=== PATIENT | male | born 1945 | race Caucasian/White ===

== ENCOUNTER 2016-11-12 14:16 | Inpatient (IN) | payer MEDICARE ==
[2016-11-12] MEDS ORDERED: DILTIAZEM 125 MG in SODIUM CHLORIDE 0.9% 100 ML IV ONE (14:48)
[2016-11-12] MEDS ORDERED: HEPARIN SODIUM,PORCINE 5,000 UNIT/ML 1 ML VIAL IV ONE (14:53)
--- NOTE | 2016-11-12 14:53 | ED ---
General Adult HPI - General Chief complaint: Arrhythmia/Palpitations Stated complaint: afib-sent by Time Seen by Provider: 11/12/16 14:30 Source: patient, RN notes reviewed Mode of arrival: wheelchair Limitations: no limitations - History of Present Illness Initial comments: This is a 71-year-old male presents to the emergency department stating that he has a history of atrial fibrillation. Patient states he ran out of his foot tonight a few days ago and did not get it refilled just. Patient states he also was on Xarelto but he quit that about a month ago. Patient states today he felt his heart racing and he went to see his primary medical care doctor's heart rate was between 1 4150 so he was sent to the emergency department. When I was talking to the patient his heart rate would vary between 120 250 beats a minute. Patient states when his heart was really racing he was mildly short of breath. Patient denies any chest pain. Patient denies any recent fever chills or cough. Patient denies abdominal pain patient denies nausea vomiting diarrhea. Patient denies any lightheadedness dizziness or near syncopal episode. - Related Data Home Medications Medication Instructions Recorded Confirmed Valsartan/Hydrochlorothiazide 1 tab PO DAILY 01/16/14 11/12/16 [Diovan Hct 160-12.5 mg Tab] Dextroamphetamine/Amphetamine 30 mg PO BID 11/12/16 11/12/16 [Adderall] Diazepam [Valium] 5 mg PO HS PRN 11/12/16 11/12/16 Flecainide Acetate [Tambocor] 100 mg PO BID 11/12/16 11/12/16 Garlique 1 tab PO DAILY 11/12/16 11/12/16 HYDROcodone/APAP 10-325MG [[place] 1 tab PO TID PRN 11/12/16 11/12/16 10-325] Allergies Allergy/AdvReac Type Severity Reaction Status Date / Time iodine Allergy Rash/Hives Verified 11/12/16 15:44 diphenhydramine HCl AdvReac Hyperactivi Verified 11/12/16 15:44 [From Benadryl] ty heparin AdvReac Unknown Verified 11/12/16 15:44 RAGWEED Allergy Itching Uncoded 11/12/16 14:30 Review of Systems ROS Statement: Those systems with pertinent positive or pertinent negative responses have been documented in the HPI. ROS Other: All systems not noted in ROS Statement are negative. 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'NT HAVE BEYER WITH HIM, blood clots History of Any Multi-Drug Resistant Organisms: None Reported Past Surgical History: Adenoidectomy, Bowel Resection, Joint Replacement, Orthopedic Surgery, Tonsillectomy Additional Past Surgical History / Comment(s): FATTY TUMOR REMOVED LT LEG, LT HIP REPLACEMENT, BOWEL RESECTION DONE FOR CA Past Anesthesia/Blood Transfusion Reactions: No Reported Reaction Past Psychological History: No Psychological Hx Reported Smoking Status: Never smoker Past Alcohol Use History: None Reported Past Drug Use History: None Reported - Past Family History Father Family Medical History: Congestive Heart Failure (CHF) Additional Family Medical History / Comment(s): emphysema, CABG Mother Family Medical History: Hypertension Additional Family Medical History / Comment(s): mac degen Brother(s) Additional Family Medical History / Comment(s): stents in leg General Exam - General Exam Comments Initial Comments: GENERAL: Patient is well-developed and well-nourished. Patient is nontoxic and well- hydrated and is in mild distress. ENT: Neck is soft and supple. No significant lymphadenopathy is noted. Oropharynx is clear. Moist mucous membranes. Neck has full range of motion without eliciting any pain. EYES: The sclera were anicteric and conjunctiva were pink and moist. Extraocular movements were intact and pupils were equal round and reactive to light. Eyelids were unremarkable. PULMONARY: Unlabored respirations. Good breath sounds bilaterally. No audible rales rhonchi or wheezing was noted. CARDIOVASCULAR: Atrial fibrillation with a rapid ventricular response ABDOMEN: Soft and nontender with normal bowel sounds. No palpable organomegaly was noted. There is no palpable pulsatile mass. SKIN: Skin is clear with no lesions or rashes and otherwise unremarkable. NEUROLOGIC: Patient is alert and oriented x3. Cranial nerves II through XII are grossly intact. Motor and sensory are also intact. Normal speech, volume and content. Symmetrical smile. MUSCULOSKELETAL: Normal extremities with adequate strength and full range of motion. LYMPHATICS: No significant lymphadenopathy is noted PSYCHIATRIC: Normal psychiatric evaluation. Limitations: no limitations Course Vital Signs 11/12/16 11/12/16 11/12/16 14:30 14:46 15:05 Temperature 98.4 F Pulse Rate 69 78 111 H Respiratory 18 20 18 Rate Blood Pressure 192/98 127/93 100/71 O2 Sat by Pulse 98 98 97 Oximetry 11/12/16 11/12/16 11/12/16 15:12 15:17 15:22 Temperature Pulse Rate 104 H 106 H 102 H Respiratory 18 18 18 Rate Blood Pressure 104/73 104/70 119/78 O2 Sat by Pulse 97 96 96 Oximetry 11/12/16 11/12/16 11/12/16 15:35 15:42 15:53 Temperature Pulse Rate 104 H 98 93 Respiratory 18 18 18 Rate Blood Pressure 110/68 102/70 105/78 O2 Sat by Pulse 96 98 97 Oximetry 11/12/16 11/12/16 11/12/16 16:45 17:25 18:15 Temperature 98.0 F 97.6 F Pulse Rate 62 60 63 Respiratory 18 18 18 Rate Blood Pressure 120/54 119/70 117/66 O2 Sat by Pulse 95 95 98 Oximetry 11/12/16 11/12/16 11/12/16 18:59 20:00 20:48 Temperature 97.5 F L 97.3 F L 98.0 F Pulse Rate 63 66 64 Respiratory 20 18 64 H Rate Blood Pressure 108/71 143/84 114/63 O2 Sat by Pulse 99 98 98 Oximetry Medical Decision Making - Medical Decision Making EKG shows atrial fibrillation at 100 beats a minute QRS is 134 QT interval 370 QTC is 477 per patient's right bundle branch block. I was in the room with the patient his heart rate was up in the 150 beats a minute for a large portion of the time I was in the room. The lowest I saw the heart rate was 120. Patient was placed on Cardizem to slow his heart rate down prior to patient going to the floor a couple Cardizem and half to 2.5 mg and the patient's heart rate was under 100. I spoke with the primary medical care doctor admitted the patient I consult cardiology. I wrote admitting orders. - Lab Data Result diagrams: 11/12/16 14:55 11/12/16 14:55 Lab Results 03/01/17 03/01/17 03/01/17 Range/Units 14:55 14:55 14:55 WBC 7.6 (3.8-10.6) k/uL RBC 5.35 (4.30-5.90) m/uL Hgb 17.3 (13.0-17.5) gm/dL Hct 48.9 (39.0-53.0) % MCV 91.3 (80.0-100.0) fL MCH 32.3 (25.0-35.0) pg MCHC 35.4 (31.0-37.0) g/dL RDW 12.7 (11.5-15.5) % Plt Count 200 (150-450) k/uL Neutrophils % 62 % Lymphocytes % 25 % Monocytes % 8 % Eosinophils % 4 % Basophils % 1 % Neutrophils # 4.7 (1.3-7.7) k/uL Lymphocytes # 1.9 (1.0-4.8) k/uL Monocytes # 0.6 (0-1.0) k/uL Eosinophils # 0.3 (0-0.7) k/uL Basophils # 0.1 (0-0.2) k/uL PT (9.0-12.0) sec INR (<1.1) APTT (22.0-30.0) sec Sodium 143 (137-145) mmol/L Potassium 3.8 (3.5-5.1) mmol/L Chloride 106 (98-107) mmol/L Carbon Dioxide 26 (22-30) mmol/L Anion Gap 11 mmol/L BUN 21 H (9-20) mg/dL Creatinine 1.55 H (0.66-1.25) mg/dL Est GFR (MDRD) Af Amer 54 (>60 ml/min/1.73 sqM) Est GFR (MDRD) Non-Af 44 (>60 ml/min/1.73 sqM) Glucose 130 H (74-99) mg/dL Calcium 9.7 (8.4-10.2) mg/dL Magnesium 2.1 (1.6-2.3) mg/dL Total Bilirubin 3.3 H (0.2-1.3) mg/dL AST 19 (17-59) U/L ALT 21 (21-72) U/L Alkaline Phosphatase 41 (38-126) U/L Total Creatine Kinase 88 (55-170) U/L CK-MB (CK-2) 1.4 (0.0-2.4) ng/mL CK-MB (CK-2) Rel Index 1.6 Troponin I <0.012 (0.000-0.034) ng/mL Total Protein 7.1 (6.3-8.2) g/dL Albumin 4.1 (3.5-5.0) g/dL 11/12/16 Range/Units 14:55 WBC (3.8-10.6) k/uL RBC (4.30-5.90) m/uL Hgb (13.0-17.5) gm/dL Hct (39.0-53.0) % MCV (80.0-100.0) fL MCH (25.0-35.0) pg MCHC (31.0-37.0) g/dL RDW (11.5-15.5) % Plt Count (150-450) k/uL Neutrophils % % Lymphocytes % % Monocytes % % Eosinophils % % Basophils % % Neutrophils # (1.3-7.7) k/uL Lymphocytes # (1.0-4.8) k/uL Monocytes # (0-1.0) k/uL Eosinophils # (0-0.7) k/uL Basophils # (0-0.2) k/uL PT 11.0 (9.0-12.0) sec INR 1.1 (<1.1) APTT 23.8 (22.0-30.0) sec Sodium (137-145) mmol/L Potassium (3.5-5.1) mmol/L Chloride (98-107) mmol/L Carbon Dioxide (22-30) mmol/L Anion Gap mmol/L BUN (9-20) mg/dL Creatinine (0.66-1.25) mg/dL Est GFR (MDRD) Af Amer (>60 ml/min/1.73 sqM) Est GFR (MDRD) Non-Af (>60 ml/min/1.73 sqM) Glucose (74-99) mg/dL Calcium (8.4-10.2) mg/dL Magnesium (1.6-2.3) mg/dL Total Bilirubin (0.2-1.3) mg/dL AST (17-59) U/L ALT (21-72) U/L Alkaline Phosphatase (38-126) U/L Total Creatine Kinase (55-170) U/L CK-MB (CK-2) (0.0-2.4) ng/mL CK-MB (CK-2) Rel Index Troponin I (0.000-0.034) ng/mL Total Protein (6.3-8.2) g/dL Albumin (3.5-5.0) g/dL Critical Care Time Critical Care Time: Yes Total Critical Care Time: 35 Disposition Clinical Impression: Atrial fibrillation with rapid ventricular response Disposition: ADMITTED IP TO THIS HOSP
[2016-11-12 15:07] LABS: Basophils # (A) 0.1 k/uL (0-0.2); Basophils % (A) 1 %; CH 33.7; CHCM 37.1; Eosinophils # (A) 0.3 k/uL (0-0.7); Eosinophils % (A) 4 %; HCT 48.9 % (39.0-53.0); HDW 3.06; HGB 17.3 gm/dL (13.0-17.5); Luc # (Auto) 0.12; Luc % (Auto) 2; Lymphocytes # (A) 1.9 k/uL (1.0-4.8); Lymphocytes % (A) 25 %; MCH 32.3 pg (25.0-35.0); MCHC 35.4 g/dL (31.0-37.0); MCV 91.3 fL (80.0-100.0); Monocytes # (A) 0.6 k/uL (0-1.0); Monocytes % (A) 8 %; Neutrophils # (A) 4.7 k/uL (1.3-7.7); Neutrophils % (A) 62 %; RBC 5.35 m/uL (4.30-5.90); RDW 12.7 % (11.5-15.5); WBC 7.6 k/uL (3.8-10.6); WBC (Perox) 8.07
[2016-11-12] MEDS: HEPARIN SODIUM,PORCINE/D5W PMX 25,000 UNIT in DEXTROSE/WATER 1 500ML.BAG IV SCH (15:11)
[2016-11-12 15:15] LABS: INR 1.1 (<1.1); Partial Thromboplastin Time 23.8 sec (22.0-30.0)
[2016-11-12 15:25] LABS: Calcium 9.7 mg/dL (8.4-10.2); Magnesium 2.1 mg/dL (1.6-2.3); Potassium 3.8 mmol/L (3.5-5.1); Total Bilirubin 3.3 mg/dL (0.2-1.3); Total Protein 7.1 g/dL (6.3-8.2)
[2016-11-12 15:32] LABS: Creatine Kinase 88 U/L (55-170)
--- NOTE | 2016-11-12 15:35 | XR ---
EXAMINATION TYPE: XR chest 2V DATE OF EXAM: 11/12/2016 3:31 PM COMPARISON: NONE HISTORY: Shortness of breath TECHNIQUE: Frontal and lateral views of the chest are obtained. FINDINGS: Scattered senescent parenchymal changes noted. Hyperinflation compatible with COPD. No evidence for infiltrate. No evidence for atelectasis. Heart size is stable. Mediastinal structures are stable and grossly unremarkable. No evidence for hilar prominence. Degenerative changes dorsal spine. IMPRESSION: 1. No evidence for acute pulmonary disease.
[2016-11-12 15:45] LABS: Creatine Kinase MB 1.4 ng/mL (0.0-2.4); Troponin I <0.012 ng/mL (0.000-0.034)
[2016-11-12] MEDS ORDERED: NITROGLYCERIN SL TABS 0.4 MG TAB SUBLINGUAL PRN (17:23)
[2016-11-12 21:36] VITALS: BMI 29.9
[2016-11-12 21:54] LABS: Creatine Kinase 69 U/L (55-170)
[2016-11-12 22:07] LABS: Creatine Kinase MB 1.4 ng/mL (0.0-2.4); Troponin I <0.012 ng/mL (0.000-0.034)
[2016-11-13 03:33] LABS: Cholesterol 175 mg/dL (<200); HDL Cholesterol 31 mg/dL (40-60)
[2016-11-13 03:37] LABS: Creatine Kinase 47 U/L (55-170)
[2016-11-13 03:50] LABS: Creatine Kinase MB 0.9 ng/mL (0.0-2.4); Troponin I <0.012 ng/mL (0.000-0.034)
[2016-11-13 03:54] LABS: Triglycerides 587 mg/dL (<150)
[2016-11-13 08:18] VITALS: RESP 17; TEMP 97.7
[2016-11-13] MEDS: HEPARIN SODIUM,PORCINE/D5W PMX 25,000 UNIT in DEXTROSE/WATER 1 500ML.BAG IV SCH (08:18)
[2016-11-13] MEDS ORDERED: ASPIRIN 325 MG TAB PO SCH (09:00)
--- NOTE | 2016-11-13 09:54 | P.CRDCN ---
History of Present Illness Consult date: 11/13/16 Requesting physician: [place] Beck Consult reason: atrial fibrillation Chief complaint: Atrial fibrillation History of present illness: This is a 71-year-old gentleman with history of hypertension, hyperlipidemia, [id number] diabetes, paroxysmal atrial fibrillation, who presented to the hospital with atrial fibrillation. Patient states that he had taken his last dose of flecainide, called his doctor for a new prescription , had the prescription filled and took a pill. He states that he checked his blood pressure at the pharmacy, and noted it was on the low side. He went to see his primary care doctor, EKG showed A. fib and he was referred to come to the hospital. Patient had also been on Xarelto for anticoagulation which he states he stopped taking because of the risk of bleeding. I did have a lengthy discussion with this morning regarding the importance of anticoagulation for stroke prevention, he states that he will take Xarelto on a regular basis now. EKG on arrival showed atrial fibrillation patient is currently in normal sinus rhythm. CBC normal. Potassium 3.8, BUN 21, creatinine 1.5. Troponins negative 3. Cholesterol 175, HDL 51, triglycerides 587. Magnesium level 2.1. Blood pressure on arrival here and 192/98, the pressure this morning 127/75. Patient's home medications include valsartan hydrochlorothiazide one tablet daily, flecainide 100 mg by mouth twice a day. At the time of my examination this morning, patient feels well, denies any dizziness or lightheadedness. 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'NT HAVE BEYER WITH HIM, blood clots History of Any Multi-Drug Resistant Organisms: None Reported Past Surgical History: Adenoidectomy, Bowel Resection, Joint Replacement, Orthopedic Surgery, Tonsillectomy Additional Past Surgical History / Comment(s): FATTY TUMOR REMOVED LT LEG, LT HIP REPLACEMENT, BOWEL RESECTION DONE FOR CA Past Anesthesia/Blood Transfusion Reactions: No Reported Reaction Past Psychological History: No Psychological Hx Reported Smoking Status: Never smoker Past Alcohol Use History: None Reported Past Drug Use History: None Reported - Past Family History Father Family Medical History: Congestive Heart Failure (CHF) Additional Family Medical History / Comment(s): emphysema, CABG Mother Family Medical History: Hypertension Additional Family Medical History / Comment(s): mac degen Brother(s) Additional Family Medical History / Comment(s): stents in leg Medications and Allergies Home Medications Medication Instructions Recorded Confirmed Type Valsartan/Hydrochlorothiazide 1 tab PO DAILY 01/16/14 11/12/16 History [Diovan Hct 160-12.5 mg Tab] Dextroamphetamine/Amphetamine 30 mg PO BID 11/12/16 11/12/16 History [Adderall] Diazepam [Valium] 5 mg PO HS PRN 11/12/16 11/12/16 History Flecainide Acetate [Tambocor] 100 mg PO BID 11/12/16 11/12/16 History [place] 1 tab PO DAILY 11/12/16 11/12/16 History HYDROcodone/APAP 10-325MG [[place] 1 tab PO TID PRN 11/12/16 11/12/16 History 10-325] Allergies Allergy/AdvReac Type Severity Reaction Status Date / Time iodine Allergy Rash/Hives Verified 11/12/16 15:44 diphenhydramine HCl AdvReac Hyperactivi Verified 11/12/16 15:44 [From Benadryl] ty heparin AdvReac Unknown Verified 11/12/16 15:44 RAGWEED Allergy Itching Uncoded 11/12/16 14:30 Physical Exam Vitals: Vital Signs Temp Pulse Pulse Resp BP BP Pulse Ox 11/13/16 08:00 97.7 F 58 L 17 127/75 96 11/13/16 04:00 97.1 F L 54 L 16 132/73 96 11/12/16 23:30 58 L 16 110/68 98 11/12/16 21:16 97.4 F L 62 16 123/68 98 11/12/16 20:48 98.0 F 64 64 H 114/63 98 11/12/16 20:00 97.3 F L 66 18 143/84 98 11/12/16 18:59 97.5 F L 63 20 108/71 99 11/12/16 18:15 97.6 F 63 18 117/66 98 11/12/16 17:25 60 18 119/70 95 Intake and Output 0311/13/16 11/13/16 22:59 06:59 14:59 Intake Total 350 Output Total 300 Balance 350 -300 Intake: Oral 350 Output: Urine 300 Other: # Voids 1 0 Weight 91.8 kg 91.5 kg PHYSICAL EXAMINATION: HEENT: Head is atraumatic, normocephalic. Pupils equal, round. Neck is supple. There is no elevated jugular venous pressure. HEART EXAMINATION: Heart S1, S2 systolic murmur heard . CHEST EXAMINATION: Lungs are clear to auscultation and precussion. No chest wall tenderness is noted on palpation or with deep breathing. ABDOMEN: Soft, nontender. Bowel sounds are heard. No organomegaly noted. EXTREMITIES: 2+ peripheral pulses with no evidence of peripheral edema and no calf tenderness noted. NEUROLOGIC patient is awake, alert and oriented -3. . Results 11/12/16 14:55 11/12/16 14:55 Cardiac Enzymes 11/12/16 11/13/16 Range/Units 21:08 03:02 CK-MB (CK-2) 1.4 0.9 (0.0-2.4) ng/mL Troponin I <0.012 <0.012 (0.000-0.034) ng/mL Lipids 11/13/16 Range/Units 03:02 Triglycerides 587 H (<150) mg/dL Cholesterol 175 (<200) mg/dL HDL Cholesterol 31 L (40-60) mg/dL Current Medications Generic Name Dose Route Start Last Admin Trade Name Freq PRN Reason Stop Dose Admin Aspirin 325 mg 11/13/16 09:00 11/13/16 08:18 Aspirin PO 325 mg DAILY [facility] Administration Heparin Sodium/Dextrose 25,000 500 mls @ 20 mls/hr 11/12/16 15:00 11/13/16 08 :18 unit/ IV Solution IV Not Given .Q24H [facility] Protocol 11.31 UNITS/KG/HR Nitroglycerin 0.4 mg 11/12/16 17:23 Nitrostat SUBLINGUAL Q5M PRN Chest Pain Intake and Output 11/12/16 11/13/16 11/13/16 22:59 06:59 14:59 Intake Total 350 Output Total 300 Balance 350 -300 Intake: Oral 350 Output: Urine 300 Other: # Voids 1 0 Weight 91.8 kg 91.5 kg EKG Interpretations (text) EKG on admission showed atrial fibrillation, morning EKG shows normal sinus rhythm. Assessment and Plan Plan: Assessment and plan #1 atrial fibrillation, paroxysmal in nature. #2 hypertension #3 hyperlipidemia #4 diabetes # 5 elevated creatinine, could be secondary to Diovan. Plan We will obtain an echocardiogram with Doppler study. We will also request free T4 and TSH level. We will discontinue the IV Cardizem, and initiate a beta angie. DC Diovan, and initiate valsartan 80 mg daily. Decrease aspirin to 81 mg daily, reinitiate statin. We will also discontinue the IV heparin and put the patient on xarelto. Further recommendations to follow. DNP note has been reviewed, I agree with a documented findings and plan of care. Patient was seen and examined.
[2016-11-13] MEDS ORDERED: METOPROLOL TARTRATE 25 MG TAB PO SCH (10:00)
[2016-11-13 11:14] VITALS: BP 121/65; PULSE 53
[2016-11-13] MEDS ORDERED: METOPROLOL TARTRATE 12.5 MG TAB PO SCH (11:15)
--- NOTE | 2016-11-13 11:17 | P.PN ---
Progress Note - Text This is an addendum to the dictated cardiology consultation. The patient was admitted in 2013 was paroxysmal atrial fibrillation. He has been maintained on flecainide but missed his recent dose and felt palpitations and his blood pressure was low after he took his antihypertensive medication. He denies any chest pain, syncope, peripheral edema or PND. He presented with atrial fibrillation that converted back to sinus mechanism after starting flecainide. He has stopped his anticoagulation on his own about a month ago because of the concern about bleeding. His physical examination shows that he is in sinus mechanism, he has clear lungs and a systolic murmur at the apex. His EKG in sinus mechanism shows sinus bradycardia. I have reinitiated treatment was flecainide, and Xarelto. I will avoid negative chronotropic drugs at this time. We will review the results of his echocardiogram and if there is no evidence of segmental wall motion abnormality then he should be able to be discharged home and followed as an outpatient. The importance of compliance was discussed with the patient. Thank you for this consult we will follow with you.
[2016-11-13] MEDS ORDERED: DIAZEPAM 5 MG TAB PO PRN (12:28)
[2016-11-13] MEDS ORDERED: HYDROcodone/APAP 10-325MG 1 EACH TAB PO PRN (12:28)
[2016-11-13] MEDS ORDERED: HYDROCHLOROTHIAZIDE PO SCH (12:30)
[2016-11-13] MEDS ORDERED: VALSARTAN PO SCH (12:30)
[2016-11-13] MEDS ORDERED: NON-FORMULARY DRUG (Dextroamphetamine/Amphetamine [Adderall] 30 MG) PO SCH (12:30)
--- NOTE | 2016-11-13 12:38 | ECHOF ---
Referral Reason:afib MEASUREMENTS -------- HEIGHT: 175.3 cm WEIGHT: 91.2 kg BP: 127/75 RVIDd: 3.4 cm (< 3.3) IVSd: 1.2 cm (0.6 - 1.1) LVIDd: 4.9 cm (3.9 - 5.3) LVPWd: 1.3 cm (0.6 - 1.1) IVSs: 1.9 cm LVIDs: 3.1 cm LVPWs: 1.6 cm LA Diam: 3.7 cm (2.7 - 3.8) LAESV Index (A-L): 14.52 ml/m Ao Diam: 2.2 cm (2.0 - 3.7) AV Cusp: 1.4 cm (1.5 - 2.6) LA Diam: 3.6 cm (2.7 - 3.8) MV EXCURSION: 13.644 mm (> 18.000) MV EF SLOPE: 26 mm/s (70 - 150) EPSS: 0.6 cm MV E Ryan: 0.44 m/s MV DecT: 340 ms MV A Ryan: 0.42 m/s MV E/A Ratio: 1.06 AR PHT: 1584 ms RAP: 5.00 mmHg RVSP: 17.86 mmHg FINDINGS -------- Sinus rhythm. This was a technically good study. There is mild concentric left ventricular hypertrophy. Overall left ventricular systolic function is normal with, an EF between 55 - 60 %. The right ventricle is mildly enlarged. Normal LA size by volume 22+/-6 ml/m2. The right atrium is normal in size. Aortic valve is trileaflet and is mildly thickened. There is mild aortic regurgitation. Mild mitral annular calcification present. There is trace mitral regurgitation. Trace tricuspid regurgitation present. Right ventricular systolic pressure is normal at < 35 mmHg. Trace/mild (physiologic) pulmonic regurgitation. The aortic root size is normal. The inferior vena cava is mildly dilated. Echo free space may represent effusion or a pericardial fat pad. CONCLUSIONS -------- 1. Sinus rhythm. 2. Mild mitral annular calcification present. 3. There is trace mitral regurgitation. 4. Trace tricuspid regurgitation present. 5. Right ventricular systolic pressure is normal at < 35 mmHg. 6. Trace/mild (physiologic) pulmonic regurgitation. 7. The aortic root size is normal. 8. The inferior vena cava is mildly dilated. 9. Echo free space may represent effusion or a pericardial fat pad. 10. This was a technically good study. 11. There is mild concentric left ventricular hypertrophy. 12. Overall left ventricular systolic function is normal with, an EF between 55 - 60 %. 13. The right ventricle is mildly enlarged. 14. Normal LA size by volume 22+/-6 ml/m2. 15. The right atrium is normal in size. 16. Aortic valve is trileaflet and is mildly thickened. 17. There is mild aortic regurgitation. DYE BOX OPERATOR: Jake Rajan RDCS
[2016-11-13] MEDS ORDERED: FLECAINIDE 50 MG TAB PO SCH (13:00)
--- NOTE | 2016-11-13 15:00 | HP ---
DATE OF ADMISSION: 11/12/2016 PRESENTING COMPLAINT: Heart racing, pounding. HISTORY OF PRESENTING COMPLAINT: This is a 71-year-old patient of Dr. Fields's, chronic stable medical conditions include diabetes, hyperlipidemia, hypertension, BPH. Patient has chronic A. fib for which he takes flecainide. The patient did run out of his medication for one night, went to the pharmacy and then in the meantime, patient's heart started pounding, pulse was racing, became dizzy and therefore, decided to come in. Patient is on no blood thinner. REVIEW OF SYSTEMS: CONSTITUTIONAL: Tired. HEENT: Disease. RESPIRATORY: None. CARDIOVASCULAR: As above. GASTROINTESTINAL: None. GENITOURINARY: None. MUSCULOSKELETAL: None. DERMATOLOGICAL: None. HEMATOLOGICAL: None. LYMPHATIC: None. PSYCHIATRY: None. NEUROLOGICAL: None. PAST MEDICAL HISTORY: Diabetes mellitus type 2, hard of hearing, hyperlipidemia, hypertension, osteoarthritis, PE, enlarged prostate, colon cancer, blood clots. PAST SURGICAL HISTORY: Adenoidectomy, bowel resection, joint replacement, tonsillectomy, fatty tumor removed from left leg left, left hip replacement, bowel resection done for cancer. SOCIAL HISTORY: Does not smoke or drink alcohol. Family history of CABG and congestive heart failure. HOME MEDICATIONS: 1. Diovan 160/12.5 one tablet p.o. daily. 2. [place] 10 one tablet t.i.d. p.r.n. 3. Garlic 1 tablet p.o. daily. 4. Tambocor 100 mg p.o. b.i.d. 5. Valium 5 mg p.o. q.h.s. 6. Adderall 30 mg b.i.d. Allergies to IODINE, BENADRYL, HEPARIN, RAGWEED. On examination, vital signs on presentation: Temperature 98.4, pulse 111, respiration 18, blood pressure 100/71, pulse ox 98% on 2 L. GENERAL APPEARANCE: Average build, sitting up, not in distress. EYES: Pupils equal. Conjunctivae are normal. HEENT: External appearance of nose and ears normal. Oral cavity normal. NECK: JVD not raised. Mass not palpable. Respiratory effort normal. LUNGS: Fair air entry. CARDIOVASCULAR: Heart sounds irregular, no edema. ABDOMEN: Soft, nontender. Liver and spleen not palpable. LYMPHATIC: No lymph node palpable in neck or axillae. PSYCHIATRY: Alert and oriented x3. Mood and affect normal. NEUROLOGICAL: Pupils equal. Cranial nerves grossly intact. Power and sensation grossly intact. MUSCULOSKELETAL: Evidence of osteoarthritis, especially in the hands and knees. INVESTIGATIONS: White count 7.6, hemoglobin 17.3, potassium 3.8. BUN 21, creatinine 1.55, patient's creatinine was 1.33 in 2013. ASSESSMENT: 1. Persistent atrial fibrillation with rapid ventricular rate, having missed a dose of flecainide. Patient is chronically anticoagulated with Xarelto. 2. Essential hypertension. 3. Hyperlipidemia. 4. Benign prostatic hypertrophy. PLAN: Patient was admitted, was put on IV Cardizem, IV heparin initially. Cardiology was consulted.
[2016-11-13] MEDS ORDERED: RIVAROXABAN 10 MG TAB PO SCH (17:30)
[2016-11-13] MEDS ORDERED: ATORVASTATIN 20 MG TAB PO SCH (21:00)
[2016-11-14] MEDS ORDERED: ASPIRIN 81 MG CHEW PO SCH (09:00)
[2016-11-14] MEDS ORDERED: VALSARTAN 80 MG TAB PO SCH (09:00)
--- NOTE | 2016-11-14 10:16 | DS ---
DATE OF ADMISSION: 11/12/2016 DATE OF DISCHARGE: 11/13/2016 FINAL DIAGNOSES: 1. Persistent atrial fibrillation and rapid ventricular, having missed a dose of flecainide, chronically anticoagulated with Xarelto. 2. Essential hypertension. 3. Hyperlipidemia. 4. Benign prostatic hypertrophy. HOSPITAL COURSE: This patient with known atrial fibrillation, did miss a dose of flecainide. His heart started racing, admitted with same, put on IV Cardizem, put back on flecainide, doing well. On examination, LUNGS: Clear. CARDIOVASCULAR: Heart sounds irregular. Two-D echocardiogram showed an EF of 55% to 60%. Consultation with Dr. Ivy. Patient's triglycerides are high at 587. Troponins were negative. TSH is normal. DISCHARGE MEDICATIONS: 1. Adderall 30 mg p.o. b.i.d. 2. Valium 5 mg q.h.s. p.r.n. 3. [place] 10, 1 tablet daily p.r.n. 4. Lipitor 20 mg q.h.s. 5. Flecainide 100 mg b.i.d. 6. Xarelto 20 mg at supper. 7. Diovan 18 mg a day. Follow up with Dr. Pascal on 11/28/2016. Follow up with Dr. Fields in 3 days.
== END 2016-11-13 13:23 | disposition home or self-care (01) | DRG 310 ==
LOC: EC 14:16 → 6SEL 17:24
PROVIDERS: ADMIT Hospitalist; ATTEND Hospitalist
DX: I48.1 Persistent atrial fibrillation (principal); E11.9 Type 2 diabetes mellitus without complications; I45.10 Unspecified right bundle-branch block; I10 Essential (primary) hypertension; I48.2 Chronic atrial fibrillation; I48.0 Paroxysmal atrial fibrillation; T46.5X5A Adverse effect of other antihypertensive drugs, initial encounter; T46.2X6A Underdosing of other antidysrhythmic drugs, initial encounter; T45.516A Underdosing of anticoagulants, initial encounter; E78.5 Hyperlipidemia, unspecified; M19.042 Primary osteoarthritis, left hand; M19.041 Primary osteoarthritis, right hand; R79.89 Other specified abnormal findings of blood chemistry; N40.0 Benign prostatic hyperplasia without lower urinary tract symptoms; H91.92 Unspecified hearing loss, left ear; R06.02 Shortness of breath; R42 Dizziness and giddiness; Z91.041 Radiographic dye allergy status; Z79.01 Long term (current) use of anticoagulants; Z86.711 Personal history of pulmonary embolism; Z82.49 Family history of ischemic heart disease and other diseases of the circulatory system; Z96.642 Presence of left artificial hip joint; Z85.038 Personal history of other malignant neoplasm of large intestine; Z82.5 Family history of asthma and other chronic lower respiratory diseases; Z79.891 Long term (current) use of opiate analgesic; Z79.899 Other long term (current) drug therapy; Z88.8 Allergy status to other drugs, medicaments and biological substances; Z91.048 Other nonmedicinal substance allergy status; Z97.4 Presence of external hearing-aid; Z90.49 Acquired absence of other specified parts of digestive tract; Z91.128 Patient's intentional underdosing of medication regimen for other reason
CPT/HCPCS: 36415; 71020; 80053; 80061; 82550; 82553; 83735; 84439; 84443; 84484; 85025; 85610; 85730; 93005; 93306; 96365; 96366; 99291

== ENCOUNTER 2017-02-14 10:21 | Emergency (ER) | payer MEDICARE ==
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
[2017-02-14 11:39] LABS: Basophils # (A) 0.1 k/uL (0-0.2); Basophils % (A) 1 %; CH 33.4; CHCM 36.7; Eosinophils # (A) 0.5 k/uL (0-0.7); Eosinophils % (A) 8 %; HCT 46.1 % (39.0-53.0); HDW 2.94; HGB 16.1 gm/dL (13.0-17.5); Luc # (Auto) 0.17; Luc % (Auto) 3; Lymphocytes # (A) 1.5 k/uL (1.0-4.8); Lymphocytes % (A) 24 %; MCH 31.9 pg (25.0-35.0); MCHC 34.9 g/dL (31.0-37.0); MCV 91.4 fL (80.0-100.0); Monocytes # (A) 0.3 k/uL (0-1.0); Monocytes % (A) 5 %; Neutrophils # (A) 3.9 k/uL (1.3-7.7); Neutrophils % (A) 59 %; RBC 5.05 m/uL (4.30-5.90); RDW 12.6 % (11.5-15.5); WBC 6.5 k/uL (3.8-10.6); WBC (Perox) 6.42
[2017-02-14 11:50] LABS: ALT 27 U/L (21-72); AST 19 U/L (17-59); Alkaline Phosphatase 44 U/L (38-126); Anion Gap 10 mmol/L; Blood Urea Nitrogen 14 mg/dL (9-20); Carbon Dioxide 24 mmol/L (22-30); Chloride 108 mmol/L (98-107); Glucose 125 mg/dL (74-99); Magnesium 2.1 mg/dL (1.6-2.3); Non-African American GFR(MDRD) >60 (>60 ml/min/1.73 sqM); Potassium 4.1 mmol/L (3.5-5.1); Sodium 142 mmol/L (137-145); Total Bilirubin 2.5 mg/dL (0.2-1.3); Total Protein 6.9 g/dL (6.3-8.2)
[2017-02-14 11:58] LABS: Creatine Kinase 85 U/L (55-170)
[2017-02-14 12:12] LABS: Creatine Kinase MB 1.4 ng/mL (0.0-2.4); Troponin I <0.012 ng/mL (0.000-0.034)
--- NOTE | 2017-02-14 12:30 | CT ---
EXAMINATION TYPE: CT brain clemencia caruso DATE OF EXAM: 02/14/2017 COMPARISON: NONE HISTORY: Face and finger numbness CT DLP: 1757.[address] of the brain was performed. The ventricles, basal cisterns and sulci overlying the cerebral convexities demonstrate mild enlargem ent. There is no evidence for intracranial hemorrhage or sulcal effacement. There is decreased attenuatio n about the periventricular white matter and deep white matter of both cerebral hemispheres, compatib le with chronic small vessel ischemia. No mass effects are seen. If symptoms persist consider MRI. Osseous calvarium is intact. IMPRESSION: 1. Age related atrophic and chronic small vessel ischemic change without acute intracranial process seen at this time. CT Cervical Spine: Unenhanced CT of the cervical spine was performed with bone and soft tissue window settings submitted . Coronal and sagittal reconstruction is obtained. There is normal alignment and prevertebral soft tissues. No evidence for acute cervical fracture . Scattered degenerative disc disease and spondylosis. Biapical scarring. IMPRESSION: 1. No evidence for acute fracture or subluxation of the cervical spine.
[2017-02-14 12:45] VITALS: RESP 20
[2017-02-14 13:14] VITALS: BP 168/72; PULSE 79; TEMP 98.3
== END 2017-02-14 13:10 | disposition home or self-care (01) ==
LOC: EC 10:21
DX: M54.12 Radiculopathy, cervical region (principal); I10 Essential (primary) hypertension; E80.7 Disorder of bilirubin metabolism, unspecified; Z79.899 Other long term (current) drug therapy; Z91.041 Radiographic dye allergy status; Z88.8 Allergy status to other drugs, medicaments and biological substances
CPT/HCPCS: 36415; 70450; 72125; 80053; 82550; 82553; 83735; 84443; 84484; 85025; 93005; 99284

== ENCOUNTER 2017-05-21 00:29 | Inpatient (IN) | payer MEDICARE ==
[2017-05-21] MEDS ORDERED: ASPIRIN 81 MG PO STA (00:56)
[2017-05-21] MEDS ORDERED: SODIUM CHLORIDE 0.9% 500 ML IV STA (00:56)
[2017-05-21] MEDS ORDERED: RIVAROXABAN 10 MG TAB PO STA (01:00)
[2017-05-21] MEDS ORDERED: FLECAINIDE 50 MG TAB PO STA (01:02)
--- NOTE | 2017-05-21 01:02 | ED ---
Chest Pain HPI - General Chief Complaint: Chest Pain Stated Complaint: Chest Pain Hx Afib Time Seen by Provider: 05/21/17 00:36 Source: patient Mode of arrival: ambulatory Limitations: no limitations - History of Present Illness Initial Comments: This patient is a 71-year-old man who presents because he believes he has gone back in atrial fibrillation. The patient states that he was lying in bed at approximately 12:15 today when he felt I would describe as a thump in his chest and then noted that his pulse it accelerated and was irregular. He states that shortly after that he started to feel some substernal chest pain that radiates towards his neck and his left arm. He is feeling a little short of breath and he decided to call EMS. The patient states that he ran out of his medications about 3 days ago. He has not had any Flecanide and he has not had his Xarelto until he found a dose prior to getting any meals tonight. MD Complaint: chest pain, other -: minutes(s) Onset: during rest Pain Location: substernal Pain Radiation: LUE, jaw/teeth Severity: moderate Quality: heaviness Consistency: constant Improves With: nothing Worsens With: nothing Anginal Symptoms: diaphoresis, dyspnea Other Symptoms: palpitations Treatments Prior to Arrival: other (Xarelto) - Related Data Previous Rx's Medication Instructions Recorded Atorvastatin [Lipitor] 40 mg PO DAILY tab 06/01/17 INSULIN LISPRO (humaLOG) [humaLOG 0 unit SQ ACHS vial 06/01/17 (formulary)] INSULIN LISPRO (humaLOG) [humaLOG 3 unit SQ AC-BRKFST vial 06/01/17 (formulary)] INSULIN LISPRO (humaLOG) [humaLOG 3 unit SQ AC-LUNCH #0 vial 06/01/17 (formulary)] INSULIN LISPRO (humaLOG) [humaLOG 5 unit SQ AC-SUPPER vial 06/01/17 (formulary)] Insulin Glargine [Lantus] 16 unit SQ 1800 vial 06/01/17 Magnesium Hydroxide [Milk of 2,400 mg PO BID PRN dose 06/01/17 Magnesia Concentrate] Metoprolol Tartrate [Lopressor] 75 mg PO BID tab 06/01/17 Pantoprazole [Protonix] 40 mg PO AC-BRKFST tab 06/01/17 Sertraline [Zoloft] 50 mg PO DAILY tab 06/01/17 Valsartan [Diovan] 80 mg PO DAILY tab 06/01/17 metFORMIN HCL [Glucophage] 500 mg PO BID-W/MEALS tab 06/01/17 Acetaminophen Tab [Tylenol] 500 mg PO Q4HR PRN tab 06/02/17 Aspirin 81 mg PO DAILY #30 chewable 06/02/17 Rivaroxaban [Xarelto] 20 mg PO DAILY #30 tab 06/02/17 Allergies Allergy/AdvReac Type Severity Reaction Status Date / Time Iodinated Contrast- Oral and Allergy Rash/Hives Verified 05/21/17 07:09 IV Dye [Iodinated Contrast Media - Oral and] diphenhydramine HCl AdvReac Hyperactivi Verified 05/21/17 07:09 [From Benadryl] ty heparin AdvReac Unknown Verified 05/21/17 07:09 RAGWEED Allergy Itching Uncoded 02/14/17 10:31 Review of Systems ROS Statement: Those systems with pertinent positive or pertinent negative responses have been documented in the HPI. ROS Other: All systems not noted in ROS Statement are negative. Constitutional: Denies: fever, chills Respiratory: Reports: dyspnea. Denies: cough Cardiovascular: Reports: chest pain, palpitations. Denies: orthopnea, edema, syncope Gastrointestinal: Denies: abdominal pain, vomiting, diarrhea, melena, hematochezia Genitourinary: Denies: dysuria, hematuria Musculoskeletal: Denies: back pain Skin: Denies: rash Neurological: Denies: headache, weakness, numbness EKG Findings - EKG Results: EKG: interpreted by ERMD, normal axis EKG shows: atrial fibrillation (Rate approximately 108 bpm) - Blocks, [place], Hypertrophy, ST Abn: AV and intraventricular conduction: right bundle branch block (fixed/ intermittent, complete/incomplete) 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'NT HAVE BEYER WITH HIM, blood clots History of Any Multi-Drug Resistant Organisms: None Reported Past Surgical History: Adenoidectomy, Bowel Resection, Joint Replacement, Orthopedic Surgery, Tonsillectomy Additional Past Surgical History / Comment(s): FATTY TUMOR REMOVED LT LEG, LT HIP REPLACEMENT, BOWEL RESECTION DONE FOR CA Past Anesthesia/Blood Transfusion Reactions: No Reported Reaction Past Psychological History: No Psychological Hx Reported Smoking Status: Never smoker Past Alcohol Use History: None Reported Past Drug Use History: None Reported - Past Family History Father Family Medical History: Congestive Heart Failure (CHF) Additional Family Medical History / Comment(s): emphysema, CABG Mother Family Medical History: Hypertension Additional Family Medical History / Comment(s): mac degen Brother(s) Additional Family Medical History / Comment(s): stents in leg General Exam Limitations: no limitations General appearance: alert, in no apparent distress Head exam: Present: atraumatic, normocephalic Neck exam: Present: normal inspection Respiratory exam: Present: normal lung sounds bilaterally. Absent: respiratory distress, wheezes, rales, rhonchi, stridor Cardiovascular Exam: Present: tachycardia, irregular rhythm, normal heart sounds. Absent: systolic murmur, diastolic murmur, rubs, gallop GI/Abdominal exam: Present: soft. Absent: distended, tenderness, guarding, rebound, rigid, mass Extremities exam: Present: normal inspection, normal capillary refill. Absent: pedal edema, calf tenderness Back exam: Present: normal inspection. Absent: CVA tenderness (R), CVA tenderness (L) Neurological exam: Present: alert Skin exam: Present: warm, dry, intact, normal color. Absent: rash Course Vital Signs 05/21/17 05/21/17 05/21/17 00:32 01:31 02:29 Temperature 98.9 F Pulse Rate 65 108 H 106 H Respiratory 20 16 16 Rate Blood Pressure 181/89 165/96 172/97 O2 Sat by Pulse 98 99 95 Oximetry 05/21/17 05/21/17 05/21/17 03:54 04:05 05:05 Temperature Pulse Rate 109 H 56 L 61 Respiratory 18 16 Rate Blood Pressure 155/80 155/80 139/82 O2 Sat by Pulse 97 98 98 Oximetry 05/21/17 05/21/17 06:37 07:25 Temperature 97.5 F L 97.7 F Pulse Rate 56 L 61 Respiratory 16 16 Rate Blood Pressure 146/81 148/87 O2 Sat by Pulse 97 98 Oximetry Chest Pain [facility] Patient 71-year-old man who presents with atrial fibrillation and a rapid ventricular rate. He also had chest pain that developed at that time. The patient did persist in A. fib with a rapid rate and he was being admitted for this, however just before the floor bed was available he did revert to sinus rhythm with a rate proximally 60 bpm and his chest pain was subsiding. Critical Care Time Critical Care Time: Yes (35 minutes) Disposition Clinical Impression: Chest pain, Atrial fibrillation with rapid ventricular response Disposition: ADMITTED IP TO THIS HOSP Condition: Fair
--- NOTE | 2017-05-21 01:28 | XR ---
Exam: XR CXR 1 VIEW History: Dysrhythmia. Comparison: 11/12/16. Technique: Single frontal radiograph. Findings: Minimal prominence of interstitial lung markings. No focal consolidation or significant effusion. Cardiomediastinal silhouette is unremarkable. Impression: No consolidation or significant effusion.
[2017-05-21 01:36] LABS: Partial Thromboplastin Time 24.2 sec (22.0-30.0); Prothrombin Time 10.2 sec (9.0-12.0)
[2017-05-21 01:43] LABS: Basophils # (A) 0.1 k/uL (0-0.2); Basophils % (A) 1 %; CH 33.8; CHCM 37.3; Eosinophils # (A) 0.5 k/uL (0-0.7); Eosinophils % (A) 5 %; HCT 48.7 % (39.0-53.0); HDW 3.06; HGB 17.9 gm/dL (13.0-17.5); Hyperchromasia Slight; Luc # (Auto) 0.24; Luc % (Auto) 3; Lymphocytes # (A) 2.6 k/uL (1.0-4.8); Lymphocytes % (A) 30 %; MCH 33.5 pg (25.0-35.0); MCHC 36.8 g/dL (31.0-37.0); MCV 91.1 fL (80.0-100.0); Mean Platelet Volume 6.9; Monocytes # (A) 0.5 k/uL (0-1.0); Monocytes % (A) 6 %; Neutrophils # (A) 4.9 k/uL (1.3-7.7); Neutrophils % (A) 56 %; RBC 5.34 m/uL (4.30-5.90); RDW 12.7 % (11.5-15.5); WBC 8.8 k/uL (3.8-10.6); WBC (Perox) 8.82
[2017-05-21 01:54] LABS: ALT 36 U/L (21-72); AST 24 U/L (17-59); Alkaline Phosphatase 62 U/L (38-126); Anion Gap 14 mmol/L; Blood Urea Nitrogen 16 mg/dL (9-20); Calcium 9.3 mg/dL (8.4-10.2); Carbon Dioxide 23 mmol/L (22-30); Chloride 105 mmol/L (98-107); Glucose 125 mg/dL (74-99); Non-African American GFR(MDRD) >60 (>60 ml/min/1.73 sqM); Potassium 3.7 mmol/L (3.5-5.1); Sodium 142 mmol/L (137-145); Total Bilirubin 2.3 mg/dL (0.2-1.3); Total Protein 7.6 g/dL (6.3-8.2)
[2017-05-21 02:00] LABS: Creatine Kinase 79 U/L (55-170)
[2017-05-21 02:13] LABS: Creatine Kinase MB 1.4 ng/mL (0.0-2.4); Troponin I <0.012 ng/mL (0.000-0.034)
[2017-05-21] MEDS ORDERED: NITROGLYCERIN SL TABS 0.4 MG TAB SUBLINGUAL PRN ×2 (04:37→10:10)
[2017-05-21] MEDS ORDERED: HYDROcodone/APAP 10-325MG 1 EACH TAB PO PRN (04:40)
[2017-05-21] MEDS ORDERED: DIAZEPAM 5 MG TAB PO PRN (04:40)
[2017-05-21] MEDS ORDERED: predniSONE 20 MG TAB PO SCH (09:00)
--- NOTE | 2017-05-21 09:08 | P.CRDCN ---
History of Present Illness Consult date: 05/21/17 Consult reason: atrial fibrillation History of present illness: 71-year-old gentleman with history of paroxysmal atrial fibrillation comes to hospital with an episode of atrial fibrillation with rapid ventricular rate. She came in with symptoms of palpitations and chest discomfort 80 at he converted to sinus rhythm in the emergency room and his symptoms have resolved. He denies chest pain difficulty in breathing palpitations dizziness or syncope. Admission EKG showed atrial fibrillation with rapid ventricular rate. One set of troponin is negative. Patient ran out of his medications and I think he went into A. fib as a result. His back on his medications now and is free of symptoms and does not require further testing at this stage. We will obtain a 2-D echo on him to evaluate the LV function. He has had prior extensive workup through Dr. Contreras. Review of Systems Constitutional: Denies chills. Denies fever. Eyes: Denies blurred vision. Denies pain. Ears, nose, mouth and throat: Denies headache. Denies sore throat. Cardiovascular: has chest pain. Denies shortness of breath. Palpitations Respiratory: Denies cough. Gastrointestinal: Denies abdominal pain. Denies diarrhea. Denies nausea. Denies vomiting. Musculoskeletal: Denies myalgias. Integumentary: Denies pruritus. Denies rash. Neurological: Denies numbness. Denies weakness. Psychiatric: Denies anxiety. Denies depression. Endocrine: Denies fatigue. Denies weight change. Genitourinary: Denies burning, hematuria, frequency of urination. Hematological: No anemia or excess bleeding. 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'NT HAVE BEYER WITH HIM, blood clots History of Any Multi-Drug Resistant Organisms: None Reported Past Surgical History: Adenoidectomy, Bowel Resection, Joint Replacement, Orthopedic Surgery, Tonsillectomy Additional Past Surgical History / Comment(s): FATTY TUMOR REMOVED LT LEG, LT HIP REPLACEMENT, BOWEL RESECTION DONE FOR CA Past Anesthesia/Blood Transfusion Reactions: No Reported Reaction Past Psychological History: No Psychological Hx Reported Smoking Status: Never smoker Past Alcohol Use History: None Reported Past Drug Use History: None Reported - Past Family History Father Family Medical History: Congestive Heart Failure (CHF) Additional Family Medical History / Comment(s): emphysema, CABG Mother Family Medical History: Hypertension Additional Family Medical History / Comment(s): mac degen Brother(s) Additional Family Medical History / Comment(s): stents in leg Medications and Allergies Home Medications Medication Instructions Recorded Confirmed Type Dextroamphetamine/Amphetamine 30 mg PO BID@0800,1400 11/12/16 05/21/17 History [Adderall] Diazepam [Valium] 5 mg PO BID PRN 11/12/16 05/21/17 History HYDROcodone/APAP 10-325MG [[place] 1 tab PO TID PRN 11/12/16 05/21/17 History 10-325] Flecainide Acetate [Tambocor] 100 mg PO BID #60 tablet 11/13/16 05/21/17 Rx Valsartan [Diovan] 80 mg PO DAILY #30 tab 11/13/16 05/21/17 Rx Rivaroxaban [Xarelto] 20 mg PO DAILY 05/21/17 05/21/17 History Allergies Allergy/AdvReac Type Severity Reaction Status Date / Time Iodinated Contrast- Oral and Allergy Rash/Hives Verified 05/21/17 07:09 IV Dye [Iodinated Contrast Media - Oral and] diphenhydramine HCl AdvReac Hyperactivi Verified 05/21/17 07:09 [From Benadryl] ty heparin AdvReac Unknown Verified 05/21/17 07:09 RAGWEED Allergy Itching Uncoded 02/14/17 10:31 Physical Exam Vitals: Vital Signs Temp Pulse Pulse Resp BP BP Pulse Ox 05/21/17 08:00 97.3 F L 53 L 16 139/76 99 05/21/17 07:25 97.7 F 61 16 148/87 98 05/21/17 06:37 97.5 F L 56 L 16 146/81 97 05/21/17 05:05 61 16 139/82 98 05/21/17 04:05 56 L 155/80 98 05/21/17 03:54 109 H 18 155/80 97 05/21/17 02:29 106 H 16 172/97 95 05/21/17 01:31 108 H 16 165/96 99 05/21/17 00:32 98.9 F 65 20 181/89 98 Intake and Output 05/20/17 05/21/17 05/21/17 22:59 06:59 14:59 Intake Total 0 Balance 0 Intake: Oral 0 Other: Weight 92.986 kg General: The patient is awake and alert, in no distress, and does not appear acutely ill. Skin: Skin is warm and dry and no rashes or lesions are noted. Eye: Pupils are equal, round and reactive to light, extra-ocular movements are intact; there is normal conjunctiva bilaterally. Ears, nose, mouth and throat: There are moist mucous membranes and no oral lesions. Neck: The neck is supple, there is no tenderness or JVD. Cardiovascular: There is a regular rate and rhythm. No murmur, rub or gallop is appreciated. Respiratory: Lungs are clear to auscultation, respirations are non-labored, breath sounds are equal. Gastrointestinal: Soft, non-distended, non-tender abdomen without masses or organomegaly noted. There is no rebound or guarding present. Bowel sounds are unremarkable. Back: There is no tenderness to palpation in the midline. There is no obvious deformity. Musculoskeletal: Normal ROM, no tenderness, There is no pedal edema. There is no calf tenderness or swelling. Extremities: No edema. Vascular: Femoral pulse is normal. Posterior tibial pulses are normal .Dorsalis pedis is palpable. Neurological: CN II-XII intact. There are no obvious motor or sensory deficits. Speech is normal. Psychiatric: Cooperative, appropriate mood & affect, normal judgment. Results 05/21/17 00:50 05/21/17 00:50 Cardiac Enzymes 05/21/17 05/21/17 Range/Units 00:50 00:50 AST 24 (17-59) U/L CK-MB (CK-2) 1.4 (0.0-2.4) ng/mL Troponin I <0.012 (0.000-0.034) ng/mL Coagulation 05/21/17 Range/Units 00:50 PT 10.2 (9.0-12.0) sec APTT 24.2 (22.0-30.0) sec CBC 05/21/17 Range/Units 00:50 WBC 8.8 (3.8-10.6) k/uL RBC 5.34 (4.30-5.90) m/uL Hgb 17.9 H (13.0-17.5) gm/dL Hct 48.7 (39.0-53.0) % Plt Count 192 (150-450) k/uL Comprehensive Metabolic Panel 05/21/17 Range/Units 00:50 Sodium 142 (137-145) mmol/L Potassium 3.7 (3.5-5.1) mmol/L Chloride 105 (98-107) mmol/L Carbon Dioxide 23 (22-30) mmol/L BUN 16 (9-20) mg/dL Creatinine 1.10 (0.66-1.25) mg/dL Glucose 125 H (74-99) mg/dL Calcium 9.3 (8.4-10.2) mg/dL AST 24 (17-59) U/L ALT 36 (21-72) U/L Alkaline Phosphatase 62 (38-126) U/L Total Protein 7.6 (6.3-8.2) g/dL Albumin 4.5 (3.5-5.0) g/dL Current Medications Generic Name Dose Route Start Last Admin Trade Name Freq PRN Reason Stop Dose Admin Hydrocodone Bitart/Acetaminophen 1 each 05/21/17 04:40 [place] 10 PO TID PRN Pain Aspirin 325 mg 05/22/17 09:00 Aspirin PO DAILY [facility] Atorvastatin Calcium 20 mg 05/21/17 21:00 Lipitor PO HS AZIZA Diazepam 5 mg 05/21/17 04:40 Valium PO HS PRN Insomnia Flecainide Acetate 100 mg 05/21/17 09:00 Tambocor PO BID [facility] Nitroglycerin 0.4 mg 05/21/17 04:37 Nitrostat SUBLINGUAL Q5M PRN Chest Pain Prednisone 20 mg 05/21/17 09:00 PO BID [facility] Rivaroxaban 20 mg 05/21/17 17:30 Xarelto PO W/SUPPER AZIZA Valsartan 80 mg 05/21/17 09:00 Diovan PO DAILY [facility] Intake and Output 05/20/17 05/21/17 05/21/17 22:59 06:59 14:59 Intake Total 0 Balance 0 Intake: Oral 0 Other: Weight 92.986 kg 05/21/17 00:50 05/21/17 00:50 EKG Interpretations (text) Atrial fibrillation with rapid ventricular rate Assessment and Plan Plan: Paroxysmal atrial fibrillation Patient is doing well this morning converted back to sinus rhythm I reviewed his old records had an echocardiogram in November that showed normal LV function. Apparently had a negative stress test within the last 1 year. I will resume on his medications and make sure that he has adequate coverage for medications and discharge. He is stable to be discharged home and arrange follow-up for Dr. Pascal. If necessary we can consider an outpatient stress test on him
[2017-05-21 09:48] LABS: Creatine Kinase MB 5.3 ng/mL (0.0-2.4); Troponin I 1.02 ng/mL (0.000-0.034)
[2017-05-21] MEDS ORDERED: ASPIRIN 325 MG TAB PO STA (10:10)
[2017-05-21] MEDS ORDERED: ALPRAZolam 0.5 MG TAB PO PRN (10:10)
[2017-05-21] MEDS ORDERED: ALPRAZolam 0.25 MG TAB PO PRN (10:10)
[2017-05-21] MEDS ORDERED: ATORVASTATIN 80 MG TAB PO STA (10:10)
[2017-05-21] MEDS ORDERED: SODIUM CHLORIDE 0.9% 1,000 ML in EMPTY BAG 1 BAG IV ONE (10:10)
[2017-05-21] MEDS ORDERED: methylPREDNISolone SOD SUCCI 125 MG/2 ML VIAL IV STA (10:15)
[2017-05-21 10:35] LABS: Glucose,Whole Blood 121 mg/dL (75-99)
[2017-05-21] MEDS: VALSARTAN 80 MG TAB PO SCH (11:46)
[2017-05-21] MEDS: FLECAINIDE 50 MG TAB PO SCH ×2 (11:46→20:08)
[2017-05-21 11:55] LABS: Glucose,Whole Blood 207 mg/dL (75-99)
[2017-05-21 13:39] LABS: Creatine Kinase MB 5.7 ng/mL (0.0-2.4); Troponin I 1.93 ng/mL (0.000-0.034)
[2017-05-21] MEDS ORDERED: NON-FORMULARY DRUG (Dextroamphetamine/Amphetamine [Adderall] 30 MG) PO SCH (14:00)
[2017-05-21] MEDS ORDERED: RIVAROXABAN 10 MG TAB PO SCH (17:30)
--- NOTE | 2017-05-21 18:26 | HP ---
HISTORY AND PHYSICAL DATE OF ADMISSION: 05/21/2017 PRESENTING COMPLAINT: Heart racing. HISTORY OF PRESENTING COMPLAINT: This is a 71-year-old patient of Dr. Fields. He also follows with Dr. Pascal from Cardiology. Chronic stable medical conditions include hypertension, hyperlipidemia, BPH, diabetes, osteoarthritis. The patient is on flecainide. The patient has missed 2 or 3 doses, felt his heart racing, and yesterday evening he developed chest pressure going across. It lasted for a good few hours. There was no shortness of breath, no perspiration, no radiation, no dizziness. The patient in the ER got some flecainide and he reverted back to sinus rhythm, but because he was having chest pain, it was decided to admit him to make sure patient was not ruling in for an HI. REVIEW OF SYSTEMS: CONSTITUTIONAL: Tired. HEENT: None. RESPIRATORY: As above. CARDIOVASCULAR: As above. GASTROINTESTINAL: None. : None. MUSCULOSKELETAL: Aches and pains in some joints. DERMATOLOGIC: None. HEMATOLOGIC: None. LYMPHATIC: None. PSYCHIATRY: None. NEUROLOGIC: None. PAST MEDICAL HISTORY: 1. Hypertension. 2. Hyperlipidemia. 3. BPH. 4. Diabetes, type 2. 5. Osteoarthritis. 6. Colon cancer. 7. ADD. 8. Pulmonary embolism. PAST SURGICAL HISTORY: 1. Adenoidectomy. 2. Bowel resection for carcinoma of the colon. 3. Joint replacement. 4. Tonsillectomy. 5. Fatty tumor removed from left leg. 6. Left hip replacement. SOCIAL HISTORY: No smoking. No alcohol. Lives by himself. FAMILY HISTORY: Congestive heart failure and coronary artery bypass. HOME MEDICATIONS: 1. Diovan 80 mg p.o. daily. 2. Xarelto 20 mg p.o. daily. 3. [place] 10 one tablet p.o. t.i.d. p.r.n. 4. Tambocor 100 mg p.o. b.i.d. 5. Valium 5 mg p.o. b.i.d. p.r.n. 6. Adderall 30 mg p.o. b.i.d. ALLERGIES: 1. IV CONTRAST DYE. 2. HEPARIN. 3. RAGWEED. PHYSICAL EXAMINATION: Temperature 97.3, pulse 53, respiration 16, blood pressure 139/76, pulse ox 99% on room air. GENERAL APPEARANCE: Well built; BMI of 30.3. Lying in bed. Not in distress. EYES: Pupils equal. Conjunctivae normal. HEENT: Oral cavity normal. NECK: JVD not raised. Mass not palpable. RESPIRATORY: Effort normal. Lungs are clear. CARDIOVASCULAR: First and second sounds normal. No edema. ABDOMEN: Soft, non-tender. Liver and spleen not palpable. LYMPHATICS: No lymph node palpable in neck or axillae. PSYCHIATRY: Alert and oriented x3. Mood and affect normal. NEUROLOGICAL: Pupils equal. Cranial nerves grossly intact. Power and sensation grossly intact. INVESTIGATIONS: White count 8.8, hemoglobin 17.9, platelets 192, potassium 3.7, BUN and creatinine are normal. Troponin less than 0.012, 1.020. Initial EKG shows atrial fibrillation with a rate of 108. ASSESSMENT: 1. Acute non-Q-wave myocardial infarction, probably precipitated by atrial fibrillation. 2. Persistent atrial fibrillation with rapid ventricular rate, present on admission. 3. Essential hypertension. 4. Hyperlipidemia. 5. Benign prostatic hypertrophy. 6. Primary osteoarthritis in multiple joints bilaterally. 7. History of colon cancer with surgery. 8. Attention deficit disorder. PLAN: Patient is on aspirin. He was started on flecainide in the ER. The patient is ruling in for acute HI. Cardiology is already on the case. Patient will probably need a cardiac catheterization. Care was discussed with the patient. Follow with Cardiology. MMODL / IJN: [id number] /
[2017-05-21] MEDS: predniSONE 20 MG TAB PO SCH (20:08)
[2017-05-21] MEDS: ATORVASTATIN 20 MG TAB PO SCH (20:11)
[2017-05-21 21:07] LABS: Glucose,Whole Blood 169 mg/dL (75-99)
--- NOTE | 2017-05-21 23:13 | P.CONS ---
History of Present Illness - Reason for Consult Consult date: 05/21/17 History of HIT - History of Present Illness The patient is 71-year-old male, with a long-standing history of paroxysmal atrial fibrillation. He came into the hospital, because of fairly sudden onset of shortness of breath and chest discomfort along with the feeling of his heart racing. He was found to be negative fibrillation with RVR. In the emergency room he converted back to sinus rhythm, with resolution of symptoms. Labs did show elevation of troponin's. The patient was seen by cardiology, and cardiac catheterization is planned. The patient will need to be on heparin, during the procedure. In 2010, the patient had developed a left lower extremity DVT and PE. This had occurred after colon resection. He was started on treatment with IV heparin, but subsequently developed a drop in platelets. 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 This was at [facility]. He did not have any thrombosis related to the HIT. His platelets did improve after heparin was stopped. He he was changed over to Xarelto, and has been continued on that since then, due to his paroxysmal A. fib. Consult was placed for further recommendations, given this history Review of Systems Constitutional: Denies chills, Denies fever Eyes: denies blurred vision, denies pain Ears: deny: decreased hearing, ear discharge, earache, tinnitus Ears, nose, mouth and throat: Denies headache, Denies sore throat Cardiovascular: Reports chest pain, Reports irregular heart beat, Reports palpitations, Reports rapid heart beat, Reports shortness of breath Respiratory: Reports dyspnea Gastrointestinal: Denies abdominal pain, Denies diarrhea, Denies nausea, Denies vomiting Genitourinary: Reports as per HPI Musculoskeletal: Denies myalgias Integumentary: Denies pruritus, Denies rash Neurological: Denies numbness, Denies weakness Psychiatric: Denies anxiety, Denies depression Endocrine: Denies fatigue, Denies weight change Hematologic/Lymphatic: Reports thrombophilia (History of DVT and PE, provoked due to surgery. History of heparin-induced thrombocytopenia) 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'NT HAVE BEYER WITH HIM, blood clots History of Any Multi-Drug Resistant Organisms: None Reported Past Surgical History: Adenoidectomy, Bowel Resection, Joint Replacement, Orthopedic Surgery, Tonsillectomy Additional Past Surgical History / Comment(s): FATTY TUMOR REMOVED LT LEG, LT HIP REPLACEMENT, BOWEL RESECTION DONE FOR CA Past Anesthesia/Blood Transfusion Reactions: No Reported Reaction Past Psychological History: No Psychological Hx Reported Smoking Status: Never smoker Past Alcohol Use History: None Reported Past Drug Use History: None Reported - Past Family History Father Family Medical History: Congestive Heart Failure (CHF) Additional Family Medical History / Comment(s): emphysema, CABG Mother Family Medical History: Hypertension Additional Family Medical History / Comment(s): mac degen Brother(s) Additional Family Medical History / Comment(s): stents in leg Medications and Allergies Home Medications Medication Instructions Recorded Confirmed Type Dextroamphetamine/Amphetamine 30 mg PO BID@0800,1400 11/12/16 05/21/17 History [Adderall] Diazepam [Valium] 5 mg PO BID PRN 11/12/16 05/21/17 History HYDROcodone/APAP 10-325MG [[place] 1 tab PO TID PRN 11/12/16 05/21/17 History 10-325] Flecainide Acetate [Tambocor] 100 mg PO BID #60 tablet 11/13/16 05/21/17 Rx Valsartan [Diovan] 80 mg PO DAILY #30 tab 11/13/16 05/21/17 Rx Rivaroxaban [Xarelto] 20 mg PO DAILY 05/21/17 05/21/17 History Allergies Allergy/AdvReac Type Severity Reaction Status Date / Time Iodinated Contrast- Oral and Allergy Rash/Hives Verified 05/21/17 07:09 IV Dye [Iodinated Contrast Media - Oral and] diphenhydramine HCl AdvReac Hyperactivi Verified 05/21/17 07:09 [From Benadryl] ty heparin AdvReac Unknown Verified 05/21/17 07:09 RAGWEED Allergy Itching Uncoded 02/14/17 10:31 Physical Exam Vitals: Vital Signs Temp Pulse Pulse Resp BP BP Pulse Ox 05/21/17 20:00 97 F L 53 L 16 132/76 95 05/21/17 15:50 98.8 F 55 L 16 129/75 97 05/21/17 11:00 53 L 12 140/88 99 05/21/17 08:00 97.3 F L 53 L 16 139/76 99 05/21/17 07:55 12 05/21/17 07:25 97.7 F 61 16 148/87 98 05/21/17 06:37 97.5 F L 56 L 16 146/81 97 05/21/17 05:05 61 16 139/82 98 05/21/17 04:05 56 L 155/80 98 05/21/17 03:54 109 H 18 155/80 97 05/21/17 02:29 106 H 16 172/97 95 05/21/17 01:31 108 H 16 165/96 99 05/21/17 00:32 98.9 F 65 20 181/89 98 Intake and Output 05/21/17 05/21/17 05/21/17 06:59 14:59 22:59 Intake Total 360 332 Balance 360 332 Intake: IV 92 Sodium Chloride 0.9% 1, 92 000 ml In Empty Bag 1 bag @ 1 ML/KG/HR 92.98 mls/ hr IV [id number] ONE Rx#: [id number] Oral 360 240 Other: # Voids 2 Weight 92.986 kg - Constitutional General appearance: no acute distress - EENT Eyes: EOMI, PERRLA ENT: hearing grossly normal, normal oropharynx - Neck Neck: no lymphadenopathy Thyroid: bilateral: normal size - Respiratory Respiratory: bilateral: CTA - Cardiovascular Rhythm: regular Heart sounds: normal: S1, S2 - Gastrointestinal General gastrointestinal: normal bowel sounds, soft - Integumentary Integumentary: normal - Neurologic Neurologic: CNII-XII intact - Musculoskeletal Musculoskeletal: strength equal bilaterally - Psychiatric Psychiatric: A&O x's 3, appropriate affect Results CBC & Chem 7: 05/21/17 00:50 05/21/17 00:50 Labs: Abnormal Lab Results - Last 24 Hours (Table) 05/21/17 05/21/17 05/21/17 Range/Units 00:50 00:50 07:27 Hgb 17.9 H (13.0-17.5) gm/dL Glucose 125 H (74-99) mg/dL POC Glucose (mg/dL) (75-99) mg/dL Total Bilirubin 2.3 H (0.2-1.3) mg/dL CK-MB (CK-2) 5.3 H* (0.0-2.4) ng/mL Troponin I 1.020 H* (0.000-0.034) ng/mL 05/21/17 05/21/17 05/21/17 Range/Units 10:31 11:52 12:38 Hgb (13.0-17.5) gm/dL Glucose (74-99) mg/dL POC Glucose (mg/dL) 121 H 207 H (75-99) mg/dL Total Bilirubin (0.2-1.3) mg/dL CK-MB (CK-2) 5.7 H* (0.0-2.4) ng/mL Troponin I 1.930 H* (0.000-0.034) ng/mL 05/21/17 Range/Units 21:05 Hgb (13.0-17.5) gm/dL Glucose (74-99) mg/dL POC Glucose (mg/dL) 169 H (75-99) mg/dL Total Bilirubin (0.2-1.3) mg/dL CK-MB (CK-2) (0.0-2.4) ng/mL Troponin I (0.000-0.034) ng/mL Chest x-ray: report reviewed Assessment and Plan (1) HIT (heparin-induced thrombocytopenia) Narrative/Plan: The patient gives a history of the same, though we don't have records available from that visit. His history appears be quite reliable. The patient was subsequently treated with Xarelto, and continues on that because of his history of A. fib. His not had any exposure to heparin or Lovenox since. Generally the antibody level tends to fall within 6-12 months following the last exposure to heparin or Lovenox. Therefore if more than a year has elapsed since last exposure, heparin or Lovenox can be used for short periods of time, such as for cardiac catheterization with relative safety. Another option would be to use a non-heparinoid, such as Argatroban or lepirudin. The patient was quite apprehensive about using heparin or Lovenox again. He stated that he had been treated with Argatroban during his initial episode, and tolerated it quite well. It was confirmed with the pharmacist, and that the medication was available. I discussed the case with Dr. Sharma. Argatroban will be utilized, for the procedure. The patient will subsequently be placed back on Xarelto. Status: Acute (2) Chest pain Narrative/Plan: This is felt to be due to recurrent atrial fibrillation, with RVR. Symptoms have resolved, once patient reverted back to sinus rhythm. However troponins were elevated due to which she will have a cardiac catheterization tomorrow. Defer to cardiology and the admitting service for ongoing management Status: Acute
[2017-05-22] MEDS: diphenhydrAMINE 25 MG CAP PO SCH ×3 (05:31→20:56)
[2017-05-22 06:05] LABS: Glucose,Whole Blood 189 mg/dL (75-99)
[2017-05-22] MEDS: VALSARTAN 80 MG TAB PO SCH (06:33)
[2017-05-22] MEDS: predniSONE 20 MG TAB PO SCH ×2 (06:33→21:02)
[2017-05-22] MEDS: FLECAINIDE 50 MG TAB PO SCH ×2 (06:33→21:02)
[2017-05-22 06:39] LABS: Basophils % (A) 0 %; CH 33.2; CHCM 36.3; Eosinophils % (A) 0 %; HCT 44.1 % (39.0-53.0); HDW 3.12; HGB 15.7 gm/dL (13.0-17.5); Luc # (Auto) 0.09; Luc % (Auto) 1; Lymphocytes # (A) 0.8 k/uL (1.0-4.8); Lymphocytes % (A) 10 %; MCH 32.8 pg (25.0-35.0); MCHC 35.7 g/dL (31.0-37.0); Mean Platelet Volume 7.1; Monocytes # (A) 0.2 k/uL (0-1.0); Monocytes % (A) 3 %; Neutrophils % (A) 86 %; RBC 4.79 m/uL (4.30-5.90); RDW 12.7 % (11.5-15.5); WBC 8.2 k/uL (3.8-10.6); WBC (Perox) 8.49
[2017-05-22 06:51] LABS: Anion Gap 10 mmol/L; Blood Urea Nitrogen 23 mg/dL (9-20); Carbon Dioxide 19 mmol/L (22-30); Chloride 110 mmol/L (98-107); Cholesterol 191 mg/dL (<200); Glucose 193 mg/dL (74-99); HDL Cholesterol 46 mg/dL (40-60); Non-African American GFR(MDRD) 55 (>60 ml/min/1.73 sqM); Potassium 4.4 mmol/L (3.5-5.1); Sodium 139 mmol/L (137-145)
[2017-05-22] MEDS ORDERED: ASPIRIN 325 MG TAB PO SCH (09:00)
[2017-05-22] MEDS ORDERED: SODIUM CITRATE 250 ML MISCELLANE ONE (09:00)
[2017-05-22] MEDS ORDERED: methylPREDNISolone SOD SUCCI 125 MG/2 ML VIAL ONE (09:40)
[2017-05-22] MEDS ORDERED: methylPREDNISolone SOD SUCCI 125 MG/2 ML VIAL IV ONE (09:47)
[2017-05-22] MEDS ORDERED: SODIUM CHLORIDE 0.9% 1,000 ML IV ONE (09:47)
[2017-05-22] MEDS ORDERED: MIDAZOLAM 2 MG/2 ML VIAL ONE (09:56)
[2017-05-22] MEDS ORDERED: MIDAZOLAM 2 MG/2 ML VIAL IV ONE (09:59)
[2017-05-22] MEDS ORDERED: LIDOCAINE 2% INJ 20 MG/ML SQ ONE (10:01)
[2017-05-22] MEDS ORDERED: fentaNYL (PF) 50 MCG/ML 2 ML AMP ONE (10:05)
[2017-05-22] MEDS ORDERED: fentaNYL (PF) 50 MCG/ML 2 ML AMP IV ONE (10:07)
--- NOTE | 2017-05-22 10:29 | P.OP ---
Date of Procedure: 05/22/17 Preoperative Diagnosis: Non-ST segment elevation CO Postoperative Diagnosis: Procedure(s) Performed: Implants: Anesthesia: MAC Indications for Procedure: Non-ST segment elevation CO Operative Findings: Referring Physician: Indication: [Non-ST segment elevation CO] Procedure Note: [] After obtaining informed consent left heart catheterization and coronary angiogram were performed via the right femoral artery using standard Sushila catheters. Patient tolerated the procedure well without any obvious immediate complications. Patient received moderate conscious sedation total sedation time is 15 minutes Findings: [] Hemodynamics: Left ventricular end-diastolic pressure is 14 mm Left Ventriculogram: [Not performed] Angiographic Data:] #1 Left Main Coronary Artery: Eyes appears calcified but is free of stenosis #2 Left Anterior Descending Coronary Artery: Shows moderate diffuse disease in mid LAD shows a 70% stenosis #3 Circumflex Coronary Artery: [Nondominant vessel and is free of stenosis] #4 Right Coronary Artery: Large dominant vessel that shows a 95% stenosis in its midportion. There are extensive [id number] collaterals Conclusions: #1: Two-vessel coronary artery disease as described above #2: Patient will undergo angioplasty of the right coronary artery and the LAD will be addressed at a later time Plan: PTCA with stent of the right coronary artery Description of Procedure:
--- NOTE | 2017-05-22 10:33 | P.PN ---
<Los Beck - Last Filed: 05/23/17 13:20> Progress Note - Text Attending note. Date of service-05/22/2017 This patient was seen and examined by me . Discussed the patient with my nurse practitioner Ms. Keith. Admitted with atrial fibrillation and controlled and ruled in for an acute [place]. Daughter at the bedside. On examination: Lungs-clear, cardiovascular-heart sounds irregular, psych anxious appearing Investigations: Creatinine 1.29, telemetry A. fib Assessment and plan: Acute non-Q-wave [place]./Atrial fibrillation and control/. Condition current medication treatment plan. Awaiting cardiac cath. Care discussed with the patient daughter <Tonya Keith - Last Filed: 05/23/17 13:55> Progress Note - Text DATE OF SERVICE: 05/22/2017 PRESENTING COMPLAINT: Atrial fibrillation/chest pain HISTORY OF PRESENT ILLNESS: Patient presented after he felt his heart racing at home, missed 2 doses of his flecainide and had associated chest pain and pressure going across the chest. Last for a few hours. Admitted with atrial fibrillation and subsequently ruled in for an acute [place]. INTERVAL HISTORY: 05/22/2017: Awake sitting up in bed, scheduled cardiac catheterization today. No further episodes of chest pain or pressure. Ambulatory in the room and D[place]. REVIEW OF SYSTEMS: Done for constitutional ,cardiovascular, GI, pulmonary with relevant findings as above. CURRENT MEDICATIONS Aspirin 81 mg, Lipitor 20 mg by mouth at bedtime, Valium 5 mg by mouth at bedtime, flecainide 100 mg by mouth twice a day, prednisone 20 mg by mouth twice a day, valsartan 80 mg by mouth daily PHYSICAL EXAM VITAL SIGNS: Temperature 97.1, pulse 56, respiratory rate 16, blood pressure 166/81, oxygen saturation 95% on room air. GENERAL APPEARANCE: Lying in bed, not in distress. EYES: Pupils equal. Conjunctiva normal. NECK: JVD not raised. Mass not palpable. RESPIRATORY: Respiratory effort normal. Lungs clear to auscultation. CARDIOVASCULAR: First and second sounds normal. No edema. ABDOMEN: Soft. Liver and spleen not palpable. No tenderness. No mass palpable. PSYCHIATRY: Alert and oriented x3. Mood and affect normal. INVESTIGATIONS: CBC unremarkable, chloride 110, cardiac site 19, BUN 23, creatinine 1.29. ASSESSMENT: -Acute non-Q wave myocardial infarction, probably precipitated by atrial fibrillation. -Persistent atrial fibrillation with rapid ventricular rate, present on admission. -Essential hypertension. -Hyperlipidemia. -Benign prostatic hypertrophy. -Primary osteoporosis multiple joints bilaterally. -History of colon cancer with surgery. -Attention deficit disorder. PLAN: Ruled in for acute [place], cardiac catheterization to take place today. continue current medication and treatment plan. Plan of care discussed with the patient at the bedside he is in agreement. We'll follow closely. REIMBURSEMENT ANALYST statement: Patient was seen and examined by nurse practitioner Tonya Keith and all elements of the case discussed with attending Dr. Beck
[2017-05-22] MEDS ORDERED: NITROGLYCERIN SL TABS 0.4 MG TAB SUBLINGUAL ONE ×2 (10:36→10:38)
[2017-05-22] MEDS ORDERED: BIVALIRUDIN BOLUS 250 MG/50 ML IV ONE (10:42)
[2017-05-22] MEDS ORDERED: BIVALIRUDIN 250 MG in SODIUM CHLORIDE 0.9% 50 ML IV ONE (10:43)
[2017-05-22] MEDS ORDERED: IODIXANOL 320 MG/ML 100 ML INTRAARTER ONE (11:30)
[2017-05-22 11:48] LABS: Glucose,Whole Blood 149 mg/dL (75-99)
[2017-05-22] MEDS: METOPROLOL TARTRATE 12.5 MG TAB PO SCH (12:41)
[2017-05-22] MEDS ORDERED: MD COMMUNICATION TO PHARMACY 1 EACH MISC PO ONE ×5 (14:03→14:21)
[2017-05-22] MEDS ORDERED: amLODIPine 5 MG TAB PO STA (14:36)
[2017-05-22] MEDS: SODIUM CHLORIDE 0.9% 1,000 ML IV SCH ×2 (14:44→23:29)
--- NOTE | 2017-05-22 16:21 | P.CNPUL ---
History of Present Illness Consult date: 05/22/17 Requesting physician: Los Beck Reason for consult: other (Critical care/pulmonary management post) Chief complaint: Chest pain History of present illness: This is a very pleasant 71-year-old gentleman who follows with Dr. Fields as his primary care physician. He has a history of colon cancer status post resection. Approximate 2 weeks following that procedure he developed a pulmonary embolism in the left lower extremity DVT. 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 Has has history of paroxysmal atrial fibrillation and has been treated with flecainide along with the Xarelto. Has has hyperlipidemia, hypertension, osteoarthritis, hearing disorder. He presented to the emergency room early yesterday morning with significant chest discomfort that radiated to his jaw and teeth, irregular heartbeat diaphoresis and shortness of breath. He also stated he had been without his medications approximately 3 days prior to the event. Here he was found to have a non-ST segment elevation myocardial infarction along with atrial fibrillation with rapid ventricular response. He subsequently undergone a cardiac catheterization which revealed two-vessel coronary artery disease including a 70% stenosis to the mid LAD and a 95% stenosis to the right coronary artery. The plan is for coronary artery bypass grafting. We're consulted for ventilator and critical care management. He is seen today in consultation awake and alert on the selective care unit. No chest pain, palpitations, lightheadedness or dizziness. He currently denies any shortness of breath, cough or congestion. He is maintaining good O2 saturations in the mid 90s on room air. He is a lifelong nonsmoker. Other than the pulmonary embolism he had not had any pulmonary issues. 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 He remains quite active. Review of Systems 14 point review of system was conducted. All negative other than as mentioned in HPI. Past Medical History Past Medical History: Cancer, Diabetes Mellitus, Hearing Disorder / Deafness, Hyperlipidemia, Hypertension, Osteoarthritis (OA), Prostate Disorder, Pulmonary Embolus (PE) Additional Past Medical History / Comment(s): History of colon cancer status post resection. History of pulmonary embolism and left leg DVT 2 weeks after the surgery. He has been maintained on Xarelto. Benign prosthetic hypertrophy. Hearing disorder. History of Any Multi-Drug Resistant Organisms: None Reported Past Surgical History: Adenoidectomy, Bowel Resection, Joint Replacement, Orthopedic Surgery, Tonsillectomy Additional Past Surgical History / Comment(s): FATTY TUMOR REMOVED LT LEG, LT HIP REPLACEMENT, BOWEL RESECTION DONE FOR CA Past Anesthesia/Blood Transfusion Reactions: No Reported Reaction Past Psychological History: No Psychological Hx Reported Smoking Status: Never smoker Past Alcohol Use History: None Reported Past Drug Use History: None Reported - Past Family History Father Family Medical History: Congestive Heart Failure (CHF) Additional Family Medical History / Comment(s): emphysema, CABG Mother Family Medical History: Hypertension Additional Family Medical History / Comment(s): mac degen Brother(s) Additional Family Medical History / Comment(s): stents in leg Medications and Allergies Home Medications Medication Instructions Recorded Confirmed Type Dextroamphetamine/Amphetamine 30 mg PO BID@0800,1400 11/12/16 05/21/17 History [Adderall] Diazepam [Valium] 5 mg PO BID PRN 11/12/16 05/21/17 History HYDROcodone/APAP 10-325MG [[place] 1 tab PO TID PRN 11/12/16 05/21/17 History 10-325] Flecainide Acetate [Tambocor] 100 mg PO BID #60 tablet 11/13/16 05/21/17 Rx Valsartan [Diovan] 80 mg PO DAILY #30 tab 11/13/16 05/21/17 Rx Rivaroxaban [Xarelto] 20 mg PO DAILY 05/21/17 05/21/17 History Allergies Allergy/AdvReac Type Severity Reaction Status Date / Time Iodinated Contrast- Oral and Allergy Rash/Hives Verified 05/21/17 07:09 IV Dye [Iodinated Contrast Media - Oral and] diphenhydramine HCl AdvReac Hyperactivi Verified 05/21/17 07:09 [From Benadryl] ty heparin AdvReac Unknown Verified 05/21/17 07:09 RAGWEED Allergy Itching Uncoded 02/14/17 10:31 Physical Exam Vitals: Vital Signs Temp Pulse Resp BP BP Pulse Ox 05/22/17 15:43 62 05/22/17 14:15 62 16 164/82 174/72 95 05/22/17 13:15 60 16 171/84 182/72 94 L 05/22/17 12:45 58 L 16 169/100 182/78 95 05/22/17 12:15 58 L 18 164/83 174/72 94 L 05/22/17 12:00 54 L 16 165/82 188/76 95 05/22/17 11:45 52 L 16 151/75 166/72 96 05/22/17 11:30 52 L 16 149/72 97 05/22/17 08:00 97.1 F L 56 L 16 166/81 95 05/22/17 05:00 97 05/22/17 04:00 98.7 F 59 L 16 157/86 97 05/22/17 00:00 96.7 F L 53 L 16 170/77 95 05/21/17 20:00 97 F L 53 L 16 132/76 95 Intake and Output 05/22/17 05/22/17 05/22/17 06:59 14:59 22:59 Intake Total 730 550 Balance 730 550 Intake: IV 730 190 Sodium Chloride 0.9% 1, 730 000 ml In Empty Bag 1 bag @ 1 ML/KG/HR 92.98 mls/ hr IV .[id number] ONE Rx#: [id number] Oral 360 Other: Weight 94.9 kg GENERAL EXAM: Alert, comfortable in no apparent distress. HEAD: Normocephalic. EYES: Normal reaction of pupils, equal size. NOSE: Clear with pink turbinates. THROAT: No erythema or exudates. NECK: No masses, no JVD. CHEST: No chest wall deformity. LUNGS: Equal air entry with no crackles, wheeze, rhonchi or dullness. CVS: S1 and S2 normal with no audible murmurs, regular rhythm. ABDOMEN: No hepatosplenomegaly, normal bowel sounds, no guarding or rigidity. SPINE: No scoliosis or deformity SKIN: No rashes CENTRAL NERVOUS SYSTEM: No focal deficits, tone is normal in all 4 extremities. Extremities: There is no peripheral edema. No clubbing no cyanosis. Peripheral pulses are intact. Results - Laboratory Findings CBC and BMP: 05/22/17 06:03 05/22/17 05:59 PT/INR, D-dimer PT 10.2 sec (9.0-12.0) 05/21/17 00:50 INR 1.0 (<1.2) 05/21/17 00:50 Abnormal lab findings: Abnormal Labs 0905/21/17 05/21/17 00:50 00:50 07:27 Hgb 17.9 H Lymphocytes # Chloride Carbon Dioxide BUN Creatinine Glucose 125 H POC Glucose (mg/dL) Total Bilirubin 2.3 H CK-MB (CK-2) 5.3 H* Troponin I 1.020 H* Triglycerides 05/21/17 05/21/17 05/21/17 10:31 11:52 12:38 Hgb Lymphocytes # Chloride Carbon Dioxide BUN Creatinine Glucose POC Glucose (mg/dL) 121 H 207 H Total Bilirubin CK-MB (CK-2) 5.7 H* Troponin I 1.930 H* Triglycerides 05/21/17 05/22/17 05/22/17 21:05 05:59 06:02 Hgb Lymphocytes # Chloride 110 H Carbon Dioxide 19 L BUN 23 H Creatinine 1.29 H Glucose 193 H POC Glucose (mg/dL) 169 H 189 H Total Bilirubin CK-MB (CK-2) Troponin I Triglycerides 235 H 05/22/17 05/22/17 06:03 11:45 Hgb Lymphocytes # 0.8 L Chloride Carbon Dioxide BUN Creatinine Glucose POC Glucose (mg/dL) 149 H Total Bilirubin CK-MB (CK-2) Troponin I Triglycerides - Diagnostic Findings Chest x-ray: image reviewed Assessment and Plan Plan: Impression: #1 Non-ST segment elevation myocardial infarction with significant two-vessel coronary artery disease. The plan is for revascularization. #2 Acute on chronic atrial fibrillation with rapid ventricular response. Currently in sinus bradycardia. #3 History of pulmonary embolism/left lower extremity DVT following colon resection surgery in 2010. Maintained on Xarelto. #4 History of heparin induced thrombocytopenia discovered while on Heparin for his PE. #5 History of colon cancer status post resection. #6 Diabetes mellitus, type II. #7 Hyperlipidemia. #8 Hypertension, history of. #9 Hearing disorder. Plan: The patient was seen and evaluated by Dr. Barraza. His chest x-ray and labs were reviewed. The patient is a lifelong nonsmoker and will do well postoperatively from the pulmonary standpoint. He'll be educated regarding the use of the incentive spirometer and cough and deep breathing exercises. The plan is for surgery on 05/25/2017. We'll follow him in the immediate postoperative setting. We'll continue to follow and make further recommendations based on his clinical status. Time with Patient: Greater than 30
[2017-05-22] MEDS: SODIUM CITRATE 500 ML MISCELLANE SCH ×2 (16:46→16:47)
[2017-05-22 16:53] LABS: Glucose,Whole Blood 224 mg/dL (75-99)
--- NOTE | 2017-05-22 18:33 | P.GSCN ---
<Abhinav Estrada - Last Filed: 05/22/17 18:01> History of Present Illness Consult date: 05/22/17 Reason for Consult: Symptomatic coronary artery disease Requesting physician: Miguel Sharma History of present illness: This is a 71-year-old gentleman who is followed by Dr. Puneet Fields and an outpatient basis. Patient has a past medical history consistent with diabetes mellitus type 2, hypertension, hyperlipidemia, hard of hearing-tinnitus, chronic atrial fibrillation treated with flecainide and Xarelto, osteoarthritis , and colon cancer with history of resection in July 2011. After his bowel resection patient developed a pulmonary and a left lower extremity DVT. 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 The ptient presented to the emergency department here at [facility] on 05/21/2017 with complaints of chest pain which radiated to his neck, teeth and left arm and was associated with some shortness of breath. He denied complaints of nausea or vomiting or diaphoresis. He also complaints of a irregular racing heart rate. He also reports that he has not taken his regular scheduled medications in the last 2 or 3 days prior to presenting to the emergency department. The patient had serial troponins drawn which were positive and as high as 1.930 ng/ml. A 12- lead EKG was completed which showed atrial fibrillation with rapid ventricular response. He was seen by Dr. Tomas from cardiology and subsequently underwent a heart catheterization today which demonstrated a 95% stenosis to his right coronary artery, and a 70% stenosis to his mid left anterior descending coronary artery. Patient also had a 2-D echocardiogram completed in November 2016 which showed a normal left ventricular size and normal function with an ejection fraction of 55%, mild aortic regurgitation, mild tricuspid regurgitation and mild pulmonic regurgitation. The patient also had a carotid duplex completed in December 2016 which showed a 16-49% stenosis to his right ICA and a 16-49% stenosis to his left ICA. Subsequently due to his presenting symptoms, positive troponins and his heart catheterization results Dr. Marshall from cardiothoracic surgery was consulted to evaluate the patient. Review of Systems 14 point review of systems was completed and was negative except as mentioned in HPI. Past Medical History Past Medical History: Atrial Fibrillation, Cancer, Diabetes Mellitus, Deep Vein Thrombosis (DVT), Hearing Disorder / Deafness, Hyperlipidemia, Hypertension, Osteoarthritis (OA), Prostate Disorder, Pulmonary Embolus (PE) Additional Past Medical History / Comment(s): History of colon cancer status post resection July 2011. History of pulmonary embolism and left leg DVT 2 weeks after the colon resection. He has been maintained on Xarelto. Benign prosthetic hypertrophy. Hearing disorder. History of Any Multi-Drug Resistant Organisms: None Reported Past Surgical History: Adenoidectomy, Bowel Resection, Joint Replacement, Orthopedic Surgery, Tonsillectomy Additional Past Surgical History / Comment(s): FATTY TUMOR REMOVED LT LEG, LT HIP REPLACEMENT November 2010, BOWEL RESECTION DONE FOR CA July 2011. Past Anesthesia/Blood Transfusion Reactions: No Reported Reaction Past Psychological History: No Psychological Hx Reported Smoking Status: Never smoker Past Alcohol Use History: None Reported Past Drug Use History: None Reported - Past Family History Father Family Medical History: Congestive Heart Failure (CHF), Coronary Artery Disease (CAD), Myocardial Infarction ([place]) Additional Family Medical History / Comment(s): emphysema, CABG Mother Family Medical History: AFIB, Cancer, Hypertension Additional Family Medical History / Comment(s): Macular degeneration, cataracts , nicotine dependence, skin cancer Brother(s) Family Medical History: Coronary Artery Disease (CAD) Additional Family Medical History / Comment(s): His brother has peripheral vascular disease 8 stents placed to his legs and one to his heart. Medications and Allergies Home Medications Medication Instructions Recorded Confirmed Type Dextroamphetamine/Amphetamine 30 mg PO BID@0800,1400 11/12/16 05/21/17 History [Adderall] Diazepam [Valium] 5 mg PO BID PRN 11/12/16 05/21/17 History HYDROcodone/APAP 10-325MG [[place] 1 tab PO TID PRN 11/12/16 05/21/17 History 10-325] Flecainide Acetate [Tambocor] 100 mg PO BID #60 tablet 11/13/16 05/21/17 Rx Valsartan [Diovan] 80 mg PO DAILY #30 tab 11/13/16 05/21/17 Rx Rivaroxaban [Xarelto] 20 mg PO DAILY 05/21/17 05/21/17 History Allergies Allergy/AdvReac Type Severity Reaction Status Date / Time Iodinated Contrast- Oral and Allergy Rash/Hives Verified 05/21/17 07:09 IV Dye [Iodinated Contrast Media - Oral and] diphenhydramine HCl AdvReac Hyperactivi Verified 05/21/17 07:09 [From Benadryl] ty heparin AdvReac Unknown Verified 05/21/17 07:09 RAGWEED Allergy Itching Uncoded 02/14/17 10:31 Surgical - Exam Vital Signs Temp Pulse Resp BP Pulse Ox 98.9 F 65 20 181/89 98 05/21/17 00:32 05/21/17 00:32 05/21/17 00:32 05/21/17 00:32 05/21/17 00:32 - General well developed, well nourished, no distress, no pain - Eyes PERRL, normal ocular movement - ENT normal pinna, normal nares, normal mucosa, no congestion, decreased hearing - Neck No lymphadenopathy, no JVD no masses, no bruits, trachea midline, no venous distension - Respiratory Lung sounds essentially clear throughout, diminished at bilateral bases. Respirations are symmetrical and nonlabored. Oxygen saturation are 95% on room air. No chest wall deformity. - Cardiovascular Regular rhythm and rate. S1 and S2 present, negative for S3, gallop or murmur. No edema present. - Abdomen Abdomen is soft, nontender and nondistended. No guarding, and no rigidity. - Genitourinary Deferred - Rectum Deferred - Neurologic normal coordination, normal sensation - Musculoskeletal normal gait, normal posture - Psychiatric oriented to time, oriented to person, oriented to place, speech is normal, memory intact Results - Labs 05/22/17 06:03 05/22/17 05:59 Abnormal Lab Results - Last 24 Hours (Table) 05/21/17 05/22/17 05/22/17 Range/Units 21:05 05:59 06:02 Lymphocytes # (1.0-4.8) k/uL Chloride 110 H (98-107) mmol/L Carbon Dioxide 19 L (22-30) mmol/L BUN 23 H (9-20) mg/dL Creatinine 1.29 H (0.66-1.25) mg/dL Glucose 193 H (74-99) mg/dL POC Glucose (mg/dL) 169 H 189 H (75-99) mg/dL Triglycerides 235 H (<150) mg/dL 05/22/17 05/22/17 05/22/17 Range/Units 06:03 11:45 16:37 Lymphocytes # 0.8 L (1.0-4.8) k/uL Chloride (98-107) mmol/L Carbon Dioxide (22-30) mmol/L BUN (9-20) mg/dL Creatinine (0.66-1.25) mg/dL Glucose (74-99) mg/dL POC Glucose (mg/dL) 149 H 224 H (75-99) mg/dL Triglycerides (<150) mg/dL Diabetes panel 05/22/17 Range/Units 05:59 Sodium 139 (137-145) mmol/L Potassium 4.4 (3.5-5.1) mmol/L Chloride 110 H (98-107) mmol/L Carbon Dioxide 19 L (22-30) mmol/L BUN 23 H (9-20) mg/dL Creatinine 1.29 H (0.66-1.25) mg/dL Glucose 193 H (74-99) mg/dL Calcium 9.0 (8.4-10.2) mg/dL Triglycerides 235 H (<150) mg/dL HDL Cholesterol 46 (40-60) mg/dL Calcium panel 05/22/17 Range/Units 05:59 Calcium 9.0 (8.4-10.2) mg/dL Pituitary panel 05/22/17 Range/Units 05:59 Sodium 139 (137-145) mmol/L Potassium 4.4 (3.5-5.1) mmol/L Chloride 110 H (98-107) mmol/L Carbon Dioxide 19 L (22-30) mmol/L BUN 23 H (9-20) mg/dL Creatinine 1.29 H (0.66-1.25) mg/dL Glucose 193 H (74-99) mg/dL Calcium 9.0 (8.4-10.2) mg/dL Adrenal panel 05/22/17 Range/Units 05:59 Sodium 139 (137-145) mmol/L Potassium 4.4 (3.5-5.1) mmol/L Chloride 110 H (98-107) mmol/L Carbon Dioxide 19 L (22-30) mmol/L BUN 23 H (9-20) mg/dL Creatinine 1.29 H (0.66-1.25) mg/dL Glucose 193 H (74-99) mg/dL Calcium 9.0 (8.4-10.2) mg/dL - Imaging Comments: Heart cath reviewed with Dr. Marshall. Chest x-ray: report reviewed, image reviewed EKG: image reviewed Assessment and Plan (1) History of heparin-induced thrombocytopenia Status: Acute (2) Hypertension Status: Acute (3) Hyperlipidemia Status: Acute (4) Diabetes mellitus type 2 in nonobese Status: Acute (5) Hearing disorder of both ears Status: Acute (6) Paroxysmal atrial fibrillation Status: Acute (7) Acute non-ST segment elevation myocardial infarction Status: Acute (8) Two-vessel coronary artery disease Status: Acute Plan: The patient was seen and examined. His chart and diagnostics were reviewed with Dr. Marshall. Preoperative teaching initiated and teaching binder given and reviewed with the patient and his daughter. Preoperative workup initiated. He will be scheduled on 05/25/2017 for an off-pump CABG 2 with CHASE, endoscopic vein harvest, intraoperative transesophageal echocardiogram and epi- aortic ultrasound performed by Dr. Marshall. His Xarelto is on hold. Due to his ALLERGY to heparin Angiomax will be utilized in the operating room. The patient and his daughter's questions were answered. Time with Patient: Greater than 30 <Kulwant Marshall R - Last Filed: 05/25/17 10:46> Surgical - Exam Vital Signs Temp Pulse Resp BP Pulse Ox 98.9 F 65 20 181/89 98 05/21/17 00:32 05/21/17 00:32 05/21/17 00:32 05/21/17 00:32 05/21/17 00:32 Results - Labs 05/24/17 03:27 05/24/17 03:27 Abnormal Lab Results - Last 24 Hours (Table) 05/24/17 05/24/17 05/24/17 Range/Units 11:30 16:50 20:50 POC Glucose (mg/dL) 197 H 190 H 140 H (75-99) mg/dL 05/25/17 Range/Units 06:18 POC Glucose (mg/dL) 165 H (75-99) mg/dL Microbiology - Last 24 Hours (Table) 05/23/17 01:18 Urine Culture - Final Urine,Clean Catch 05/22/17 21:20 Nasal Screen MRSA/MSSA ([facility]) - Final Nasal Swab Assessment and Plan Plan: Patient examined, chart reviewed, studies reviewed. Case discussed with Drs. Sharma and Carter. Agree with evaluation and assessment as documented by GASTROENTEROLOGIST> Plan is for urgent CABG. As patient had Pradaxa last on morning, we will plan surgery on Thursday unless he becomes unstable. Indications for surgery, risks vs benefits and possible complications were discussed with the patient. The usual perioperative course was outlined. He is in agreement with plan as outlined above. Informed consent obtained.
[2017-05-22 20:44] LABS: Glucose,Whole Blood 300 mg/dL (75-99)
[2017-05-22] MEDS: ATORVASTATIN 20 MG TAB PO SCH (21:02)
[2017-05-22] MEDS: MUPIROCIN 2% OINT 22 GM TUBE NASAL SCH (21:14)
[2017-05-23 01:57] LABS: Appearance,Urine Clear (Clear); Bilirubin,Urine Negative (Negative); Glucose,Urine (UA) 4+ (Negative); Ketones,Urine 1+ (Negative); Leukocyte Esterase,Urine Negative (Negative); Nitrite,Urine Negative (Negative); Protein,Urine Negative (Negative); UA Billing (MACRO vs. MICRO) CHEM; Urobilinogen,Urine <2.0 mg/dL (<2.0)
[2017-05-23 06:11] LABS: Glucose,Whole Blood 233 mg/dL (75-99)
[2017-05-23 06:19] LABS: Basophils % (A) 0 %; CH 34.7; CHCM 37.2; Eosinophils % (A) 0 %; HCT 42.6 % (39.0-53.0); HDW 3.05; Hyperchromasia Slight; Luc # (Auto) 0.12; Luc % (Auto) 1; Lymphocytes # (A) 0.8 k/uL (1.0-4.8); Lymphocytes % (A) 5 %; MCHC 35.1 g/dL (31.0-37.0); MCV 93.9 fL (80.0-100.0); Mean Platelet Volume 7.9; Monocytes # (A) 0.7 k/uL (0-1.0); Monocytes % (A) 4 %; Neutrophils # (A) 14.3 k/uL (1.3-7.7); Neutrophils % (A) 90 %; RBC 4.54 m/uL (4.30-5.90); RDW 13.4 % (11.5-15.5); WBC (Perox) 15.98
[2017-05-23 06:31] LABS: INR 1.1 (<1.2); Partial Thromboplastin Time 23.9 sec (22.0-30.0); Prothrombin Time 10.9 sec (9.0-12.0)
[2017-05-23 06:42] LABS: ALT 27 U/L (21-72); AST 17 U/L (17-59); Alkaline Phosphatase 40 U/L (38-126); Anion Gap 13 mmol/L; Blood Urea Nitrogen 21 mg/dL (9-20); Calcium 9.1 mg/dL (8.4-10.2); Carbon Dioxide 18 mmol/L (22-30); Chloride 110 mmol/L (98-107); Cholesterol 190 mg/dL (<200); Glucose 196 mg/dL (74-99); HDL Cholesterol 48 mg/dL (40-60); Non-African American GFR(MDRD) >60 (>60 ml/min/1.73 sqM); Potassium 4.4 mmol/L (3.5-5.1); Sodium 141 mmol/L (137-145); Total Protein 6.3 g/dL (6.3-8.2)
[2017-05-23 07:09] LABS: Hepatitis B Surface Ag Index 0.04
[2017-05-23 07:15] LABS: Hepatitis B Core IgM Index 0.01
[2017-05-23 07:26] LABS: Hepatitis C Virus IgG Ab Negative (Negative); Hepatitis C Virus IgG Index 0.01
[2017-05-23] MEDS: FLECAINIDE 50 MG TAB PO SCH ×2 (08:07→20:38)
[2017-05-23] MEDS: diphenhydrAMINE 25 MG CAP PO SCH (08:07)
[2017-05-23] MEDS: VALSARTAN 80 MG TAB PO SCH (08:08)
[2017-05-23] MEDS: predniSONE 20 MG TAB PO SCH ×2 (08:08→20:37)
[2017-05-23] MEDS: MUPIROCIN 2% OINT 22 GM TUBE NASAL SCH ×2 (08:08→20:40)
[2017-05-23] MEDS: ASPIRIN 81 MG PO SCH (08:08)
[2017-05-23] MEDS: METOPROLOL TARTRATE 12.5 MG TAB PO SCH (08:08)
--- NOTE | 2017-05-23 09:48 | P.PN ---
Subjective Principal diagnosis: Two-vessel coronary artery disease, acute non-ST segment elevation myocardial infarction, paroxysmal atrial fibrillation, hearing disorder both ears, diabetes mellitus type 2, hypertension, hyperlipidemia, history of heparin- induced thrombocytopenia. The patient is sitting up to bedside at this time ambulating in the hallway as tolerated. Denies complaints of chest pain or shortness of breath. Patient reports a 2-D echo was just completed. No acute distress. Objective - Vital Signs Vital signs: Vital Signs Temp 97.6 F 05/23/17 04:00 Pulse 56 L 05/23/17 04:00 Resp 18 05/23/17 04:00 BP 141/76 05/23/17 04:00 Pulse Ox 97 05/23/17 04:00 Intake & Output 05/22/17 05/23/17 05/23/17 18:59 06:59 18:59 Intake Total 1170 1200 360 Output Total 600 300 Balance 570 900 360 Weight 95.1 kg Intake: IV 690 NS at 100 500 Intake, IV Titration 1200 Amount Sodium Chloride 0.9% 1, 1200 000 ml As IV .[employer] ONE Rx#:[id number] Oral 480 360 Output: Urine 600 300 - Constitutional General appearance: Present: cooperative, no acute distress - EENT Eyes: Present: PERRLA, normal appearance ENT: Present: hard of hearing - Neck Details: No JVD. - Respiratory Details: Lung sounds are essentially clear throughout, diminished to his bilateral bases. Respirations are symmetrical and nonlabored. Oxygen saturation are 97% on room air. - Cardiovascular Details: Regular rhythm and rate. S1 and S2 present, negative for S3, gallop or murmur. No edema present. Remote telemetry showing sinus bradycardia heart rate 56. Knee-high WALT hose and sequential compression devices in place to his bilateral lower extremities. - Gastrointestinal Gastrointestinal Comment(s): Abdomen is soft, nontender and nondistended. Active bowel sounds to all 4 abdominal quadrants. No organomegaly. No guarding or rigidity. - Genitourinary Genitourinary Comment(s): Urine output adequate, clear yellow urine. - Integumentary Integumentary Comment(s): Right groin heart catheterization puncture site clean dry and soft. Integumentary: Present: normal, normal turgor - Neurologic Neurologic Comment(s): No focal deficits. - Musculoskeletal Musculoskeletal: Present: gait normal, strength equal bilaterally - Psychiatric Psychiatric: Present: A&O x's 3, appropriate affect, intact judgment & insight - Allied health notes Allied health notes reviewed: nursing - Labs CBC & Chem 7: 05/23/17 05:39 05/23/17 05:39 Labs: Abnormal Lab Results - Last 24 Hours (Table) 05/22/17 05/22/17 05/22/17 Range/Units 11:45 16:37 20:42 WBC (3.8-10.6) k/uL Neutrophils # (1.3-7.7) k/uL Lymphocytes # (1.0-4.8) k/uL Chloride (98-107) mmol/L Carbon Dioxide (22-30) mmol/L BUN (9-20) mg/dL Glucose (74-99) mg/dL POC Glucose (mg/dL) 149 H 224 H 300 H (75-99) mg/dL Total Bilirubin (0.2-1.3) mg/dL Triglycerides (<150) mg/dL Urine Glucose (UA) (Negative) Urine Ketones (Negative) 05/23/17 05/23/17 05/23/17 Range/Units 01:18 05:39 05:39 WBC 16.0 H (3.8-10.6) k/uL Neutrophils # 14.3 H (1.3-7.7) k/uL Lymphocytes # 0.8 L (1.0-4.8) k/uL Chloride 110 H (98-107) mmol/L Carbon Dioxide 18 L (22-30) mmol/L BUN 21 H (9-20) mg/dL Glucose 196 H (74-99) mg/dL POC Glucose (mg/dL) (75-99) mg/dL Total Bilirubin 2.0 H (0.2-1.3) mg/dL Triglycerides 229 H (<150) mg/dL Urine Glucose (UA) 4+ H (Negative) Urine Ketones 1+ H (Negative) 05/23/17 Range/Units 06:08 WBC (3.8-10.6) k/uL Neutrophils # (1.3-7.7) k/uL Lymphocytes # (1.0-4.8) k/uL Chloride (98-107) mmol/L Carbon Dioxide (22-30) mmol/L BUN (9-20) mg/dL Glucose (74-99) mg/dL POC Glucose (mg/dL) 233 H (75-99) mg/dL Total Bilirubin (0.2-1.3) mg/dL Triglycerides (<150) mg/dL Urine Glucose (UA) (Negative) Urine Ketones (Negative) Microbiology - Last 24 Hours (Table) 05/22/17 21:20 Nasal Screen MRSA/MSSA ([facility]) - Preliminary Nasal Swab - Imaging and Cardiology Chest x-ray: report reviewed, image reviewed Vein mapping results reviewed. 2-D echo results pending. Assessment and Plan (1) History of heparin-induced thrombocytopenia Status: Acute (2) Hypertension Status: Acute (3) Hyperlipidemia Status: Acute (4) Diabetes mellitus type 2 in nonobese Status: Acute (5) Hearing disorder of both ears Status: Acute (6) Paroxysmal atrial fibrillation Status: Acute (7) Acute non-ST segment elevation myocardial infarction Status: Acute (8) Two-vessel coronary artery disease Status: Acute Plan: 1. Continue aspirin, beta angie and statin. 2. GI and DVT prophylaxis in place. 3. Preoperative testing pending. Preoperative teaching reviewed with the patient. 4. Insulin and blood sugar management per primary care service. 5. Pulmonary management per Dr. Barraza's recommendations. FEV1 results pending. Encourage incentive spirometry use every hour while awake. 6. He is scheduled for off-pump coronary artery bypass grafting surgery [address] Marshall on 05/25/2017. Time with Patient: Greater than 30
[2017-05-23 10:33] LABS: Hemoglobin A1C 6.2 % (4.2-6.1)
--- NOTE | 2017-05-23 11:06 | P.PN ---
Subjective This is a pleasant 71-year-old gentleman with past medical history of diabetes, hypertension, hyperlipidemia, chronic atrial fibrillation, osteoporosis, colon cancer with resection in July 2011, PE and DVT. Presented to the emergency department with complaints of chest pain which radiated to his neck, teeth and left arm and was associated with some shortness of breath. Deny complaints of nausea or vomiting or diaphoresis. He had not been taking his medications for the last 2 or 3 days prior to admission. Troponins came in to be positive. Patient underwent cardiac catheterization which showed 95% stenosis to his right coronary artery and 70% stenosis of the mid LAD. Patient was recommended to undergo coronary artery bypass grafting and has been seen by Dr. Marshall. Patient is scheduled for surgery on May 25. Objective - Vital Signs Vital signs: Vital Signs Temp 98.0 F 05/23/17 08:00 Pulse 59 L 05/23/17 08:00 Resp 18 05/23/17 08:00 BP 150/81 05/23/17 08:00 Pulse Ox 97 05/23/17 08:00 Intake & Output 05/22/17 05/23/17 05/23/17 18:59 06:59 18:59 Intake Total 1170 1200 360 Output Total 600 300 Balance 570 900 360 Weight 95.1 kg Intake: IV 690 NS at 100 500 Intake, IV Titration 1200 Amount Sodium Chloride 0.9% 1, 1200 000 ml As IV .[employer] ONE Rx#:[id number] Oral 480 360 Output: Urine 600 300 Other: Voiding Method Toilet Urinal - Exam PHYSICAL EXAMINATION: HEENT: Head is atraumatic, normocephalic. Pupils equal, round. Neck is supple. There is no elevated jugular venous pressure. HEART EXAMINATION: Heart sounds regular, S1 and S2 normal. No murmur or gallop heard. CHEST EXAMINATION: Lungs are clear to auscultation and precussion. No chest wall tenderness is noted on palpation or with deep breathing. ABDOMEN: Soft, nontender. Bowel sounds are heard. No organomegaly noted. EXTREMITIES: 2+ peripheral pulses with no evidence of peripheral edema and no calf tenderness noted. NEUROLOGIC patient is awake, alert and oriented x3. . - Labs CBC & Chem 7: 05/23/17 05:39 05/23/17 05:39 Labs: Abnormal Lab Results - Last 24 Hours (Table) 05/22/17 05/22/17 05/22/17 Range/Units 11:45 16:37 20:42 WBC (3.8-10.6) k/uL Neutrophils # (1.3-7.7) k/uL Lymphocytes # (1.0-4.8) k/uL Chloride (98-107) mmol/L Carbon Dioxide (22-30) mmol/L BUN (9-20) mg/dL Glucose (74-99) mg/dL POC Glucose (mg/dL) 149 H 224 H 300 H (75-99) mg/dL Total Bilirubin (0.2-1.3) mg/dL Triglycerides (<150) mg/dL Urine Glucose (UA) (Negative) Urine Ketones (Negative) 05/23/17 05/23/17 05/23/17 Range/Units 01:18 05:39 05:39 WBC 16.0 H (3.8-10.6) k/uL Neutrophils # 14.3 H (1.3-7.7) k/uL Lymphocytes # 0.8 L (1.0-4.8) k/uL Chloride 110 H (98-107) mmol/L Carbon Dioxide 18 L (22-30) mmol/L BUN 21 H (9-20) mg/dL Glucose 196 H (74-99) mg/dL POC Glucose (mg/dL) (75-99) mg/dL Total Bilirubin 2.0 H (0.2-1.3) mg/dL Triglycerides 229 H (<150) mg/dL Urine Glucose (UA) 4+ H (Negative) Urine Ketones 1+ H (Negative) 05/23/17 Range/Units 06:08 WBC (3.8-10.6) k/uL Neutrophils # (1.3-7.7) k/uL Lymphocytes # (1.0-4.8) k/uL Chloride (98-107) mmol/L Carbon Dioxide (22-30) mmol/L BUN (9-20) mg/dL Glucose (74-99) mg/dL POC Glucose (mg/dL) 233 H (75-99) mg/dL Total Bilirubin (0.2-1.3) mg/dL Triglycerides (<150) mg/dL Urine Glucose (UA) (Negative) Urine Ketones (Negative) Microbiology - Last 24 Hours (Table) 05/23/17 01:18 Urine Culture - Preliminary Urine,Clean Catch 05/22/17 21:20 Nasal Screen MRSA/MSSA ([facility]) - Preliminary Nasal Swab Assessment and Plan Plan: Assessment and plan #1 coronary artery disease with significant stenosis of the RCA and LAD, scheduled to undergo coronary artery bypass grafting on Thursday #2 paroxysmal atrial fibrillation 3 diabetes #4 hypertension #5 hyperlipidemia Patient underwent 2-D echo with Doppler today which was reviewed at the bedside by Dr. Sharma. This showed a normal LV systolic function with mild aortic regurg and mild mitral regurg. We will follow the patient perioperatively and provide further recommendations accordingly. The above dictated assessment and findings were discussed with signing physician. The impression and plan of care have been directed as dictated. Alexandrea Randolph, Nurse Practitioner, acting as scribe for signing physician.
[2017-05-23] MEDS: SODIUM CHLORIDE 0.9% 1,000 ML IV SCH ×2 (11:24→21:53)
[2017-05-23 11:37] LABS: Glucose,Whole Blood 224 mg/dL (75-99)
--- NOTE | 2017-05-23 11:53 | P.PN ---
Subjective Principal diagnosis: Coronary artery disease This is a very pleasant 71-year-old gentleman who follows with Dr. Fields as his primary care physician. He has a history of colon cancer status post resection. Approximate 2 weeks following that procedure he developed a pulmonary embolism in the left lower extremity DVT. 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 Has has history of paroxysmal atrial fibrillation and has been treated with flecainide along with the Xarelto. Has has hyperlipidemia, hypertension, osteoarthritis, hearing disorder. He presented to the emergency room early yesterday morning with significant chest discomfort that radiated to his jaw and teeth, irregular heartbeat diaphoresis and shortness of breath. He also stated he had been without his medications approximately 3 days prior to the event. Here he was found to have a non-ST segment elevation myocardial infarction along with atrial fibrillation with rapid ventricular response. He subsequently undergone a cardiac catheterization which revealed two-vessel coronary artery disease including a 70% stenosis to the mid LAD and a 95% stenosis to the right coronary artery. The plan is for coronary artery bypass grafting. We're consulted for ventilator and critical care management. He is seen today in consultation awake and alert on the selective care unit. No chest pain, palpitations, lightheadedness or dizziness. He currently denies any shortness of breath, cough or congestion. He is maintaining good O2 saturations in the mid 90s on room air. He is a lifelong nonsmoker. Other than the pulmonary embolism he had not had any pulmonary issues. 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 He remains quite active. Patient was seen on 05/23/2017, doing well, relatively asymptomatic, his myocardial revascularization is planned for early next Thursday. Objective - Vital Signs Vital signs: Vital Signs Temp 98.0 F 05/23/17 08:00 Pulse 59 L 05/23/17 08:00 Resp 18 05/23/17 08:00 BP 150/81 05/23/17 08:00 Pulse Ox 97 05/23/17 08:00 Intake & Output 05/22/17 05/23/17 05/23/17 18:59 06:59 18:59 Intake Total 1170 1200 360 Output Total 600 300 Balance 570 900 360 Weight 95.1 kg Intake: IV 690 NS at 100 500 Intake, IV Titration 1200 Amount Sodium Chloride 0.9% 1, 1200 000 ml As IV .[employer] ONE Rx#:[id number] Oral 480 360 Output: Urine 600 300 Other: Voiding Method Toilet Urinal - Exam GENERAL EXAM: Alert, comfortable in no apparent distress. HEAD: Normocephalic. EYES: Normal reaction of pupils, equal size. NOSE: Clear with pink turbinates. THROAT: No erythema or exudates. NECK: No masses, no JVD. CHEST: No chest wall deformity. LUNGS: Equal air entry with no crackles, wheeze, rhonchi or dullness. CVS: S1 and S2 normal with no audible murmurs, regular rhythm. ABDOMEN: No hepatosplenomegaly, normal bowel sounds, no guarding or rigidity. SPINE: No scoliosis or deformity SKIN: No rashes CENTRAL NERVOUS SYSTEM: No focal deficits, tone is normal in all 4 extremities. Extremities: There is no peripheral edema. No clubbing no cyanosis. Peripheral pulses are intact. - Labs CBC & Chem 7: 05/23/17 05:39 05/23/17 05:39 Labs: Abnormal Lab Results - Last 24 Hours (Table) 05/22/17 05/22/17 05/22/17 Range/Units 11:45 16:37 20:42 WBC (3.8-10.6) k/uL Neutrophils # (1.3-7.7) k/uL Lymphocytes # (1.0-4.8) k/uL Chloride (98-107) mmol/L Carbon Dioxide (22-30) mmol/L BUN (9-20) mg/dL Glucose (74-99) mg/dL POC Glucose (mg/dL) 149 H 224 H 300 H (75-99) mg/dL Total Bilirubin (0.2-1.3) mg/dL Triglycerides (<150) mg/dL Urine Glucose (UA) (Negative) Urine Ketones (Negative) 05/23/17 05/23/17 05/23/17 Range/Units 01:18 05:39 05:39 WBC 16.0 H (3.8-10.6) k/uL Neutrophils # 14.3 H (1.3-7.7) k/uL Lymphocytes # 0.8 L (1.0-4.8) k/uL Chloride 110 H (98-107) mmol/L Carbon Dioxide 18 L (22-30) mmol/L BUN 21 H (9-20) mg/dL Glucose 196 H (74-99) mg/dL POC Glucose (mg/dL) (75-99) mg/dL Total Bilirubin 2.0 H (0.2-1.3) mg/dL Triglycerides 229 H (<150) mg/dL Urine Glucose (UA) 4+ H (Negative) Urine Ketones 1+ H (Negative) 05/23/17 05/23/17 Range/Units 06:08 11:20 WBC (3.8-10.6) k/uL Neutrophils # (1.3-7.7) k/uL Lymphocytes # (1.0-4.8) k/uL Chloride (98-107) mmol/L Carbon Dioxide (22-30) mmol/L BUN (9-20) mg/dL Glucose (74-99) mg/dL POC Glucose (mg/dL) 233 H 224 H (75-99) mg/dL Total Bilirubin (0.2-1.3) mg/dL Triglycerides (<150) mg/dL Urine Glucose (UA) (Negative) Urine Ketones (Negative) Microbiology - Last 24 Hours (Table) 05/23/17 01:18 Urine Culture - Preliminary Urine,Clean Catch 05/22/17 21:20 Nasal Screen MRSA/MSSA ([facility]) - Preliminary Nasal Swab Assessment and Plan Plan: #1 acute Non-ST segment elevation myocardial infarction with significant two- vessel coronary artery disease. The plan is for revascularization. #2 Acute on chronic atrial fibrillation with rapid ventricular response. #3 History of pulmonary embolism/left lower extremity DVT following colon resection surgery in 2010. Maintained on Xarelto. #4 History of heparin induced thrombocytopenia discovered while on Heparin for his PE. #5 History of colon cancer status post resection. #6 Diabetes mellitus, type II. #7 Hyperlipidemia. #8 Hypertension, history of. #9 Hearing disorder. Recommendation: Continue present supportive care measures, patient is already on the schedule for myocardial revascularization early next Thursday. His main risk is the fact that the patient had history of previous heparin-induced thrombocytopenia, and he is not to receive any heparin products, I believe he was already cleared for surgery by hematology/oncology. Time with Patient: Less than 30
--- NOTE | 2017-05-23 12:04 | ECHOF ---
Referral Reason:LV function MEASUREMENTS -------- HEIGHT: 175.3 cm WEIGHT: 94.8 kg BP: 141/16 IVSd: 1.4 cm (0.6 - 1.1) LVIDd: 5.4 cm (3.9 - 5.3) LVPWd: 1.1 cm (0.6 - 1.1) IVSs: 1.7 cm LVIDs: 3.7 cm LVPWs: 1.3 cm LAESV Index (A-L): 33.96 ml/m Ao Diam: 3.4 cm (2.0 - 3.7) AV Cusp: 1.9 cm (1.5 - 2.6) LA Diam: 4.3 cm (2.7 - 3.8) MV EXCURSION: 19.089 mm (> 18.000) MV EF SLOPE: 59 mm/s (70 - 150) EPSS: 0.2 cm MV E Ryan: 0.50 m/s MV DecT: 369 ms MV A Ryan: 0.92 m/s MV E/A Ratio: 0.54 AV maxP.15 mmHg AV meanP.72 mmHg RAP: 5.00 mmHg RVSP: 23.88 mmHg FINDINGS -------- Sinus rhythm. This was a technically adequate study. There is moderate concentric left ventricular hypertrophy. Overall left ventricular systolic function is low-normal with, an EF between 50 - 55 %. The right ventricle is normal in size. LA is midly dilated 29-33ml/m2. The right atrial size is normal. There is mild aortic valve sclerosis. There is mild aortic regurgitation. Peak/mean gradient across the Aortic Valve is 20.15mmHg / 10.72mmHg. Mild mitral annular calcification present. Mild mitral regurgitation is present. Mild tricuspid regurgitation present. There is no evidence of pulmonary hypertension. The right ventricular systolic pressure, as measured by Doppler, is 23.88mmHg. There is no pulmonic regurgitation present. The aortic root size is normal. There is no pericardial effusion. CONCLUSIONS -------- 1. There is moderate concentric left ventricular hypertrophy. 2. There is no evidence of pulmonary hypertension. 3. The right ventricular systolic pressure, as measured by Doppler, is 23.88mmHg. 4. There is no pulmonic regurgitation present. 5. The aortic root size is normal. 6. There is no pericardial effusion. 7. Overall left ventricular systolic function is low-normal with, an EF between 50 - 55 %. 8. LA is midly dilated 29-33ml/m2. 9. There is mild aortic valve sclerosis. 10. There is mild aortic regurgitation. 11. Peak/mean gradient across the Aortic Valve is 20.15mmHg / 10.72mmHg. 12. Mild mitral annular calcification present. 13. Mild mitral regurgitation is present. 14. Mild tricuspid regurgitation present. RETAIL ACCOUNT SPECIALIST: Virginie Covington RDCS
[2017-05-23] MEDS: INSULIN LISPRO (humaLOG) 300 UNIT/3 ML VIAL SQ SCH ×3 (12:27→21:53)
--- NOTE | 2017-05-23 12:27 | PTCA ---
PERCUTANEOUSTRANS CORORONARY ANGIOGRAPHY DATE OF SERVICE: 05/22/2017. PROCEDURE: PTCA off a subtotally occluded chronic calcified proximal/mid RCA. PERFORMED BY: Dr. Paulina Machado Mr. Parnell is a 71-year-old gentleman with a history of atrial fibrillation, hypertension who came into the hospital with rapid ventricular rate, had a mild troponin elevation. He underwent cardiac cath by Dr. Sharma, which revealed 99% RCA stenosis and heavily calcified area with sluggish flow and collateral from the left system suggesting it is a chronic disease. The patient also had a 70% mid LAD lesion eccentric in nature. He was advised intervention of the RCA with the understanding this was a chronic lesion and I discussed with the patient the success rate was less in view of the calcification and chronicity of the lesion. PROCEDURE: The existing 6-K[place] introducer in the right femoral artery was used to perform the procedure. I used a [facility] guide catheter of 6-[place] caliber to cannulate the right coronary artery. The patient has ALLERGY TO HEPARIN and therefore I used Angiomax bolus and drip. I used a whisper wire. With this, I was able to cross the lesion. I then tried to advance initially a 2.25 x 12 mm NC trek balloon, but I had considerable difficulty even proximal to the lesion because of calcification and 90 degree angulation. I then switched over to a 1.5 caliber trek balloon and with this I was able to dilate proximal to the lesion but not within the lesion itself. I had considerable difficulty advancing the balloon and then the wire and the guide came out. I had to re-engage the guide and cross the lesion again. After multiple attempts, again I was able to give 1 infiltration proximal to the lesion but could not make much progress. I explained to the patient that because of the chronicity of the lesion and calcifications he is better off having 2 grafts at the LAD and RCA. RCA is a large vessel and both of which are graftable and there is no evidence of any wall motion abnormality on recent echo. I explained to the patient and his daughter that he does have a chronic lesion and this was unsuccessful angioplasty. I am recommending surgery to be performed. I spoke to Dr. Kulwant Marshall. The patient received moderate conscious sedation for 45 minutes. He received Angiomax bolus and infusion as per protocol. Angiomax drip was stopped and he was sent to the room with the understanding that the sheath will be pulled in 2 hours. MMSRINIL / IJN: [id number] /
--- NOTE | 2017-05-23 14:02 | P.PN ---
Progress Note - Text DATE OF SERVICE: 05/23/2017 PRESENTING COMPLAINT: Atrial fibrillation/chest pain HISTORY OF PRESENT ILLNESS: Patient presented after he felt his heart racing at home, missed 2 doses of his flecainide and had associated chest pain and pressure going across the chest. Last for a few hours. Admitted with atrial fibrillation and subsequently ruled in for an acute MO. Status post cardiac cath found to have 90% occlusion to the RCA 70% occlusion to the left coronary artery. INTERVAL HISTORY: 05/23/2017: Awake standing at the bedside, discussed coming back from walk. No further episodes chest pain or pressure status post cardiac catheterization on 2016, found to have two-vessel disease, scheduled for CABG 2 on Thursday. Preoperative testing being completed today. Patient's tolerating his diet ambulating in the room and hallway, no BM, 05/22/2017: Awake sitting up in bed, scheduled cardiac catheterization today. No further episodes of chest pain or pressure. Ambulatory in the room and Dill. REVIEW OF SYSTEMS: Done for constitutional ,cardiovascular, GI, pulmonary with relevant findings as above. CURRENT MEDICATIONS Aspirin 81 mg, Lipitor 20 mg by mouth at bedtime, Valium 5 mg by mouth at bedtime, flecainide 100 mg by mouth twice a day, prednisone 20 mg by mouth twice a day, valsartan 80 mg by mouth daily PHYSICAL EXAM VITAL SIGNS: Temperature 98.0, pulse 59, respiratory rate 18, blood pressure 150/81, oxygen saturation 97% on room air. GENERAL APPEARANCE: Standing at the bedside, not in distress. EYES: Pupils equal. Conjunctiva normal. NECK: JVD not raised. Mass not palpable. RESPIRATORY: Respiratory effort normal. Lungs clear to auscultation. CARDIOVASCULAR: First and second sounds normal. No edema. ABDOMEN: Soft. Liver and spleen not palpable. No tenderness. No mass palpable. PSYCHIATRY: Alert and oriented x3. Mood and affect normal. INVESTIGATIONS: White blood cell count 16.0, chloride 110, BUN 21, creatinine 1.11 Accu-Cheks noted. ASSESSMENT: -Acute non-Q wave myocardial infarction, probably precipitated by atrial fibrillation. -Persistent atrial fibrillation with rapid ventricular rate, present on admission now in sinus rhythm -Essential hypertension. -Hyperlipidemia. -Benign prostatic hypertrophy. -Primary osteoporosis multiple joints bilaterally. -History of colon cancer with surgery. -Attention deficit disorder. PLAN: Continue with preoperative testing, CABG surgery scheduled for Thursday. We'll continue current medication and treatment plan and follow patient closely. Plan of care discussed with the patient at the bedside he is in agreement. IRRIGATION LABORER statement: Patient was seen and examined by nurse practitioner Tonya Keith and all elements of the case discussed with attending Dr. Beck
[2017-05-23 16:54] LABS: Glucose,Whole Blood 222 mg/dL (75-99)
[2017-05-23] MEDS: ATORVASTATIN 20 MG TAB PO SCH (20:38)
[2017-05-23 20:49] LABS: Glucose,Whole Blood 234 mg/dL (75-99)
[2017-05-24 06:16] LABS: Glucose,Whole Blood 185 mg/dL (75-99)
[2017-05-24] MEDS: INSULIN LISPRO (humaLOG) 300 UNIT/3 ML VIAL SQ SCH ×4 (06:30→21:16)
[2017-05-24] MEDS: SODIUM CHLORIDE 0.9% 1,000 ML IV SCH ×2 (06:30→14:36)
[2017-05-24 07:43] LABS: Anion Gap 8 mmol/L; Basophils % (A) 0 %; Blood Urea Nitrogen 24 mg/dL (9-20); CH 32.8; CHCM 35.1; Calcium 8.6 mg/dL (8.4-10.2); Carbon Dioxide 20 mmol/L (22-30); Chloride 111 mmol/L (98-107); Eosinophils % (A) 0 %; Glucose 211 mg/dL (74-99); HCT 36.2 % (39.0-53.0); HDW 3.04; HGB 12.7 gm/dL (13.0-17.5); Luc % (Auto) 1; Lymphocytes # (A) 0.9 k/uL (1.0-4.8); Lymphocytes % (A) 7 %; MCH 33.2 pg (25.0-35.0); MCHC 35.2 g/dL (31.0-37.0); MCV 94.1 fL (80.0-100.0); Mean Platelet Volume 7.9; Monocytes # (A) 0.5 k/uL (0-1.0); Monocytes % (A) 4 %; Neutrophils # (A) 10.1 k/uL (1.3-7.7); Neutrophils % (A) 87 %; Non-African American GFR(MDRD) >60 (>60 ml/min/1.73 sqM); RBC 3.84 m/uL (4.30-5.90); Sodium 139 mmol/L (137-145); WBC 11.6 k/uL (3.8-10.6); WBC (Perox) 12.56
[2017-05-24] MEDS: LACTATED RINGERS 1,000 ML IV SCH (08:37)
[2017-05-24] MEDS: ASPIRIN 81 MG PO SCH (08:41)
[2017-05-24] MEDS: VALSARTAN 80 MG TAB PO SCH (08:41)
[2017-05-24] MEDS: predniSONE 20 MG TAB PO SCH ×2 (08:41→21:15)
[2017-05-24] MEDS: METOPROLOL TARTRATE 12.5 MG TAB PO SCH (08:41)
[2017-05-24] MEDS: FLECAINIDE 50 MG TAB PO SCH ×2 (08:41→21:15)
[2017-05-24] MEDS: MUPIROCIN 2% OINT 22 GM TUBE NASAL SCH ×2 (08:42→21:15)
--- NOTE | 2017-05-24 09:58 | P.PN ---
Addendum entered and electronically signed by Abhinav Estrada NP-C 05/24/17 11: 08: 5 m walk test completed with the patient time 1: 5.14 seconds, time 2: 4.46 seconds, time 3: 4.76 seconds Original Note: <Abhinav Estrada - Last Filed: 05/24/17 09:53> Subjective Principal diagnosis: Two-vessel coronary artery disease, acute non-ST segment elevation myocardial infarction, paroxysmal atrial fibrillation, hearing disorder both ears, diabetes mellitus type 2, hypertension, hyperlipidemia, history of heparin- induced thrombocytopenia. The patient is sitting up in bed at this time. Denies complaints of chest pain or shortness of breath. No acute distress. Preoperative teaching reviewed with patient, all questions answered. Objective - Vital Signs Vital signs: Vital Signs Temp 97.2 F L 05/24/17 08:00 Pulse 57 L 05/24/17 08:00 Resp 18 05/24/17 08:00 BP 143/80 05/24/17 08:00 Pulse Ox 98 05/24/17 08:00 Intake & Output 05/23/17 05/24/17 05/24/17 18:59 06:59 18:59 Intake Total 1999 800 1040 Balance 2000 800 1040 Weight 97.5 kg Intake: IV 800 800 NS at 100 800 800 Intake, IV Titration 800 Amount Sodium Chloride 0.9% 1, 800 000 ml @ 100 mls/hr IV . Q10H [facility] Rx#:[id number] Oral 1200 240 Other: Voiding Method Toilet Toilet Urinal Urinal # Voids 1 - Constitutional General appearance: Present: cooperative, no acute distress - EENT Eyes: Present: PERRLA, normal appearance ENT: Present: hard of hearing - Neck Details: No JVD, no lymphadenopathy. - Respiratory Details: Lung sounds are essentially clear throughout, diminished bilateral bases. Respirations are symmetrical and nonlabored. Oxygen saturation are 98% on room air. He is achieving 3000 L on his incentive spirometry. Bedside FEV1 completed yesterday and was 87% of predicted value. - Cardiovascular Details: Regular rhythm and rate. S1 and S2 present, negative for S3, gallop or murmur. No edema present. Knee-high WALT hose and sequential compression devices in place to his bilateral lower extremities. - Gastrointestinal Gastrointestinal Comment(s): Abdomen is soft, nontender and nondistended. Active bowel sounds all 4 abdominal quadrants. He is tolerating oral intake. - Genitourinary Genitourinary Comment(s): Adequate urine output. Clear yellow urine. - Integumentary Integumentary: Present: normal, normal turgor - Neurologic Neurologic Comment(s): No focal deficits. Neurologic: Present: CNII-XII intact - Musculoskeletal Musculoskeletal: Present: gait normal, strength equal bilaterally - Psychiatric Psychiatric: Present: A&O x's 3, appropriate affect, intact judgment & insight - Allied health notes Allied health notes reviewed: nursing - Labs CBC & Chem 7: 05/24/17 03:27 05/24/17 03:27 Labs: Abnormal Lab Results - Last 24 Hours (Table) 05/23/17 05/23/17 05/23/17 Range/Units 05:39 11:20 16:46 WBC (3.8-10.6) k/uL RBC (4.30-5.90) m/uL Hgb (13.0-17.5) gm/dL Hct (39.0-53.0) % Neutrophils # (1.3-7.7) k/uL Lymphocytes # (1.0-4.8) k/uL Chloride (98-107) mmol/L Carbon Dioxide (22-30) mmol/L BUN (9-20) mg/dL Glucose (74-99) mg/dL POC Glucose (mg/dL) 224 H 222 H (75-99) mg/dL Hemoglobin A1c 6.2 H (4.2-6.1) % 05/23/17 05/24/17 05/24/17 Range/Units 20:47 03:27 03:27 WBC 11.6 H (3.8-10.6) k/uL RBC 3.84 L (4.30-5.90) m/uL Hgb 12.7 L (13.0-17.5) gm/dL Hct 36.2 L (39.0-53.0) % Neutrophils # 10.1 H (1.3-7.7) k/uL Lymphocytes # 0.9 L (1.0-4.8) k/uL Chloride 111 H (98-107) mmol/L Carbon Dioxide 20 L (22-30) mmol/L BUN 24 H (9-20) mg/dL Glucose 211 H (74-99) mg/dL POC Glucose (mg/dL) 234 H (75-99) mg/dL Hemoglobin A1c (4.2-6.1) % 05/24/17 Range/Units 06:14 WBC (3.8-10.6) k/uL RBC (4.30-5.90) m/uL Hgb (13.0-17.5) gm/dL Hct (39.0-53.0) % Neutrophils # (1.3-7.7) k/uL Lymphocytes # (1.0-4.8) k/uL Chloride (98-107) mmol/L Carbon Dioxide (22-30) mmol/L BUN (9-20) mg/dL Glucose (74-99) mg/dL POC Glucose (mg/dL) 185 H (75-99) mg/dL Hemoglobin A1c (4.2-6.1) % Microbiology - Last 24 Hours (Table) 05/22/17 21:20 Nasal Screen MRSA/MSSA ([facility]) - Final Nasal Swab 05/23/17 01:18 Urine Culture - Preliminary Urine,Clean Catch Assessment and Plan (1) History of heparin-induced thrombocytopenia Status: Acute (2) Hypertension Status: Acute (3) Hyperlipidemia Status: Acute (4) Diabetes mellitus type 2 in nonobese Status: Acute (5) Hearing disorder of both ears Status: Acute (6) Paroxysmal atrial fibrillation Status: Acute (7) Acute non-ST segment elevation myocardial infarction Status: Acute (8) Two-vessel coronary artery disease Status: Acute Plan: 1. Continue aspirin, beta angie and statin. 2. GI and DVT prophylaxis in place. 3. Preoperative testing pending. Preoperative teaching reviewed with the patient. 4. Insulin and blood sugar management per primary care service. 5. Pulmonary management per Dr. Barraza's recommendations. Encourage incentive spirometry use every hour while awake. 6. He is scheduled for off-pump coronary artery bypass grafting surgery [address] Marshall tomorrow 05/25/2017. Time with Patient: Greater than 30 <Deandre Lewis - Last Filed: 05/24/17 13:13> Objective - Vital Signs Vital signs: Vital Signs Temp 97.2 F L 05/24/17 08:00 Pulse 57 L 05/24/17 08:00 Resp 18 05/24/17 08:00 BP 143/80 05/24/17 08:00 Pulse Ox 98 05/24/17 08:00 Intake & Output 05/23/17 05/24/17 05/24/17 18:59 06:59 18:59 Intake Total 1999 800 1400 Balance 1999 800 1400 Weight 97.5 kg Intake: IV 800 800 NS at 100 800 800 Intake, IV Titration 800 Amount Sodium Chloride 0.9% 1, 800 000 ml @ 100 mls/hr IV . Q10H [facility] Rx#:[id number] Oral 1200 600 Other: Voiding Method Toilet Toilet Urinal Urinal # Voids 3 - Labs CBC & Chem 7: 05/24/17 03:27 05/24/17 03:27 Labs: Abnormal Lab Results - Last 24 Hours (Table) 05/23/17 05/23/17 05/24/17 Range/Units 16:46 20:47 03:27 WBC (3.8-10.6) k/uL RBC (4.30-5.90) m/uL Hgb (13.0-17.5) gm/dL Hct (39.0-53.0) % Neutrophils # (1.3-7.7) k/uL Lymphocytes # (1.0-4.8) k/uL Chloride (98-107) mmol/L Carbon Dioxide (22-30) mmol/L BUN (9-20) mg/dL Glucose (74-99) mg/dL POC Glucose (mg/dL) 222 H 234 H (75-99) mg/dL Crossmatch See Detail 05/24/17 05/24/17 05/24/17 Range/Units 03:27 03:27 06:14 WBC 11.6 H (3.8-10.6) k/uL RBC 3.84 L (4.30-5.90) m/uL Hgb 12.7 L (13.0-17.5) gm/dL Hct 36.2 L (39.0-53.0) % Neutrophils # 10.1 H (1.3-7.7) k/uL Lymphocytes # 0.9 L (1.0-4.8) k/uL Chloride 111 H (98-107) mmol/L Carbon Dioxide 20 L (22-30) mmol/L BUN 24 H (9-20) mg/dL Glucose 211 H (74-99) mg/dL POC Glucose (mg/dL) 185 H (75-99) mg/dL Crossmatch 05/24/17 Range/Units 11:30 WBC (3.8-10.6) k/uL RBC (4.30-5.90) m/uL Hgb (13.0-17.5) gm/dL Hct (39.0-53.0) % Neutrophils # (1.3-7.7) k/uL Lymphocytes # (1.0-4.8) k/uL Chloride (98-107) mmol/L Carbon Dioxide (22-30) mmol/L BUN (9-20) mg/dL Glucose (74-99) mg/dL POC Glucose (mg/dL) 197 H (75-99) mg/dL Crossmatch Microbiology - Last 24 Hours (Table) 05/23/17 01:18 Urine Culture - Final Urine,Clean Catch 05/22/17 21:20 Nasal Screen MRSA/MSSA ([facility]) - Final Nasal Swab Assessment and Plan Plan: The patient was seen and examined. I agree with the above assessment and plan. He had no issues overnight. He denies chest pain. He is scheduled for coronary artery bypass surgery tomorrow.
--- NOTE | 2017-05-24 10:57 | PN ---
PROGRESS NOTE DATE OF SERVICE: May 23, 2017. ATTENDING NOTE: This patient seen and examined by me. I discussed this with my nurse practitioner, Ms. Keith. This patient admitted with atrial fibrillation and ruled in for acute MO. Cardiac catheterization shows two vessel disease. Currently no chest pain. PHYSICAL EXAMINATION: On examination, lungs fair air entry. Cardiovascular heart sounds irregular. ASSESSMENT: Two-vessel coronary disease pending coronary artery bypass grafting for Thursday. Continue current medication and treatment plan. Care was discussed with the patient. MMSRINIL / IJN: [id number] /
[2017-05-24 11:32] LABS: Glucose,Whole Blood 197 mg/dL (75-99)
--- NOTE | 2017-05-24 12:17 | P.PN ---
Subjective Principal diagnosis: Coronary artery disease This is a very pleasant 71-year-old gentleman who follows with Dr. Fields as his primary care physician. He has a history of colon cancer status post resection. Approximate 2 weeks following that procedure he developed a pulmonary embolism in the left lower extremity DVT. 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 Has has history of paroxysmal atrial fibrillation and has been treated with flecainide along with the Xarelto. Has has hyperlipidemia, hypertension, osteoarthritis, hearing disorder. He presented to the emergency room early yesterday morning with significant chest discomfort that radiated to his jaw and teeth, irregular heartbeat diaphoresis and shortness of breath. He also stated he had been without his medications approximately 3 days prior to the event. Here he was found to have a non-ST segment elevation myocardial infarction along with atrial fibrillation with rapid ventricular response. He subsequently undergone a cardiac catheterization which revealed two-vessel coronary artery disease including a 70% stenosis to the mid LAD and a 95% stenosis to the right coronary artery. The plan is for coronary artery bypass grafting. We're consulted for ventilator and critical care management. He is seen today in consultation awake and alert on the selective care unit. No chest pain, palpitations, lightheadedness or dizziness. He currently denies any shortness of breath, cough or congestion. He is maintaining good O2 saturations in the mid 90s on room air. He is a lifelong nonsmoker. Other than the pulmonary embolism he had not had any pulmonary issues. 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 He remains quite active. Patient was seen on 05/23/2017, doing well, relatively asymptomatic, his myocardial revascularization is planned for early next Thursday. Patient was reevaluated today on 05/24/2017, doing well, asymptomatic, spirometry is relatively unremarkable. No evidence of obstruction on the spirometry. Objective - Vital Signs Vital signs: Vital Signs Temp 97.2 F L 05/24/17 08:00 Pulse 57 L 05/24/17 08:00 Resp 18 05/24/17 08:00 BP 143/80 05/24/17 08:00 Pulse Ox 98 05/24/17 08:00 Intake & Output 05/23/17 05/24/17 05/24/17 18:59 06:59 18:59 Intake Total 1999 800 1040 Balance 1999 800 1040 Weight 97.5 kg Intake: IV 800 800 NS at 100 800 800 Intake, IV Titration 800 Amount Sodium Chloride 0.9% 1, 800 000 ml @ 100 mls/hr IV . Q10H [facility] Rx#:[id number] Oral 1200 240 Other: Voiding Method Toilet Toilet Urinal Urinal # Voids 1 - Exam GENERAL EXAM: Alert, comfortable in no apparent distress. HEAD: Normocephalic. EYES: Normal reaction of pupils, equal size. NOSE: Clear with pink turbinates. THROAT: No erythema or exudates. NECK: No masses, no JVD. CHEST: No chest wall deformity. LUNGS: Equal air entry with no crackles, wheeze, rhonchi or dullness. CVS: S1 and S2 normal with no audible murmurs, regular rhythm. ABDOMEN: No hepatosplenomegaly, normal bowel sounds, no guarding or rigidity. SPINE: No scoliosis or deformity SKIN: No rashes CENTRAL NERVOUS SYSTEM: No focal deficits, tone is normal in all 4 extremities. Extremities: There is no peripheral edema. No clubbing no cyanosis. Peripheral pulses are intact. - Labs CBC & Chem 7: 05/24/17 03:27 05/24/17 03:27 Labs: Abnormal Lab Results - Last 24 Hours (Table) 05/23/17 05/23/17 05/24/17 Range/Units 16:46 20:47 03:27 WBC (3.8-10.6) k/uL RBC (4.30-5.90) m/uL Hgb (13.0-17.5) gm/dL Hct (39.0-53.0) % Neutrophils # (1.3-7.7) k/uL Lymphocytes # (1.0-4.8) k/uL Chloride (98-107) mmol/L Carbon Dioxide (22-30) mmol/L BUN (9-20) mg/dL Glucose (74-99) mg/dL POC Glucose (mg/dL) 222 H 234 H (75-99) mg/dL Crossmatch See Detail 05/24/17 05/24/17 05/24/17 Range/Units 03:27 03:27 06:14 WBC 11.6 H (3.8-10.6) k/uL RBC 3.84 L (4.30-5.90) m/uL Hgb 12.7 L (13.0-17.5) gm/dL Hct 36.2 L (39.0-53.0) % Neutrophils # 10.1 H (1.3-7.7) k/uL Lymphocytes # 0.9 L (1.0-4.8) k/uL Chloride 111 H (98-107) mmol/L Carbon Dioxide 20 L (22-30) mmol/L BUN 24 H (9-20) mg/dL Glucose 211 H (74-99) mg/dL POC Glucose (mg/dL) 185 H (75-99) mg/dL Crossmatch 05/24/17 Range/Units 11:30 WBC (3.8-10.6) k/uL RBC (4.30-5.90) m/uL Hgb (13.0-17.5) gm/dL Hct (39.0-53.0) % Neutrophils # (1.3-7.7) k/uL Lymphocytes # (1.0-4.8) k/uL Chloride (98-107) mmol/L Carbon Dioxide (22-30) mmol/L BUN (9-20) mg/dL Glucose (74-99) mg/dL POC Glucose (mg/dL) 197 H (75-99) mg/dL Crossmatch Microbiology - Last 24 Hours (Table) 05/23/17 01:18 Urine Culture - Final Urine,Clean Catch 05/22/17 21:20 Nasal Screen MRSA/MSSA ([facility]) - Final Nasal Swab Assessment and Plan Plan: #1 acute Non-ST segment elevation myocardial infarction with significant two- vessel coronary artery disease. The plan is for revascularization. #2 Acute on chronic atrial fibrillation with rapid ventricular response. #3 History of pulmonary embolism/left lower extremity DVT following colon resection surgery in 2010. Maintained on Xarelto. #4 History of heparin induced thrombocytopenia discovered while on Heparin for his PE. #5 History of colon cancer status post resection. #6 Diabetes mellitus, type II. #7 Hyperlipidemia. #8 Hypertension, history of. #9 Hearing disorder. Recommendation: Continue present supportive care measures, patient is already on the schedule for myocardial revascularization early next Thursday. His main risk is the fact that the patient had history of previous heparin-induced thrombocytopenia, and he is not to receive any heparin products, I believe he was already cleared for surgery by hematology/oncology. Time with Patient: Less than 30
--- NOTE | 2017-05-24 12:22 | P.PN ---
Subjective Principal diagnosis: Multivessel coronary artery disease with unsuccessful angioplasty Patient is chest pain-free hemodynamically stable and in no apparent distress. Echocardiogram showed normal LV systolic function. Patient is scheduled for bypass surgery tomorrow. Objective - Vital Signs Vital signs: Vital Signs Temp 97.2 F L 05/24/17 08:00 Pulse 57 L 05/24/17 08:00 Resp 18 05/24/17 08:00 BP 143/80 05/24/17 08:00 Pulse Ox 98 05/24/17 08:00 Intake & Output 05/23/17 05/24/17 05/24/17 18:59 06:59 18:59 Intake Total 1999 800 1040 Balance 1999 800 1040 Weight 97.5 kg Intake: IV 800 800 NS at 100 800 800 Intake, IV Titration 800 Amount Sodium Chloride 0.9% 1, 800 000 ml @ 100 mls/hr IV . Q10H [facility] Rx#:[id number] Oral 1200 240 Other: Voiding Method Toilet Toilet Urinal Urinal # Voids 1 - Exam Patient is comfortable at rest vital signs are stable chest exam reveals good air entry bilaterally heart exam reveals first and second heart sounds no gallop exam extremities did not reveal any edema per for pulses are felt - Labs CBC & Chem 7: 05/24/17 03:27 05/24/17 03:27 Labs: Abnormal Lab Results - Last 24 Hours (Table) 05/23/17 05/23/17 05/24/17 Range/Units 16:46 20:47 03:27 WBC (3.8-10.6) k/uL RBC (4.30-5.90) m/uL Hgb (13.0-17.5) gm/dL Hct (39.0-53.0) % Neutrophils # (1.3-7.7) k/uL Lymphocytes # (1.0-4.8) k/uL Chloride (98-107) mmol/L Carbon Dioxide (22-30) mmol/L BUN (9-20) mg/dL Glucose (74-99) mg/dL POC Glucose (mg/dL) 222 H 234 H (75-99) mg/dL Crossmatch See Detail 05/24/17 05/24/17 05/24/17 Range/Units 03:27 03:27 06:14 WBC 11.6 H (3.8-10.6) k/uL RBC 3.84 L (4.30-5.90) m/uL Hgb 12.7 L (13.0-17.5) gm/dL Hct 36.2 L (39.0-53.0) % Neutrophils # 10.1 H (1.3-7.7) k/uL Lymphocytes # 0.9 L (1.0-4.8) k/uL Chloride 111 H (98-107) mmol/L Carbon Dioxide 20 L (22-30) mmol/L BUN 24 H (9-20) mg/dL Glucose 211 H (74-99) mg/dL POC Glucose (mg/dL) 185 H (75-99) mg/dL Crossmatch 05/24/17 Range/Units 11:30 WBC (3.8-10.6) k/uL RBC (4.30-5.90) m/uL Hgb (13.0-17.5) gm/dL Hct (39.0-53.0) % Neutrophils # (1.3-7.7) k/uL Lymphocytes # (1.0-4.8) k/uL Chloride (98-107) mmol/L Carbon Dioxide (22-30) mmol/L BUN (9-20) mg/dL Glucose (74-99) mg/dL POC Glucose (mg/dL) 197 H (75-99) mg/dL Crossmatch Microbiology - Last 24 Hours (Table) 05/23/17 01:18 Urine Culture - Final Urine,Clean Catch 05/22/17 21:20 Nasal Screen MRSA/MSSA ([facility]) - Final Nasal Swab Assessment and Plan Plan: Two -vessel coronary artery disease status post unsuccessful angioplasty of right coronary artery parox atrial fibrillation Patient is stable for bypass surgery tomorrow
[2017-05-24] MEDS: LACTULOSE 20 GM/30 ML CUP PO SCH ×2 (12:33→21:14)
--- NOTE | 2017-05-24 15:45 | P.PN ---
Progress Note - Text DATE OF SERVICE: 05/24/2017 PRESENTING COMPLAINT: Atrial fibrillation/chest pain HISTORY OF PRESENT ILLNESS: Patient presented after he felt his heart racing at home, missed 2 doses of his flecainide and had associated chest pain and pressure going across the chest. Last for a few hours. Admitted with atrial fibrillation and subsequently ruled in for an acute GA. Status post cardiac cath found to have 90% occlusion to the RCA 70% occlusion to the left coronary artery. INTERVAL HISTORY: 05/24/2017: Lying in bed, no further episodes of chest pain or pressure, continued education and testing for scheduled CABG 2 on Thursday. Has a history of heparin -induced thrombocytopenia and should not receive any heparin products. Tolerating his diet, ambulating in the room and hallway, no BM, lactulose given. 05/23/2017: Awake standing at the bedside, discussed coming back from walk. No further episodes chest pain or pressure status post cardiac catheterization on 2016, found to have two-vessel disease, scheduled for CABG 2 on Thursday. Preoperative testing being completed today. Patient's tolerating his diet ambulating in the room and hallway, no BM, 05/22/2017: Awake sitting up in bed, scheduled cardiac catheterization today. No further episodes of chest pain or pressure. Ambulatory in the room and Dill. REVIEW OF SYSTEMS: Done for constitutional ,cardiovascular, GI, pulmonary with relevant findings as above. CURRENT MEDICATIONS Aspirin 81 mg, Lipitor 20 mg by mouth at bedtime, Valium 5 mg by mouth at bedtime, flecainide 100 mg by mouth twice a day, prednisone 20 mg by mouth twice a day, valsartan 80 mg by mouth daily, lactulose 30 g twice a day. PHYSICAL EXAM VITAL SIGNS: Temperature 98.0, pulse 59, respiratory rate 18, blood pressure 150/81, oxygen saturation 97% on room air. GENERAL APPEARANCE: Lying in bed, appears comfortable. EYES: Pupils equal. Conjunctiva normal. NECK: JVD not raised. Mass not palpable. RESPIRATORY: Respiratory effort normal. Lungs clear to auscultation. CARDIOVASCULAR: First and second sounds normal. No edema. ABDOMEN: Soft. Liver and spleen not palpable. No tenderness. No mass palpable. PSYCHIATRY: Alert and oriented x3. Mood and affect normal. INVESTIGATIONS: White blood cell count 11.6, hemoglobin 12.7, BUN 24, creatinine 1.17, Accu- Cheks noted. ASSESSMENT: -Acute non-Q wave myocardial infarction, probably precipitated by atrial fibrillation. -Persistent atrial fibrillation with rapid ventricular rate, present on admission, currently in sinus bradycardia -Essential hypertension. -Hyperlipidemia. -Benign prostatic hypertrophy. -Primary osteoporosis multiple joints bilaterally. -History of colon cancer with surgery. -Attention deficit disorder. -Chronic constipation PLAN: Continue with preoperative testing, CABG surgery scheduled for Thursday. Lactulose given for constipation, nothing by mouth after midnight. We'll continue current medication and treatment plan and follow patient closely. Plan of care discussed with the patient at the bedside he is in agreement. [employer] statement: Patient was seen and examined by nurse practitioner Tonya Keith and all elements of the case discussed with attending Dr. Beck
[2017-05-24 16:51] LABS: Glucose,Whole Blood 190 mg/dL (75-99)
[2017-05-24 20:51] LABS: Glucose,Whole Blood 140 mg/dL (75-99)
[2017-05-24] MEDS: ATORVASTATIN 20 MG TAB PO SCH (21:14)
[2017-05-25] MEDS ORDERED: DEXTROSE 5% IN WATER 1,000 ML with POTASSIUM CHLORIDE 25 MEQ, SODIUM CHLORIDE 4MEQ/ML V... IV PRN ×6 (05:00)
[2017-05-25] MEDS ORDERED: AMINOCAPROIC ACID 250 MG/ML 20 ML VIAL IV ONE (05:00)
[2017-05-25] MEDS ORDERED: NOREPINEPHRIN 4 MG-0.9% NS PMX 4 MG/250 ML ML IV PRN (05:00)
[2017-05-25] MEDS ORDERED: CALCIUM CHLORIDE 100 MG/ML 10 ML SYRINGE IVP PRN (05:00)
[2017-05-25] MEDS: SODIUM CHLORIDE 0.9% 1,000 ML IV SCH ×2 (05:00→10:07)
[2017-05-25] MEDS ORDERED: PAPAVERINE 360 MG in SODIUM CHLORIDE 0.9% 90 ML IV PRN (05:00)
[2017-05-25] MEDS ORDERED: ceFAZolin 2 GM in SODIUM CHLORIDE 0.9% 30 ML IVPB PRN (05:00)
[2017-05-25] MEDS ORDERED: CARDIOPLEGIC SOLN (K+ 16 MEQ/L 1,000 ML with SODIUM BICARB (1 MEQ/ML) 20 ML, LIDOCAINE ... PERFUSION ONE ×3 (05:00)
[2017-05-25] MEDS ORDERED: ATORVASTATIN 10 MG TAB PO ONE (05:00)
[2017-05-25] MEDS ORDERED: METOPROLOL TARTRATE 12.5 MG TAB PO ONE (05:00)
[2017-05-25] MEDS ORDERED: TRANEXAMIC ACID 2,000 MG in SODIUM CHLORIDE 0.9% 180 ML IV ONE (05:00)
[2017-05-25] MEDS ORDERED: ALBUMIN HUMAN 25% 50 ML in EMPTY BAG 1 BAG IVPB PRN (05:00)
[2017-05-25] MEDS ORDERED: CHLORHEXIDINE GLUCONATE 15 ML CUP MUCOUS MEM PRN (05:00)
[2017-05-25] MEDS ORDERED: CLEVIDIPINE BUTYRATE 25 MG in EMPTY BAG 1 BAG IV PRN (05:00)
[2017-05-25] MEDS ORDERED: DEXTROSE 5% IN WATER 1,000 ML with POTASSIUM CHLORIDE 110 MEQ, MAGNESIUM SULFATE 16 MEQ... IV PRN ×5 (05:00)
[2017-05-25] MEDS ORDERED: NITROGLYCERIN-D5W PMX 25 MG/250 ML BTL IV PRN (05:00)
[2017-05-25] MEDS ORDERED: MAGNESIUM SULFATE SYG 4.06 MEQ/ML SYRINGE IV PRN (05:00)
[2017-05-25] MEDS ORDERED: PHENYLEPHRINE 40 MG in SODIUM CHLORIDE 0.9% 250 ML IV PRN (05:00)
[2017-05-25] MEDS ORDERED: ALBUMIN HUMAN 5% 500 ML in EMPTY BAG 1 BAG IVPB PRN ×6 (05:00)
[2017-05-25] MEDS ORDERED: ceFAZolin 1,000 MG in SODIUM CHLORIDE 0.9% IRRIGATIO 1,000 ML IRRIGATION PRN (05:00)
[2017-05-25] MEDS ORDERED: ASPIRIN 325 MG TAB PO ONE (05:00)
[2017-05-25] MEDS ORDERED: AMINOCAPROIC ACID 5,000 MG in DEXTROSE 5% IN WATER 50 ML IV ONE ×4 (05:00)
[2017-05-25] MEDS ORDERED: MANNITOL 25% 12.5 GM/50 ML VIAL IV ONE ×2 (05:00)
[2017-05-25] MEDS ORDERED: NITROGLYCERIN-D5W PMX 50 MG in DEXTROSE/WATER 1 250ML.BAG IV PRN (05:00)
[2017-05-25] MEDS ORDERED: PHENYLEPHRINE-0.9% NACL SYG 1 MG/10 ML SYRINGE IV PRN ×4 (05:00)
[2017-05-25] MEDS ORDERED: BIVALIRUDIN 250 MG in SODIUM CHLORIDE 0.9% 50 ML IV PRN (05:00)
[2017-05-25] MEDS ORDERED: INSULIN REGULAR 100 UNIT in SODIUM CHLORIDE 0.9% 100 ML IV PRN (05:00)
[2017-05-25] MEDS ORDERED: SODIUM BICARB 8.4% 50 ML SYR (1 MEQ/ML) IV PRN (05:00)
[2017-05-25 06:19] LABS: Glucose,Whole Blood 165 mg/dL (75-99)
[2017-05-25] MEDS: INSULIN LISPRO (humaLOG) 300 UNIT/3 ML VIAL SQ SCH ×2 (06:34→12:24)
[2017-05-25] MEDS: LACTULOSE 20 GM/30 ML CUP PO SCH (09:55)
[2017-05-25] MEDS: VALSARTAN 80 MG TAB PO SCH (09:56)
[2017-05-25] MEDS ORDERED: FLECAINIDE 50 MG TAB PO SCH (10:00)
[2017-05-25] MEDS: predniSONE 20 MG TAB PO SCH (10:04)
[2017-05-25] MEDS: MUPIROCIN 2% OINT 22 GM TUBE NASAL SCH ×2 (10:05→22:41)
[2017-05-25 12:01] LABS: Glucose,Whole Blood 129 mg/dL (75-99)
--- NOTE | 2017-05-25 12:07 | P.PN ---
Subjective This is a pleasant 71-year-old gentleman with past medical history of diabetes, hypertension, hyperlipidemia, chronic atrial fibrillation, osteoporosis, colon cancer with resection in July 2011, PE and DVT. Presented to the emergency department with complaints of chest pain which radiated to his neck, teeth and left arm and was associated with some shortness of breath. Deny complaints of nausea or vomiting or diaphoresis. He had not been taking his medications for the last 2 or 3 days prior to admission. Troponins came in to be positive. Patient underwent cardiac catheterization which showed 95% stenosis to his right coronary artery and 70% stenosis of the mid LAD. Patient was recommended to undergo coronary artery bypass grafting and has been seen by Dr. Marshall. He' ll be going for coronary artery bypass grafting at noon today. Upon examination , patient is resting comfortably in bed. He denies complaints of chest discomfort, palpitations, shortness of breath or dizziness. Objective - Vital Signs Vital signs: Vital Signs Temp 96.9 F L 05/25/17 08:00 Pulse 44 L 05/25/17 08:00 Resp 16 05/25/17 08:00 BP 162/78 05/25/17 08:00 Pulse Ox 99 05/25/17 05:00 Intake & Output 05/24/17 05/25/17 05/25/17 18:59 06:59 18:59 Intake Total 2440 1600 Balance 2440 1600 Weight 97.1 kg Intake: IV 1600 1600 NS at 100 1600 1600 Oral 840 Other: Voiding Method Toilet Urinal # Voids 3 2 - Exam PHYSICAL EXAMINATION: HEENT: Head is atraumatic, normocephalic. Pupils equal, round. Neck is supple. There is no elevated jugular venous pressure. HEART EXAMINATION: Heart sounds regular, S1 and S2 normal. No murmur or gallop heard. CHEST EXAMINATION: Lungs are clear to auscultation and precussion. No chest wall tenderness is noted on palpation or with deep breathing. ABDOMEN: Soft, nontender. Bowel sounds are heard. No organomegaly noted. EXTREMITIES: 2+ peripheral pulses with no evidence of peripheral edema and no calf tenderness noted. Right groin puncture site with a large area of ecchymosis, no hematoma or bruit. NEUROLOGIC patient is awake, alert and oriented x3. . - Labs CBC & Chem 7: 05/24/17 03:27 05/24/17 03:27 Labs: Abnormal Lab Results - Last 24 Hours (Table) 05/24/17 05/24/17 05/25/17 Range/Units 16:50 20:50 06:18 POC Glucose (mg/dL) 190 H 140 H 165 H (75-99) mg/dL 05/25/17 Range/Units 11:41 POC Glucose (mg/dL) 129 H (75-99) mg/dL Microbiology - Last 24 Hours (Table) 05/23/17 01:18 Urine Culture - Final Urine,Clean Catch Assessment and Plan Plan: Assessment and plan #1 coronary artery disease with significant stenosis of the RCA and LAD, scheduled to undergo coronary artery bypass grafting on Thursday #2 paroxysmal atrial fibrillation 3 diabetes #4 hypertension #5 hyperlipidemia From cardiology perspective, we will continue to follow the patient perioperatively and provide further recommendations accordingly. The above dictated assessment and findings were discussed with signing physician. The impression and plan of care have been directed as dictated. Alexandrea Randolph, Nurse Practitioner, acting as scribe for signing physician.
--- NOTE | 2017-05-25 13:15 | P.PN ---
Subjective Progress note dated 05/25/2017 This is a patient who was admitted with a diagnosis of non-ST segment elevation myocardial infarction and significant 2 vessel coronary artery disease. The plan is for bypass surgery today. The patient also has a history of atrial fibrillation with RVR history of pulmonary embolism and left lower extremity DVT following: Resection back in 2010. The patient has a history of heparin- induced thrombocytopenia colon cancer diabetes mellitus hyperlipidemia hypertension and hearing loss. I'm not sure whether or not the patient will be the first case with a second case today on Thursday. The patient seemed relatively stable. A little anxious. Objective - Vital Signs Vital signs: Vital Signs Temp 97.2 F L 05/25/17 12:00 Pulse 48 L 05/25/17 12:00 Resp 18 05/25/17 12:00 BP 163/76 05/25/17 12:00 Pulse Ox 96 05/25/17 12:00 Intake & Output 05/24/17 05/25/17 05/25/17 18:59 06:59 18:59 Intake Total 2440 1600 Balance 2440 1600 Weight 97.1 kg Intake: IV 1600 1600 NS at 100 1600 1600 Oral 840 Other: Voiding Method Toilet Urinal # Voids 3 2 - Exam No acute distress, oriented 3. HEENT examination is grossly unremarkable. Mucous membranes are moist. No oral lesions. Neck supple. Full range of motion. No adenopathy or thyromegaly. Neck veins are flat. Cardiovascular examination reveals regular rhythm rate. S1-S2 normal. No S3- S4 or murmur. Lungs reveal clear breath sounds. No wheezes or rhonchi. No crackles. Abdomen soft bowel sounds are heard. Extremities are intact. No cyanosis clubbing or edema. Skin without rash. Neurologic examination is nonfocal. - Labs CBC & Chem 7: 05/24/17 03:27 05/24/17 03:27 Labs: Abnormal Lab Results - Last 24 Hours (Table) 05/24/17 05/24/17 05/25/17 Range/Units 16:50 20:50 06:18 POC Glucose (mg/dL) 190 H 140 H 165 H (75-99) mg/dL 05/25/17 Range/Units 11:41 POC Glucose (mg/dL) 129 H (75-99) mg/dL Microbiology - Last 24 Hours (Table) 05/23/17 01:18 Urine Culture - Final Urine,Clean Catch Assessment and Plan (1) Acute non-ST segment elevation myocardial infarction Status: Acute (2) Atrial fibrillation with rapid ventricular response Status: Acute (3) Chest pain Status: Acute (4) Diabetes mellitus type 2 in nonobese Status: Acute (5) HIT (heparin-induced thrombocytopenia) Status: Acute (6) Hearing disorder of both ears Status: Acute (7) History of heparin-induced thrombocytopenia Status: Acute (8) Hyperlipidemia Status: Acute (9) Paroxysmal atrial fibrillation Status: Acute (10) Two-vessel coronary artery disease Status: Acute (11) Atrial fibrillation Status: Acute Plan: Plan dated 05/25/2017 The patient had spirometry. Spirometry was stable. The patient seemed be doing relatively well. We'll see the patient after the operating room. The patient's lung function would predict a good outcome from the pulmonary standpoint. We'll continue to follow through his hospitalization. Time with Patient: Less than 30
[2017-05-25] MEDS ORDERED: PROPOFOL 1,000 MG/100 ML VIAL IV PRN (14:03)
[2017-05-25] MEDS ORDERED: SODIUM CITRATE MISCELLANE ONE ×2 (15:00)
[2017-05-25] MEDS ORDERED: SODIUM CHLORIDE 0.9% MISCELLANE ONE ×2 (15:00)
[2017-05-25] MEDS ORDERED: PROPOFOL 10 MG/ML 20 ML VIAL IV ONE (15:34)
[2017-05-25] MEDS ORDERED: MIDAZOLAM 2 MG/2 ML VIAL ONE (15:34)
[2017-05-25] MEDS ORDERED: VECURONIUM 10 MG VIAL IV ONE (15:34)
[2017-05-25] MEDS ORDERED: ePHEDrine SULFATE/0.9% NACL/PF 50 MG/5 ML SYRINGE IV ONE (15:34)
[2017-05-25] MEDS ORDERED: SODIUM CHLORIDE 0.9% IRRIG 1,000 ML BTL IRRIGATION ONE (15:34)
[2017-05-25] MEDS ORDERED: ALBUMIN HUMAN 5% 500 ML VIAL IVPB ONE (15:34)
[2017-05-25] MEDS ORDERED: fentaNYL (PF) 50 MCG/ML 50 ML VIAL ONE (15:34)
[2017-05-25] MEDS ORDERED: fentaNYL (PF) 50 MCG/ML 2 ML AMP ONE (15:34)
[2017-05-25 16:18] LABS: Glucose,Whole Blood 148 mg/dL (75-99)
[2017-05-25] MEDS ORDERED: SODIUM CHLORIDE 0.9% 1,000 ML IV ONE (16:30)
[2017-05-25 17:45] LABS: Glucose,Whole Blood 139 mg/dL (75-99)
[2017-05-25] MEDS ORDERED: ALBUMIN HUMAN 5% 250 ML IVPB ONE (18:40)
[2017-05-25] MEDS ORDERED: MORPHINE SULFATE 2 MG/ML SYRINGE IVP PRN (18:49)
[2017-05-25] MEDS ORDERED: Phosphorus Replacement Protoco 1 EACH MISC MISCELLANE PRN (18:49)
[2017-05-25] MEDS ORDERED: METOCLOPRAMIDE 5 MG/ML 2 ML VIAL IVP PRN (18:49)
[2017-05-25] MEDS ORDERED: Potassium Replacement Protocol 1 EACH MISC MISCELLANE PRN (18:49)
[2017-05-25] MEDS ORDERED: BENZOCAINE/MENTHOL LOZENG 1 EACH LOZENGE MUCOUS MEM PRN (18:49)
[2017-05-25] MEDS ORDERED: CALCIUM GLUCONATE 2,000 MG in SODIUM CHLORIDE 0.9% 100 ML IVPB PRN (18:49)
[2017-05-25] MEDS ORDERED: LACTATED RINGERS 250 ML IV PRN (18:49)
[2017-05-25] MEDS ORDERED: Magnesium Replacement Protocol 1 EACH MISC MISCELLANE PRN (18:49)
--- NOTE | 2017-05-25 18:56 | P.OP ---
Date of Procedure: 05/25/17 Preoperative Diagnosis: Coronary artery disease, unstable angina, paroxysmal atrial fibrillation Postoperative Diagnosis: Same Procedure(s) Performed: Off pump CABG 2 with CHASE to LAD and SVG to PDA, modified Poon maze procedure with bilateral pulmonary vein ablation and ligation of the left atrial appendage with 35 mm AtriCure clip, endovascular vein harvest, LEONEL by anesthesia. Implants: 35 mm Atriclip Anesthesia: REECE Surgeon: Kulwant Marshall Security Associate #1: Kevin Root Security Associate #2: Abhinav Estrada Estimated Blood Loss (ml): 50 IV fluids (ml): 1,500 Urine output (ml): 500 Pathology: none sent Condition: stable Disposition: ICU Indications for Procedure: 71-year-old male with known history of paroxysmal atrial fibrillation controlled with flecanide presented with unstable anginal symptomatology. Cardiac catheterization demonstrated severe and diffuse disease in the left anterior descending coronary artery and very tight disease in the right coronary artery with BERNARD 1-2 flow in the right coronary artery. Intervention was attempted on the right coronary artery however despite success at passing a wire they were unable to pass a balloon. Urgent surgical revascularization was requested. Patient remained in the hospital for a few days as he had been on Pradaxa on admission. He was then brought to the operating room for surgical revascularization. Patient has a history of heparin-induced thrombocytopenia and therefore heparin was contraindicated for the procedure. Operative Findings: LEONEL showed no evidence of thrombus in the left atrial appendage. The left anterior descending was a diffusely diseased and heavily calcified vessel. Soft spot was identified near the apex. It was grafted here. Right coronary artery was a heavily calcified and diffusely diseased vessel. Was not consistent with graftable. The PDA was a much better target and we dissected it out proximally and grafted it just after the heavy disease that it contained from its bifurcation with the right coronary artery. Left atrial appendage was a large left atrial appendage with a narrow neck and measured for a 35 clip area overall ventricular function was good. The aorta was soft. Description of Procedure: The patient was brought to the operating room placed supine on the operating table anesthetized and intubated. [place]-Noel catheter had been placed via the right internal jugular approach. Menjivar and nasogastric tubes were placed. LEONEL probe was placed. The anterior torso and lower extremities were sterilely prepped and draped in standard fashion. Saphenous vein was harvested from the right lower extremity using endovascular vein harvest technique. The greater saphenous vein was harvested from knee to the groin. It was of good quality. It was prepared on the back table and flushed with saline. No heparin was used. Simultaneous sternotomy was performed and a left hemisternum retracted upwards. The left internal mammary artery was harvested on a vascularized pedicle left intact on its origin from the subclavian. It was divided distally and was an excellent conduit. The left pleural space was drained with 32- [place] chest tube. Standard sternal retractor was placed. Pericardium was opened in the midline. The heart was exposed with pericardial sutures. Patient was anticoagulated with Angiomax. A CTs were maintained greater than 250 during grafting. Suction stabilization was used during distal anastomosis. CHASE to the LAD was performed first. CHASE was of adequate length to reach the apex. The best site to graft the LAD appeared to be in the distal third of the LAD near the apex. This area was stabilized and the vessel was opened. Blood flow was controlled 1.5 mm flow through. End to side anastomosis between the CHASE and the LAD was performed with running 7-0 Prolene suture. On completion of the anastomosis the flow through was removed effectively probing the proximal distal portion of the anastomosis. Suture was tied with good result and hemostasis and the inflow open. Good hemostasis was noted. The JOHAN pedicle was tacked surrounding epicardium with 6-0 silk. The CHASE lay well and the fluid filled well and was no kinking and more than adequate length. Saphenous vein was measured for the PDA. Was loaded on passport anastomotic connector and connected to the ascending aorta in the midline just above the sinotubular junction. The inferior wall of the heart was exposed and the vein graft was wrapped around the right side of the heart. The PDA was stabilized and explored. It was opened fairly proximally just beyond some heavy disease. The remainder of the vessel was relatively disease. Free. Blood flow was controlled with a 1.5 mm flow through. Anastomosis of the vein to the PDA was performed with running 7-0 Prolene suture. Completion anastomosis the flow through was removed 50 probe the proximal and distal portion of the anastomosis. Suture was tied. Inflow was opened. Good hemostasis was noted. The heart was lowered into anatomic position and the Angiomax drip was turned off. ACT was allowed to return to normal. The mediastinum was drained with a 36-[place] chest tube. Mediastinum was irrigated with antibiotic solution and after assuring good hemostasis the chest was closed with 8 sternal wires. Fascia was closed with 0 Ethibond. Subcutaneous and subcuticular layers were closed with layers of Vicryl in the leg and chest. Dry sterile dressings were applied and the patient was transferred to the ICU in stable condition.
[2017-05-25 19:18] LABS: Glucose,Whole Blood 145 mg/dL (75-99)
[2017-05-25 19:28] LABS: Basophils % (A) 0 %; CH 33.4; CHCM 35.7; Eosinophils % (A) 1 %; HCT 29.2 % (39.0-53.0); HGB 10.4 gm/dL (13.0-17.5); Luc # (Auto) 0.06; Luc % (Auto) 1; Lymphocytes # (A) 0.8 k/uL (1.0-4.8); Lymphocytes % (A) 11 %; MCH 33.6 pg (25.0-35.0); MCHC 35.7 g/dL (31.0-37.0); MCV 94.1 fL (80.0-100.0); Mean Platelet Volume 7.7; Monocytes # (A) 0.4 k/uL (0-1.0); Monocytes % (A) 5 %; Neutrophils # (A) 6.3 k/uL (1.3-7.7); Neutrophils % (A) 83 %; RBC 3.11 m/uL (4.30-5.90); RDW 12.6 % (11.5-15.5); WBC 7.6 k/uL (3.8-10.6); WBC (Perox) 7.88
[2017-05-25 19:32] LABS: Ionized Calcium 4.7 mg/dL (4.5-5.3)
[2017-05-25 19:36] LABS: INR 1.7 (<1.2); Partial Thromboplastin Time 54.8 sec (22.0-30.0); Prothrombin Time 16.3 sec (9.0-12.0)
[2017-05-25] MEDS: CLEVIDIPINE BUTYRATE 25 MG in EMPTY BAG 1 BAG IV SCH ×2 (19:40→22:40)
--- NOTE | 2017-05-25 19:47 | XR ---
EXAMINATION TYPE: XR chest 1V portable DATE OF EXAM: 05/25/2017 COMPARISON: 05/21/2017 HISTORY: Heart surgery TECHNIQUE: Single frontal view of the chest is obtained. FINDINGS: There is left chest tube that appears in good position. There is right jugular catheter wi th tip in the right pulmonary artery. Endotracheal tube is in good position. There are sternal wires. I see no pneumothorax. IMPRESSION: No heart failure or pulmonary consolidation.
[2017-05-25 19:51] LABS: Glucose,Whole Blood 136 mg/dL (75-99)
[2017-05-25 19:56] LABS: ALT 22 U/L (21-72); AST 20 U/L (17-59); Alkaline Phosphatase 25 U/L (38-126); Anion Gap 12 mmol/L; Blood Urea Nitrogen 17 mg/dL (9-20); Calcium 7.8 mg/dL (8.4-10.2); Carbon Dioxide 21 mmol/L (22-30); Chloride 107 mmol/L (98-107); Glucose 135 mg/dL (74-99); Magnesium 1.8 mg/dL (1.6-2.3); Non-African American GFR(MDRD) >60 (>60 ml/min/1.73 sqM); Potassium 4.7 mmol/L (3.5-5.1); Sodium 140 mmol/L (137-145); Total Bilirubin 1.4 mg/dL (0.2-1.3)
[2017-05-25] MEDS: PROPOFOL 1,000 MG/100 ML VIAL IV SCH ×2 (20:00→22:53)
[2017-05-25 20:01] LABS: ABG Base Excess -3.5 mmol/L; ABG HCO3 22 mmol/L (21-25); ABG PCO2 45 mmHg (35-45); ABG PO2 145 mmHg (83-108); ABG TCO2 23 mmol/L (19-24)
[2017-05-25] MEDS: IPRATROPIUM-ALBUTEROL 3 ML NEB INHALATION SCH ×2 (20:07→23:21)
[2017-05-25 20:19] LABS: Glucose,Whole Blood 131 mg/dL (75-99)
[2017-05-25] MEDS: ACETAMINOPHEN IV (For NPO) 1,000 MG in EMPTY BAG 1 BAG IVPB SCH (20:39)
[2017-05-25] MEDS: NITROGLYCERIN-D5W PMX 50 MG in DEXTROSE/WATER 1 250ML.BAG IV SCH (20:57)
[2017-05-25] MEDS: LACTATED RINGERS 1,000 ML IV SCH (20:57)
--- NOTE | 2017-05-25 21:05 | PN ---
PROGRESS NOTE DATE OF SERVICE: May 24, 2017. ATTENDING NOTE: This patient was seen and examined by me. I discussed with my nurse practitioner, Ms. Keith. No further episodes of chest pain. Awaiting bypass. Lying in bed. PHYSICAL EXAMINATION: Lungs are clear. CARDIOVASCULAR: First and second sounds normal. ASSESSMENT: Acute non-Q-wave myocardial infarction. Cardiac cath showing two vessel coronary artery disease. Care was discussed with the patient. Awaiting bypass tomorrow. The patient remains in sinus rhythm. MMODL / IJN: [id number] /
[2017-05-25 21:08] LABS: Glucose,Whole Blood 128 mg/dL (75-99)
--- NOTE | 2017-05-25 21:42 | P.PN ---
Progress Note - Text DATE OF SERVICE: 05/25/2017 PRESENTING COMPLAINT: Atrial fibrillation/chest pain HISTORY OF PRESENT ILLNESS: Patient presented after he felt his heart racing at home, missed 2 doses of his flecainide and had associated chest pain and pressure going across the chest. Last for a few hours. Admitted with atrial fibrillation and subsequently ruled in for an acute FL. Status post cardiac cath found to have 90% occlusion to the RCA 70% occlusion to the left coronary artery. Now status post CABG 2 with CHASE to LAD and SVG to PDA. INTERVAL HISTORY: 05/25/2017: Lying in bed, intubated, sedated, appears comfortable. Rhythm is sinus bradycardia on the monitor in the 50s to 60s, propofol infusing, insulin drip, and clever Prax infusing epinephrine on standby, Menjivar catheter in place draining dark tea-colored urine, right lateral neck with [place]-Noel catheter in place, ventilator set at SIMV rate of 12, tidal volume 500, FiO2 of 80% with a PEEP of 5. 2 chest tubes a mediastinal and pleural wide in to one receptacle first hour 420 mL, second hour 320 mL out of the chest tube. Surgeon notified, patient receiving a pool of platelets, as well as blood product. 05/24/2017: Lying in bed, no further episodes of chest pain or pressure, continued education and testing for scheduled CABG 2 on Thursday. Has a history of heparin -induced thrombocytopenia and should not receive any heparin products. Tolerating his diet, ambulating in the room and hallway, no BM, lactulose given. 05/23/2017: Awake standing at the bedside, discussed coming back from walk. No further episodes chest pain or pressure status post cardiac catheterization on 2016, found to have two-vessel disease, scheduled for CABG 2 on Thursday. Preoperative testing being completed today. Patient's tolerating his diet ambulating in the room and hallway, no BM, 05/22/2017: Awake sitting up in bed, scheduled cardiac catheterization today. No further episodes of chest pain or pressure. Ambulatory in the room and Dill. REVIEW OF SYSTEMS: Done for constitutional ,cardiovascular, GI, pulmonary with relevant findings as above. CURRENT MEDICATIONS Aspirin 325 mg, Lipitor 40 mg by mouth at bedtime, Valium 5 mg by mouth at bedtime, flecainide 100 mg by mouth twice a day, prednisone 20 mg by mouth twice a day, valsartan 80 mg by mouth daily, lactulose 30 g twice a day. Clevidipine 25 mg IV solution, 1 new 2.5 mg subcu daily, insulin drip per protocol, Reglan 10 mg IV push every 4 hours, Lopressor 12.5 mg by mouth twice a day, Differin and titrate to effect, Protonix 40 mg IV push daily, PHYSICAL EXAM VITAL SIGNS: Temperature 94.6, pulse 62, respiratory rate 12, blood pressure 127/55, oxygen saturation 96% on 80% FiO2 on the ventilator GENERAL APPEARANCE: Lying in bed, appears comfortable, sedated. EYES: Pupils equal. Conjunctiva normal. MOUTH: ET tube in place, OG tube in place NECK: JVD unable to assess. Mass not palpable. RESPIRATORY: Respiratory effort normal on the ventilator. Lungs diminished to auscultation. CARDIOVASCULAR: First and second sounds normal. No edema. Chest wall: Midline incision covered with surgical dressing, mediastinal pleural chest tubes wide into a single line bloody drainage noted ABDOMEN: Soft. Liver and spleen not palpable. No tenderness. No mass palpable. PSYCHIATRY: Unable to assess patient is sedated and on the ventilator INVESTIGATIONS: Hemoglobin 10.4, platelet count 126, INR 1.7, carbon dioxide 21, Accu-Cheks noted. AB.3/45/145/22/23/-3.5 Chest x-ray: No heart failure pulmonary consolidation, chest tube appears in good position, right IJ in the right PDA artery, ET tube in good place no pneumothorax. ASSESSMENT: -Acute non-Q wave myocardial infarction, probably precipitated by atrial fibrillation. Now status post CABG 2 with CHASE. -Mechanically assisted ventilation -Acute blood loss anemia as expected from surgery -Persistent atrial fibrillation with rapid ventricular rate, present on admission, currently in sinus bradycardia -Essential hypertension. -Hyperlipidemia. -Benign prostatic hypertrophy. -Primary osteoporosis multiple joints bilaterally. -History of colon cancer with surgery. -Attention deficit disorder. -Chronic constipation PLAN: Continue close monitoring, wean to extubate, monitor chest tube output, continue bear hugger to normalize temperature, discussed plan of care with family at the bedside and they are in agreement. We'll continue to monitor closely COMPLIANCE COUNSEL statement: Patient was seen and examined by nurse practitioner Tonya Keith and all elements of the case discussed with attending Dr. Beck
[2017-05-25 21:52] LABS: Basophils % (A) 0 %; CH 33.9; Eosinophils % (A) 0 %; HCT 27.7 % (39.0-53.0); HDW 2.97; HGB 9.7 gm/dL (13.0-17.5); Luc # (Auto) 0.08; Luc % (Auto) 1; Lymphocytes # (A) 1.2 k/uL (1.0-4.8); Lymphocytes % (A) 10 %; MCH 33.3 pg (25.0-35.0); MCHC 35.2 g/dL (31.0-37.0); MCV 94.6 fL (80.0-100.0); Mean Platelet Volume 8.7; Monocytes # (A) 0.6 k/uL (0-1.0); Monocytes % (A) 5 %; Neutrophils # (A) 10.2 k/uL (1.3-7.7); Neutrophils % (A) 84 %; RBC 2.93 m/uL (4.30-5.90); WBC 12.1 k/uL (3.8-10.6); WBC (Perox) 11.68
[2017-05-25 21:53] LABS: Glucose,Whole Blood 140 mg/dL (75-99)
[2017-05-25 22:21] LABS: INR 1.3 (<1.2); Partial Thromboplastin Time 36.2 sec (22.0-30.0); Prothrombin Time 12.9 sec (9.0-12.0)
[2017-05-25 22:55] LABS: Glucose,Whole Blood 155 mg/dL (75-99)
[2017-05-25 23:05] LABS: Basophils % (A) 0 %; CH 33.9; CHCM 36.2; Eosinophils % (A) 0 %; HCT 24.1 % (39.0-53.0); HDW 3.02; HGB 8.7 gm/dL (13.0-17.5); Luc # (Auto) 0.08; Luc % (Auto) 1; Lymphocytes # (A) 1.4 k/uL (1.0-4.8); Lymphocytes % (A) 10 %; MCV 94.2 fL (80.0-100.0); Mean Platelet Volume 8.3; Monocytes # (A) 0.8 k/uL (0-1.0); Monocytes % (A) 6 %; Neutrophils # (A) 11.7 k/uL (1.3-7.7); Neutrophils % (A) 84 %; RBC 2.56 m/uL (4.30-5.90); WBC (Perox) 14.46
[2017-05-25] MEDS: INSULIN REGULAR 100 UNIT in SODIUM CHLORIDE 0.9% 100 ML IV SCH (23:08)
[2017-05-25 23:58] LABS: Glucose,Whole Blood 155 mg/dL (75-99)
[2017-05-26] MEDS: ACETAMINOPHEN IV (For NPO) 1,000 MG in EMPTY BAG 1 BAG IVPB SCH ×4 (00:09→17:17)
[2017-05-26] MEDS: CLEVIDIPINE BUTYRATE 25 MG in EMPTY BAG 1 BAG IV SCH ×4 (00:18→23:46)
[2017-05-26] MEDS: ceFAZolin 2 GM in SODIUM CHLORIDE 0.9% 100 ML IVPB SCH ×3 (00:31→15:00)
[2017-05-26 01:06] LABS: Glucose,Whole Blood 154 mg/dL (75-99)
[2017-05-26 01:17] LABS: Anion Gap 9 mmol/L; Blood Urea Nitrogen 20 mg/dL (9-20); Calcium 7.5 mg/dL (8.4-10.2); Carbon Dioxide 22 mmol/L (22-30); Chloride 105 mmol/L (98-107); Glucose 134 mg/dL (74-99); Non-African American GFR(MDRD) >60 (>60 ml/min/1.73 sqM); Potassium 3.9 mmol/L (3.5-5.1); Sodium 136 mmol/L (137-145)
[2017-05-26 01:25] LABS: Basophils % (A) 0 %; CH 33.5; CHCM 36.3; Eosinophils % (A) 0 %; HDW 3.15; Luc # (Auto) 0.08; Luc % (Auto) 1; Lymphocytes # (A) 1.2 k/uL (1.0-4.8); Lymphocytes % (A) 10 %; MCH 33.8 pg (25.0-35.0); MCHC 36.5 g/dL (31.0-37.0); MCV 92.8 fL (80.0-100.0); Mean Platelet Volume 7.1; Monocytes # (A) 0.7 k/uL (0-1.0); Monocytes % (A) 6 %; Neutrophils # (A) 9.8 k/uL (1.3-7.7); Neutrophils % (A) 83 %; RBC 2.09 m/uL (4.30-5.90); RDW 12.7 % (11.5-15.5); WBC 11.8 k/uL (3.8-10.6)
[2017-05-26 01:33] LABS: HCT 19.4 % (39.0-53.0); HGB 7.1 gm/dL (13.0-17.5)
[2017-05-26 02:12] LABS: Glucose,Whole Blood 129 mg/dL (75-99)
[2017-05-26] MEDS: MAGNESIUM SULFATE-D5W PMX 1 GM in DEXTROSE/WATER 1 100ML.BAG IVPB SCH ×2 (02:18→03:07)
[2017-05-26] MEDS ORDERED: ALBUMIN HUMAN 5% 250 ML in EMPTY BAG 1 BAG IVPB ONE (02:36)
[2017-05-26 03:27] LABS: Glucose,Whole Blood 130 mg/dL (75-99)
[2017-05-26] MEDS: IPRATROPIUM-ALBUTEROL 3 ML NEB INHALATION SCH ×4 (03:27→15:28)
[2017-05-26] MEDS: PROPOFOL 1,000 MG/100 ML VIAL IV SCH (03:32)
[2017-05-26 04:09] LABS: Glucose,Whole Blood 150 mg/dL (75-99)
[2017-05-26 05:13] LABS: Glucose,Whole Blood 141 mg/dL (75-99)
[2017-05-26 06:06] LABS: Glucose,Whole Blood 137 mg/dL (75-99)
[2017-05-26 07:06] LABS: Glucose,Whole Blood 136 mg/dL (75-99)
[2017-05-26 07:17] LABS: Glucose,Whole Blood 137 mg/dL (75-99)
[2017-05-26 07:17] LABS: Basophils % (A) 0 %; CH 31.9; CHCM 35.9; Eosinophils # (A) 0.1 k/uL (0-0.7); Eosinophils % (A) 1 %; HCT 21.3 % (39.0-53.0); HDW 3.23; HGB 7.7 gm/dL (13.0-17.5); Luc # (Auto) 0.05; Luc % (Auto) 1; Lymphocytes # (A) 0.8 k/uL (1.0-4.8); Lymphocytes % (A) 9 %; MCH 32.4 pg (25.0-35.0); MCHC 36.3 g/dL (31.0-37.0); MCV 89.2 fL (80.0-100.0); Mean Platelet Volume 8.3; Monocytes # (A) 0.5 k/uL (0-1.0); Monocytes % (A) 5 %; Neutrophils # (A) 7.2 k/uL (1.3-7.7); Neutrophils % (A) 84 %; RBC 2.38 m/uL (4.30-5.90); RDW 13.9 % (11.5-15.5); WBC 8.5 k/uL (3.8-10.6); WBC (Perox) 8.88
[2017-05-26 07:23] LABS: Ionized Calcium 4.3 mg/dL (4.5-5.3)
--- NOTE | 2017-05-26 07:26 | PN ---
PROGRESS NOTE DATE OF SERVICE: 05/25/2017 ATTENDING NOTE: This patient was seen and examined by me. I discussed with my DOG OBEDIENCE INSTRUCTOR, Ms. Keith. The patient is status post CABG today, later in ICU patient started bleeding from his 2 chest tubes. When I went up 1000 mL. Patient had received 2 FFPs and 5 platelets. Patient drips include clevidipine, IV insulin, IV propofol. Patient remains on the ventilator, FiO2 is 70 and PEEP of 5. PHYSICAL EXAMINATION: On examination, the patient is intubated. LUNGS: Diminished breath sounds. Two chest tubes in place. Hemoglobin is 9.7. ASSESSMENT: 1. Acute severe blood loss from the mediastinal chest tubes. 2. Status post CABG. 3. Paroxysmal atrial fibrillation, now patient is in sinus rhythm. 4. Postoperative ventilator assistance as expected from surgery. PLAN: Dr. Marshall has been informed. Follow, current medications. MMODL / IJN: [id number] /
[2017-05-26 07:27] LABS: INR 1.1 (<1.2); Partial Thromboplastin Time 22.6 sec (22.0-30.0); Prothrombin Time 11.1 sec (9.0-12.0)
[2017-05-26 07:42] LABS: ALT 23 U/L (21-72); AST 28 U/L (17-59); Alkaline Phosphatase 33 U/L (38-126); Anion Gap 10 mmol/L; Blood Urea Nitrogen 21 mg/dL (9-20); Calcium 7.7 mg/dL (8.4-10.2); Carbon Dioxide 24 mmol/L (22-30); Chloride 104 mmol/L (98-107); Glucose 120 mg/dL (74-99); Magnesium 2.3 mg/dL (1.6-2.3); Non-African American GFR(MDRD) >60 (>60 ml/min/1.73 sqM); Sodium 138 mmol/L (137-145); Total Bilirubin 3.1 mg/dL (0.2-1.3); Total Protein 5.1 g/dL (6.3-8.2)
[2017-05-26 07:53] LABS: Potassium 4.1 mmol/L (3.5-5.1)
--- NOTE | 2017-05-26 07:59 | XR ---
EXAMINATION TYPE: XR chest 1V portable DATE OF EXAM: 05/26/2017 COMPARISON: 05/25/2017 HISTORY: Postop TECHNIQUE: Single frontal view of the chest is obtained. FINDINGS: Bilateral consolidation and pleural effusion noted. Post surgical changes seen. ET, NG tub e and [place]-Noel catheter stable. Chest tubes unchanged. Suggestion of mediastinal drain. Mild central venous congestion suspected. Arthropathy of the shoulders. IMPRESSION: 1. Postsurgical change with findings compatible with bilateral airspace disease and pleural effusion. CHF in the differential diagnosis. Pneumonia not excluded.
[2017-05-26 08:30] LABS: Glucose,Whole Blood 128 mg/dL (75-99)
[2017-05-26 08:47] LABS: ABG Base Excess -1.5 mmol/L; ABG HCO3 22 mmol/L (21-25); ABG PCO2 35 mmHg (35-45); ABG PH 7.42 (7.35-7.45); ABG PO2 79 mmHg (83-108); ABG TCO2 23 mmol/L (19-24)
[2017-05-26] MEDS: MUPIROCIN 2% OINT 22 GM TUBE NASAL SCH ×2 (08:54→20:55)
[2017-05-26] MEDS: ASPIRIN 325 MG TAB PO SCH (08:54)
[2017-05-26] MEDS ORDERED: PANTOPRAZOLE 40 MG/10 ML VIAL IVP SCH (09:00)
[2017-05-26] MEDS ORDERED: FONDAPARINUX 2.5 MG/0.5 ML SYRINGE SQ SCH (09:00)
--- NOTE | 2017-05-26 09:02 | P.PN ---
<Abhinav Estrada - Last Filed: 05/26/17 09:01> Subjective Principal diagnosis: Two-vessel coronary artery disease, unstable angina, acute non-ST segment elevation myocardial infarction, preoperative paroxysmal atrial fibrillation, hearing disorder both ears, diabetes mellitus type 2, hypertension, hyperlipidemia, history of heparin-induced thrombocytopenia. POD #1, urgent off-pump coronary artery bypass grafting 2 with left internal mammary artery to the left anterior descending coronary artery and saphenous vein graft to the posterior descending coronary artery, modified Poon maze procedure with bilateral pulmonary vein ablation and ligation of the left atrial appendage using a #35 mm AtriCure clip, endovascular vein harvest of the right greater saphenous vein, intraoperative transesophageal echocardiogram performed by anesthesia. The patient is in bed, remains intubated with mechanical ventilator support. He is sedated at this time with propofol 50 mcg/kg/m. No acute distress. Not following any simple verbal commands at this time. Objective - Vital Signs Vital signs: Vital Signs Temp 98.2 F 05/26/17 06:46 Pulse 57 L 05/26/17 07:23 Resp 12 05/26/17 07:00 BP 127/48 05/26/17 06:46 Pulse Ox 96 05/26/17 07:00 Intake & Output 05/25/17 05/26/17 05/26/17 18:59 06:59 18:59 Intake Total 33 4497.581 69 Output Total 1150 3884 115 Balance -1117 613.581 -46 Weight 101.3 kg Intake: IV 33 998 69 Cardiac Output, 0.9ns 190 10 Lactated Ringers 600 50 Magnesium Sulfate-D5w Pmx 100 1 gm In Dextrose/Water 1 100ml.bag @ 100 mls/hr IVPB Q1H [facility] Rx#: [id number] Pressure Bag, 0.9ns 108 9 Intake, IV Titration 542.581 Amount ACETAMINOPHEN IV (For NPO 200 ) 1,000 mg In Empty Bag 1 bag @ 400 mls/hr IVPB Q6HR [facility] Rx#:[id number] Clevidipine Butyrate 25 59.334 mg In Empty Bag 1 bag @ 1 MG/HR 2 mls/hr IV .Q24H [facility] Rx#:[id number] Insulin Regular 100 unit 16.065 In Sodium Chloride 0.9% 100 ml @ Per Protocol IV .Q0M [facility] Rx#:[id number] Propofol 1,000 mg In 100 167.182 ml @ Titrate IV .Q0M [facility] Rx#:[id number] ceFAZolin 2 gm In Sodium 100 Chloride 0.9% 100 ml @ 100 mls/hr IVPB Q8HR [facility] Rx#:[id number] Blood Product 2957 Ffp 24 Cp2d Unit 252 [id number] Ffp 24 Cp2d Unit 211 [id number] Ffp 24 Cp2d Unit 191 [id number] Ffp 24 Cpd Unit 284 [id number] Ffp 24 Cpd Unit 290 [id number] Ffp 24 Cpd Unit 303 [id number] Platelet Pheresis Acda 410 Unit [id number] Platelet Pheresis Acda2 196 Unit [id number] Platelet Pheresis Acda2 260 Unit [id number] Rc As-1 Unit 310 [id number] Rc Cpd Unit 250 [id number] Output: Chest Tube Drainage 3020 90 Mediastinal and Left 3020 90 Pleural Urine 550 864 25 Estimated Blood Loss 600 Other: Voiding Method Toilet Indwelling Catheter Urinal # Voids 2 ABP, PAP, CO, CI - Last Documented Arterial Blood Pressure 134/50 Pulmonary Artery Pressure 35/18 Cardiac Output 4.8 Cardiac Index 2.3 - Constitutional Constitutional Comment(s): Sedated with Diprivan@50 mcg/kg/m. General appearance: Present: no acute distress - EENT Eyes: Present: PERRLA, normal appearance - Neck Details: No JVD, [place] and right IJ Cordis in place scant serosanguineous drainage. Current cardiac output is 4.9, cardiac index 2.3, pulmonary artery pressures 35/ 16, CVP 13. - Respiratory Details: Lung sounds are essentially clear throughout, diminished to his bilateral bases. Respirations are symmetrical and nonlabored with mechanical ventilator support. Current ventilator settings are as follows: AC 12, TV 500, FiO2 40%, peep 10. Mediastinal and left pleural chest tube in place evacuating thin serosanguineous drainage. The chest tubes remained to low continuous wall suction -20 cm H2O. 530 mL output from the chest tubes in the last 8 hours, 1150 mL output since surgery. - Cardiovascular Details: Regular rhythm and rate. S1 and S2 present, positive pansystolic murmur 2/6, negative for S3 or gallop. Sternum stable. Heart hugger in place. Knee-high WALT hose and sequential compression devices in place to his bilateral lower extremities. Bedside telemetry showing sinus bradycardia heart rate 57. No edema present. - Gastrointestinal Gastrointestinal Comment(s): Abdomen soft, nontender and nondistended. Active bowel sounds all 4 abdominal quadrants. OG tube in place to low intermittent wall suction. - Genitourinary Genitourinary Comment(s): Clear yellow urine. Menjivar catheter for accurate I&O. Marginal urine output 15- 25 mL output an hour. 210 mL output in the last 8 hours. - Integumentary Integumentary Comment(s): Midline sternal incision clean dry and well approximated. Dermabond dressing clean and dry. No drainage noted. Right leg EVH harvest site clean dry and well approximated. Dermabond dressing clean and dry. Right groin heart cath puncture site clean dry and soft. Large ecchymotic area to his right groin and right thigh. Soft to touch. - Musculoskeletal Musculoskeletal Comment(s): Patient remains sedated on Diprivan@50 mcg/kg/m. - Allied health notes Allied health notes reviewed: nursing - Labs CBC & Chem 7: 05/26/17 07:05 05/26/17 07:05 Labs: Abnormal Lab Results - Last 24 Hours (Table) 05/24/17 05/25/17 05/25/17 Range/Units 03:27 11:41 16:12 WBC (3.8-10.6) k/uL RBC (4.30-5.90) m/uL Hgb (13.0-17.5) gm/dL Hct (39.0-53.0) % Plt Count (150-450) k/uL Neutrophils # (1.3-7.7) k/uL Lymphocytes # (1.0-4.8) k/uL PT (9.0-12.0) sec INR (<1.2) APTT (22.0-30.0) sec ABG pH (7.35-7.45) ABG pO2 (83-108) mmHg ABG O2 Saturation (94-97) % Sodium (137-145) mmol/L Carbon Dioxide (22-30) mmol/L Glucose (74-99) mg/dL POC Glucose (mg/dL) 129 H 148 H (75-99) mg/dL Calcium (8.4-10.2) mg/dL Ionized Calcium Turner (4.5-5.3) mg/dL Total Bilirubin (0.2-1.3) mg/dL Alkaline Phosphatase (38-126) U/L Total Protein (6.3-8.2) g/dL Albumin (3.5-5.0) g/dL Crossmatch See Detail 05/25/17 05/25/17 05/25/17 Range/Units 17:16 17:40 19:17 WBC (3.8-10.6) k/uL RBC (4.30-5.90) m/uL Hgb (13.0-17.5) gm/dL Hct (39.0-53.0) % Plt Count (150-450) k/uL Neutrophils # (1.3-7.7) k/uL Lymphocytes # (1.0-4.8) k/uL PT (9.0-12.0) sec INR (<1.2) APTT (22.0-30.0) sec ABG pH (7.35-7.45) ABG pO2 (83-108) mmHg ABG O2 Saturation (94-97) % Sodium (137-145) mmol/L Carbon Dioxide (22-30) mmol/L Glucose (74-99) mg/dL POC Glucose (mg/dL) 137 H 139 H 145 H (75-99) mg/dL Calcium (8.4-10.2) mg/dL Ionized Calcium Turner (4.5-5.3) mg/dL Total Bilirubin (0.2-1.3) mg/dL Alkaline Phosphatase (38-126) U/L Total Protein (6.3-8.2) g/dL Albumin (3.5-5.0) g/dL Crossmatch 05/25/17 05/25/17 05/25/17 Range/Units 19:21 19:21 19:21 WBC (3.8-10.6) k/uL RBC 3.11 L (4.30-5.90) m/uL Hgb 10.4 L (13.0-17.5) gm/dL Hct 29.2 L (39.0-53.0) % Plt Count 126 L (150-450) k/uL Neutrophils # (1.3-7.7) k/uL Lymphocytes # 0.8 L (1.0-4.8) k/uL PT 16.3 H (9.0-12.0) sec INR 1.7 H (<1.2) APTT 54.8 H (22.0-30.0) sec ABG pH (7.35-7.45) ABG pO2 (83-108) mmHg ABG O2 Saturation (94-97) % Sodium (137-145) mmol/L Carbon Dioxide 21 L (22-30) mmol/L Glucose 135 H (74-99) mg/dL POC Glucose (mg/dL) (75-99) mg/dL Calcium 7.8 L (8.4-10.2) mg/dL Ionized Calcium Turner (4.5-5.3) mg/dL Total Bilirubin 1.4 H (0.2-1.3) mg/dL Alkaline Phosphatase 25 L (38-126) U/L Total Protein 5.0 L (6.3-8.2) g/dL Albumin 3.2 L (3.5-5.0) g/dL Crossmatch 05/25/17 05/25/17 05/25/17 Range/Units 19:42 19:44 20:18 WBC (3.8-10.6) k/uL RBC (4.30-5.90) m/uL Hgb (13.0-17.5) gm/dL Hct (39.0-53.0) % Plt Count (150-450) k/uL Neutrophils # (1.3-7.7) k/uL Lymphocytes # (1.0-4.8) k/uL PT (9.0-12.0) sec INR (<1.2) APTT (22.0-30.0) sec ABG pH 7.30 L (7.35-7.45) ABG pO2 145 H (83-108) mmHg ABG O2 Saturation 99.0 H (94-97) % Sodium (137-145) mmol/L Carbon Dioxide (22-30) mmol/L Glucose (74-99) mg/dL POC Glucose (mg/dL) 136 H 131 H (75-99) mg/dL Calcium (8.4-10.2) mg/dL Ionized Calcium Turner (4.5-5.3) mg/dL Total Bilirubin (0.2-1.3) mg/dL Alkaline Phosphatase (38-126) U/L Total Protein (6.3-8.2) g/dL Albumin (3.5-5.0) g/dL Crossmatch 05/25/17 05/25/17 05/25/17 Range/Units 21:06 21:38 21:49 WBC 12.1 H (3.8-10.6) k/uL RBC 2.93 L (4.30-5.90) m/uL Hgb 9.7 L (13.0-17.5) gm/dL Hct 27.7 L (39.0-53.0) % Plt Count (150-450) k/uL Neutrophils # 10.2 H (1.3-7.7) k/uL Lymphocytes # (1.0-4.8) k/uL PT 12.9 H (9.0-12.0) sec INR 1.3 H (<1.2) APTT 36.2 H (22.0-30.0) sec ABG pH (7.35-7.45) ABG pO2 (83-108) mmHg ABG O2 Saturation (94-97) % Sodium (137-145) mmol/L Carbon Dioxide (22-30) mmol/L Glucose (74-99) mg/dL POC Glucose (mg/dL) 128 H (75-99) mg/dL Calcium (8.4-10.2) mg/dL Ionized Calcium Turner (4.5-5.3) mg/dL Total Bilirubin (0.2-1.3) mg/dL Alkaline Phosphatase (38-126) U/L Total Protein (6.3-8.2) g/dL Albumin (3.5-5.0) g/dL Crossmatch 05/25/17 05/25/17 05/25/17 Range/Units 21:51 22:52 22:53 WBC 14.0 H (3.8-10.6) k/uL RBC 2.56 L (4.30-5.90) m/uL Hgb 8.7 L (13.0-17.5) gm/dL Hct 24.1 L (39.0-53.0) % Plt Count (150-450) k/uL Neutrophils # 11.7 H (1.3-7.7) k/uL Lymphocytes # (1.0-4.8) k/uL PT (9.0-12.0) sec INR (<1.2) APTT (22.0-30.0) sec ABG pH (7.35-7.45) ABG pO2 (83-108) mmHg ABG O2 Saturation (94-97) % Sodium (137-145) mmol/L Carbon Dioxide (22-30) mmol/L Glucose (74-99) mg/dL POC Glucose (mg/dL) 140 H 155 H (75-99) mg/dL Calcium (8.4-10.2) mg/dL Ionized Calcium Turner (4.5-5.3) mg/dL Total Bilirubin (0.2-1.3) mg/dL Alkaline Phosphatase (38-126) U/L Total Protein (6.3-8.2) g/dL Albumin (3.5-5.0) g/dL Crossmatch 05/25/17 05/26/17 05/26/17 Range/Units 23:57 00:59 01:01 WBC (3.8-10.6) k/uL RBC (4.30-5.90) m/uL Hgb (13.0-17.5) gm/dL Hct (39.0-53.0) % Plt Count (150-450) k/uL Neutrophils # (1.3-7.7) k/uL Lymphocytes # (1.0-4.8) k/uL PT (9.0-12.0) sec INR (<1.2) APTT (22.0-30.0) sec ABG pH (7.35-7.45) ABG pO2 (83-108) mmHg ABG O2 Saturation (94-97) % Sodium 136 L (137-145) mmol/L Carbon Dioxide (22-30) mmol/L Glucose 134 H (74-99) mg/dL POC Glucose (mg/dL) 155 H 154 H (75-99) mg/dL Calcium 7.5 L (8.4-10.2) mg/dL Ionized Calcium Turner (4.5-5.3) mg/dL Total Bilirubin (0.2-1.3) mg/dL Alkaline Phosphatase (38-126) U/L Total Protein (6.3-8.2) g/dL Albumin (3.5-5.0) g/dL Crossmatch 05/26/17 05/26/17 05/26/17 Range/Units 01:01 02:10 03:06 WBC 11.8 H (3.8-10.6) k/uL RBC 2.09 L (4.30-5.90) m/uL Hgb 7.1 L D (13.0-17.5) gm/dL Hct 19.4 L* (39.0-53.0) % Plt Count (150-450) k/uL Neutrophils # 9.8 H (1.3-7.7) k/uL Lymphocytes # (1.0-4.8) k/uL PT (9.0-12.0) sec INR (<1.2) APTT (22.0-30.0) sec ABG pH (7.35-7.45) ABG pO2 (83-108) mmHg ABG O2 Saturation (94-97) % Sodium (137-145) mmol/L Carbon Dioxide (22-30) mmol/L Glucose (74-99) mg/dL POC Glucose (mg/dL) 129 H 130 H (75-99) mg/dL Calcium (8.4-10.2) mg/dL Ionized Calcium Turner (4.5-5.3) mg/dL Total Bilirubin (0.2-1.3) mg/dL Alkaline Phosphatase (38-126) U/L Total Protein (6.3-8.2) g/dL Albumin (3.5-5.0) g/dL Crossmatch 05/26/17 05/26/17 05/26/17 Range/Units 04:07 05:07 06:03 WBC (3.8-10.6) k/uL RBC (4.30-5.90) m/uL Hgb (13.0-17.5) gm/dL Hct (39.0-53.0) % Plt Count (150-450) k/uL Neutrophils # (1.3-7.7) k/uL Lymphocytes # (1.0-4.8) k/uL PT (9.0-12.0) sec INR (<1.2) APTT (22.0-30.0) sec ABG pH (7.35-7.45) ABG pO2 (83-108) mmHg ABG O2 Saturation (94-97) % Sodium (137-145) mmol/L Carbon Dioxide (22-30) mmol/L Glucose (74-99) mg/dL POC Glucose (mg/dL) 150 H 141 H 137 H (75-99) mg/dL Calcium (8.4-10.2) mg/dL Ionized Calcium Turner (4.5-5.3) mg/dL Total Bilirubin (0.2-1.3) mg/dL Alkaline Phosphatase (38-126) U/L Total Protein (6.3-8.2) g/dL Albumin (3.5-5.0) g/dL Crossmatch 05/26/17 05/26/17 05/26/17 Range/Units 07:03 07:05 07:05 WBC (3.8-10.6) k/uL RBC 2.38 L (4.30-5.90) m/uL Hgb 7.7 L (13.0-17.5) gm/dL Hct 21.3 L (39.0-53.0) % Plt Count (150-450) k/uL Neutrophils # (1.3-7.7) k/uL Lymphocytes # 0.8 L (1.0-4.8) k/uL PT (9.0-12.0) sec INR (<1.2) APTT (22.0-30.0) sec ABG pH (7.35-7.45) ABG pO2 (83-108) mmHg ABG O2 Saturation (94-97) % Sodium (137-145) mmol/L Carbon Dioxide (22-30) mmol/L Glucose (74-99) mg/dL POC Glucose (mg/dL) 136 H (75-99) mg/dL Calcium (8.4-10.2) mg/dL Ionized Calcium Turner 4.3 L (4.5-5.3) mg/dL Total Bilirubin (0.2-1.3) mg/dL Alkaline Phosphatase (38-126) U/L Total Protein (6.3-8.2) g/dL Albumin (3.5-5.0) g/dL Crossmatch - Imaging and Cardiology Chest x-ray: report reviewed, image reviewed Assessment and Plan (1) History of heparin-induced thrombocytopenia Status: Acute (2) Hypertension Status: Acute (3) Hyperlipidemia Status: Acute (4) Diabetes mellitus type 2 in nonobese Status: Acute (5) Hearing disorder of both ears Status: Acute (6) Paroxysmal atrial fibrillation Status: Acute (7) Acute non-ST segment elevation myocardial infarction Status: Acute (8) Two-vessel coronary artery disease Status: Acute Plan: 1. Continue aspirin, statin, Plavix, and beta angie. We will maximize beta angie as tolerated. 2. Hold Arixtra today. The Arixtra will be started tomorrow morning. 3. GI and DVT prophylaxis in place. 4. Mechanical ventilator support management per pulmonary medicine's recommendations. 5. We will decrease his PEEP from 10 down to 5 this a.m. May wean to extubate. 6. Maintain his chest tubes to low continuous suction -20 cm H2O. 7. Blood sugar management per primary care service. 8. Further recommendations as patient progresses since care. Time with Patient: Greater than 30 <Deandre Lewis - Last Filed: 05/26/17 11:01> Objective - Vital Signs Vital signs: Vital Signs Temp 98.2 F 05/26/17 06:46 Pulse 61 05/26/17 10:00 Resp 16 05/26/17 10:00 BP 127/48 05/26/17 06:46 Pulse Ox 93 L 05/26/17 10:00 Intake & Output 05/25/17 05/26/17 05/26/17 18:59 06:59 18:59 Intake Total 33 4497.581 409.415 Output Total 1150 3884 450 Balance -1117 613.581 -40.585 Weight 101.3 kg Intake: IV 33 998 366 Cardiac Output, 0.9ns 190 30 Lactated Ringers 600 200 Magnesium Sulfate-D5w Pmx 100 1 gm In Dextrose/Water 1 100ml.bag @ 100 mls/hr IVPB Q1H [facility] Rx#: [id number] Pressure Bag, 0.9ns 108 36 ceFAZolin 2 gm In Sodium 100 Chloride 0.9% 100 ml @ 100 mls/hr IVPB Q8HR [facility] Rx#:[id number] Intake, IV Titration 542.581 43.415 Amount ACETAMINOPHEN IV (For NPO 200 ) 1,000 mg In Empty Bag 1 bag @ 400 mls/hr IVPB Q6HR [facility] Rx#:[id number] Clevidipine Butyrate 25 59.334 23.066 mg In Empty Bag 1 bag @ 1 MG/HR 2 mls/hr IV .Q24H [facility] Rx#:[id number] Insulin Regular 100 unit 16.065 20.349 In Sodium Chloride 0.9% 100 ml @ Per Protocol IV .Q0M [facility] Rx#:[id number] Propofol 1,000 mg In 100 167.182 ml @ Titrate IV .Q0M [facility] Rx#:[id number] ceFAZolin 2 gm In Sodium 100 Chloride 0.9% 100 ml @ 100 mls/hr IVPB Q8HR [facility] Rx#:[id number] Blood Product 2957 Ffp 24 Cp2d Unit 252 [id number] Ffp 24 Cp2d Unit 211 [id number] Ffp 24 Cp2d Unit 191 [id number] Ffp 24 Cpd Unit 284 [id number] Ffp 24 Cpd Unit 290 [id number] Ffp 24 Cpd Unit 303 [id number] Platelet Pheresis Acda 410 Unit [id number] Platelet Pheresis Acda2 196 Unit [id number] Platelet Pheresis Acda2 260 Unit [id number] Rc As-1 Unit 310 [id number] Rc Cpd Unit 250 [id number] Output: Chest Tube Drainage 3020 300 Mediastinal and Left 3020 300 Pleural Urine 550 864 150 Estimated Blood Loss 600 Other: Voiding Method Toilet Indwelling Catheter Urinal # Voids 2 ABP, PAP, CO, CI - Last Documented Arterial Blood Pressure 126/48 Pulmonary Artery Pressure 33/17 Cardiac Output 5 Cardiac Index 2.3 - Labs CBC & Chem 7: 05/26/17 07:05 05/26/17 07:05 Labs: Abnormal Lab Results - Last 24 Hours (Table) 05/24/17 05/25/17 05/25/17 Range/Units 03:27 11:41 16:12 WBC (3.8-10.6) k/uL RBC (4.30-5.90) m/uL Hgb (13.0-17.5) gm/dL Hct (39.0-53.0) % Plt Count (150-450) k/uL Neutrophils # (1.3-7.7) k/uL Lymphocytes # (1.0-4.8) k/uL PT (9.0-12.0) sec INR (<1.2) APTT (22.0-30.0) sec ABG pH (7.35-7.45) ABG pO2 (83-108) mmHg ABG O2 Saturation (94-97) % Sodium (137-145) mmol/L Carbon Dioxide (22-30) mmol/L BUN (9-20) mg/dL Glucose (74-99) mg/dL POC Glucose (mg/dL) 129 H 148 H (75-99) mg/dL Calcium (8.4-10.2) mg/dL Ionized Calcium Turner (4.5-5.3) mg/dL Total Bilirubin (0.2-1.3) mg/dL Alkaline Phosphatase (38-126) U/L Total Protein (6.3-8.2) g/dL Albumin (3.5-5.0) g/dL Crossmatch See Detail 05/25/17 05/25/17 05/25/17 Range/Units 17:16 17:40 19:17 WBC (3.8-10.6) k/uL RBC (4.30-5.90) m/uL Hgb (13.0-17.5) gm/dL Hct (39.0-53.0) % Plt Count (150-450) k/uL Neutrophils # (1.3-7.7) k/uL Lymphocytes # (1.0-4.8) k/uL PT (9.0-12.0) sec INR (<1.2) APTT (22.0-30.0) sec ABG pH (7.35-7.45) ABG pO2 (83-108) mmHg ABG O2 Saturation (94-97) % Sodium (137-145) mmol/L Carbon Dioxide (22-30) mmol/L BUN (9-20) mg/dL Glucose (74-99) mg/dL POC Glucose (mg/dL) 137 H 139 H 145 H (75-99) mg/dL Calcium (8.4-10.2) mg/dL Ionized Calcium Turner (4.5-5.3) mg/dL Total Bilirubin (0.2-1.3) mg/dL Alkaline Phosphatase (38-126) U/L Total Protein (6.3-8.2) g/dL Albumin (3.5-5.0) g/dL Crossmatch 05/25/17 05/25/17 05/25/17 Range/Units 19:21 19:21 19:21 WBC (3.8-10.6) k/uL RBC 3.11 L (4.30-5.90) m/uL Hgb 10.4 L (13.0-17.5) gm/dL Hct 29.2 L (39.0-53.0) % Plt Count 126 L (150-450) k/uL Neutrophils # (1.3-7.7) k/uL Lymphocytes # 0.8 L (1.0-4.8) k/uL PT 16.3 H (9.0-12.0) sec INR 1.7 H (<1.2) APTT 54.8 H (22.0-30.0) sec ABG pH (7.35-7.45) ABG pO2 (83-108) mmHg ABG O2 Saturation (94-97) % Sodium (137-145) mmol/L Carbon Dioxide 21 L (22-30) mmol/L BUN (9-20) mg/dL Glucose 135 H (74-99) mg/dL POC Glucose (mg/dL) (75-99) mg/dL Calcium 7.8 L (8.4-10.2) mg/dL Ionized Calcium Turner (4.5-5.3) mg/dL Total Bilirubin 1.4 H (0.2-1.3) mg/dL Alkaline Phosphatase 25 L (38-126) U/L Total Protein 5.0 L (6.3-8.2) g/dL Albumin 3.2 L (3.5-5.0) g/dL Crossmatch 05/25/17 05/25/17 05/25/17 Range/Units 19:42 19:44 20:18 WBC (3.8-10.6) k/uL RBC (4.30-5.90) m/uL Hgb (13.0-17.5) gm/dL Hct (39.0-53.0) % Plt Count (150-450) k/uL Neutrophils # (1.3-7.7) k/uL Lymphocytes # (1.0-4.8) k/uL PT (9.0-12.0) sec INR (<1.2) APTT (22.0-30.0) sec ABG pH 7.30 L (7.35-7.45) ABG pO2 145 H (83-108) mmHg ABG O2 Saturation 99.0 H (94-97) % Sodium (137-145) mmol/L Carbon Dioxide (22-30) mmol/L BUN (9-20) mg/dL Glucose (74-99) mg/dL POC Glucose (mg/dL) 136 H 131 H (75-99) mg/dL Calcium (8.4-10.2) mg/dL Ionized Calcium Turner (4.5-5.3) mg/dL Total Bilirubin (0.2-1.3) mg/dL Alkaline Phosphatase (38-126) U/L Total Protein (6.3-8.2) g/dL Albumin (3.5-5.0) g/dL Crossmatch 05/25/17 05/25/17 05/25/17 Range/Units 21:06 21:38 21:49 WBC 12.1 H (3.8-10.6) k/uL RBC 2.93 L (4.30-5.90) m/uL Hgb 9.7 L (13.0-17.5) gm/dL Hct 27.7 L (39.0-53.0) % Plt Count (150-450) k/uL Neutrophils # 10.2 H (1.3-7.7) k/uL Lymphocytes # (1.0-4.8) k/uL PT 12.9 H (9.0-12.0) sec INR 1.3 H (<1.2) APTT 36.2 H (22.0-30.0) sec ABG pH (7.35-7.45) ABG pO2 (83-108) mmHg ABG O2 Saturation (94-97) % Sodium (137-145) mmol/L Carbon Dioxide (22-30) mmol/L BUN (9-20) mg/dL Glucose (74-99) mg/dL POC Glucose (mg/dL) 128 H (75-99) mg/dL Calcium (8.4-10.2) mg/dL Ionized Calcium Turner (4.5-5.3) mg/dL Total Bilirubin (0.2-1.3) mg/dL Alkaline Phosphatase (38-126) U/L Total Protein (6.3-8.2) g/dL Albumin (3.5-5.0) g/dL Crossmatch 05/25/17 05/25/17 05/25/17 Range/Units 21:51 22:52 22:53 WBC 14.0 H (3.8-10.6) k/uL RBC 2.56 L (4.30-5.90) m/uL Hgb 8.7 L (13.0-17.5) gm/dL Hct 24.1 L (39.0-53.0) % Plt Count (150-450) k/uL Neutrophils # 11.7 H (1.3-7.7) k/uL Lymphocytes # (1.0-4.8) k/uL PT (9.0-12.0) sec INR (<1.2) APTT (22.0-30.0) sec ABG pH (7.35-7.45) ABG pO2 (83-108) mmHg ABG O2 Saturation (94-97) % Sodium (137-145) mmol/L Carbon Dioxide (22-30) mmol/L BUN (9-20) mg/dL Glucose (74-99) mg/dL POC Glucose (mg/dL) 140 H 155 H (75-99) mg/dL Calcium (8.4-10.2) mg/dL Ionized Calcium Turner (4.5-5.3) mg/dL Total Bilirubin (0.2-1.3) mg/dL Alkaline Phosphatase (38-126) U/L Total Protein (6.3-8.2) g/dL Albumin (3.5-5.0) g/dL Crossmatch 05/25/17 05/26/17 05/26/17 Range/Units 23:57 00:59 01:01 WBC (3.8-10.6) k/uL RBC (4.30-5.90) m/uL Hgb (13.0-17.5) gm/dL Hct (39.0-53.0) % Plt Count (150-450) k/uL Neutrophils # (1.3-7.7) k/uL Lymphocytes # (1.0-4.8) k/uL PT (9.0-12.0) sec INR (<1.2) APTT (22.0-30.0) sec ABG pH (7.35-7.45) ABG pO2 (83-108) mmHg ABG O2 Saturation (94-97) % Sodium 136 L (137-145) mmol/L Carbon Dioxide (22-30) mmol/L BUN (9-20) mg/dL Glucose 134 H (74-99) mg/dL POC Glucose (mg/dL) 155 H 154 H (75-99) mg/dL Calcium 7.5 L (8.4-10.2) mg/dL Ionized Calcium Turner (4.5-5.3) mg/dL Total Bilirubin (0.2-1.3) mg/dL Alkaline Phosphatase (38-126) U/L Total Protein (6.3-8.2) g/dL Albumin (3.5-5.0) g/dL Crossmatch 05/26/17 05/26/17 05/26/17 Range/Units 01:01 02:10 03:06 WBC 11.8 H (3.8-10.6) k/uL RBC 2.09 L (4.30-5.90) m/uL Hgb 7.1 L D (13.0-17.5) gm/dL Hct 19.4 L* (39.0-53.0) % Plt Count (150-450) k/uL Neutrophils # 9.8 H (1.3-7.7) k/uL Lymphocytes # (1.0-4.8) k/uL PT (9.0-12.0) sec INR (<1.2) APTT (22.0-30.0) sec ABG pH (7.35-7.45) ABG pO2 (83-108) mmHg ABG O2 Saturation (94-97) % Sodium (137-145) mmol/L Carbon Dioxide (22-30) mmol/L BUN (9-20) mg/dL Glucose (74-99) mg/dL POC Glucose (mg/dL) 129 H 130 H (75-99) mg/dL Calcium (8.4-10.2) mg/dL Ionized Calcium Turner (4.5-5.3) mg/dL Total Bilirubin (0.2-1.3) mg/dL Alkaline Phosphatase (38-126) U/L Total Protein (6.3-8.2) g/dL Albumin (3.5-5.0) g/dL Crossmatch 05/26/17 05/26/17 05/26/17 Range/Units 04:07 05:07 06:03 WBC (3.8-10.6) k/uL RBC (4.30-5.90) m/uL Hgb (13.0-17.5) gm/dL Hct (39.0-53.0) % Plt Count (150-450) k/uL Neutrophils # (1.3-7.7) k/uL Lymphocytes # (1.0-4.8) k/uL PT (9.0-12.0) sec INR (<1.2) APTT (22.0-30.0) sec ABG pH (7.35-7.45) ABG pO2 (83-108) mmHg ABG O2 Saturation (94-97) % Sodium (137-145) mmol/L Carbon Dioxide (22-30) mmol/L BUN (9-20) mg/dL Glucose (74-99) mg/dL POC Glucose (mg/dL) 150 H 141 H 137 H (75-99) mg/dL Calcium (8.4-10.2) mg/dL Ionized Calcium Turner (4.5-5.3) mg/dL Total Bilirubin (0.2-1.3) mg/dL Alkaline Phosphatase (38-126) U/L Total Protein (6.3-8.2) g/dL Albumin (3.5-5.0) g/dL Crossmatch 05/26/17 05/26/17 05/26/17 Range/Units 07:03 07:05 07:05 WBC (3.8-10.6) k/uL RBC 2.38 L (4.30-5.90) m/uL Hgb 7.7 L (13.0-17.5) gm/dL Hct 21.3 L (39.0-53.0) % Plt Count (150-450) k/uL Neutrophils # (1.3-7.7) k/uL Lymphocytes # 0.8 L (1.0-4.8) k/uL PT (9.0-12.0) sec INR (<1.2) APTT (22.0-30.0) sec ABG pH (7.35-7.45) ABG pO2 (83-108) mmHg ABG O2 Saturation (94-97) % Sodium (137-145) mmol/L Carbon Dioxide (22-30) mmol/L BUN 21 H (9-20) mg/dL Glucose 120 H (74-99) mg/dL POC Glucose (mg/dL) 136 H (75-99) mg/dL Calcium 7.7 L (8.4-10.2) mg/dL Ionized Calcium Turner 4.3 L (4.5-5.3) mg/dL Total Bilirubin 3.1 H (0.2-1.3) mg/dL Alkaline Phosphatase 33 L (38-126) U/L Total Protein 5.1 L (6.3-8.2) g/dL Albumin 3.1 L (3.5-5.0) g/dL Crossmatch 05/26/17 05/26/17 05/26/17 Range/Units 08:28 08:42 09:56 WBC (3.8-10.6) k/uL RBC (4.30-5.90) m/uL Hgb (13.0-17.5) gm/dL Hct (39.0-53.0) % Plt Count (150-450) k/uL Neutrophils # (1.3-7.7) k/uL Lymphocytes # (1.0-4.8) k/uL PT (9.0-12.0) sec INR (<1.2) APTT (22.0-30.0) sec ABG pH (7.35-7.45) ABG pO2 79 L (83-108) mmHg ABG O2 Saturation (94-97) % Sodium (137-145) mmol/L Carbon Dioxide (22-30) mmol/L BUN (9-20) mg/dL Glucose (74-99) mg/dL POC Glucose (mg/dL) 128 H 123 H (75-99) mg/dL Calcium (8.4-10.2) mg/dL Ionized Calcium Turner (4.5-5.3) mg/dL Total Bilirubin (0.2-1.3) mg/dL Alkaline Phosphatase (38-126) U/L Total Protein (6.3-8.2) g/dL Albumin (3.5-5.0) g/dL Crossmatch Assessment and Plan Plan: The patient was seen and examined. I agree with the above assessment and plan. The patient did receive some blood products overnight secondary to coagulopathic bleeding. It appears to have slowed down this morning. His chest x-ray appears to be clear. We will proceed with weaning his ventilator and plan on extubation this morning. Otherwise he is hemodynamically stable, currently on Cleviprex. We will give him a low dose beta angie. His Arixtra is on hold. He is not receive any heparin products.
[2017-05-26 09:59] LABS: Glucose,Whole Blood 123 mg/dL (75-99)
[2017-05-26] MEDS ORDERED: METOPROLOL TARTRATE 12.5 MG TAB PO SCH ×2 (11:15→17:07)
--- NOTE | 2017-05-26 11:45 | P.PN ---
Subjective This is a very pleasant 71-year-old gentleman who follows with Dr. Fields as his primary care physician. He has a history of colon cancer status post resection. Approximate 2 weeks following that procedure he developed a pulmonary embolism in the left lower extremity DVT. 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 Has has history of paroxysmal atrial fibrillation and has been treated with flecainide along with the Xarelto. Has has hyperlipidemia, hypertension, osteoarthritis, hearing disorder. He presented to the emergency room early yesterday morning with significant chest discomfort that radiated to his jaw and teeth, irregular heartbeat diaphoresis and shortness of breath. He also stated he had been without his medications approximately 3 days prior to the event. Here he was found to have a non-ST segment elevation myocardial infarction along with atrial fibrillation with rapid ventricular response. He subsequently undergone a cardiac catheterization which revealed two-vessel coronary artery disease including a 70% stenosis to the mid LAD and a 95% stenosis to the right coronary artery. The plan is for coronary artery bypass grafting. We're consulted for ventilator and critical care management. The patient is seen today in the intensive care unit status post coronary artery bypass grafting. This is postoperative day #1. Dr. Marshall performed off -pump coronary artery bypass grafting 2 with a CHASE to the LAD and SVG to the PDA. He is currently intubated on the mechanical ventilator and is IMV 12, tidal volume 500, FiO2 40% and a PEEP of 5. Morning blood gases reveal a pO2 of 79, pCO2 35, pH 7.42. He is currently on Roxicet 5 mg per hour, insulin at 3.5 units per hour, lactated Ringer's at 50 MLS per hour. He was not extubated last night secondary to mediastinal bleeding of greater than 2 L. He did not need to be returned to the OR. He is status post 2 units of packed red blood cells, 6 units of fresh frozen plasma, 1 unit of platelets and 2 units of pheresis platelets. His current hemoglobin is 7.7. Platelet count 158,000. PA pressures 38/19, CVP 15. His sedation is currently off for a sedation holiday and weaning trials. Objective - Vital Signs Vital signs: Vital Signs Temp 98.2 F 05/26/17 06:46 Pulse 62 05/26/17 11:00 Resp 14 05/26/17 11:00 BP 127/48 05/26/17 06:46 Pulse Ox 91 L 05/26/17 11:00 Intake & Output 05/25/17 05/26/17 05/26/17 18:59 06:59 18:59 Intake Total 33 4497.581 480.449 Output Total 1150 3884 615 Balance -1117 613.581 -134.551 Weight 101.3 kg Intake: IV 33 998 425 Cardiac Output, 0.9ns 190 30 Lactated Ringers 600 250 Magnesium Sulfate-D5w Pmx 100 1 gm In Dextrose/Water 1 100ml.bag @ 100 mls/hr IVPB Q1H [facility] Rx#: [id number] Pressure Bag, 0.9ns 108 45 ceFAZolin 2 gm In Sodium 100 Chloride 0.9% 100 ml @ 100 mls/hr IVPB Q8HR [facility] Rx#:[id number] Intake, IV Titration 542.581 55.449 Amount ACETAMINOPHEN IV (For NPO 200 ) 1,000 mg In Empty Bag 1 bag @ 400 mls/hr IVPB Q6HR [facility] Rx#:[id number] Clevidipine Butyrate 25 59.334 35.100 mg In Empty Bag 1 bag @ 1 MG/HR 2 mls/hr IV .Q24H [facility]A Rx#:[id number] Insulin Regular 100 unit 16.065 20.349 In Sodium Chloride 0.9% 100 ml @ Per Protocol IV .Q0M [facility] Rx#:[id number] Propofol 1,000 mg In 100 167.182 ml @ Titrate IV .Q0M [facility] Rx#:[id number] ceFAZolin 2 gm In Sodium 100 Chloride 0.9% 100 ml @ 100 mls/hr IVPB Q8HR [facility] Rx#:[id number] Blood Product 2957 Ffp 24 Cp2d Unit 252 [id number] Ffp 24 Cp2d Unit 211 [id number] Ffp 24 Cp2d Unit 191 [id number] Ffp 24 Cpd Unit 284 [id number] Ffp 24 Cpd Unit 290 [id number] Ffp 24 Cpd Unit 303 [id number] Platelet Pheresis Acda 410 Unit [id number] Platelet Pheresis Acda2 196 Unit [id number] Platelet Pheresis Acda2 260 Unit [id number] As-1 Unit 310 [id number] Rc Cpd Unit 250 [id number] Output: Chest Tube Drainage 3020 370 Mediastinal and Left 3020 370 Pleural Urine 550 864 245 Estimated Blood Loss 600 Other: Voiding Method Toilet Indwelling Catheter Indwelling Catheter Urinal # Voids 2 ABP, PAP, CO, CI - Last Documented Arterial Blood Pressure 141/52 Pulmonary Artery Pressure 38/19 Cardiac Output 5 Cardiac Index 2.3 - Exam GENERAL EXAM: Intubated, sedated., comfortable in no apparent distress. HEAD: Normocephalic. EYES: Normal reaction of pupils, equal size. NOSE: Clear with pink turbinates. THROAT: Oral endotracheal and gastric tube secured in place. NECK: No masses, no JVD. [place]. CHEST: Dressing is dry and intact. Mediastinal and left Chest tubes in place. LUNGS: Equal air entry with faint crackles in the posterior bases. CVS: S1 and S2 normal with no audible murmurs, regular rhythm. ABDOMEN: No hepatosplenomegaly, no guarding or rigidity. SPINE: No scoliosis or deformity SKIN: No rashes Extremities: There is trace peripheral edema. No clubbing, no cyanosis. Peripheral pulses are intact. - Labs CBC & Chem 7: 05/26/17 07:05 05/26/17 07:05 Labs: Abnormal Lab Results - Last 24 Hours (Table) 05/24/17 05/25/17 05/25/17 Range/Units 03:27 11:41 16:12 WBC (3.8-10.6) k/uL RBC (4.30-5.90) m/uL Hgb (13.0-17.5) gm/dL Hct (39.0-53.0) % Plt Count (150-450) k/uL Neutrophils # (1.3-7.7) k/uL Lymphocytes # (1.0-4.8) k/uL PT (9.0-12.0) sec INR (<1.2) APTT (22.0-30.0) sec ABG pH (7.35-7.45) ABG pO2 (83-108) mmHg ABG O2 Saturation (94-97) % Sodium (137-145) mmol/L Carbon Dioxide (22-30) mmol/L BUN (9-20) mg/dL Glucose (74-99) mg/dL POC Glucose (mg/dL) 129 H 148 H (75-99) mg/dL Calcium (8.4-10.2) mg/dL Ionized Calcium Turner (4.5-5.3) mg/dL Total Bilirubin (0.2-1.3) mg/dL Alkaline Phosphatase (38-126) U/L Total Protein (6.3-8.2) g/dL Albumin (3.5-5.0) g/dL Crossmatch See Detail 05/25/17 05/25/17 05/25/17 Range/Units 17:16 17:40 19:17 WBC (3.8-10.6) k/uL RBC (4.30-5.90) m/uL Hgb (13.0-17.5) gm/dL Hct (39.0-53.0) % Plt Count (150-450) k/uL Neutrophils # (1.3-7.7) k/uL Lymphocytes # (1.0-4.8) k/uL PT (9.0-12.0) sec INR (<1.2) APTT (22.0-30.0) sec ABG pH (7.35-7.45) ABG pO2 (83-108) mmHg ABG O2 Saturation (94-97) % Sodium (137-145) mmol/L Carbon Dioxide (22-30) mmol/L BUN (9-20) mg/dL Glucose (74-99) mg/dL POC Glucose (mg/dL) 137 H 139 H 145 H (75-99) mg/dL Calcium (8.4-10.2) mg/dL Ionized Calcium Turner (4.5-5.3) mg/dL Total Bilirubin (0.2-1.3) mg/dL Alkaline Phosphatase (38-126) U/L Total Protein (6.3-8.2) g/dL Albumin (3.5-5.0) g/dL Crossmatch 05/25/17 05/25/17 05/25/17 Range/Units 19:21 19:21 19:21 WBC (3.8-10.6) k/uL RBC 3.11 L (4.30-5.90) m/uL Hgb 10.4 L (13.0-17.5) gm/dL Hct 29.2 L (39.0-53.0) % Plt Count 126 L (150-450) k/uL Neutrophils # (1.3-7.7) k/uL Lymphocytes # 0.8 L (1.0-4.8) k/uL PT 16.3 H (9.0-12.0) sec INR 1.7 H (<1.2) APTT 54.8 H (22.0-30.0) sec ABG pH (7.35-7.45) ABG pO2 (83-108) mmHg ABG O2 Saturation (94-97) % Sodium (137-145) mmol/L Carbon Dioxide 21 L (22-30) mmol/L BUN (9-20) mg/dL Glucose 135 H (74-99) mg/dL POC Glucose (mg/dL) (75-99) mg/dL Calcium 7.8 L (8.4-10.2) mg/dL Ionized Calcium Turner (4.5-5.3) mg/dL Total Bilirubin 1.4 H (0.2-1.3) mg/dL Alkaline Phosphatase 25 L (38-126) U/L Total Protein 5.0 L (6.3-8.2) g/dL Albumin 3.2 L (3.5-5.0) g/dL Crossmatch 05/25/17 05/25/17 05/25/17 Range/Units 19:42 19:44 20:18 WBC (3.8-10.6) k/uL RBC (4.30-5.90) m/uL Hgb (13.0-17.5) gm/dL Hct (39.0-53.0) % Plt Count (150-450) k/uL Neutrophils # (1.3-7.7) k/uL Lymphocytes # (1.0-4.8) k/uL PT (9.0-12.0) sec INR (<1.2) APTT (22.0-30.0) sec ABG pH 7.30 L (7.35-7.45) ABG pO2 145 H (83-108) mmHg ABG O2 Saturation 99.0 H (94-97) % Sodium (137-145) mmol/L Carbon Dioxide (22-30) mmol/L BUN (9-20) mg/dL Glucose (74-99) mg/dL POC Glucose (mg/dL) 136 H 131 H (75-99) mg/dL Calcium (8.4-10.2) mg/dL Ionized Calcium Turner (4.5-5.3) mg/dL Total Bilirubin (0.2-1.3) mg/dL Alkaline Phosphatase (38-126) U/L Total Protein (6.3-8.2) g/dL Albumin (3.5-5.0) g/dL Crossmatch 05/25/17 05/25/17 05/25/17 Range/Units 21:06 21:38 21:49 WBC 12.1 H (3.8-10.6) k/uL RBC 2.93 L (4.30-5.90) m/uL Hgb 9.7 L (13.0-17.5) gm/dL Hct 27.7 L (39.0-53.0) % Plt Count (150-450) k/uL Neutrophils # 10.2 H (1.3-7.7) k/uL Lymphocytes # (1.0-4.8) k/uL PT 12.9 H (9.0-12.0) sec INR 1.3 H (<1.2) APTT 36.2 H (22.0-30.0) sec ABG pH (7.35-7.45) ABG pO2 (83-108) mmHg ABG O2 Saturation (94-97) % Sodium (137-145) mmol/L Carbon Dioxide (22-30) mmol/L BUN (9-20) mg/dL Glucose (74-99) mg/dL POC Glucose (mg/dL) 128 H (75-99) mg/dL Calcium (8.4-10.2) mg/dL Ionized Calcium Turner (4.5-5.3) mg/dL Total Bilirubin (0.2-1.3) mg/dL Alkaline Phosphatase (38-126) U/L Total Protein (6.3-8.2) g/dL Albumin (3.5-5.0) g/dL Crossmatch 05/25/17 05/25/17 05/25/17 Range/Units 21:51 22:52 22:53 WBC 14.0 H (3.8-10.6) k/uL RBC 2.56 L (4.30-5.90) m/uL Hgb 8.7 L (13.0-17.5) gm/dL Hct 24.1 L (39.0-53.0) % Plt Count (150-450) k/uL Neutrophils # 11.7 H (1.3-7.7) k/uL Lymphocytes # (1.0-4.8) k/uL PT (9.0-12.0) sec INR (<1.2) APTT (22.0-30.0) sec ABG pH (7.35-7.45) ABG pO2 (83-108) mmHg ABG O2 Saturation (94-97) % Sodium (137-145) mmol/L Carbon Dioxide (22-30) mmol/L BUN (9-20) mg/dL Glucose (74-99) mg/dL POC Glucose (mg/dL) 140 H 155 H (75-99) mg/dL Calcium (8.4-10.2) mg/dL Ionized Calcium Turner (4.5-5.3) mg/dL Total Bilirubin (0.2-1.3) mg/dL Alkaline Phosphatase (38-126) U/L Total Protein (6.3-8.2) g/dL Albumin (3.5-5.0) g/dL Crossmatch 05/25/17 05/26/17 05/26/17 Range/Units 23:57 00:59 01:01 WBC (3.8-10.6) k/uL RBC (4.30-5.90) m/uL Hgb (13.0-17.5) gm/dL Hct (39.0-53.0) % Plt Count (150-450) k/uL Neutrophils # (1.3-7.7) k/uL Lymphocytes # (1.0-4.8) k/uL PT (9.0-12.0) sec INR (<1.2) APTT (22.0-30.0) sec ABG pH (7.35-7.45) ABG pO2 (83-108) mmHg ABG O2 Saturation (94-97) % Sodium 136 L (137-145) mmol/L Carbon Dioxide (22-30) mmol/L BUN (9-20) mg/dL Glucose 134 H (74-99) mg/dL POC Glucose (mg/dL) 155 H 154 H (75-99) mg/dL Calcium 7.5 L (8.4-10.2) mg/dL Ionized Calcium Tunrer (4.5-5.3) mg/dL Total Bilirubin (0.2-1.3) mg/dL Alkaline Phosphatase (38-126) U/L Total Protein (6.3-8.2) g/dL Albumin (3.5-5.0) g/dL Crossmatch 05/26/17 05/26/17 05/26/17 Range/Units 01:01 02:10 03:06 WBC 11.8 H (3.8-10.6) k/uL RBC 2.09 L (4.30-5.90) m/uL Hgb 7.1 L D (13.0-17.5) gm/dL Hct 19.4 L* (39.0-53.0) % Plt Count (150-450) k/uL Neutrophils # 9.8 H (1.3-7.7) k/uL Lymphocytes # (1.0-4.8) k/uL PT (9.0-12.0) sec INR (<1.2) APTT (22.0-30.0) sec ABG pH (7.35-7.45) ABG pO2 (83-108) mmHg ABG O2 Saturation (94-97) % Sodium (137-145) mmol/L Carbon Dioxide (22-30) mmol/L BUN (9-20) mg/dL Glucose (74-99) mg/dL POC Glucose (mg/dL) 129 H 130 H (75-99) mg/dL Calcium (8.4-10.2) mg/dL Ionized Calcium Turner (4.5-5.3) mg/dL Total Bilirubin (0.2-1.3) mg/dL Alkaline Phosphatase (38-126) U/L Total Protein (6.3-8.2) g/dL Albumin (3.5-5.0) g/dL Crossmatch 05/26/17 05/26/17 05/26/17 Range/Units 04:07 05:07 06:03 WBC (3.8-10.6) k/uL RBC (4.30-5.90) m/uL Hgb (13.0-17.5) gm/dL Hct (39.0-53.0) % Plt Count (150-450) k/uL Neutrophils # (1.3-7.7) k/uL Lymphocytes # (1.0-4.8) k/uL PT (9.0-12.0) sec INR (<1.2) APTT (22.0-30.0) sec ABG pH (7.35-7.45) ABG pO2 (83-108) mmHg ABG O2 Saturation (94-97) % Sodium (137-145) mmol/L Carbon Dioxide (22-30) mmol/L BUN (9-20) mg/dL Glucose (74-99) mg/dL POC Glucose (mg/dL) 150 H 141 H 137 H (75-99) mg/dL Calcium (8.4-10.2) mg/dL Ionized Calcium Turner (4.5-5.3) mg/dL Total Bilirubin (0.2-1.3) mg/dL Alkaline Phosphatase (38-126) U/L Total Protein (6.3-8.2) g/dL Albumin (3.5-5.0) g/dL Crossmatch 05/26/17 05/26/17 05/26/17 Range/Units 07:03 07:05 07:05 WBC (3.8-10.6) k/uL RBC 2.38 L (4.30-5.90) m/uL Hgb 7.7 L (13.0-17.5) gm/dL Hct 21.3 L (39.0-53.0) % Plt Count (150-450) k/uL Neutrophils # (1.3-7.7) k/uL Lymphocytes # 0.8 L (1.0-4.8) k/uL PT (9.0-12.0) sec INR (<1.2) APTT (22.0-30.0) sec ABG pH (7.35-7.45) ABG pO2 (83-108) mmHg ABG O2 Saturation (94-97) % Sodium (137-145) mmol/L Carbon Dioxide (22-30) mmol/L BUN 21 H (9-20) mg/dL Glucose 120 H (74-99) mg/dL POC Glucose (mg/dL) 136 H (75-99) mg/dL Calcium 7.7 L (8.4-10.2) mg/dL Ionized Calcium Turner 4.3 L (4.5-5.3) mg/dL Total Bilirubin 3.1 H (0.2-1.3) mg/dL Alkaline Phosphatase 33 L (38-126) U/L Total Protein 5.1 L (6.3-8.2) g/dL Albumin 3.1 L (3.5-5.0) g/dL Crossmatch 05/26/17 05/26/17 05/26/17 Range/Units 08:28 08:42 09:56 WBC (3.8-10.6) k/uL RBC (4.30-5.90) m/uL Hgb (13.0-17.5) gm/dL Hct (39.0-53.0) % Plt Count (150-450) k/uL Neutrophils # (1.3-7.7) k/uL Lymphocytes # (1.0-4.8) k/uL PT (9.0-12.0) sec INR (<1.2) APTT (22.0-30.0) sec ABG pH (7.35-7.45) ABG pO2 79 L (83-108) mmHg ABG O2 Saturation (94-97) % Sodium (137-145) mmol/L Carbon Dioxide (22-30) mmol/L BUN (9-20) mg/dL Glucose (74-99) mg/dL POC Glucose (mg/dL) 128 H 123 H (75-99) mg/dL Calcium (8.4-10.2) mg/dL Ionized Calcium Turner (4.5-5.3) mg/dL Total Bilirubin (0.2-1.3) mg/dL Alkaline Phosphatase (38-126) U/L Total Protein (6.3-8.2) g/dL Albumin (3.5-5.0) g/dL Crossmatch Assessment and Plan Plan: Impression: #1 Non-ST segment elevation myocardial infarction with significant two-vessel coronary artery disease. Status post coronary artery bypass grafting utilizing a CHASE to the LAD and SVG to the PDA. Postoperative day #1. #2 Acute on chronic atrial fibrillation with rapid ventricular response. Currently in sinus bradycardia. #3 History of pulmonary embolism/left lower extremity DVT following colon resection surgery in 2010. Maintained on Xarelto. #4 History of heparin induced thrombocytopenia discovered while on Heparin for his PE. #5 History of colon cancer status post resection. #6 Diabetes mellitus, type II. #7 Hyperlipidemia. #8 Hypertension, history of. #9 Hearing disorder. Plan: The patient was seen and evaluated by Dr. Donahue. His chest x-ray and labs were reviewed. He did well with his weaning parameters and is successfully extubated 4 L/m per nasal cannula. He is again educated regarding the increased use of the incentive spirometer and cough and deep breathing exercises. We will continue bronchodilators. We will increase his activity as tolerated. We'll continue to monitor him closely here in the intensive care unit. We'll continue to follow and make further recommendations based on his clinical status. Critical care time 35 minutes.
--- NOTE | 2017-05-26 11:49 | P.PN ---
Subjective Principal diagnosis: Multivessel coronary artery disease with unsuccessful angioplasty patient underwent bypass surgery yesterday Patient is chest pain-free hemodynamically stable and in no apparent distress. Echocardiogram showed normal LV systolic function. Patient underwent bypass surgery yesterday. He also had modified Maze procedure. Doing well. Remains in sinus rhythm. Stable hemodynamically. He is an aspirin beta angie Plavix and statin Objective - Vital Signs Vital signs: Vital Signs Temp 98.2 F 05/26/17 06:46 Pulse 62 05/26/17 11:00 Resp 14 05/26/17 11:00 BP 127/48 05/26/17 06:46 Pulse Ox 91 L 05/26/17 11:00 Intake & Output 05/25/17 05/26/17 05/26/17 18:59 06:59 18:59 Intake Total 33 4497.581 480.449 Output Total 1150 3884 615 Balance -1117 613.581 -134.551 Weight 101.3 kg Intake: IV 33 998 425 Cardiac Output, 0.9ns 190 30 Lactated Ringers 600 250 Magnesium Sulfate-D5w Pmx 100 1 gm In Dextrose/Water 1 100ml.bag @ 100 mls/hr IVPB Q1H AZIZA Rx#: [id number] Pressure Bag, 0.9ns 108 45 ceFAZolin 2 gm In Sodium 100 Chloride 0.9% 100 ml @ 100 mls/hr IVPB Q8HR AZIZA Rx#:[id number] Intake, IV Titration 542.581 55.449 Amount ACETAMINOPHEN IV (For NPO 200 ) 1,000 mg In Empty Bag 1 bag @ 400 mls/hr IVPB Q6HR AZIZA Rx#:[id number] Clevidipine Butyrate 25 59.334 35.100 mg In Empty Bag 1 bag @ 1 MG/HR 2 mls/hr IV .Q24H AZIZA Rx#:[id number] Insulin Regular 100 unit 16.065 20.349 In Sodium Chloride 0.9% 100 ml @ Per Protocol IV .Q0M AZIZA Rx#:[id number] Propofol 1,000 mg In 100 167.182 ml @ Titrate IV .Q0M AZIZA Rx#:[id number] ceFAZolin 2 gm In Sodium 100 Chloride 0.9% 100 ml @ 100 mls/hr IVPB Q8HR AZIZA Rx#:[id number] Blood Product 2957 Ffp 24 Cp2d Unit 252 [id number] Ffp 24 Cp2d Unit 211 [id number] Ffp 24 Cp2d Unit 191 [id number] Ffp 24 Cpd Unit 284 [id number] Ffp 24 Cpd Unit 290 [id number] Ffp 24 Cpd Unit 303 [id number] Platelet Pheresis Acda 410 Unit [id number] Platelet Pheresis Acda2 196 Unit [id number] Platelet Pheresis Acda2 260 Unit [id number] Rc As-1 Unit 310 [id number] Rc Cpd Unit 250 [id number] Output: Chest Tube Drainage 3020 370 Mediastinal and Left 3020 370 Pleural Urine 550 864 245 Estimated Blood Loss 600 Other: Voiding Method Toilet Indwelling Catheter Indwelling Catheter Urinal # Voids 2 ABP, PAP, CO, CI - Last Documented Arterial Blood Pressure 141/52 Pulmonary Artery Pressure 38/19 Cardiac Output 5 Cardiac Index 2.3 - Exam Patient is comfortable at rest vital signs are stable chest exam reveals diminished air entry at the bases heart exam reveals first and second heart sounds no gallop has a pericardial rub examination extremities did not reveal any edema per for pulses are felt - Labs CBC & Chem 7: 05/26/17 07:05 05/26/17 07:05 Labs: Abnormal Lab Results - Last 24 Hours (Table) 05/24/17 05/25/17 05/25/17 Range/Units 03:27 11:41 16:12 WBC (3.8-10.6) k/uL RBC (4.30-5.90) m/uL Hgb (13.0-17.5) gm/dL Hct (39.0-53.0) % Plt Count (150-450) k/uL Neutrophils # (1.3-7.7) k/uL Lymphocytes # (1.0-4.8) k/uL PT (9.0-12.0) sec INR (<1.2) APTT (22.0-30.0) sec ABG pH (7.35-7.45) ABG pO2 (83-108) mmHg ABG O2 Saturation (94-97) % Sodium (137-145) mmol/L Carbon Dioxide (22-30) mmol/L BUN (9-20) mg/dL Glucose (74-99) mg/dL POC Glucose (mg/dL) 129 H 148 H (75-99) mg/dL Calcium (8.4-10.2) mg/dL Ionized Calcium Turner (4.5-5.3) mg/dL Total Bilirubin (0.2-1.3) mg/dL Alkaline Phosphatase (38-126) U/L Total Protein (6.3-8.2) g/dL Albumin (3.5-5.0) g/dL Crossmatch See Detail 05/25/17 05/25/17 05/25/17 Range/Units 17:16 17:40 19:17 WBC (3.8-10.6) k/uL RBC (4.30-5.90) m/uL Hgb (13.0-17.5) gm/dL Hct (39.0-53.0) % Plt Count (150-450) k/uL Neutrophils # (1.3-7.7) k/uL Lymphocytes # (1.0-4.8) k/uL PT (9.0-12.0) sec INR (<1.2) APTT (22.0-30.0) sec ABG pH (7.35-7.45) ABG pO2 (83-108) mmHg ABG O2 Saturation (94-97) % Sodium (137-145) mmol/L Carbon Dioxide (22-30) mmol/L BUN (9-20) mg/dL Glucose (74-99) mg/dL POC Glucose (mg/dL) 137 H 139 H 145 H (75-99) mg/dL Calcium (8.4-10.2) mg/dL Ionized Calcium Turner (4.5-5.3) mg/dL Total Bilirubin (0.2-1.3) mg/dL Alkaline Phosphatase (38-126) U/L Total Protein (6.3-8.2) g/dL Albumin (3.5-5.0) g/dL Crossmatch 05/25/17 05/25/17 05/25/17 Range/Units 19:21 19:21 19:21 WBC (3.8-10.6) k/uL RBC 3.11 L (4.30-5.90) m/uL Hgb 10.4 L (13.0-17.5) gm/dL Hct 29.2 L (39.0-53.0) % Plt Count 126 L (150-450) k/uL Neutrophils # (1.3-7.7) k/uL Lymphocytes # 0.8 L (1.0-4.8) k/uL PT 16.3 H (9.0-12.0) sec INR 1.7 H (<1.2) APTT 54.8 H (22.0-30.0) sec ABG pH (7.35-7.45) ABG pO2 (83-108) mmHg ABG O2 Saturation (94-97) % Sodium (137-145) mmol/L Carbon Dioxide 21 L (22-30) mmol/L BUN (9-20) mg/dL Glucose 135 H (74-99) mg/dL POC Glucose (mg/dL) (75-99) mg/dL Calcium 7.8 L (8.4-10.2) mg/dL Ionized Calcium Turner (4.5-5.3) mg/dL Total Bilirubin 1.4 H (0.2-1.3) mg/dL Alkaline Phosphatase 25 L (38-126) U/L Total Protein 5.0 L (6.3-8.2) g/dL Albumin 3.2 L (3.5-5.0) g/dL Crossmatch 05/25/17 05/25/17 05/25/17 Range/Units 19:42 19:44 20:18 WBC (3.8-10.6) k/uL RBC (4.30-5.90) m/uL Hgb (13.0-17.5) gm/dL Hct (39.0-53.0) % Plt Count (150-450) k/uL Neutrophils # (1.3-7.7) k/uL Lymphocytes # (1.0-4.8) k/uL PT (9.0-12.0) sec INR (<1.2) APTT (22.0-30.0) sec ABG pH 7.30 L (7.35-7.45) ABG pO2 145 H (83-108) mmHg ABG O2 Saturation 99.0 H (94-97) % Sodium (137-145) mmol/L Carbon Dioxide (22-30) mmol/L BUN (9-20) mg/dL Glucose (74-99) mg/dL POC Glucose (mg/dL) 136 H 131 H (75-99) mg/dL Calcium (8.4-10.2) mg/dL Ionized Calcium Turner (4.5-5.3) mg/dL Total Bilirubin (0.2-1.3) mg/dL Alkaline Phosphatase (38-126) U/L Total Protein (6.3-8.2) g/dL Albumin (3.5-5.0) g/dL Crossmatch 05/25/17 05/25/17 05/25/17 Range/Units 21:06 21:38 21:49 WBC 12.1 H (3.8-10.6) k/uL RBC 2.93 L (4.30-5.90) m/uL Hgb 9.7 L (13.0-17.5) gm/dL Hct 27.7 L (39.0-53.0) % Plt Count (150-450) k/uL Neutrophils # 10.2 H (1.3-7.7) k/uL Lymphocytes # (1.0-4.8) k/uL PT 12.9 H (9.0-12.0) sec INR 1.3 H (<1.2) APTT 36.2 H (22.0-30.0) sec ABG pH (7.35-7.45) ABG pO2 (83-108) mmHg ABG O2 Saturation (94-97) % Sodium (137-145) mmol/L Carbon Dioxide (22-30) mmol/L BUN (9-20) mg/dL Glucose (74-99) mg/dL POC Glucose (mg/dL) 128 H (75-99) mg/dL Calcium (8.4-10.2) mg/dL Ionized Calcium Turner (4.5-5.3) mg/dL Total Bilirubin (0.2-1.3) mg/dL Alkaline Phosphatase (38-126) U/L Total Protein (6.3-8.2) g/dL Albumin (3.5-5.0) g/dL Crossmatch 05/25/17 05/25/17 05/25/17 Range/Units 21:51 22:52 22:53 WBC 14.0 H (3.8-10.6) k/uL RBC 2.56 L (4.30-5.90) m/uL Hgb 8.7 L (13.0-17.5) gm/dL Hct 24.1 L (39.0-53.0) % Plt Count (150-450) k/uL Neutrophils # 11.7 H (1.3-7.7) k/uL Lymphocytes # (1.0-4.8) k/uL PT (9.0-12.0) sec INR (<1.2) APTT (22.0-30.0) sec ABG pH (7.35-7.45) ABG pO2 (83-108) mmHg ABG O2 Saturation (94-97) % Sodium (137-145) mmol/L Carbon Dioxide (22-30) mmol/L BUN (9-20) mg/dL Glucose (74-99) mg/dL POC Glucose (mg/dL) 140 H 155 H (75-99) mg/dL Calcium (8.4-10.2) mg/dL Ionized Calcium Turner (4.5-5.3) mg/dL Total Bilirubin (0.2-1.3) mg/dL Alkaline Phosphatase (38-126) U/L Total Protein (6.3-8.2) g/dL Albumin (3.5-5.0) g/dL Crossmatch 05/25/17 05/26/17 05/26/17 Range/Units 23:57 00:59 01:01 WBC (3.8-10.6) k/uL RBC (4.30-5.90) m/uL Hgb (13.0-17.5) gm/dL Hct (39.0-53.0) % Plt Count (150-450) k/uL Neutrophils # (1.3-7.7) k/uL Lymphocytes # (1.0-4.8) k/uL PT (9.0-12.0) sec INR (<1.2) APTT (22.0-30.0) sec ABG pH (7.35-7.45) ABG pO2 (83-108) mmHg ABG O2 Saturation (94-97) % Sodium 136 L (137-145) mmol/L Carbon Dioxide (22-30) mmol/L BUN (9-20) mg/dL Glucose 134 H (74-99) mg/dL POC Glucose (mg/dL) 155 H 154 H (75-99) mg/dL Calcium 7.5 L (8.4-10.2) mg/dL Ionized Calcium Turner (4.5-5.3) mg/dL Total Bilirubin (0.2-1.3) mg/dL Alkaline Phosphatase (38-126) U/L Total Protein (6.3-8.2) g/dL Albumin (3.5-5.0) g/dL Crossmatch 05/26/17 05/26/17 05/26/17 Range/Units 01:01 02:10 03:06 WBC 11.8 H (3.8-10.6) k/uL RBC 2.09 L (4.30-5.90) m/uL Hgb 7.1 L D (13.0-17.5) gm/dL Hct 19.4 L* (39.0-53.0) % Plt Count (150-450) k/uL Neutrophils # 9.8 H (1.3-7.7) k/uL Lymphocytes # (1.0-4.8) k/uL PT (9.0-12.0) sec INR (<1.2) APTT (22.0-30.0) sec ABG pH (7.35-7.45) ABG pO2 (83-108) mmHg ABG O2 Saturation (94-97) % Sodium (137-145) mmol/L Carbon Dioxide (22-30) mmol/L BUN (9-20) mg/dL Glucose (74-99) mg/dL POC Glucose (mg/dL) 129 H 130 H (75-99) mg/dL Calcium (8.4-10.2) mg/dL Ionized Calcium Turner (4.5-5.3) mg/dL Total Bilirubin (0.2-1.3) mg/dL Alkaline Phosphatase (38-126) U/L Total Protein (6.3-8.2) g/dL Albumin (3.5-5.0) g/dL Crossmatch 05/26/17 05/26/17 05/26/17 Range/Units 04:07 05:07 06:03 WBC (3.8-10.6) k/uL RBC (4.30-5.90) m/uL Hgb (13.0-17.5) gm/dL Hct (39.0-53.0) % Plt Count (150-450) k/uL Neutrophils # (1.3-7.7) k/uL Lymphocytes # (1.0-4.8) k/uL PT (9.0-12.0) sec INR (<1.2) APTT (22.0-30.0) sec ABG pH (7.35-7.45) ABG pO2 (83-108) mmHg ABG O2 Saturation (94-97) % Sodium (137-145) mmol/L Carbon Dioxide (22-30) mmol/L BUN (9-20) mg/dL Glucose (74-99) mg/dL POC Glucose (mg/dL) 150 H 141 H 137 H (75-99) mg/dL Calcium (8.4-10.2) mg/dL Ionized Calcium Turner (4.5-5.3) mg/dL Total Bilirubin (0.2-1.3) mg/dL Alkaline Phosphatase (38-126) U/L Total Protein (6.3-8.2) g/dL Albumin (3.5-5.0) g/dL Crossmatch 05/26/17 05/26/17 05/26/17 Range/Units 07:03 07:05 07:05 WBC (3.8-10.6) k/uL RBC 2.38 L (4.30-5.90) m/uL Hgb 7.7 L (13.0-17.5) gm/dL Hct 21.3 L (39.0-53.0) % Plt Count (150-450) k/uL Neutrophils # (1.3-7.7) k/uL Lymphocytes # 0.8 L (1.0-4.8) k/uL PT (9.0-12.0) sec INR (<1.2) APTT (22.0-30.0) sec ABG pH (7.35-7.45) ABG pO2 (83-108) mmHg ABG O2 Saturation (94-97) % Sodium (137-145) mmol/L Carbon Dioxide (22-30) mmol/L BUN 21 H (9-20) mg/dL Glucose 120 H (74-99) mg/dL POC Glucose (mg/dL) 136 H (75-99) mg/dL Calcium 7.7 L (8.4-10.2) mg/dL Ionized Calcium Turner 4.3 L (4.5-5.3) mg/dL Total Bilirubin 3.1 H (0.2-1.3) mg/dL Alkaline Phosphatase 33 L (38-126) U/L Total Protein 5.1 L (6.3-8.2) g/dL Albumin 3.1 L (3.5-5.0) g/dL Crossmatch 05/26/17 05/26/17 05/26/17 Range/Units 08:28 08:42 09:56 WBC (3.8-10.6) k/uL RBC (4.30-5.90) m/uL Hgb (13.0-17.5) gm/dL Hct (39.0-53.0) % Plt Count (150-450) k/uL Neutrophils # (1.3-7.7) k/uL Lymphocytes # (1.0-4.8) k/uL PT (9.0-12.0) sec INR (<1.2) APTT (22.0-30.0) sec ABG pH (7.35-7.45) ABG pO2 79 L (83-108) mmHg ABG O2 Saturation (94-97) % Sodium (137-145) mmol/L Carbon Dioxide (22-30) mmol/L BUN (9-20) mg/dL Glucose (74-99) mg/dL POC Glucose (mg/dL) 128 H 123 H (75-99) mg/dL Calcium (8.4-10.2) mg/dL Ionized Calcium Turner (4.5-5.3) mg/dL Total Bilirubin (0.2-1.3) mg/dL Alkaline Phosphatase (38-126) U/L Total Protein (6.3-8.2) g/dL Albumin (3.5-5.0) g/dL Crossmatch Assessment and Plan Plan: CAD status post CABG postop day #1 Paroxysmal atrial fibrillation I will continue the patient on current medications hopefully can be transferred out of ICU tomorrow
[2017-05-26] MEDS ORDERED: METOPROLOL TARTRATE 25 MG TAB PO SCH (14:15)
[2017-05-26] MEDS: VALSARTAN 80 MG TAB PO SCH (14:40)
--- NOTE | 2017-05-26 15:47 | P.PN ---
Progress Note - Text DATE OF SERVICE: 05/26/2017 PRESENTING COMPLAINT: Atrial fibrillation/chest pain HISTORY OF PRESENT ILLNESS: Patient presented after he felt his heart racing at home, missed 2 doses of his flecainide and had associated chest pain and pressure going across the chest. Last for a few hours. Admitted with atrial fibrillation and subsequently ruled in for an acute IL. Status post cardiac cath found to have 90% occlusion to the RCA 70% occlusion to the left coronary artery. Now status post CABG 2 with CHASE to LAD and SVG to PDA. INTERVAL HISTORY: 05/26/2017: Lying in bed, intubated, sedated, preparing for spontaneous breathing trial, propofol being weaned off. Clevidipine, propofol, insulin drip, lactated Ringer 's infusing. Patient had a significant amount of bleeding overnight from his chest tube received 2 units of packed red blood cells, 4 of FFP, and 5 units of platelets. Bleeding has slowed this morning, output is serosanguineous, Menjivar catheter draining yellow urine, right lateral neck with a Clyman-Noel catheter in place, ventilator at SIMV, rate of 12, tidal volume of 500, FiO2 of 40%, PEEP of 5. 05/25/2017: Lying in bed, intubated, sedated, appears comfortable. Rhythm is sinus bradycardia on the monitor in the 50s to 60s, propofol infusing, insulin drip, and clevidipine infusing epinephrine on standby, Menjivar catheter in place draining dark tea-colored urine, right lateral neck with Clyman-Noel catheter in place, ventilator set at SIMV rate of 12, tidal volume 500, FiO2 of 80% with a PEEP of 5. 2 chest tubes a mediastinal and pleural wide in to one receptacle first hour 420 mL, second hour 320 mL out of the chest tube. Surgeon notified, patient receiving a pool of platelets, as well as blood product. 05/24/2017: Lying in bed, no further episodes of chest pain or pressure, continued education and testing for scheduled CABG 2 on Thursday. Has a history of heparin -induced thrombocytopenia and should not receive any heparin products. Tolerating his diet, ambulating in the room and hallway, no BM, lactulose given. 05/23/2017: Awake standing at the bedside, discussed coming back from walk. No further episodes chest pain or pressure status post cardiac catheterization on 2016, found to have two-vessel disease, scheduled for CABG 2 on Thursday. Preoperative testing being completed today. Patient's tolerating his diet ambulating in the room and hallway, no BM, 05/22/2017: Awake sitting up in bed, scheduled cardiac catheterization today. No further episodes of chest pain or pressure. Ambulatory in the room and Dill. REVIEW OF SYSTEMS: Done for constitutional ,cardiovascular, GI, pulmonary with relevant findings as above. CURRENT MEDICATIONS Aspirin 325 mg, Lipitor 40 mg by mouth at bedtime, Valium 5 mg by mouth at bedtime, flecainide 100 mg by mouth twice a day, prednisone 20 mg by mouth twice a day, valsartan 80 mg by mouth daily, lactulose 30 g twice a day. Clevidipine 25 mg IV solution, 1 new 2.5 mg subcu daily, insulin drip per protocol, Reglan 10 mg IV push every 4 hours, Lopressor 12.5 mg by mouth twice a day, Protonix 40 mg IV push daily, see interval history for critical care drips PHYSICAL EXAM VITAL SIGNS: Temperature 98.2, pulse 57, respiratory rate 12, blood pressure 134/50, PA pressure 35/18, oxygen saturation 96% on 40% FiO2 mechanically ventilated. GENERAL APPEARANCE: Lying in bed, appears comfortable, sedated. EYES: Pupils equal. Conjunctiva normal. MOUTH: ET tube in place, OG tube in place NECK: JVD unable to assess. Mass not palpable. RESPIRATORY: Respiratory effort normal on the ventilator. Lungs diminished to auscultation. CARDIOVASCULAR: First and second sounds normal. No edema. Chest wall: Midline incision covered with surgical dressing, mediastinal pleural chest tubes wide into a single line bloody drainage noted ABDOMEN: Soft. Liver and spleen not palpable. No tenderness. No mass palpable. PSYCHIATRY: Unable to assess patient is sedated and on the ventilator INVESTIGATIONS: Hemoglobin 7.7, Accu-Cheks noted, AB.42/35/79/22/-1.5. ASSESSMENT: -Acute non-Q wave myocardial infarction, probably precipitated by atrial fibrillation. Now status post CABG 2 with CHASE. -Postoperative Mechanically assisted ventilation, as expected from surgery. -Acute severe blood loss anemia from a mediastinal chest tube, as expected from surgery -Paroxysmal atrial fibrillation with rapid ventricular rate, present on admission, currently in sinus bradycardia -Essential hypertension. -Hyperlipidemia. -Benign prostatic hypertrophy. -Primary osteoporosis multiple joints bilaterally. -History of colon cancer with surgery. -Attention deficit disorder. -Chronic constipation PLAN: Continue close monitoring, wean to extubate per ICU management, monitor chest tube output, Arixtra to be started tomorrow, low-dose beta angie to be added. We'll continue to follow closely [facility] statement: Patient was seen and examined by nurse practitioner Tonya Keith and all elements of the case discussed with attending Dr. Beck
[2017-05-26 15:55] LABS: Glucose,Whole Blood 142 mg/dL (75-99)
[2017-05-26 15:55] LABS: Glucose,Whole Blood 142 mg/dL (75-99)
[2017-05-26 15:55] LABS: Glucose,Whole Blood 139 mg/dL (75-99)
[2017-05-26] MEDS: ATORVASTATIN 40 MG TAB PO SCH (16:27)
[2017-05-26] MEDS: CLOPIDOGREL 75 MG TAB PO SCH (16:27)
[2017-05-26 16:28] LABS: Glucose,Whole Blood 131 mg/dL (75-99)
[2017-05-26] MEDS ORDERED: HYDROcodone/APAP 5-325MG 1 EACH TAB PO PRN ×2 (17:05)
[2017-05-26] MEDS ORDERED: IPRATROPIUM-ALBUTEROL 3 ML NEB INHALATION PRN (17:08)
[2017-05-26 17:14] LABS: Glucose,Whole Blood 128 mg/dL (75-99)
[2017-05-26 18:33] LABS: Glucose,Whole Blood 123 mg/dL (75-99)
[2017-05-26] MEDS: NITROGLYCERIN-D5W PMX 50 MG in DEXTROSE/WATER 1 250ML.BAG IV SCH (19:34)
[2017-05-26 20:35] LABS: Glucose,Whole Blood 121 mg/dL (75-99)
[2017-05-26] MEDS: ONDANSETRON 4 MG/2 ML VIAL IVP PRN (20:54)
[2017-05-26] MEDS: METOPROLOL TARTRATE 25 MG TAB PO SCH (20:55)
[2017-05-26] MEDS: LACTATED RINGERS 1,000 ML IV SCH (20:56)
[2017-05-26 21:18] LABS: Glucose,Whole Blood 120 mg/dL (75-99)
[2017-05-26 23:54] LABS: Glucose,Whole Blood 123 mg/dL (75-99)
--- NOTE | 2017-05-27 00:42 | PN ---
PROGRESS NOTE DATE OF SERVICE: May 26, 2017. ATTENDING NOTE: This patient was seen and examined by me. I discussed with my nurse practitioner, Ms. Keith. The patient is status post CABG. Extubated this morning. Lethargic but follows commands. Current drips include IV Clevidipine, insulin. Propofol has been taken off. The patient is on 4 L of oxygen. Overnight, patient bled quite a bit from his mediastinal chest tubes, close to about 200 mL. The patient did receive 5 units of platelets, hemoglobin dropped down to 7.3, and hence he did get 2 units of packed red blood cells, also received 6 units of fresh frozen plasma. The patient is putting out about 60 mL an hour. EXAMINATION: Temperature 98.2, pulse 58. Respiration 12. Blood pressure 134/50, lying in bed, tired-appearing. Neck JVD unable to assess. RESPIRATORY: Effort normal. LUNGS: Diminished breath sounds. CARDIOVASCULAR: First and second sounds normal. Chest tubes in place. INVESTIGATIONS: Hemoglobin is 7.7. Up from 7.1. ASSESSMENT: 1. Acute severe blood loss anemia expected from surgery. Status post 2 units of blood. 2. Paroxysmal atrial fibrillation. Currently in sinus rhythm. 3. Coronary artery disease with acute non Q myocardial infarction, now followed by coronary artery bypass grafting. PLAN: Continue current medication and treatment plan. Patient rather tired. Keep a close eye. Follow. MMODL / IJN: [id number] /
[2017-05-27 01:15] LABS: Glucose,Whole Blood 130 mg/dL (75-99)
[2017-05-27 03:00] LABS: Glucose,Whole Blood 111 mg/dL (75-99)
[2017-05-27 04:53] LABS: Glucose,Whole Blood 117 mg/dL (75-99)
[2017-05-27] MEDS: CLEVIDIPINE BUTYRATE 25 MG in EMPTY BAG 1 BAG IV SCH ×2 (04:56→08:24)
[2017-05-27 05:11] LABS: Basophils % (A) 0 %; CH 33.1; CHCM 36.6; Eosinophils % (A) 0 %; HCT 23.1 % (39.0-53.0); HDW 3.15; HGB 8.3 gm/dL (13.0-17.5); Luc # (Auto) 0.11; Luc % (Auto) 1; Lymphocytes # (A) 0.6 k/uL (1.0-4.8); Lymphocytes % (A) 5 %; MCH 32.8 pg (25.0-35.0); MCV 90.9 fL (80.0-100.0); Mean Platelet Volume 8.4; Monocytes # (A) 0.7 k/uL (0-1.0); Monocytes % (A) 6 %; Neutrophils # (A) 10.2 k/uL (1.3-7.7); Neutrophils % (A) 87 %; RBC 2.54 m/uL (4.30-5.90); RDW 15.5 % (11.5-15.5); WBC 11.7 k/uL (3.8-10.6); WBC (Perox) 12.24
[2017-05-27 05:19] LABS: Ionized Calcium 4.6 mg/dL (4.5-5.3)
[2017-05-27 05:26] LABS: ALT 26 U/L (21-72); AST 34 U/L (17-59); Alkaline Phosphatase 39 U/L (38-126); Anion Gap 5 mmol/L; Blood Urea Nitrogen 21 mg/dL (9-20); Calcium 7.8 mg/dL (8.4-10.2); Carbon Dioxide 25 mmol/L (22-30); Chloride 104 mmol/L (98-107); Glucose 108 mg/dL (74-99); Magnesium 2.4 mg/dL (1.6-2.3); Non-African American GFR(MDRD) >60 (>60 ml/min/1.73 sqM); Potassium 3.9 mmol/L (3.5-5.1); Sodium 134 mmol/L (137-145); Total Bilirubin 4.4 mg/dL (0.2-1.3)
[2017-05-27 05:37] LABS: INR 1.2 (<1.2); Prothrombin Time 12.2 sec (9.0-12.0)
[2017-05-27 06:44] LABS: Glucose,Whole Blood 108 mg/dL (75-99)
[2017-05-27] MEDS ORDERED: POTASSIUM CHLORIDE ER 20 MEQ TAB.ER PO SCH ×2 (07:00→19:00)
[2017-05-27] MEDS ORDERED: HYDROcodone/APAP 7.5-325MG 1 EACH TAB PO PRN (07:56)
[2017-05-27 07:59] LABS: Glucose,Whole Blood 105 mg/dL (75-99)
[2017-05-27] MEDS: LACTATED RINGERS 1,000 ML IV SCH ×2 (08:14→11:41)
[2017-05-27] MEDS: CLOPIDOGREL 75 MG TAB PO SCH (08:23)
[2017-05-27] MEDS: ASPIRIN 325 MG TAB PO SCH (08:23)
[2017-05-27] MEDS: ATORVASTATIN 40 MG TAB PO SCH (08:23)
[2017-05-27] MEDS: PANTOPRAZOLE 40 MG TABLET PO SCH (08:23)
[2017-05-27] MEDS: VALSARTAN 80 MG TAB PO SCH (08:24)
[2017-05-27] MEDS: MUPIROCIN 2% OINT 22 GM TUBE NASAL SCH ×2 (08:24→21:16)
[2017-05-27] MEDS: METOPROLOL TARTRATE 25 MG TAB PO SCH (08:26)
[2017-05-27] MEDS: FONDAPARINUX 2.5 MG/0.5 ML SYRINGE SQ SCH (08:26)
--- NOTE | 2017-05-27 08:34 | XR ---
EXAMINATION TYPE: XR chest 1V portable DATE OF EXAM: 05/27/2017 Comparison: 05/26/2017 Clinical History: 71-year-old male Post Operative Cardiac Surgery Findings: Interval extubation and removal of NG tube. Median sternotomy wires are present with post-CABG clips in the mediastinum. Right IJ Hudson-Noel catheter has its tip in the distal right main pulmonary artery . Lung volumes are lower from previous. The heart remains enlarged with diffuse interstitial/vascular prominence. Increasing bibasilar opacities. Left-sided chest tube remains in place without appreciab le pneumothorax. Impression: Decreasing lung volumes with similar to slightly worsening [id number] CHF. Continued small effu sions and bibasilar atelectasis/consolidation.
[2017-05-27] MEDS: INSULIN REGULAR 100 UNIT in SODIUM CHLORIDE 0.9% 100 ML IV SCH (08:52)
[2017-05-27 08:56] LABS: Glucose,Whole Blood 120 mg/dL (75-99)
--- NOTE | 2017-05-27 09:19 | P.PN ---
<Darlyn Francis - Last Filed: 05/27/17 09:10> Subjective Principal diagnosis: Two-vessel coronary artery disease, unstable angina, acute non-ST segment elevation myocardial infarction, preoperative paroxysmal atrial fibrillation, diabetes mellitus type 2, hypertension, hyperlipidemia, history of heparin- induced thrombocytopenia. POD #2 urgent off-pump coronary artery bypass grafting 2 with the left internal mammary artery to left anterior descending artery and reverse saphenous vein graft to the posterior descending artery, modified Poon maze procedure with bilateral pulmonary vein ablation and ligation of left atrial appendage with a 35 mm AtriCure clip, endovascular vein harvest of the right greater saphenous vein, intraoperative transesophageal echocardiogram by anesthesia. Patient's currently sitting up in the chair in no acute distress. Does complain of sternal pain not completely relieved with ordered pain medication. He was extubated successfully yesterday. Objective - Vital Signs Vital signs: Vital Signs Temp 98.2 F 05/26/17 06:46 Pulse 64 05/27/17 08:00 Resp 22 05/27/17 08:00 BP 106/54 05/26/17 15:00 Pulse Ox 96 05/27/17 08:00 Intake & Output 05/26/17 05/27/17 05/27/17 18:59 06:59 18:59 Intake Total 1144.846 950.389 108.633 Output Total 1572 900 52 Balance -427.154 50.389 56.633 Intake: IV 858 797 79 Cardiac Output, 0.9ns 50 30 20 Lactated Ringers 600 650 50 Pressure Bag, 0.9ns 108 117 9 ceFAZolin 2 gm In Sodium 100 Chloride 0.9% 100 ml @ 100 mls/hr IVPB Q8HR [facility] Rx#:[id number] Intake, IV Titration 136.846 153.389 29.633 Amount Clevidipine Butyrate 25 84.933 120.367 29.633 mg In Empty Bag 1 bag @ 1 MG/HR 2 mls/hr IV .Q24H [facility] Rx#:[id number] Insulin Regular 100 unit 51.913 33.022 In Sodium Chloride 0.9% 100 ml @ Per Protocol IV .Q0M [facility] Rx#:[id number] Oral 150 Output: Chest Tube Drainage 860 250 20 Mediastinal and Left 860 250 20 Pleural Urine 712 650 32 Other: Voiding Method Indwelling Catheter Indwelling Catheter ABP, PAP, CO, CI - Last Documented Arterial Blood Pressure 136/49 Pulmonary Artery Pressure 26/9 Cardiac Output 4.9 Cardiac Index 2.3 - Constitutional General appearance: Present: cooperative, no acute distress - Respiratory Details: Lungs sounds diminished bilaterally. Respirations even, nonlabored. Currently on 6 L nasal cannula with oxygen saturation 97%. Able to achieve 500 mL on his incentive spirometry. Mediastinal for/left pleural chest tube to -20 cm wall suction, drained 130 mL thin serosanguineous drainage overnight, approximately 1 L drainage in the last 24 hours, atrium was changed out late yesterday evening. - Cardiovascular Details: S1, S2 present. Regular rate and rhythm, normal sinus rhythm on telemetry. Sternum stable. Heart hugger in place with patient demonstrating appropriate use. Palpable pulses bilaterally. No edema present. Teds/SCDs present. - Gastrointestinal Gastrointestinal Comment(s): Abdomen soft, nontender, nondistended. Hypoactive bowel sounds present 4 quadrants. Tolerating diet. - Genitourinary Genitourinary Comment(s): Menjivar present draining clear, yellow urine. Output 30-60 mL/h overnight. - Integumentary Integumentary Comment(s): Anterior chest incision well approximated encourage dry intact dressing. Right lower extremity EVH site well approximated. - Neurologic Neurologic: Present: CNII-XII intact - Musculoskeletal Musculoskeletal: Present: generalized weakness, strength equal bilaterally - Psychiatric Psychiatric: Present: A&O x's 3, appropriate affect, intact judgment & insight - Allied health notes Allied health notes reviewed: nursing - Labs CBC & Chem 7: 05/27/17 04:45 05/27/17 04:45 Labs: Abnormal Lab Results - Last 24 Hours (Table) 05/24/17 05/26/17 05/26/17 Range/Units 03:27 09:56 12:18 WBC (3.8-10.6) k/uL RBC (4.30-5.90) m/uL Hgb (13.0-17.5) gm/dL Hct (39.0-53.0) % Neutrophils # (1.3-7.7) k/uL Lymphocytes # (1.0-4.8) k/uL PT (9.0-12.0) sec INR (<1.2) Sodium (137-145) mmol/L BUN (9-20) mg/dL Glucose (74-99) mg/dL POC Glucose (mg/dL) 123 H 142 H (75-99) mg/dL Calcium (8.4-10.2) mg/dL Magnesium (1.6-2.3) mg/dL Total Bilirubin (0.2-1.3) mg/dL Total Protein (6.3-8.2) g/dL Albumin (3.5-5.0) g/dL Crossmatch See Detail 05/26/17 05/26/17 05/26/17 Range/Units 13:05 14:45 16:20 WBC (3.8-10.6) k/uL RBC (4.30-5.90) m/uL Hgb (13.0-17.5) gm/dL Hct (39.0-53.0) % Neutrophils # (1.3-7.7) k/uL Lymphocytes # (1.0-4.8) k/uL PT (9.0-12.0) sec INR (<1.2) Sodium (137-145) mmol/L BUN (9-20) mg/dL Glucose (74-99) mg/dL POC Glucose (mg/dL) 142 H 139 H 131 H (75-99) mg/dL Calcium (8.4-10.2) mg/dL Magnesium (1.6-2.3) mg/dL Total Bilirubin (0.2-1.3) mg/dL Total Protein (6.3-8.2) g/dL Albumin (3.5-5.0) g/dL Crossmatch 05/26/17 05/26/17 05/26/17 Range/Units 17:12 18:13 20:32 WBC (3.8-10.6) k/uL RBC (4.30-5.90) m/uL Hgb (13.0-17.5) gm/dL Hct (39.0-53.0) % Neutrophils # (1.3-7.7) k/uL Lymphocytes # (1.0-4.8) k/uL PT (9.0-12.0) sec INR (<1.2) Sodium (137-145) mmol/L BUN (9-20) mg/dL Glucose (74-99) mg/dL POC Glucose (mg/dL) 128 H 123 H 121 H (75-99) mg/dL Calcium (8.4-10.2) mg/dL Magnesium (1.6-2.3) mg/dL Total Bilirubin (0.2-1.3) mg/dL Total Protein (6.3-8.2) g/dL Albumin (3.5-5.0) g/dL Crossmatch 05/26/17 05/26/17 05/27/17 Range/Units 21:16 23:49 01:13 WBC (3.8-10.6) k/uL RBC (4.30-5.90) m/uL Hgb (13.0-17.5) gm/dL Hct (39.0-53.0) % Neutrophils # (1.3-7.7) k/uL Lymphocytes # (1.0-4.8) k/uL PT (9.0-12.0) sec INR (<1.2) Sodium (137-145) mmol/L BUN (9-20) mg/dL Glucose (74-99) mg/dL POC Glucose (mg/dL) 120 H 123 H 130 H (75-99) mg/dL Calcium (8.4-10.2) mg/dL Magnesium (1.6-2.3) mg/dL Total Bilirubin (0.2-1.3) mg/dL Total Protein (6.3-8.2) g/dL Albumin (3.5-5.0) g/dL Crossmatch 05/27/17 05/27/17 05/27/17 Range/Units 02:59 04:45 04:45 WBC 11.7 H (3.8-10.6) k/uL RBC 2.54 L (4.30-5.90) m/uL Hgb 8.3 L (13.0-17.5) gm/dL Hct 23.1 L (39.0-53.0) % Neutrophils # 10.2 H (1.3-7.7) k/uL Lymphocytes # 0.6 L (1.0-4.8) k/uL PT (9.0-12.0) sec INR (<1.2) Sodium 134 L (137-145) mmol/L BUN 21 H (9-20) mg/dL Glucose 108 H (74-99) mg/dL POC Glucose (mg/dL) 111 H (75-99) mg/dL Calcium 7.8 L (8.4-10.2) mg/dL Magnesium 2.4 H (1.6-2.3) mg/dL Total Bilirubin 4.4 H (0.2-1.3) mg/dL Total Protein 5.0 L (6.3-8.2) g/dL Albumin 2.8 L (3.5-5.0) g/dL Crossmatch 05/27/17 05/27/17 05/27/17 Range/Units 04:45 04:51 06:43 WBC (3.8-10.6) k/uL RBC (4.30-5.90) m/uL Hgb (13.0-17.5) gm/dL Hct (39.0-53.0) % Neutrophils # (1.3-7.7) k/uL Lymphocytes # (1.0-4.8) k/uL PT 12.2 H (9.0-12.0) sec INR 1.2 H (<1.2) Sodium (137-145) mmol/L BUN (9-20) mg/dL Glucose (74-99) mg/dL POC Glucose (mg/dL) 117 H 108 H (75-99) mg/dL Calcium (8.4-10.2) mg/dL Magnesium (1.6-2.3) mg/dL Total Bilirubin (0.2-1.3) mg/dL Total Protein (6.3-8.2) g/dL Albumin (3.5-5.0) g/dL Crossmatch 05/27/17 Range/Units 07:58 WBC (3.8-10.6) k/uL RBC (4.30-5.90) m/uL Hgb (13.0-17.5) gm/dL Hct (39.0-53.0) % Neutrophils # (1.3-7.7) k/uL Lymphocytes # (1.0-4.8) k/uL PT (9.0-12.0) sec INR (<1.2) Sodium (137-145) mmol/L BUN (9-20) mg/dL Glucose (74-99) mg/dL POC Glucose (mg/dL) 105 H (75-99) mg/dL Calcium (8.4-10.2) mg/dL Magnesium (1.6-2.3) mg/dL Total Bilirubin (0.2-1.3) mg/dL Total Protein (6.3-8.2) g/dL Albumin (3.5-5.0) g/dL Crossmatch - Imaging and Cardiology Chest x-ray: report reviewed, image reviewed Assessment and Plan (1) Unstable angina Status: Acute (2) Diabetes mellitus Status: Acute (3) Acute non-ST segment elevation myocardial infarction Status: Acute (4) History of heparin-induced thrombocytopenia Status: Acute (5) Hyperlipidemia Status: Acute (6) Hypertension Status: Acute (7) Paroxysmal atrial fibrillation Status: Acute (8) Two-vessel coronary artery disease Status: Acute Plan: 1. Continue aspirin, statin, Plavix, Arixtra, beta angie, ARB. Will maximize beta angie therapy as tolerated. 2. Will add small dose Norvasc for better blood pressure control. Wean Cleviprex as tolerated. 3. Wean O2 as tolerated. Encourage incentive spirometry use. 4. GI/DVT prophylaxis. 5. Increase activity as tolerated, ambulate in hallway. Physical therapy to follow. 6. Insulin management per primary care service. 7. Pain medication increased for better pain control. 8. More recommendations as patient progresses. Time with Patient: Greater than 30 <Deandre Lewis - Last Filed: 05/27/17 12:24> Objective - Vital Signs Vital signs: Vital Signs Temp 99.1 F 05/27/17 12:00 Pulse 67 05/27/17 12:00 Resp 15 05/27/17 12:00 BP 122/65 05/27/17 12:00 Pulse Ox 98 05/27/17 12:00 Intake & Output 05/26/17 05/27/17 05/27/17 18:59 06:59 18:59 Intake Total 1144.846 950.389 495.800 Output Total 1572 900 277 Balance -427.154 50.389 218.800 Weight 100.2 kg Intake: IV 858 797 192 Cardiac Output, 0.9ns 50 30 20 Lactated Ringers 600 650 130 Pressure Bag, 0.9ns 108 117 42 ceFAZolin 2 gm In Sodium 100 Chloride 0.9% 100 ml @ 100 mls/hr IVPB Q8HR [facility] Rx#:[id number] Intake, IV Titration 136.846 153.389 53.800 Amount Clevidipine Butyrate 25 84.933 120.367 47.499 mg In Empty Bag 1 bag @ 1 MG/HR 2 mls/hr IV .Q24H [facility] Rx#:[id number] Insulin Regular 100 unit 51.913 33.022 6.301 In Sodium Chloride 0.9% 100 ml @ Per Protocol IV .Q0M [facility] Rx#:[id number] Oral 150 250 Output: Chest Tube Drainage 860 250 120 Mediastinal and Left 860 250 120 Pleural Urine 712 650 157 Other: Voiding Method Indwelling Catheter Indwelling Catheter Indwelling Catheter ABP, PAP, CO, CI - Last Documented Arterial Blood Pressure 154/58 Pulmonary Artery Pressure 24/9 Cardiac Output 4.9 Cardiac Index 2.3 - Labs CBC & Chem 7: 05/27/17 04:45 05/27/17 11:45 Labs: Abnormal Lab Results - Last 24 Hours (Table) 05/24/17 05/26/17 05/26/17 Range/Units 03:27 12:18 13:05 WBC (3.8-10.6) k/uL RBC (4.30-5.90) m/uL Hgb (13.0-17.5) gm/dL Hct (39.0-53.0) % Neutrophils # (1.3-7.7) k/uL Lymphocytes # (1.0-4.8) k/uL PT (9.0-12.0) sec INR (<1.2) Sodium (137-145) mmol/L BUN (9-20) mg/dL Glucose (74-99) mg/dL POC Glucose (mg/dL) 142 H 142 H (75-99) mg/dL Calcium (8.4-10.2) mg/dL Magnesium (1.6-2.3) mg/dL Total Bilirubin (0.2-1.3) mg/dL Total Protein (6.3-8.2) g/dL Albumin (3.5-5.0) g/dL Crossmatch See Detail 05/26/17 05/26/17 05/26/17 Range/Units 14:45 16:20 17:12 WBC (3.8-10.6) k/uL RBC (4.30-5.90) m/uL Hgb (13.0-17.5) gm/dL Hct (39.0-53.0) % Neutrophils # (1.3-7.7) k/uL Lymphocytes # (1.0-4.8) k/uL PT (9.0-12.0) sec INR (<1.2) Sodium (137-145) mmol/L BUN (9-20) mg/dL Glucose (74-99) mg/dL POC Glucose (mg/dL) 139 H 131 H 128 H (75-99) mg/dL Calcium (8.4-10.2) mg/dL Magnesium (1.6-2.3) mg/dL Total Bilirubin (0.2-1.3) mg/dL Total Protein (6.3-8.2) g/dL Albumin (3.5-5.0) g/dL Crossmatch 05/26/17 05/26/17 05/26/17 Range/Units 18:13 20:32 21:16 WBC (3.8-10.6) k/uL RBC (4.30-5.90) m/uL Hgb (13.0-17.5) gm/dL Hct (39.0-53.0) % Neutrophils # (1.3-7.7) k/uL Lymphocytes # (1.0-4.8) k/uL PT (9.0-12.0) sec INR (<1.2) Sodium (137-145) mmol/L BUN (9-20) mg/dL Glucose (74-99) mg/dL POC Glucose (mg/dL) 123 H 121 H 120 H (75-99) mg/dL Calcium (8.4-10.2) mg/dL Magnesium (1.6-2.3) mg/dL Total Bilirubin (0.2-1.3) mg/dL Total Protein (6.3-8.2) g/dL Albumin (3.5-5.0) g/dL Crossmatch 05/26/17 05/27/17 05/27/17 Range/Units 23:49 01:13 02:59 WBC (3.8-10.6) k/uL RBC (4.30-5.90) m/uL Hgb (13.0-17.5) gm/dL Hct (39.0-53.0) % Neutrophils # (1.3-7.7) k/uL Lymphocytes # (1.0-4.8) k/uL PT (9.0-12.0) sec INR (<1.2) Sodium (137-145) mmol/L BUN (9-20) mg/dL Glucose (74-99) mg/dL POC Glucose (mg/dL) 123 H 130 H 111 H (75-99) mg/dL Calcium (8.4-10.2) mg/dL Magnesium (1.6-2.3) mg/dL Total Bilirubin (0.2-1.3) mg/dL Total Protein (6.3-8.2) g/dL Albumin (3.5-5.0) g/dL Crossmatch 05/27/17 05/27/17 05/27/17 Range/Units 04:45 04:45 04:45 WBC 11.7 H (3.8-10.6) k/uL RBC 2.54 L (4.30-5.90) m/uL Hgb 8.3 L (13.0-17.5) gm/dL Hct 23.1 L (39.0-53.0) % Neutrophils # 10.2 H (1.3-7.7) k/uL Lymphocytes # 0.6 L (1.0-4.8) k/uL PT 12.2 H (9.0-12.0) sec INR 1.2 H (<1.2) Sodium 134 L (137-145) mmol/L BUN 21 H (9-20) mg/dL Glucose 108 H (74-99) mg/dL POC Glucose (mg/dL) (75-99) mg/dL Calcium 7.8 L (8.4-10.2) mg/dL Magnesium 2.4 H (1.6-2.3) mg/dL Total Bilirubin 4.4 H (0.2-1.3) mg/dL Total Protein 5.0 L (6.3-8.2) g/dL Albumin 2.8 L (3.5-5.0) g/dL Crossmatch 05/27/17 05/27/1717 Range/Units 04:51 06:43 07:58 WBC (3.8-10.6) k/uL RBC (4.30-5.90) m/uL Hgb (13.0-17.5) gm/dL Hct (39.0-53.0) % Neutrophils # (1.3-7.7) k/uL Lymphocytes # (1.0-4.8) k/uL PT (9.0-12.0) sec INR (<1.2) Sodium (137-145) mmol/L BUN (9-20) mg/dL Glucose (74-99) mg/dL POC Glucose (mg/dL) 117 H 108 H 105 H (75-99) mg/dL Calcium (8.4-10.2) mg/dL Magnesium (1.6-2.3) mg/dL Total Bilirubin (0.2-1.3) mg/dL Total Protein (6.3-8.2) g/dL Albumin (3.5-5.0) g/dL Crossmatch 05/27/17 05/27/17 05/27/17 Range/Units 08:54 09:39 10:53 WBC (3.8-10.6) k/uL RBC (4.30-5.90) m/uL Hgb (13.0-17.5) gm/dL Hct (39.0-53.0) % Neutrophils # (1.3-7.7) k/uL Lymphocytes # (1.0-4.8) k/uL PT (9.0-12.0) sec INR (<1.2) Sodium (137-145) mmol/L BUN (9-20) mg/dL Glucose (74-99) mg/dL POC Glucose (mg/dL) 120 H 117 H 121 H (75-99) mg/dL Calcium (8.4-10.2) mg/dL Magnesium (1.6-2.3) mg/dL Total Bilirubin (0.2-1.3) mg/dL Total Protein (6.3-8.2) g/dL Albumin (3.5-5.0) g/dL Crossmatch 05/27/17 Range/Units 11:47 WBC (3.8-10.6) k/uL RBC (4.30-5.90) m/uL Hgb (13.0-17.5) gm/dL Hct (39.0-53.0) % Neutrophils # (1.3-7.7) k/uL Lymphocytes # (1.0-4.8) k/uL PT (9.0-12.0) sec INR (<1.2) Sodium (137-145) mmol/L BUN (9-20) mg/dL Glucose (74-99) mg/dL POC Glucose (mg/dL) 113 H (75-99) mg/dL Calcium (8.4-10.2) mg/dL Magnesium (1.6-2.3) mg/dL Total Bilirubin (0.2-1.3) mg/dL Total Protein (6.3-8.2) g/dL Albumin (3.5-5.0) g/dL Crossmatch Assessment and Plan Plan: The patient was seen and examined. I agree with the above assessment and plan. We will continue to wean down his Cleviprex. His beta angie was increased this morning. We will discontinue his mediastinal chest tubes but keep his left pleural drain. He will be given a dose of Lasix. We will get him out of bed to a chair. He will be transferred to selective care later this afternoon once the cleviprex is off.
[2017-05-27 09:42] LABS: Glucose,Whole Blood 117 mg/dL (75-99)
--- NOTE | 2017-05-27 09:46 | P.PN ---
Subjective Progress note dated 05/25/2017 This is a patient who was admitted with a diagnosis of non-ST segment elevation myocardial infarction and significant 2 vessel coronary artery disease. The plan is for bypass surgery today. The patient also has a history of atrial fibrillation with RVR history of pulmonary embolism and left lower extremity DVT following: Resection back in 2010. The patient has a history of heparin- induced thrombocytopenia colon cancer diabetes mellitus hyperlipidemia hypertension and hearing loss. I'm not sure whether or not the patient will be the first case with a second case today on Thursday. The patient seemed relatively stable. A little anxious. Progress note dated 05/27/2017 This is a patient who is postop day #2, status post 2 vessel bypass grafting. Patient is doing relatively well. It was an off-pump CABG. The patient's currently on O2 at 6 L. Getting an IV of lactated Ringer's at 20 mL an hour and getting cleveprex for blood pressure control at 6 mg per hour. The insulin drip is off. He's not having any major pain or issues. Feeling generally well. No shortness of breath. No cough. No chest pain. No nausea vomiting or diarrhea. No fever Objective - Vital Signs Vital signs: Vital Signs Temp 98.2 F 05/26/17 06:46 Pulse 61 05/27/17 09:00 Resp 15 05/27/17 09:00 BP 106/54 05/26/17 15:00 Pulse Ox 97 05/27/17 09:00 Intake & Output 05/26/17 05/27/17 05/27/17 18:59 06:59 18:59 Intake Total 1144.846 950.389 152.324 Output Total 1572 900 112 Balance -427.154 50.389 40.324 Intake: IV 858 797 108 Cardiac Output, 0.9ns 50 30 20 Lactated Ringers 600 650 70 Pressure Bag, 0.9ns 108 117 18 ceFAZolin 2 gm In Sodium 100 Chloride 0.9% 100 ml @ 100 mls/hr IVPB Q8HR [facility] Rx#:[id number] Intake, IV Titration 136.846 153.389 44.324 Amount Clevidipine Butyrate 25 84.933 120.367 42.366 mg In Empty Bag 1 bag @ 1 MG/HR 2 mls/hr IV .Q24H [facility] Rx#:[id number] Insulin Regular 100 unit 51.913 33.022 1.958 In Sodium Chloride 0.9% 100 ml @ Per Protocol IV .Q0M [facility] Rx#:[id number] Oral 150 Output: Chest Tube Drainage 860 250 30 Mediastinal and Left 860 250 30 Pleural Urine 712 650 82 Other: Voiding Method Indwelling Catheter Indwelling Catheter Indwelling Catheter ABP, PAP, CO, CI - Last Documented Arterial Blood Pressure 121/44 Pulmonary Artery Pressure 26/10 Cardiac Output 4.9 Cardiac Index 2.3 - Exam No acute distress, oriented 3. HEENT examination is grossly unremarkable. Mucous membranes are moist. No oral lesions. Neck supple. Full range of motion. No adenopathy or thyromegaly. Neck veins are flat. Cardiovascular examination reveals regular rhythm rate. S1-S2 normal. No S3- S4 or murmur. Lungs reveal clear breath sounds. No wheezes or rhonchi. No crackles. Abdomen soft bowel sounds are heard. Extremities are intact. No cyanosis clubbing or edema. Skin without rash. Neurologic examination is nonfocal. - Labs CBC & Chem 7: 05/27/17 04:45 05/27/17 04:45 Labs: Abnormal Lab Results - Last 24 Hours (Table) 05/24/17 05/26/17 05/26/17 Range/Units 03:27 09:56 12:18 WBC (3.8-10.6) k/uL RBC (4.30-5.90) m/uL Hgb (13.0-17.5) gm/dL Hct (39.0-53.0) % Neutrophils # (1.3-7.7) k/uL Lymphocytes # (1.0-4.8) k/uL PT (9.0-12.0) sec INR (<1.2) Sodium (137-145) mmol/L BUN (9-20) mg/dL Glucose (74-99) mg/dL POC Glucose (mg/dL) 123 H 142 H (75-99) mg/dL Calcium (8.4-10.2) mg/dL Magnesium (1.6-2.3) mg/dL Total Bilirubin (0.2-1.3) mg/dL Total Protein (6.3-8.2) g/dL Albumin (3.5-5.0) g/dL Crossmatch See Detail 05/26/17 05/26/17 05/26/17 Range/Units 13:05 14:45 16:20 WBC (3.8-10.6) k/uL RBC (4.30-5.90) m/uL Hgb (13.0-17.5) gm/dL Hct (39.0-53.0) % Neutrophils # (1.3-7.7) k/uL Lymphocytes # (1.0-4.8) k/uL PT (9.0-12.0) sec INR (<1.2) Sodium (137-145) mmol/L BUN (9-20) mg/dL Glucose (74-99) mg/dL POC Glucose (mg/dL) 142 H 139 H 131 H (75-99) mg/dL Calcium (8.4-10.2) mg/dL Magnesium (1.6-2.3) mg/dL Total Bilirubin (0.2-1.3) mg/dL Total Protein (6.3-8.2) g/dL Albumin (3.5-5.0) g/dL Crossmatch 05/26/17 05/26/17 05/26/17 Range/Units 17:12 18:13 20:32 WBC (3.8-10.6) k/uL RBC (4.30-5.90) m/uL Hgb (13.0-17.5) gm/dL Hct (39.0-53.0) % Neutrophils # (1.3-7.7) k/uL Lymphocytes # (1.0-4.8) k/uL PT (9.0-12.0) sec INR (<1.2) Sodium (137-145) mmol/L BUN (9-20) mg/dL Glucose (74-99) mg/dL POC Glucose (mg/dL) 128 H 123 H 121 H (75-99) mg/dL Calcium (8.4-10.2) mg/dL Magnesium (1.6-2.3) mg/dL Total Bilirubin (0.2-1.3) mg/dL Total Protein (6.3-8.2) g/dL Albumin (3.5-5.0) g/dL Crossmatch 05/26/17 05/26/17 05/27/17 Range/Units 21:16 23:49 01:13 WBC (3.8-10.6) k/uL RBC (4.30-5.90) m/uL Hgb (13.0-17.5) gm/dL Hct (39.0-53.0) % Neutrophils # (1.3-7.7) k/uL Lymphocytes # (1.0-4.8) k/uL PT (9.0-12.0) sec INR (<1.2) Sodium (137-145) mmol/L BUN (9-20) mg/dL Glucose (74-99) mg/dL POC Glucose (mg/dL) 120 H 123 H 130 H (75-99) mg/dL Calcium (8.4-10.2) mg/dL Magnesium (1.6-2.3) mg/dL Total Bilirubin (0.2-1.3) mg/dL Total Protein (6.3-8.2) g/dL Albumin (3.5-5.0) g/dL Crossmatch 05/27/17 05/27/17 05/27/17 Range/Units 02:59 04:45 04:45 WBC 11.7 H (3.8-10.6) k/uL RBC 2.54 L (4.30-5.90) m/uL Hgb 8.3 L (13.0-17.5) gm/dL Hct 23.1 L (39.0-53.0) % Neutrophils # 10.2 H (1.3-7.7) k/uL Lymphocytes # 0.6 L (1.0-4.8) k/uL PT (9.0-12.0) sec INR (<1.2) Sodium 134 L (137-145) mmol/L BUN 21 H (9-20) mg/dL Glucose 108 H (74-99) mg/dL POC Glucose (mg/dL) 111 H (75-99) mg/dL Calcium 7.8 L (8.4-10.2) mg/dL Magnesium 2.4 H (1.6-2.3) mg/dL Total Bilirubin 4.4 H (0.2-1.3) mg/dL Total Protein 5.0 L (6.3-8.2) g/dL Albumin 2.8 L (3.5-5.0) g/dL Crossmatch 05/27/17 05/27/17 05/27/17 Range/Units 04:45 04:51 06:43 WBC (3.8-10.6) k/uL RBC (4.30-5.90) m/uL Hgb (13.0-17.5) gm/dL Hct (39.0-53.0) % Neutrophils # (1.3-7.7) k/uL Lymphocytes # (1.0-4.8) k/uL PT 12.2 H (9.0-12.0) sec INR 1.2 H (<1.2) Sodium (137-145) mmol/L BUN (9-20) mg/dL Glucose (74-99) mg/dL POC Glucose (mg/dL) 117 H 108 H (75-99) mg/dL Calcium (8.4-10.2) mg/dL Magnesium (1.6-2.3) mg/dL Total Bilirubin (0.2-1.3) mg/dL Total Protein (6.3-8.2) g/dL Albumin (3.5-5.0) g/dL Crossmatch 05/27/17 05/27/17 05/27/17 Range/Units 07:58 08:54 09:39 WBC (3.8-10.6) k/uL RBC (4.30-5.90) m/uL Hgb (13.0-17.5) gm/dL Hct (39.0-53.0) % Neutrophils # (1.3-7.7) k/uL Lymphocytes # (1.0-4.8) k/uL PT (9.0-12.0) sec INR (<1.2) Sodium (137-145) mmol/L BUN (9-20) mg/dL Glucose (74-99) mg/dL POC Glucose (mg/dL) 105 H 120 H 117 H (75-99) mg/dL Calcium (8.4-10.2) mg/dL Magnesium (1.6-2.3) mg/dL Total Bilirubin (0.2-1.3) mg/dL Total Protein (6.3-8.2) g/dL Albumin (3.5-5.0) g/dL Crossmatch Assessment and Plan (1) Acute non-ST segment elevation myocardial infarction Status: Acute (2) Atrial fibrillation with rapid ventricular response Status: Acute (3) Chest pain Status: Acute (4) Diabetes mellitus type 2 in nonobese Status: Acute (5) HIT (heparin-induced thrombocytopenia) Status: Acute (6) Hearing disorder of both ears Status: Acute (7) History of heparin-induced thrombocytopenia Status: Acute (8) Hyperlipidemia Status: Acute (9) Paroxysmal atrial fibrillation Status: Acute (10) Two-vessel coronary artery disease Status: Acute (11) Atrial fibrillation Status: Acute Plan: Plan dated 05/25/2017 The patient had spirometry. Spirometry was stable. The patient seemed be doing relatively well. We'll see the patient after the operating room. The patient's lung function would predict a good outcome from the pulmonary standpoint. We'll continue to follow through his hospitalization. Plan dated 05/27/2017 The patient is doing well. He'll continue with deep breathing coughing and clearing secretions. He's working on his incentive spirometer. Chest x-ray show some postsurgical changes his O2 sats at 6 L/m nasal cannula. He is getting a medication for blood pressure control. Is being weaned down. No additional recommendations are made. We'll continue to follow. Prognosis is guarded. Time with Patient: Less than 30
[2017-05-27] MEDS: HYDROcodone/APAP 7.5-325MG 1 EACH TAB PO PRN ×3 (10:43→22:47)
--- NOTE | 2017-05-27 10:47 | P.PN ---
Subjective Principal diagnosis: Multivessel coronary artery disease with unsuccessful angioplasty patient underwent bypass surgery yesterday Patient is chest pain-free hemodynamically stable and in no apparent distress. Echocardiogram showed normal LV systolic function. Patient underwent bypass surgery postop day #2. He also had modified Maze procedure. Doing well. Remains in sinus rhythm. Stable hemodynamically. He is an aspirin beta angie Plavix and statin Patient remains in sinus rhythm. Blood pressures are well controlled. Fay has just been removed. Chest tubes are still in place. Objective - Vital Signs Vital signs: Vital Signs Temp 98.2 F 05/26/17 06:46 Pulse 61 05/27/17 09:00 Resp 15 05/27/17 09:00 BP 106/54 05/26/17 15:00 Pulse Ox 97 05/27/17 09:00 Intake & Output 05/26/17 05/27/17 05/27/17 18:59 06:59 18:59 Intake Total 1144.846 950.389 181.324 Output Total 1572 900 147 Balance -427.154 50.389 34.324 Intake: IV 858 797 137 Cardiac Output, 0.9ns 50 30 20 Lactated Ringers 600 650 90 Pressure Bag, 0.9ns 108 117 27 ceFAZolin 2 gm In Sodium 100 Chloride 0.9% 100 ml @ 100 mls/hr IVPB Q8HR AZIZA Rx#:[id number] Intake, IV Titration 136.846 153.389 44.324 Amount Clevidipine Butyrate 25 84.933 120.367 42.366 mg In Empty Bag 1 bag @ 1 MG/HR 2 mls/hr IV .Q24H AZIZA Rx#:[id number] Insulin Regular 100 unit 51.913 33.022 1.958 In Sodium Chloride 0.9% 100 ml @ Per Protocol IV .Q0M AZIZA Rx#:[id number] Oral 150 Output: Chest Tube Drainage 860 250 30 Mediastinal and Left 860 250 30 Pleural Urine 712 650 117 Other: Voiding Method Indwelling Catheter Indwelling Catheter Indwelling Catheter ABP, PAP, CO, CI - Last Documented Arterial Blood Pressure 121/44 Pulmonary Artery Pressure 26/10 Cardiac Output 4.9 Cardiac Index 2.3 - Exam Patient is comfortable at rest vital signs are stable chest exam reveals diminished air entry at the bases heart exam reveals first and second heart sounds no gallop has a pericardial rub examination extremities did not reveal any edema per for pulses are felt - Labs CBC & Chem 7: 05/27/17 04:45 05/27/17 04:45 Labs: Abnormal Lab Results - Last 24 Hours (Table) 05/24/17 05/26/17 05/26/17 Range/Units 03:27 12:18 13:05 WBC (3.8-10.6) k/uL RBC (4.30-5.90) m/uL Hgb (13.0-17.5) gm/dL Hct (39.0-53.0) % Neutrophils # (1.3-7.7) k/uL Lymphocytes # (1.0-4.8) k/uL PT (9.0-12.0) sec INR (<1.2) Sodium (137-145) mmol/L BUN (9-20) mg/dL Glucose (74-99) mg/dL POC Glucose (mg/dL) 142 H 142 H (75-99) mg/dL Calcium (8.4-10.2) mg/dL Magnesium (1.6-2.3) mg/dL Total Bilirubin (0.2-1.3) mg/dL Total Protein (6.3-8.2) g/dL Albumin (3.5-5.0) g/dL Crossmatch See Detail 05/26/17 05/26/17 05/26/17 Range/Units 14:45 16:20 17:12 WBC (3.8-10.6) k/uL RBC (4.30-5.90) m/uL Hgb (13.0-17.5) gm/dL Hct (39.0-53.0) % Neutrophils # (1.3-7.7) k/uL Lymphocytes # (1.0-4.8) k/uL PT (9.0-12.0) sec INR (<1.2) Sodium (137-145) mmol/L BUN (9-20) mg/dL Glucose (74-99) mg/dL POC Glucose (mg/dL) 139 H 131 H 128 H (75-99) mg/dL Calcium (8.4-10.2) mg/dL Magnesium (1.6-2.3) mg/dL Total Bilirubin (0.2-1.3) mg/dL Total Protein (6.3-8.2) g/dL Albumin (3.5-5.0) g/dL Crossmatch 05/26/17 05/26/17 05/26/17 Range/Units 18:13 20:32 21:16 WBC (3.8-10.6) k/uL RBC (4.30-5.90) m/uL Hgb (13.0-17.5) gm/dL Hct (39.0-53.0) % Neutrophils # (1.3-7.7) k/uL Lymphocytes # (1.0-4.8) k/uL PT (9.0-12.0) sec INR (<1.2) Sodium (137-145) mmol/L BUN (9-20) mg/dL Glucose (74-99) mg/dL POC Glucose (mg/dL) 123 H 121 H 120 H (75-99) mg/dL Calcium (8.4-10.2) mg/dL Magnesium (1.6-2.3) mg/dL Total Bilirubin (0.2-1.3) mg/dL Total Protein (6.3-8.2) g/dL Albumin (3.5-5.0) g/dL Crossmatch 05/26/17 05/27/17 05/27/17 Range/Units 23:49 01:13 02:59 WBC (3.8-10.6) k/uL RBC (4.30-5.90) m/uL Hgb (13.0-17.5) gm/dL Hct (39.0-53.0) % Neutrophils # (1.3-7.7) k/uL Lymphocytes # (1.0-4.8) k/uL PT (9.0-12.0) sec INR (<1.2) Sodium (137-145) mmol/L BUN (9-20) mg/dL Glucose (74-99) mg/dL POC Glucose (mg/dL) 123 H 130 H 111 H (75-99) mg/dL Calcium (8.4-10.2) mg/dL Magnesium (1.6-2.3) mg/dL Total Bilirubin (0.2-1.3) mg/dL Total Protein (6.3-8.2) g/dL Albumin (3.5-5.0) g/dL Crossmatch 05/27/17 05/27/17 05/27/17 Range/Units 04:45 04:45 04:45 WBC 11.7 H (3.8-10.6) k/uL RBC 2.54 L (4.30-5.90) m/uL Hgb 8.3 L (13.0-17.5) gm/dL Hct 23.1 L (39.0-53.0) % Neutrophils # 10.2 H (1.3-7.7) k/uL Lymphocytes # 0.6 L (1.0-4.8) k/uL PT 12.2 H (9.0-12.0) sec INR 1.2 H (<1.2) Sodium 134 L (137-145) mmol/L BUN 21 H (9-20) mg/dL Glucose 108 H (74-99) mg/dL POC Glucose (mg/dL) (75-99) mg/dL Calcium 7.8 L (8.4-10.2) mg/dL Magnesium 2.4 H (1.6-2.3) mg/dL Total Bilirubin 4.4 H (0.2-1.3) mg/dL Total Protein 5.0 L (6.3-8.2) g/dL Albumin 2.8 L (3.5-5.0) g/dL Crossmatch 05/27/17 05/27/17 05/27/17 Range/Units 04:51 06:43 07:58 WBC (3.8-10.6) k/uL RBC (4.30-5.90) m/uL Hgb (13.0-17.5) gm/dL Hct (39.0-53.0) % Neutrophils # (1.3-7.7) k/uL Lymphocytes # (1.0-4.8) k/uL PT (9.0-12.0) sec INR (<1.2) Sodium (137-145) mmol/L BUN (9-20) mg/dL Glucose (74-99) mg/dL POC Glucose (mg/dL) 117 H 108 H 105 H (75-99) mg/dL Calcium (8.4-10.2) mg/dL Magnesium (1.6-2.3) mg/dL Total Bilirubin (0.2-1.3) mg/dL Total Protein (6.3-8.2) g/dL Albumin (3.5-5.0) g/dL Crossmatch 05/27/17 05/27/17 Range/Units 08:54 09:39 WBC (3.8-10.6) k/uL RBC (4.30-5.90) m/uL Hgb (13.0-17.5) gm/dL Hct (39.0-53.0) % Neutrophils # (1.3-7.7) k/uL Lymphocytes # (1.0-4.8) k/uL PT (9.0-12.0) sec INR (<1.2) Sodium (137-145) mmol/L BUN (9-20) mg/dL Glucose (74-99) mg/dL POC Glucose (mg/dL) 120 H 117 H (75-99) mg/dL Calcium (8.4-10.2) mg/dL Magnesium (1.6-2.3) mg/dL Total Bilirubin (0.2-1.3) mg/dL Total Protein (6.3-8.2) g/dL Albumin (3.5-5.0) g/dL Crossmatch Assessment and Plan Plan: CAD status post CABG postop day #1 Paroxysmal atrial fibrillation I will continue the patient on current medications Patient is doing well. Remains in sinus rhythm. I will continue current medications.
[2017-05-27 11:20] LABS: Glucose,Whole Blood 121 mg/dL (75-99)
[2017-05-27] MEDS ORDERED: METOPROLOL TARTRATE 25 MG TAB PO STA (11:36)
[2017-05-27 11:49] LABS: Glucose,Whole Blood 113 mg/dL (75-99)
[2017-05-27] MEDS ORDERED: amLODIPine 2.5 MG TAB PO SCH (12:00)
--- NOTE | 2017-05-27 12:01 | P.PN ---
Progress Note - Text DATE OF SERVICE: 05/27/2017 PRESENTING COMPLAINT: Atrial fibrillation/chest pain HISTORY OF PRESENT ILLNESS: Patient presented after he felt his heart racing at home, missed 2 doses of his flecainide and had associated chest pain and pressure going across the chest. Last for a few hours. Admitted with atrial fibrillation and subsequently ruled in for an acute CA. Status post cardiac cath found to have 90% occlusion to the RCA 70% occlusion to the left coronary artery. Now status post CABG 2 with CHASE to LAD and SVG to PDA. INTERVAL HISTORY: 05/27/2017: Patient sitting in recliner at the bedside, appears tired, but the pain continues insulin drip also continues. No further bleeding from his chest tubes , serosanguineous drainage noted, Menjivar catheter in place draining clear light yellow urine, right lateral neck with [place]-Noel catheter in place, patient's appetite slow it a couple bites of his breakfast, up with assistance, no BM. 05/26/2017: Lying in bed, intubated, sedated, preparing for spontaneous breathing trial, propofol being weaned off. Clevidipine, propofol, insulin drip, lactated Ringer 's infusing. Patient had a significant amount of bleeding overnight from his chest tube received 2 units of packed red blood cells, 4 of FFP, and 5 units of platelets. Bleeding has slowed this morning, output is serosanguineous, Menjivar catheter draining yellow urine, right lateral neck with a [place]-Noel catheter in place, ventilator at SIMV, rate of 12, tidal volume of 500, FiO2 of 40%, PEEP of 5. 05/25/2017: Lying in bed, intubated, sedated, appears comfortable. Rhythm is sinus bradycardia on the monitor in the 50s to 60s, propofol infusing, insulin drip, and clevidipine infusing epinephrine on standby, Menjivar catheter in place draining dark tea-colored urine, right lateral neck with [place]-Noel catheter in place, ventilator set at SIMV rate of 12, tidal volume 500, FiO2 of 80% with a PEEP of 5. 2 chest tubes a mediastinal and pleural wide in to one receptacle first hour 420 mL, second hour 320 mL out of the chest tube. Surgeon notified, patient receiving a pool of platelets, as well as blood product. 05/24/2017: Lying in bed, no further episodes of chest pain or pressure, continued education and testing for scheduled CABG 2 on Thursday. Has a history of heparin -induced thrombocytopenia and should not receive any heparin products. Tolerating his diet, ambulating in the room and hallway, no BM, lactulose given. 05/23/2017: Awake standing at the bedside, discussed coming back from walk. No further episodes chest pain or pressure status post cardiac catheterization on 2016, found to have two-vessel disease, scheduled for CABG 2 on Thursday. Preoperative testing being completed today. Patient's tolerating his diet ambulating in the room and hallway, no BM, 05/22/2017: Awake sitting up in bed, scheduled cardiac catheterization today. No further episodes of chest pain or pressure. Ambulatory in the room and Dill. REVIEW OF SYSTEMS: Done for constitutional ,cardiovascular, GI, pulmonary, integument with relevant findings as above. CURRENT MEDICATIONS Aspirin 325 mg, Lipitor 40 mg by mouth at bedtime, Valium 5 mg by mouth at bedtime, flecainide 100 mg by mouth twice a day, prednisone 20 mg by mouth twice a day, valsartan 80 mg by mouth daily, lactulose 30 g twice a day. Clevidipine 25 mg IV solution, Arixtra 2.5 g subcu daily, insulin drip per protocol, Reglan 10 mg IV push every 4 hours, metoprolol 50 mg by mouth twice a day, Protonix 40 mg IV push daily, PHYSICAL EXAM VITAL SIGNS: Temperature 98.2, pulse 57, respiratory rate 12, blood pressure 134/50, PA pressure 35/18, oxygen saturation 96% on 40% FiO2 mechanically ventilated. GENERAL APPEARANCE: Sitting up in a chair, appears anxious and tired, . EYES: Pupils equal. Conjunctiva normal. NECK: JVD unable to assess. Mass not palpable. RESPIRATORY: Respiratory effort normal . Lungs diminished to auscultation. CARDIOVASCULAR: First and second sounds normal. No edema. Chest wall: Midline incision covered with surgical dressing, mediastinal pleural chest tubes wide into a single line sanguinous drainage noted ABDOMEN: Soft. Liver and spleen not palpable. No tenderness. No mass palpable. PSYCHIATRY: Unable to assess patient is sedated and on the ventilator INVESTIGATIONS: White blood cell count 11.7, hemoglobin 8.3, INR 1.2, sodium 134, Accu-Cheks noted, Chest x-ray: Decreasing lung volumes was similar to slightly worsening mild to moderate CHF. Small effusions and by basilar atelectasis consolidation noted ASSESSMENT: -Acute non-Q wave myocardial infarction, probably precipitated by atrial fibrillation. Now status post CABG 2 with CHASE. -Postoperative Mechanically assisted ventilation, as expected from surgery. -Acute severe blood loss anemia from a mediastinal chest tube, as expected from surgery, status post 2 units of blood, improving -Paroxysmal atrial fibrillation with rapid ventricular rate, present on admission, currently in sinus bradycardia -Essential hypertension. -Hyperlipidemia. -Benign prostatic hypertrophy. -Primary osteoporosis multiple joints bilaterally. -History of colon cancer with surgery. -Attention deficit disorder. -Chronic constipation PLAN: Continue close monitoring, monitor chest tube output, increase activity encourage incentive spirometer use, low-dose beta angie to be added. We'll continue to follow closely. SUPER[employer]OR [employer] statement: Patient was seen and examined by nurse practitioner Tonya Keith and all elements of the case discussed with attending Dr. Beck
[2017-05-27] MEDS ORDERED: FUROSEMIDE 10 MG/ML 4 ML VIAL IV STA (12:38)
[2017-05-27 12:50] LABS: Glucose,Whole Blood 119 mg/dL (75-99)
[2017-05-27 13:58] LABS: Glucose,Whole Blood 146 mg/dL (75-99)
[2017-05-27 15:05] LABS: Glucose,Whole Blood 180 mg/dL (75-99)
--- NOTE | 2017-05-27 15:54 | PN ---
PROGRESS NOTE DATE OF SERVICE: 05/27/17 ATTENDING NOTE: This patient was seen and examined by me. I discussed with my SUGAR CONTROLLER, Ms. Keith. The patient is status post CABG. In the ICU. Barely ate his breakfast. On IV Clevidipine. Tired. PHYSICAL EXAMINATION: Blood pressure 122/65, respiration 15, lungs decreased breath sounds. Sitting up. Awake. INVESTIGATION: Accu-Cheks noted, hemoglobin 8.3. ASSESSMENT: Status post coronary artery bypass grafting. PLAN: Care was discussed with the patient. Continue current medication and treatment plan. Will DC the Lasix this evening. Put the patient on a small dose of Levemir and metformin and go from there. MMODL / IJN: [id number] /
[2017-05-27 16:06] LABS: Glucose,Whole Blood 177 mg/dL (75-99)
[2017-05-27 17:16] LABS: Glucose,Whole Blood 148 mg/dL (75-99)
[2017-05-27 18:10] LABS: Glucose,Whole Blood 128 mg/dL (75-99)
[2017-05-27 19:05] LABS: Glucose,Whole Blood 139 mg/dL (75-99)
[2017-05-27 20:11] LABS: Glucose,Whole Blood 138 mg/dL (75-99)
[2017-05-27] MEDS: INSULIN LISPRO (humaLOG) 300 UNIT/3 ML VIAL SQ SCH (21:15)
[2017-05-27] MEDS: INSULIN GLARGINE 100 UNIT/ML 10 ML VIAL SQ SCH (21:15)
[2017-05-27] MEDS: METOPROLOL TARTRATE 50 MG TAB PO SCH (21:16)
[2017-05-27 21:19] LABS: Glucose,Whole Blood 141 mg/dL (75-99)
[2017-05-28 07:30] LABS: Glucose,Whole Blood 150 mg/dL (75-99)
[2017-05-28 07:49] LABS: Basophils % (A) 0 %; CH 31.9; CHCM 34.7; Eosinophils # (A) 0.2 k/uL (0-0.7); Eosinophils % (A) 2 %; HDW 3.39; HGB 7.3 gm/dL (13.0-17.5); Luc # (Auto) 0.12; Luc % (Auto) 1; Lymphocytes # (A) 0.7 k/uL (1.0-4.8); Lymphocytes % (A) 7 %; MCH 32.3 pg (25.0-35.0); MCHC 34.9 g/dL (31.0-37.0); MCV 92.4 fL (80.0-100.0); Mean Platelet Volume 7.6; Monocytes # (A) 0.6 k/uL (0-1.0); Monocytes % (A) 6 %; Neutrophils # (A) 8.8 k/uL (1.3-7.7); Neutrophils % (A) 85 %; RBC 2.27 m/uL (4.30-5.90); WBC 10.3 k/uL (3.8-10.6)
--- NOTE | 2017-05-28 07:53 | XR ---
EXAMINATION TYPE: XR chest 1V portable DATE OF EXAM: 05/28/2017 HISTORY: Post Op CABG COMPARISON: 05/27/2017 TECHNIQUE: Single view of the chest is submitted. FINDINGS: [place]-Noel catheter has been removed. Right IJ sheath is in place. Left-sided chest tube unchanged in position. No evidence for pneumothorax. Changes of median sternotomy. Cardiac valvular prosthesis in place. No sizeable pneumothorax. There is cardiomegaly with pulmonary venous congestion and small effusions. Suspect basilar atelectas is. IMPRESSION: 1. Correlate for slightly improved CHF.
[2017-05-28] MEDS: INSULIN LISPRO (humaLOG) 300 UNIT/3 ML VIAL SQ SCH ×6 (07:55→21:21)
[2017-05-28] MEDS: PANTOPRAZOLE 40 MG TABLET PO SCH (07:55)
[2017-05-28 07:59] LABS: Ionized Calcium 4.2 mg/dL (4.5-5.3)
[2017-05-28] MEDS: HYDROcodone/APAP 7.5-325MG 1 EACH TAB PO PRN (08:00)
[2017-05-28] MEDS: CLOPIDOGREL 75 MG TAB PO SCH (08:01)
[2017-05-28] MEDS: ASPIRIN 325 MG TAB PO SCH (08:01)
[2017-05-28] MEDS: ATORVASTATIN 40 MG TAB PO SCH (08:01)
[2017-05-28] MEDS: VALSARTAN 80 MG TAB PO SCH (08:01)
[2017-05-28] MEDS: METOPROLOL TARTRATE 50 MG TAB PO SCH ×2 (08:01→21:21)
--- NOTE | 2017-05-28 08:04 | P.PN ---
Addendum entered and electronically signed by Darlyn Francis [email or web address] 05/28/17 10:18 : Addendum: left pleural chest tube discontinued without incident. Pt davin well. CXR in AM. Original Note: <Darlyn Francis - Last Filed: 05/28/17 07:56> Subjective Principal diagnosis: Two-vessel coronary artery disease, unstable angina, acute non-ST segment elevation myocardial infarction, preoperative paroxysmal atrial fibrillation, diabetes mellitus type 2, hypertension, hyperlipidemia, history of heparin- induced thrombocytopenia. POD #3 urgent off-pump coronary artery bypass grafting 2 with the left internal mammary artery to left anterior descending artery and reverse saphenous vein graft to the posterior descending artery, modified Poon maze procedure with bilateral pulmonary vein ablation and ligation of left atrial appendage with a 35 mm AtriCure clip, endovascular vein harvest of the right greater saphenous vein, intraoperative transesophageal echocardiogram by anesthesia. Patient's currently sitting up in the chair in no acute distress. Denies pain, shortness of breath. Lacks motivation to get up and move. Objective - Vital Signs Vital signs: Vital Signs Temp 99.0 F 05/28/17 04:00 Pulse 60 05/28/17 07:00 Resp 13 05/28/17 07:00 BP 168/69 05/28/17 07:00 Pulse Ox 99 05/28/17 07:00 Intake & Output 05/27/17 05/28/17 05/28/17 18:59 06:59 18:59 Intake Total 684.611 614.727 26 Output Total 967 714 30 Balance -282.389 -99.273 -4 Weight 100.2 kg Intake: IV 348 312 26 Cardiac Output, 0.9ns 20 Lactated Ringers 250 240 20 Pressure Bag, 0.9ns 78 72 6 Intake, IV Titration 86.611 2.727 Amount Clevidipine Butyrate 25 64.932 mg In Empty Bag 1 bag @ 1 MG/HR 2 mls/hr IV .Q24H AZIZA Rx#:[id number] Insulin Regular 100 unit 21.679 2.727 In Sodium Chloride 0.9% 100 ml @ Per Protocol IV .Q0M AZIZA Rx#:[id number] Oral 250 300 Output: Chest Tube Drainage 225 139 30 Mediastinal and Left 160 Pleural left pleural 65 139 30 Urine 742 575 Other: Voiding Method Urinal Urinal ABP, PAP, CO, CI - Last Documented Arterial Blood Pressure 132/52 Pulmonary Artery Pressure 24/9 Cardiac Output 4.9 Cardiac Index 2.3 - Constitutional General appearance: Present: cooperative, no acute distress - Respiratory Details: Lungs sound diminished bilaterally. Respirations even, nonlabored. Currently on 3 L nasal cannula with oxygen saturation 100%. Only able to achieve 500 mL on his incentive spirometry. Left pleural chest tube to -20 cm wall suction. Output 95 mL serosanguineous drainage overnight, 250 mL in the last 24 hours. No air leaks present. - Cardiovascular Details: S1, S2 present. Regular rate and rhythm, normal sinus rhythm on telemetry. Sternum stable. Heart hugger in place with patient able to demonstrate appropriate use. Palpable pulses bilaterally. No edema present. Teds/SCDs present. - Gastrointestinal Gastrointestinal Comment(s): Abdomen soft, nontender, nondistended. Active bowel sounds 4 quadrants. Tolerating diet. - Genitourinary Genitourinary Comment(s): Menjivar discontinued yesterday. Continues to void clear, yellow urine per urinal. - Integumentary Integumentary Comment(s): Anterior chest incision well approximated, dry intact dressing. Right lower extremity EVH site well approximated. - Neurologic Neurologic: Present: CNII-XII intact - Musculoskeletal Musculoskeletal: Present: generalized weakness, strength equal bilaterally - Psychiatric Psychiatric: Present: A&O x's 3, appropriate affect, intact judgment & insight - Allied health notes Allied health notes reviewed: nursing - Labs CBC & Chem 7: 05/28/17 07:30 05/27/17 18:10 Labs: Abnormal Lab Results - Last 24 Hours (Table) 05/27/17 05/27/17 05/27/17 Range/Units 07:58 08:54 09:39 RBC (4.30-5.90) m/uL Hgb (13.0-17.5) gm/dL Hct (39.0-53.0) % Neutrophils # (1.3-7.7) k/uL Lymphocytes # (1.0-4.8) k/uL POC Glucose (mg/dL) 105 H 120 H 117 H (75-99) mg/dL 05/27/17 05/27/17 05/27/17 Range/Units 10:53 11:47 12:47 RBC (4.30-5.90) m/uL Hgb (13.0-17.5) gm/dL Hct (39.0-53.0) % Neutrophils # (1.3-7.7) k/uL Lymphocytes # (1.0-4.8) k/uL POC Glucose (mg/dL) 121 H 113 H 119 H (75-99) mg/dL 05/27/17 05/27/17 05/27/17 Range/Units 13:55 15:01 16:03 RBC (4.30-5.90) m/uL Hgb (13.0-17.5) gm/dL Hct (39.0-53.0) % Neutrophils # (1.3-7.7) k/uL Lymphocytes # (1.0-4.8) k/uL POC Glucose (mg/dL) 146 H 180 H 177 H (75-99) mg/dL 05/27/17 05/27/17 05/27/17 Range/Units 17:14 18:07 19:02 RBC (4.30-5.90) m/uL Hgb (13.0-17.5) gm/dL Hct (39.0-53.0) % Neutrophils # (1.3-7.7) k/uL Lymphocytes # (1.0-4.8) k/uL POC Glucose (mg/dL) 148 H 128 H 139 H (75-99) mg/dL 05/27/17 05/27/17 05/28/17 Range/Units 20:08 21:13 07:28 RBC (4.30-5.90) m/uL Hgb (13.0-17.5) gm/dL Hct (39.0-53.0) % Neutrophils # (1.3-7.7) k/uL Lymphocytes # (1.0-4.8) k/uL POC Glucose (mg/dL) 138 H 141 H 150 H (75-99) mg/dL 05/28/17 Range/Units 07:30 RBC 2.27 L (4.30-5.90) m/uL Hgb 7.3 L (13.0-17.5) gm/dL Hct 21.0 L (39.0-53.0) % Neutrophils # 8.8 H (1.3-7.7) k/uL Lymphocytes # 0.7 L (1.0-4.8) k/uL POC Glucose (mg/dL) (75-99) mg/dL - Imaging and Cardiology Chest x-ray: report reviewed, image reviewed Assessment and Plan (1) Unstable angina Status: Acute (2) Diabetes mellitus Status: Acute (3) Acute non-ST segment elevation myocardial infarction Status: Acute (4) History of heparin-induced thrombocytopenia Status: Acute (5) Hyperlipidemia Status: Acute (6) Hypertension Status: Acute (7) Paroxysmal atrial fibrillation Status: Acute (8) Two-vessel coronary artery disease Status: Acute Plan: 1. Continue aspirin, statin, Plavix, Arixtra, beta angie, ARB. Will maximize beta angie therapy as tolerated. 2. Will likely discontinue left pleural chest tube today. Discontinue Cordis, arterial line. 3. Wean O2 as tolerated. Encourage incentive spirometry use. 4. GI/DVT prophylaxis. 5. Increase activity as tolerated, ambulate in hallway. Physical therapy to follow. 6. Insulin management per primary care service. 7. Pain medication increased for better pain control. 8. Will transfer to [facility] care today. More recommendations as patient progresses. Time with Patient: Greater than 30 <Deandre Lewis - Last Filed: 05/29/17 14:10> Objective - Vital Signs Vital signs: Vital Signs Temp 97.7 F 05/29/17 12:07 Pulse 72 05/29/17 12:07 Resp 18 05/29/17 12:07 BP 158/76 05/29/17 12:07 Pulse Ox 98 05/29/17 12:07 Intake & Output 05/28/17 05/29/17 05/29/17 18:59 06:59 18:59 Intake Total 653 237 Output Total 1435 450 400 Balance -782 -450 -163 Weight 97.7 kg 96 kg 96 kg Intake: IV 178 Calcium Gluconate 2,000 100 mg In Sodium Chloride 0.9 % 100 ml @ 100 mls/hr IVPB ONCE ONE Rx#: [id number] Lactated Ringers 60 Pressure Bag, 0.9ns 18 Oral 475 237 Output: Chest Tube Drainage 60 left pleural 60 Urine 1375 450 400 Other: Voiding Method Urinal Urinal Urinal # Voids 1 ABP, PAP, CO, CI - Last Documented Arterial Blood Pressure 166/64 Pulmonary Artery Pressure 24/9 Cardiac Output 4.9 Cardiac Index 2.3 - Labs CBC & Chem 7: 05/29/17 06:33 05/29/17 06:33 Labs: Abnormal Lab Results - Last 24 Hours (Table) 05/28/17 05/28/17 05/29/17 Range/Units 17:21 20:56 01:26 WBC (3.8-10.6) k/uL RBC (4.30-5.90) m/uL Hgb (13.0-17.5) gm/dL Hct (39.0-53.0) % BUN (9-20) mg/dL Glucose (74-99) mg/dL POC Glucose (mg/dL) 204 H 154 H 163 H (75-99) mg/dL Calcium (8.4-10.2) mg/dL Total Bilirubin (0.2-1.3) mg/dL Total Protein (6.3-8.2) g/dL Albumin (3.5-5.0) g/dL 05/29/17 05/29/17 05/29/17 Range/Units 05:35 06:33 06:33 WBC 11.3 H (3.8-10.6) k/uL RBC 2.80 L (4.30-5.90) m/uL Hgb 8.9 L D (13.0-17.5) gm/dL Hct 27.1 L (39.0-53.0) % BUN 37 H (9-20) mg/dL Glucose 145 H (74-99) mg/dL POC Glucose (mg/dL) 154 H (75-99) mg/dL Calcium 8.3 L (8.4-10.2) mg/dL Total Bilirubin 3.4 H (0.2-1.3) mg/dL Total Protein 5.7 L (6.3-8.2) g/dL Albumin 3.1 L (3.5-5.0) g/dL 05/29/17 Range/Units 11:41 WBC (3.8-10.6) k/uL RBC (4.30-5.90) m/uL Hgb (13.0-17.5) gm/dL Hct (39.0-53.0) % BUN (9-20) mg/dL Glucose (74-99) mg/dL POC Glucose (mg/dL) 171 H (75-99) mg/dL Calcium (8.4-10.2) mg/dL Total Bilirubin (0.2-1.3) mg/dL Total Protein (6.3-8.2) g/dL Albumin (3.5-5.0) g/dL Assessment and Plan Plan: The patient was seen and examined. I agree with the above assessment and plan. We will remove his remaining chest tube, cordis, and arterial line today. We will continue to wean his oxygen. We'll encourage ambulation. He will be transferred to [facility] care this afternoon.
[2017-05-28 08:08] LABS: ALT 26 U/L (21-72); AST 24 U/L (17-59); Alkaline Phosphatase 48 U/L (38-126); Anion Gap 5 mmol/L; Blood Urea Nitrogen 26 mg/dL (9-20); Carbon Dioxide 21 mmol/L (22-30); Chloride 113 mmol/L (98-107); Glucose 116 mg/dL (74-99); Non-African American GFR(MDRD) >60 (>60 ml/min/1.73 sqM); Potassium 3.5 mmol/L (3.5-5.1); Sodium 139 mmol/L (137-145); Total Bilirubin 3.5 mg/dL (0.2-1.3); Total Protein 4.2 g/dL (6.3-8.2)
[2017-05-28 08:18] LABS: Calcium 6.3 mg/dL (8.4-10.2)
[2017-05-28] MEDS ORDERED: CALCIUM GLUCONATE 2,000 MG in SODIUM CHLORIDE 0.9% 100 ML IVPB ONE (08:35)
[2017-05-28] MEDS: MUPIROCIN 2% OINT 22 GM TUBE NASAL SCH ×2 (09:05→21:22)
[2017-05-28] MEDS: FONDAPARINUX 2.5 MG/0.5 ML SYRINGE SQ SCH (09:05)
--- NOTE | 2017-05-28 09:25 | P.PN ---
Subjective This is a very pleasant 71-year-old gentleman who follows with Dr. Fields as his primary care physician. He has a history of colon cancer status post resection. Approximate 2 weeks following that procedure he developed a pulmonary embolism in the left lower extremity DVT. 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 Has has history of paroxysmal atrial fibrillation and has been treated with flecainide along with the Xarelto. Has has hyperlipidemia, hypertension, osteoarthritis, hearing disorder. He presented to the emergency room early yesterday morning with significant chest discomfort that radiated to his jaw and teeth, irregular heartbeat diaphoresis and shortness of breath. He also stated he had been without his medications approximately 3 days prior to the event. Here he was found to have a non-ST segment elevation myocardial infarction along with atrial fibrillation with rapid ventricular response. He subsequently undergone a cardiac catheterization which revealed two-vessel coronary artery disease including a 70% stenosis to the mid LAD and a 95% stenosis to the right coronary artery. The plan is for coronary artery bypass grafting. We're consulted for ventilator and critical care management. The patient is seen today in the intensive care unit status post coronary artery bypass grafting. This is postoperative day #1. Dr. Marshall performed off -pump coronary artery bypass grafting 2 with a CHASE to the LAD and SVG to the PDA. He is currently intubated on the mechanical ventilator and is IMV 12, tidal volume 500, FiO2 40% and a PEEP of 5. Morning blood gases reveal a pO2 of 79, pCO2 35, pH 7.42. He is currently on Roxicet 5 mg per hour, insulin at 3.5 units per hour, lactated Ringer's at 50 MLS per hour. He was not extubated last night secondary to mediastinal bleeding of greater than 2 L. He did not need to be returned to the OR. He is status post 2 units of packed red blood cells, 6 units of fresh frozen plasma, 1 unit of platelets and 2 units of pheresis platelets. His current hemoglobin is 7.7. Platelet count 158,000. PA pressures 38/19, CVP 15. His sedation is currently off for a sedation holiday and weaning trials. The patient is seen again today 05/28/2017 in follow-up in the intensive care unit. This is postoperative day #2. He is currently sitting up in the chair at the bedside. He is awake and alert in no acute distress. He still needs increased encouragement regarding the use of the incentive spirometer. He is only pulling approximately 500-750 MLS. Today's chest x-ray was reviewed. There is slight improvement in the overall congestive heart failure. He remains in a negative balance. He is maintaining good O2 saturations in high 90s on 2 L/m per nasal cannula. Current temp 99.2. Hemodynamically stable. Hemoglobin 7.3. Objective - Vital Signs Vital signs: Vital Signs Temp 99.2 F 05/28/17 08:00 Pulse 68 05/28/17 08:00 Resp 17 05/28/17 08:00 BP 119/68 05/28/17 08:00 Pulse Ox 98 05/28/17 08:00 Intake & Output 05/27/17 05/28/17 05/28/17 18:59 06:59 18:59 Intake Total 684.611 614.727 52 Output Total 967 714 155 Balance -282.389 -99.273 -103 Weight 100.2 kg Intake: IV 348 312 52 Cardiac Output, 0.9ns 20 Lactated Ringers 250 240 40 Pressure Bag, 0.9ns 78 72 12 Intake, IV Titration 86.611 2.727 Amount Clevidipine Butyrate 25 64.932 mg In Empty Bag 1 bag @ 1 MG/HR 2 mls/hr IV .Q24H [facility] Rx#:[id number] Insulin Regular 100 unit 21.679 2.727 In Sodium Chloride 0.9% 100 ml @ Per Protocol IV .Q0M [facility] Rx#:[id number] Oral 250 300 Output: Chest Tube Drainage 225 139 30 Mediastinal and Left 160 Pleural left pleural 65 139 30 Urine 742 575 125 Other: Voiding Method Urinal Urinal ABP, PAP, CO, CI - Last Documented Arterial Blood Pressure 166/64 Pulmonary Artery Pressure 24/9 Cardiac Output 4.9 Cardiac Index 2.3 - Exam GENERAL EXAM: Awake, alert in no acute distress. Comfortable in no apparent distress. HEAD: Normocephalic. EYES: Normal reaction of pupils, equal size. NOSE: Clear with pink turbinates. THROAT: No erythema, no exudates. NECK: No masses, no JVD. CHEST: Dressing is dry and intact. LUNGS: Equal air entry with faint crackles in the posterior bases. CVS: S1 and S2 normal with no audible murmurs, regular rhythm. ABDOMEN: No hepatosplenomegaly, no guarding or rigidity. SPINE: No scoliosis or deformity SKIN: No rashes Extremities: There is trace peripheral edema. No clubbing, no cyanosis. Peripheral pulses are intact. - Labs CBC & Chem 7: 05/28/17 07:30 05/28/17 07:30 Labs: Abnormal Lab Results - Last 24 Hours (Table) 05/27/17 05/27/17 05/27/17 Range/Units 09:39 10:53 11:47 RBC (4.30-5.90) m/uL Hgb (13.0-17.5) gm/dL Hct (39.0-53.0) % Neutrophils # (1.3-7.7) k/uL Lymphocytes # (1.0-4.8) k/uL Chloride (98-107) mmol/L Carbon Dioxide (22-30) mmol/L BUN (9-20) mg/dL Glucose (74-99) mg/dL POC Glucose (mg/dL) 117 H 121 H 113 H (75-99) mg/dL Calcium (8.4-10.2) mg/dL Ionized Calcium Turner (4.5-5.3) mg/dL Total Bilirubin (0.2-1.3) mg/dL Total Protein (6.3-8.2) g/dL Albumin (3.5-5.0) g/dL 05/27/17 05/27/17 05/27/17 Range/Units 12:47 13:55 15:01 RBC (4.30-5.90) m/uL Hgb (13.0-17.5) gm/dL Hct (39.0-53.0) % Neutrophils # (1.3-7.7) k/uL Lymphocytes # (1.0-4.8) k/uL Chloride (98-107) mmol/L Carbon Dioxide (22-30) mmol/L BUN (9-20) mg/dL Glucose (74-99) mg/dL POC Glucose (mg/dL) 119 H 146 H 180 H (75-99) mg/dL Calcium (8.4-10.2) mg/dL Ionized Calcium Turner (4.5-5.3) mg/dL Total Bilirubin (0.2-1.3) mg/dL Total Protein (6.3-8.2) g/dL Albumin (3.5-5.0) g/dL 05/27/17 05/27/17 05/27/17 Range/Units 16:03 17:14 18:07 RBC (4.30-5.90) m/uL Hgb (13.0-17.5) gm/dL Hct (39.0-53.0) % Neutrophils # (1.3-7.7) k/uL Lymphocytes # (1.0-4.8) k/uL Chloride (98-107) mmol/L Carbon Dioxide (22-30) mmol/L BUN (9-20) mg/dL Glucose (74-99) mg/dL POC Glucose (mg/dL) 177 H 148 H 128 H (75-99) mg/dL Calcium (8.4-10.2) mg/dL Ionized Calcium Turner (4.5-5.3) mg/dL Total Bilirubin (0.2-1.3) mg/dL Total Protein (6.3-8.2) g/dL Albumin (3.5-5.0) g/dL 05/27/17 05/27/17 05/27/17 Range/Units 19:02 20:08 21:13 RBC (4.30-5.90) m/uL Hgb (13.0-17.5) gm/dL Hct (39.0-53.0) % Neutrophils # (1.3-7.7) k/uL Lymphocytes # (1.0-4.8) k/uL Chloride (98-107) mmol/L Carbon Dioxide (22-30) mmol/L BUN (9-20) mg/dL Glucose (74-99) mg/dL POC Glucose (mg/dL) 139 H 138 H 141 H (75-99) mg/dL Calcium (8.4-10.2) mg/dL Ionized Calcium Turner (4.5-5.3) mg/dL Total Bilirubin (0.2-1.3) mg/dL Total Protein (6.3-8.2) g/dL Albumin (3.5-5.0) g/dL 05/28/17 05/28/17 05/28/17 Range/Units 07:28 07:30 07:30 RBC 2.27 L (4.30-5.90) m/uL Hgb 7.3 L (13.0-17.5) gm/dL Hct 21.0 L (39.0-53.0) % Neutrophils # 8.8 H (1.3-7.7) k/uL Lymphocytes # 0.7 L (1.0-4.8) k/uL Chloride 113 H (98-107) mmol/L Carbon Dioxide 21 L (22-30) mmol/L BUN 26 H (9-20) mg/dL Glucose 116 H (74-99) mg/dL POC Glucose (mg/dL) 150 H (75-99) mg/dL Calcium 6.3 L* (8.4-10.2) mg/dL Ionized Calcium Turner 4.2 L (4.5-5.3) mg/dL Total Bilirubin 3.5 H (0.2-1.3) mg/dL Total Protein 4.2 L (6.3-8.2) g/dL Albumin 2.1 L (3.5-5.0) g/dL Assessment and Plan Plan: Impression: #1 Non-ST segment elevation myocardial infarction with significant two-vessel coronary artery disease. Status post coronary artery bypass grafting utilizing a CHASE to the LAD and SVG to the PDA. Postoperative day #3. #2 Acute on chronic atrial fibrillation with rapid ventricular response. Currently in sinus bradycardia. #3 History of pulmonary embolism/left lower extremity DVT following colon resection surgery in 2010. Maintained on Xarelto. #4 History of heparin induced thrombocytopenia discovered while on Heparin for his PE. #5 History of colon cancer status post resection. #6 Diabetes mellitus, type II. #7 Hyperlipidemia. #8 Hypertension, history of. #9 Hearing disorder. Plan: The patient was seen and evaluated by Dr. Donahue. His chest x-ray and labs were reviewed. He is again educated regarding the increased use of the incentive spirometer and cough and deep breathing exercises. We will continue bronchodilators. We will increase his activity as tolerated. He is cleared for transfer out of the intensive care unit today. We'll continue to follow.
[2017-05-28] MEDS: POTASSIUM CHLORIDE ER 20 MEQ TAB.ER PO SCH ×2 (09:26→10:24)
[2017-05-28] MEDS ORDERED: FUROSEMIDE 10 MG/ML 4 ML VIAL IV STA (09:34)
[2017-05-28 12:09] LABS: Glucose,Whole Blood 158 mg/dL (75-99)
[2017-05-28] MEDS: SERTRALINE 50 MG TAB PO SCH (12:14)
--- NOTE | 2017-05-28 12:54 | P.PN ---
Subjective Principal diagnosis: Multivessel coronary artery disease with unsuccessful angioplasty patient underwent bypass surgery yesterday Patient is chest pain-free hemodynamically stable and in no apparent distress. Echocardiogram showed normal LV systolic function. Patient underwent bypass surgery postop day #2. He also had modified Maze procedure. Doing well. Remains in sinus rhythm. Stable hemodynamically. He is an aspirin beta angie Plavix and statin Patient remains in sinus rhythm. Blood pressures are well controlled. [place] has just been removed. Chest tubes are still in place. Patient is feeling better. Objective - Vital Signs Vital signs: Vital Signs Temp 98.6 F 05/28/17 12:00 Pulse 58 L 05/28/17 12:00 Resp 12 05/28/17 12:00 BP 135/70 05/28/17 12:00 Pulse Ox 100 05/28/17 12:00 Intake & Output 05/27/17 05/28/17 05/28/17 18:59 06:59 18:59 Intake Total 684.611 614.727 403 Output Total 529 959 0463 Balance -282.389 -99.273 -632 Weight 100.2 kg 97.7 kg Intake: IV 348 312 178 Calcium Gluconate 2,000 100 mg In Sodium Chloride 0.9 % 100 ml @ 100 mls/hr IVPB ONCE ONE Rx#: [id number] Cardiac Output, 0.9ns 20 Lactated Ringers 250 240 60 Pressure Bag, 0.9ns 78 72 18 Intake, IV Titration 86.611 2.727 Amount Clevidipine Butyrate 25 64.932 mg In Empty Bag 1 bag @ 1 MG/HR 2 mls/hr IV .Q24H [facility] Rx#:[id number] Insulin Regular 100 unit 21.679 2.727 In Sodium Chloride 0.9% 100 ml @ Per Protocol IV .Q0M [facility] Rx#:[id number] Oral 250 300 225 Output: Chest Tube Drainage 225 139 60 Mediastinal and Left 160 Pleural left pleural 65 139 60 Urine 742 575 975 Other: Voiding Method Urinal Urinal Urinal ABP, PAP, CO, CI - Last Documented Arterial Blood Pressure 166/64 Pulmonary Artery Pressure 24/9 Cardiac Output 4.9 Cardiac Index 2.3 - Exam GENERAL: Patient is well developed and well nourished. Patient is nontoxic and well hydrated and is in no acute distress. ENT: Neck is soft and supple. No significant lymphadenopathy noted. Oropharynx clear. Moist mucous membranes. Neck has full range of motion without eliciting any pain. There is no thyroid enlargement and no masses are felt. EYES: Sclerae anicteric. PULMONARY: Unlabored respirations. Good breath sounds bilaterally. No audible rales, rhonchi or wheezing. CARDIOVASCULAR: First and second heart sounds are heard. S2 is normal intensity. No murmur. No gallop. No rubs. No parasternal heave. ABDOMEN: Soft and nontender with normal bowel sounds. No palpable organomegaly noted. There is no palpable pulsatile mass.] NEUROLOGIC: [Patient is alert and oriented x3. Cranial nerves grossly intact. No focal neurological deficit.] MUSCULOSKELETAL: [Normal extremities with adequate strength and full range of motion. No lower extremity swelling or edema. No calf tenderness.] PSYCHIATRIC: [No signs of anxiety.] - Labs CBC & Chem 7: 05/28/17 07:30 05/28/17 07:30 Labs: Abnormal Lab Results - Last 24 Hours (Table) 05/27/17 05/27/17 05/27/17 Range/Units 13:55 15:01 16:03 RBC (4.30-5.90) m/uL Hgb (13.0-17.5) gm/dL Hct (39.0-53.0) % Neutrophils # (1.3-7.7) k/uL Lymphocytes # (1.0-4.8) k/uL Chloride (98-107) mmol/L Carbon Dioxide (22-30) mmol/L BUN (9-20) mg/dL Glucose (74-99) mg/dL POC Glucose (mg/dL) 146 H 180 H 177 H (75-99) mg/dL Calcium (8.4-10.2) mg/dL Ionized Calcium Turner (4.5-5.3) mg/dL Total Bilirubin (0.2-1.3) mg/dL Total Protein (6.3-8.2) g/dL Albumin (3.5-5.0) g/dL 05/27/17 05/27/17 05/27/17 Range/Units 17:14 18:07 19:02 RBC (4.30-5.90) m/uL Hgb (13.0-17.5) gm/dL Hct (39.0-53.0) % Neutrophils # (1.3-7.7) k/uL Lymphocytes # (1.0-4.8) k/uL Chloride (98-107) mmol/L Carbon Dioxide (22-30) mmol/L BUN (9-20) mg/dL Glucose (74-99) mg/dL POC Glucose (mg/dL) 148 H 128 H 139 H (75-99) mg/dL Calcium (8.4-10.2) mg/dL Ionized Calcium Turner (4.5-5.3) mg/dL Total Bilirubin (0.2-1.3) mg/dL Total Protein (6.3-8.2) g/dL Albumin (3.5-5.0) g/dL 05/27/17 05/27/17 05/28/17 Range/Units 20:08 21:13 07:28 RBC (4.30-5.90) m/uL Hgb (13.0-17.5) gm/dL Hct (39.0-53.0) % Neutrophils # (1.3-7.7) k/uL Lymphocytes # (1.0-4.8) k/uL Chloride (98-107) mmol/L Carbon Dioxide (22-30) mmol/L BUN (9-20) mg/dL Glucose (74-99) mg/dL POC Glucose (mg/dL) 138 H 141 H 150 H (75-99) mg/dL Calcium (8.4-10.2) mg/dL Ionized Calcium Turner (4.5-5.3) mg/dL Total Bilirubin (0.2-1.3) mg/dL Total Protein (6.3-8.2) g/dL Albumin (3.5-5.0) g/dL 05/28/17 05/28/17 05/28/17 Range/Units 07:30 07:30 12:06 RBC 2.27 L (4.30-5.90) m/uL Hgb 7.3 L (13.0-17.5) gm/dL Hct 21.0 L (39.0-53.0) % Neutrophils # 8.8 H (1.3-7.7) k/uL Lymphocytes # 0.7 L (1.0-4.8) k/uL Chloride 113 H (98-107) mmol/L Carbon Dioxide 21 L (22-30) mmol/L BUN 26 H (9-20) mg/dL Glucose 116 H (74-99) mg/dL POC Glucose (mg/dL) 158 H (75-99) mg/dL Calcium 6.3 L* (8.4-10.2) mg/dL Ionized Calcium Turner 4.2 L (4.5-5.3) mg/dL Total Bilirubin 3.5 H (0.2-1.3) mg/dL Total Protein 4.2 L (6.3-8.2) g/dL Albumin 2.1 L (3.5-5.0) g/dL Assessment and Plan Plan: CAD status post CABG postop day #3 Patient is doing well we'll continue with the current medications increase activity possible discharged home over the next 24-48 hours reviewed medications.
[2017-05-28] MEDS: MAGNESIUM HYDROXIDE 2,400 MG/10 ML CUP PO PRN (15:29)
--- NOTE | 2017-05-28 17:17 | P.CONS ---
History of Present Illness - Chief Complaint Cardiac debility - History of Present Illness I had the op to see patient for inpatient consultation with regard to cardiac debility. He was admitted to [facility] May 22 with chest pain. Seen by cardiology who notes paroxysmal atrial fibrillation with rapid ventricular response. Seen by Dr. Killian who notes heparin-induced thrombocytopenia. Symmetric Dr. Pearce for ICU in critical care. Notes non-STEMI. Seen by Dr. Marshall who did perform 2 vessel cord bypass on May 25. Chest x-rays followed for CHF. PT reports maximal assistance to person for functional mobility. OT reports minimal assistance for upper dressing and max assist for lower dressing and bathing. Minimal assistance for toileting. Two-person assistance for transfer. Patient reports 2-3 nurse assist for transfers from bed and chair. Previous functional history as elicited from patient: 71-year-old right-handed white male is lives in one for home alone. Retired. States he felt a lot. Independent with own laundry, driving, standing shower. Regular doctors Dr. Fields. Denies history of alcohol or tobacco. Family history of father with cardiac disease. Review of Systems Review of systems: ENT: Denies sneezes or discharge. Eyes: Denies discharge or photophobia. Cardiac: Denies chest pain or palpitation. Pulmonary: At least mild shortness of breath. Gastrointestinal: Denies nausea, emesis, constipation, diarrhea. Genitourinary: Denies discharge or frequency. Musculoskeletal: Denies muscle or bone aches. Neurologic: Generalized weakness. Endocrine: Denies shakes or sweats. Oncology: Denies cancers. Dermatologic: Denies rash, itching, pruritus. ALLERGY/immunology: Denies sneezes, rashes. Past Medical History Past Medical History: Atrial Fibrillation, Cancer, Diabetes Mellitus, Deep Vein Thrombosis (DVT), Hearing Disorder / Deafness, Hyperlipidemia, Hypertension, Osteoarthritis (OA), Prostate Disorder, Pulmonary Embolus (PE) Additional Past Medical History / Comment(s): History of colon cancer status post resection July 2011. History of pulmonary embolism and left leg DVT 2 weeks after the colon resection. He has been maintained on Xarelto. Benign prosthetic hypertrophy. Hearing disorder. History of Any Multi-Drug Resistant Organisms: None Reported Past Surgical History: Adenoidectomy, Bowel Resection, Joint Replacement, Orthopedic Surgery, Tonsillectomy Additional Past Surgical History / Comment(s): FATTY TUMOR REMOVED LT LEG, LT HIP REPLACEMENT November 2010, BOWEL RESECTION DONE FOR CA July 2011. Past Anesthesia/Blood Transfusion Reactions: No Reported Reaction Past Psychological History: No Psychological Hx Reported Smoking Status: Never smoker Past Alcohol Use History: None Reported Past Drug Use History: None Reported - Past Family History Father Family Medical History: Congestive Heart Failure (CHF), Coronary Artery Disease (CAD), Myocardial Infarction ([place]) Additional Family Medical History / Comment(s): emphysema, CABG Mother Family Medical History: AFIB, Cancer, Hypertension Additional Family Medical History / Comment(s): Macular degeneration, cataracts , nicotine dependence, skin cancer Brother(s) Family Medical History: Coronary Artery Disease (CAD) Additional Family Medical History / Comment(s): His brother has peripheral vascular disease 8 stents placed to his legs and one to his heart. Medications and Allergies Home Medications Medication Instructions Recorded Confirmed Type Dextroamphetamine/Amphetamine 30 mg PO BID@0800,1400 11/12/16 05/21/17 History [Adderall] Diazepam [Valium] 5 mg PO BID PRN 11/12/16 05/21/17 History HYDROcodone/APAP 10-325MG [[place] 1 tab PO TID PRN 11/12/16 05/21/17 History 10-325] Flecainide Acetate [Tambocor] 100 mg PO BID #60 tablet 11/13/16 05/21/17 Rx Valsartan [Diovan] 80 mg PO DAILY #30 tab 11/13/16 05/21/17 Rx Rivaroxaban [Xarelto] 20 mg PO DAILY 05/21/17 05/21/17 History Allergies Allergy/AdvReac Type Severity Reaction Status Date / Time Iodinated Contrast- Oral and Allergy Rash/Hives Verified 05/21/17 07:09 IV Dye [Iodinated Contrast Media - Oral and] diphenhydramine HCl AdvReac Hyperactivi Verified 05/21/17 07:09 [From Benadryl] ty heparin AdvReac Unknown Verified 05/21/17 07:09 RAGWEED Allergy Itching Uncoded 02/14/17 10:31 Physical Exam Vitals: Vital Signs Temp Pulse Pulse Resp BP BP Pulse Ox 05/28/17 15:53 98.4 F 64 14 119/68 95 05/28/17 15:00 64 14 134/70 05/28/17 14:00 61 18 111/62 05/28/17 13:00 58 L 13 146/84 97 05/28/17 12:23 96 05/28/17 12:00 98.6 F 58 L 12 135/70 100 05/28/17 11:00 59 L 14 118/70 100 05/28/17 10:00 58 L 14 107/60 100 05/28/17 09:00 60 19 123/52 100 05/28/17 08:00 99.2 F 68 17 119/68 98 05/28/17 07:00 60 13 168/69 99 05/28/17 06:00 61 13 120/71 05/28/17 05:00 60 13 116/71 95 05/28/17 04:00 99.0 F 65 22 104/60 95 05/28/17 03:00 57 L 12 97/58 99 05/28/17 02:00 57 L 11 L 103/60 100 05/28/17 01:00 59 L 12 103/61 100 05/28/17 00:00 98.9 F 62 14 110/64 100 05/27/17 23:40 63 16 110/64 99 05/27/17 23:00 73 24 124/67 05/27/17 22:00 64 13 113/62 05/27/17 21:30 97 05/27/17 21:00 65 13 111/62 97 05/27/17 20:00 99.0 F 63 24 101/57 99 05/27/17 19:56 99 05/27/17 19:00 67 15 145/77 99 05/27/17 18:00 60 20 108/61 99 Intake and Output 05/28/17 05/28/17 05/28/17 06:59 14:59 22:59 Intake Total 208 403 Output Total 318 1035 Balance -110 632 Intake: IV 208 178 Calcium Gluconate 2,000 100 mg In Sodium Chloride 0.9 % 100 ml @ 100 mls/hr IVPB ONCE ONE Rx#: [id number] Lactated Ringers 160 60 Pressure Bag, 0.9ns 48 18 Oral 0 225 Output: Chest Tube Drainage 93 60 left pleural 93 60 Urine 225 975 Other: Voiding Method Urinal Urinal Urinal Weight 97.7 kg Patient Weight 05/29/17 06:59 Weight 97.7 kg Skin: Good color, texture, turgor. General: Overweight and comfortable appearance. Head: Normocephalic, atraumatic. Eyes: Symmetric. Pupils equal round. Ears: Symmetric. Hearing within normal limits. Mouth: Clear. Neck: Supple. Carotid without bruit. Cardiac: Regular rate and rhythm. Midline sternotomy scar clean and dressed. Wearing harness. Lungs: Clear anteriorly and posteriorly. Abdomen: Soft active nontender. Overweight. Extremities: Normal tone. Edema noted forelegs and feet. Moderate arthritic changes throughout. Neurological: Mental status: Alert, cooperative, pleasant. Cranial nerves: Symmetric facial tone and trapezius. Motor: Active movement throughout but at best antigravity. Sensation: Intact throughout. DTRs: Symmetric and equal throughout. Mobility: Sits and stands with assistance. Results CBC & Chem 7: 05/28/17 07:30 05/28/17 13:05 Labs: Abnormal Lab Results - Last 24 Hours (Table) 05/27/17 05/27/17 05/27/17 Range/Units 17:14 18:07 19:02 RBC (4.30-5.90) m/uL Hgb (13.0-17.5) gm/dL Hct (39.0-53.0) % Neutrophils # (1.3-7.7) k/uL Lymphocytes # (1.0-4.8) k/uL Chloride (98-107) mmol/L Carbon Dioxide (22-30) mmol/L BUN (9-20) mg/dL Glucose (74-99) mg/dL POC Glucose (mg/dL) 148 H 128 H 139 H (75-99) mg/dL Calcium (8.4-10.2) mg/dL Ionized Calcium Turner (4.5-5.3) mg/dL Total Bilirubin (0.2-1.3) mg/dL Total Protein (6.3-8.2) g/dL Albumin (3.5-5.0) g/dL 05/27/17 05/27/17 05/28/17 Range/Units 20:08 21:13 07:28 RBC (4.30-5.90) m/uL Hgb (13.0-17.5) gm/dL Hct (39.0-53.0) % Neutrophils # (1.3-7.7) k/uL Lymphocytes # (1.0-4.8) k/uL Chloride (98-107) mmol/L Carbon Dioxide (22-30) mmol/L BUN (9-20) mg/dL Glucose (74-99) mg/dL POC Glucose (mg/dL) 138 H 141 H 150 H (75-99) mg/dL Calcium (8.4-10.2) mg/dL Ionized Calcium Turner (4.5-5.3) mg/dL Total Bilirubin (0.2-1.3) mg/dL Total Protein (6.3-8.2) g/dL Albumin (3.5-5.0) g/dL 05/28/17 05/28/17 05/28/17 Range/Units 07:30 07:30 12:06 RBC 2.27 L (4.30-5.90) m/uL Hgb 7.3 L (13.0-17.5) gm/dL Hct 21.0 L (39.0-53.0) % Neutrophils # 8.8 H (1.3-7.7) k/uL Lymphocytes # 0.7 L (1.0-4.8) k/uL Chloride 113 H (98-107) mmol/L Carbon Dioxide 21 L (22-30) mmol/L BUN 26 H (9-20) mg/dL Glucose 116 H (74-99) mg/dL POC Glucose (mg/dL) 158 H (75-99) mg/dL Calcium 6.3 L* (8.4-10.2) mg/dL Ionized Calcium Turner 4.2 L (4.5-5.3) mg/dL Total Bilirubin 3.5 H (0.2-1.3) mg/dL Total Protein 4.2 L (6.3-8.2) g/dL Albumin 2.1 L (3.5-5.0) g/dL Chest x-ray: report reviewed (Chest x-rays followed for CHF.) Assessment and Plan (1) Acute non-ST segment elevation myocardial infarction Status: Acute Plan: Impression: 1. Cardiac debility. 2. Non-STEMI. 3. Paroxysmal active fibrillation with rapid ventricular response. 4. Heparin-induced thrombocytopenia. 5. Diabetes type 2. 6.'s coronary bypass two-vessel. 7. Hypertension. 8. Dyslipemia. 9. Osteoarthritis. 10. Hard of hearing. Comments and plan: PT and OT are ongoing. Definite safety concerns noted but currently requires quite a bit of physical assistance. Unsure of any supports for possible discharge to home.
[2017-05-28] MEDS: ONDANSETRON 4 MG/2 ML VIAL IVP PRN (17:20)
[2017-05-28 17:23] LABS: Glucose,Whole Blood 204 mg/dL (75-99)
[2017-05-28] MEDS ORDERED: ACETAMINOPHEN TAB 325 MG TAB PO PRN (20:32)
[2017-05-28] MEDS: METOCLOPRAMIDE 5 MG/ML 2 ML VIAL IVP PRN (20:37)
[2017-05-28] MEDS: FLECAINIDE 50 MG TAB PO SCH (20:50)
[2017-05-28] MEDS: LACTATED RINGERS 1,000 ML IV SCH (20:50)
[2017-05-28 21:02] LABS: Glucose,Whole Blood 154 mg/dL (75-99)
[2017-05-28] MEDS: INSULIN GLARGINE 100 UNIT/ML 10 ML VIAL SQ SCH (21:21)
[2017-05-28] MEDS: SENNOSIDES-DOCUSATE SODIUM 1 EACH TAB PO SCH (21:21)
[2017-05-29 01:53] LABS: Glucose,Whole Blood 163 mg/dL (75-99)
[2017-05-29] MEDS: METOCLOPRAMIDE 5 MG/ML 2 ML VIAL IVP PRN (05:18)
[2017-05-29 05:39] LABS: Glucose,Whole Blood 154 mg/dL (75-99)
[2017-05-29] MEDS: PANTOPRAZOLE 40 MG TABLET PO SCH (06:59)
[2017-05-29] MEDS: INSULIN LISPRO (humaLOG) 300 UNIT/3 ML VIAL SQ SCH ×7 (06:59→21:09)
[2017-05-29 07:11] LABS: ALT 29 U/L (21-72); AST 37 U/L (17-59); Alkaline Phosphatase 106 U/L (38-126); Anion Gap 9 mmol/L; Blood Urea Nitrogen 37 mg/dL (9-20); Calcium 8.3 mg/dL (8.4-10.2); Carbon Dioxide 25 mmol/L (22-30); Chloride 105 mmol/L (98-107); Glucose 145 mg/dL (74-99); Non-African American GFR(MDRD) 60 (>60 ml/min/1.73 sqM); Sodium 139 mmol/L (137-145); Total Bilirubin 3.4 mg/dL (0.2-1.3); Total Protein 5.7 g/dL (6.3-8.2)
[2017-05-29 07:17] LABS: CH 32.3; CHCM 33.6; HCT 27.1 % (39.0-53.0); HDW 3.51; MCH 31.9 pg (25.0-35.0); MCV 96.8 fL (80.0-100.0); Mean Platelet Volume 7.8; Poikilocytosis Slight; Potassium 4.7 mmol/L (3.5-5.1); RDW 15.1 % (11.5-15.5); WBC 11.3 k/uL (3.8-10.6)
[2017-05-29 07:20] LABS: HGB 8.9 gm/dL (13.0-17.5)
--- NOTE | 2017-05-29 07:46 | P.PN ---
<Darlyn Francis - Last Filed: 05/29/17 07:40> Subjective Principal diagnosis: Two-vessel coronary artery disease, unstable angina, acute non-ST segment elevation myocardial infarction, preoperative paroxysmal atrial fibrillation, diabetes mellitus type 2, hypertension, hyperlipidemia, history of heparin- induced thrombocytopenia. POD #4 urgent off-pump coronary artery bypass grafting 2 with the left internal mammary artery to left anterior descending artery and reverse saphenous vein graft to the posterior descending artery, modified Poon maze procedure with bilateral pulmonary vein ablation and ligation of left atrial appendage with a 35 mm AtriCure clip, endovascular vein harvest of the right greater saphenous vein, intraoperative transesophageal echocardiogram by anesthesia. Patient's currently sitting up in the chair in no acute distress. Denies pain, shortness of breath. Appears depressed, lacks motivation, states he doesn't want anything else done to him, just wants to go home. Objective - Vital Signs Vital signs: Vital Signs Temp 98.6 F 05/29/17 04:00 Pulse 69 05/29/17 04:00 Resp 18 05/29/17 04:00 BP 155/77 05/29/17 04:00 Pulse Ox 93 L 05/29/17 04:00 Intake & Output 05/28/17 05/29/17 05/29/17 18:59 06:59 18:59 Intake Total 653 Output Total 1435 450 Balance -782 -450 Weight 97.7 kg 96 kg Intake: IV 178 Calcium Gluconate 2,000 100 mg In Sodium Chloride 0.9 % 100 ml @ 100 mls/hr IVPB ONCE ONE Rx#: [id number] Lactated Ringers 60 Pressure Bag, 0.9ns 18 Oral 475 Output: Chest Tube Drainage 60 left pleural 60 Urine 1375 450 Other: Voiding Method Urinal Urinal # Voids 1 ABP, PAP, CO, CI - Last Documented Arterial Blood Pressure 166/64 Pulmonary Artery Pressure 24/9 Cardiac Output 4.9 Cardiac Index 2.3 - Constitutional General appearance: Present: no acute distress - Respiratory Details: Lung sounds diminished bilaterally. Respirations even, nonlabored. Currently on 3 L nasal cannula with oxygen saturation 93%. Only able to achieve 500 mL on his incentive spirometry, very poor effort. Left pleural chest tube discontinued yesterday. - Cardiovascular Details: S1, S2 present. Regular rate and rhythm, normal sinus rhythm on telemetry. Sternum stable. Heart hugger in place with patient making no effort to use. Palpable pulses bilaterally. Trace bilateral lower extremity edema present. Teds/SCDs present. - Gastrointestinal Gastrointestinal Comment(s): Abdomen soft, nontender, nondistended. Active bowel sounds 4 quadrants. Tolerating diet. No bowel movement since surgery. - Genitourinary Genitourinary Comment(s): Voiding clear, yellow urine per urinal. - Integumentary Integumentary Comment(s): Anterior chest incision well approximated, dry intact dressing. Right lower extremity EVH site well approximated. - Musculoskeletal Musculoskeletal: Present: generalized weakness - Psychiatric Psychiatric Comment(s): Flat affect, patient appears depressed. Psychiatric: Present: A&O x's 3 - Allied health notes Allied health notes reviewed: nursing - Labs CBC & Chem 7: 05/29/17 06:33 05/29/17 06:33 Labs: Abnormal Lab Results - Last 24 Hours (Table) 05/28/17 05/28/17 05/28/17 Range/Units 07:30 07:30 12:06 WBC (3.8-10.6) k/uL RBC 2.27 L (4.30-5.90) m/uL Hgb 7.3 L (13.0-17.5) gm/dL Hct 21.0 L (39.0-53.0) % Neutrophils # 8.8 H (1.3-7.7) k/uL Lymphocytes # 0.7 L (1.0-4.8) k/uL Chloride 113 H (98-107) mmol/L Carbon Dioxide 21 L (22-30) mmol/L BUN 26 H (9-20) mg/dL Glucose 116 H (74-99) mg/dL POC Glucose (mg/dL) 158 H (75-99) mg/dL Calcium 6.3 L* (8.4-10.2) mg/dL Ionized Calcium Turner 4.2 L (4.5-5.3) mg/dL Total Bilirubin 3.5 H (0.2-1.3) mg/dL Total Protein 4.2 L (6.3-8.2) g/dL Albumin 2.1 L (3.5-5.0) g/dL 05/28/17 05/28/17 05/29/17 Range/Units 17:21 20:56 01:26 WBC (3.8-10.6) k/uL RBC (4.30-5.90) m/uL Hgb (13.0-17.5) gm/dL Hct (39.0-53.0) % Neutrophils # (1.3-7.7) k/uL Lymphocytes # (1.0-4.8) k/uL Chloride (98-107) mmol/L Carbon Dioxide (22-30) mmol/L BUN (9-20) mg/dL Glucose (74-99) mg/dL POC Glucose (mg/dL) 204 H 154 H 163 H (75-99) mg/dL Calcium (8.4-10.2) mg/dL Ionized Calcium Turner (4.5-5.3) mg/dL Total Bilirubin (0.2-1.3) mg/dL Total Protein (6.3-8.2) g/dL Albumin (3.5-5.0) g/dL 05/29/17 05/29/17 05/29/17 Range/Units 05:35 06:33 06:33 WBC 11.3 H (3.8-10.6) k/uL RBC 2.80 L (4.30-5.90) m/uL Hgb 8.9 L D (13.0-17.5) gm/dL Hct 27.1 L (39.0-53.0) % Neutrophils # (1.3-7.7) k/uL Lymphocytes # (1.0-4.8) k/uL Chloride (98-107) mmol/L Carbon Dioxide (22-30) mmol/L BUN 37 H (9-20) mg/dL Glucose 145 H (74-99) mg/dL POC Glucose (mg/dL) 154 H (75-99) mg/dL Calcium 8.3 L (8.4-10.2) mg/dL Ionized Calcium Turner (4.5-5.3) mg/dL Total Bilirubin 3.4 H (0.2-1.3) mg/dL Total Protein 5.7 L (6.3-8.2) g/dL Albumin 3.1 L (3.5-5.0) g/dL - Imaging and Cardiology Chest x-ray: image reviewed Assessment and Plan (1) Unstable angina Status: Acute (2) Diabetes mellitus Status: Acute (3) Acute non-ST segment elevation myocardial infarction Status: Acute (4) History of heparin-induced thrombocytopenia Status: Acute (5) Hyperlipidemia Status: Acute (6) Hypertension Status: Acute (7) Paroxysmal atrial fibrillation Status: Acute (8) Two-vessel coronary artery disease Status: Acute Plan: 1. Continue aspirin, statin, Plavix, Arixtra, beta angie, ARB. Will maximize beta angie therapy as tolerated. 2. Zoloft added yesterday, continue. 3. Wean O2 as tolerated. Encourage incentive spirometry use. 4. GI/DVT prophylaxis. 5. Increase activity as tolerated, ambulate in hallway. Physical therapy to follow. 6. Insulin management per primary care service. 7. Dr. Carpio consulted for possible inpatient rehab. 8. Discharge planning in progress. Patient will need rehab at discharge as he lacks motivation to get up and ambulate, we have safety concerns. Time with Patient: Greater than 30 <Deandre Lewis - Last Filed: 05/29/17 14:09> Objective - Vital Signs Vital signs: Vital Signs Temp 97.7 F 05/29/17 12:07 Pulse 72 05/29/17 12:07 Resp 18 05/29/17 12:07 BP 158/76 05/29/17 12:07 Pulse Ox 98 05/29/17 12:07 Intake & Output 05/28/17 05/29/17 05/29/17 18:59 06:59 18:59 Intake Total 653 237 Output Total 1435 450 400 Balance -782 -450 -163 Weight 97.7 kg 96 kg 96 kg Intake: IV 178 Calcium Gluconate 2,000 100 mg In Sodium Chloride 0.9 % 100 ml @ 100 mls/hr IVPB ONCE ONE Rx#: [id number] Lactated Ringers 60 Pressure Bag, 0.9ns 18 Oral 475 237 Output: Chest Tube Drainage 60 left pleural 60 Urine 1375 450 400 Other: Voiding Method Urinal Urinal Urinal # Voids 1 ABP, PAP, CO, CI - Last Documented Arterial Blood Pressure 166/64 Pulmonary Artery Pressure 24/9 Cardiac Output 4.9 Cardiac Index 2.3 - Labs CBC & Chem 7: 05/29/17 06:33 05/29/17 06:33 Labs: Abnormal Lab Results - Last 24 Hours (Table) 05/28/17 05/28/17 05/29/17 Range/Units 17:21 20:56 01:26 WBC (3.8-10.6) k/uL RBC (4.30-5.90) m/uL Hgb (13.0-17.5) gm/dL Hct (39.0-53.0) % BUN (9-20) mg/dL Glucose (74-99) mg/dL POC Glucose (mg/dL) 204 H 154 H 163 H (75-99) mg/dL Calcium (8.4-10.2) mg/dL Total Bilirubin (0.2-1.3) mg/dL Total Protein (6.3-8.2) g/dL Albumin (3.5-5.0) g/dL 05/29/17 05/29/17 05/29/17 Range/Units 05:35 06:33 06:33 WBC 11.3 H (3.8-10.6) k/uL RBC 2.80 L (4.30-5.90) m/uL Hgb 8.9 L D (13.0-17.5) gm/dL Hct 27.1 L (39.0-53.0) % BUN 37 H (9-20) mg/dL Glucose 145 H (74-99) mg/dL POC Glucose (mg/dL) 154 H (75-99) mg/dL Calcium 8.3 L (8.4-10.2) mg/dL Total Bilirubin 3.4 H (0.2-1.3) mg/dL Total Protein 5.7 L (6.3-8.2) g/dL Albumin 3.1 L (3.5-5.0) g/dL 05/29/17 Range/Units 11:41 WBC (3.8-10.6) k/uL RBC (4.30-5.90) m/uL Hgb (13.0-17.5) gm/dL Hct (39.0-53.0) % BUN (9-20) mg/dL Glucose (74-99) mg/dL POC Glucose (mg/dL) 171 H (75-99) mg/dL Calcium (8.4-10.2) mg/dL Total Bilirubin (0.2-1.3) mg/dL Total Protein (6.3-8.2) g/dL Albumin (3.5-5.0) g/dL Assessment and Plan Plan: The patient was seen and examined. I agree with the above assessment and plan. He did have a brief run of atrial fibrillation with rapid ventricular response this afternoon. It resolved spontaneously. We will increase his beta angie while monitoring his heart rate for bradycardia. Otherwise the patient is rather debilitated and not very motivated. I did encourage him to ambulate 5 times daily and to use his incentive spirometry. I also spoke with his ex- and daughter who were at the bedside. We are awaiting insurance authorization for transfer to inpatient rehab.
[2017-05-29] MEDS: VALSARTAN 80 MG TAB PO SCH (08:18)
[2017-05-29] MEDS: CLOPIDOGREL 75 MG TAB PO SCH (08:19)
[2017-05-29] MEDS: ASPIRIN 325 MG TAB PO SCH (08:19)
[2017-05-29] MEDS: FONDAPARINUX 2.5 MG/0.5 ML SYRINGE SQ SCH (08:19)
[2017-05-29] MEDS: SERTRALINE 50 MG TAB PO SCH (08:19)
[2017-05-29] MEDS: METOPROLOL TARTRATE 50 MG TAB PO SCH ×3 (08:19→21:10)
[2017-05-29] MEDS: ATORVASTATIN 40 MG TAB PO SCH (08:19)
--- NOTE | 2017-05-29 08:56 | XR ---
EXAMINATION TYPE: XR chest 2V DATE OF EXAM: 05/29/2017 COMPARISON: 05/28/2017 HISTORY: Postoperative cardiac surgery TECHNIQUE: Frontal and lateral views of the chest are obtained. FINDINGS: Median sternotomy wires and postsurgical changes of the chest are again appreciated. Cardi ac valve is in place. Left-sided thoracostomy tube has been removed in the interim with no appreciabl e residual pneumothorax. Small layering right pleural effusion, trace left pleural effusion and bibas ilar atelectasis remains. Cardiac silhouette is again enlarged. Mild to moderate degenerative changes of the thoracic spine are again noted. Right internal jugular sheath has also been removed. Pulmonar y venous congestion has improved, now mild. IMPRESSION: 1. Interval removal left thoracostomy tube with no visible residual pneumothorax. 2. Persistent layering pleural effusions and bibasilar airspace disease, likely atelectasis with impr karen now mild pulmonary vascular congestion. 3. Removal of the right internal jugular central venous catheter sheath.
--- NOTE | 2017-05-29 10:41 | P.PN ---
Subjective Principal diagnosis: CABG This is a 71-year-old gentleman who is status post coronary artery bypass grafting surgery. He also underwent modified maze procedure. Remaining in normal sinus rhythm this morning. Appears depressed. Blood pressure 156/76 , heart rate in the 60s. WBC 11.3, hemoglobin 8.9, potassium 4.7, BUN 37, creatinine 1.2. Reaching 500 on his incentive spirometry Objective - Vital Signs Vital signs: Vital Signs Temp 97.2 F L 05/29/17 08:25 Pulse 69 05/29/17 08:25 Resp 18 05/29/17 08:25 BP 168/80 05/29/17 08:25 Pulse Ox 99 05/29/17 08:25 Intake & Output 05/28/17 05/29/17 05/29/17 18:59 06:59 18:59 Intake Total 653 Output Total 1435 450 Balance -782 -450 Weight 97.7 kg 96 kg Intake: IV 178 Calcium Gluconate 2,000 100 mg In Sodium Chloride 0.9 % 100 ml @ 100 mls/hr IVPB ONCE ONE Rx#: [id number] Lactated Ringers 60 Pressure Bag, 0.9ns 18 Oral 475 Output: Chest Tube Drainage 60 left pleural 60 Urine 1375 450 Other: Voiding Method Urinal Urinal Urinal # Voids 1 ABP, PAP, CO, CI - Last Documented Arterial Blood Pressure 166/64 Pulmonary Artery Pressure 24/9 Cardiac Output 4.9 Cardiac Index 2.3 - Exam PHYSICAL EXAMINATION: HEENT: Head is atraumatic, normocephalic. Pupils equal, round. Neck is supple. There is no elevated jugular venous pressure. HEART EXAMINATION: Heart S1, S2 normal. No murmur or gallop heard. CHEST EXAMINATION: Lungs reveal diminished air entry bilaterally to the bases. ABDOMEN: Soft, nontender. Bowel sounds are heard. No organomegaly noted. EXTREMITIES: 2+ peripheral pulses with no evidence of peripheral edema and no calf tenderness noted. NEUROLOGIC patient is awake, alert and oriented -3. . - Labs CBC & Chem 7: 05/29/17 06:33 05/29/17 06:33 Labs: Abnormal Lab Results - Last 24 Hours (Table) 05/28/17 05/28/17 05/28/17 Range/Units 12:06 17:21 20:56 WBC (3.8-10.6) k/uL RBC (4.30-5.90) m/uL Hgb (13.0-17.5) gm/dL Hct (39.0-53.0) % BUN (9-20) mg/dL Glucose (74-99) mg/dL POC Glucose (mg/dL) 158 H 204 H 154 H (75-99) mg/dL Calcium (8.4-10.2) mg/dL Total Bilirubin (0.2-1.3) mg/dL Total Protein (6.3-8.2) g/dL Albumin (3.5-5.0) g/dL 05/29/17 05/29/17 05/29/17 Range/Units 01:26 05:35 06:33 WBC 11.3 H (3.8-10.6) k/uL RBC 2.80 L (4.30-5.90) m/uL Hgb 8.9 L D (13.0-17.5) gm/dL Hct 27.1 L (39.0-53.0) % BUN (9-20) mg/dL Glucose (74-99) mg/dL POC Glucose (mg/dL) 163 H 154 H (75-99) mg/dL Calcium (8.4-10.2) mg/dL Total Bilirubin (0.2-1.3) mg/dL Total Protein (6.3-8.2) g/dL Albumin (3.5-5.0) g/dL 05/29/17 Range/Units 06:33 WBC (3.8-10.6) k/uL RBC (4.30-5.90) m/uL Hgb (13.0-17.5) gm/dL Hct (39.0-53.0) % BUN 37 H (9-20) mg/dL Glucose 145 H (74-99) mg/dL POC Glucose (mg/dL) (75-99) mg/dL Calcium 8.3 L (8.4-10.2) mg/dL Total Bilirubin 3.4 H (0.2-1.3) mg/dL Total Protein 5.7 L (6.3-8.2) g/dL Albumin 3.1 L (3.5-5.0) g/dL Assessment and Plan (1) S/P CABG (coronary artery bypass graft) Status: Acute (2) Paroxysmal a-fib Status: Acute (3) Acute non-ST segment elevation myocardial infarction Status: Acute (4) Diabetes mellitus type 2 in nonobese Status: Acute (5) History of heparin-induced thrombocytopenia Status: Acute (6) Hyperlipidemia Status: Acute (7) Hypertension Status: Acute Plan: Cardiology's perspective, we will continue the patient on his current medications. He has been encouraged regarding the use of his incentive spirometry. DNP note has been reviewed, I agree with a documented findings and plan of care. Patient was seen and examined.
[2017-05-29] MEDS ORDERED: FUROSEMIDE 10 MG/ML 4 ML VIAL IV STA (11:27)
--- NOTE | 2017-05-29 11:29 | P.PN ---
Subjective Progress note dated 05/25/2017 This is a patient who was admitted with a diagnosis of non-ST segment elevation myocardial infarction and significant 2 vessel coronary artery disease. The plan is for bypass surgery today. The patient also has a history of atrial fibrillation with RVR history of pulmonary embolism and left lower extremity DVT following: Resection back in 2010. The patient has a history of heparin- induced thrombocytopenia colon cancer diabetes mellitus hyperlipidemia hypertension and hearing loss. I'm not sure whether or not the patient will be the first case with a second case today on Thursday. The patient seemed relatively stable. A little anxious. Progress note dated 05/27/2017 This is a patient who is postop day #2, status post 2 vessel bypass grafting. Patient is doing relatively well. It was an off-pump CABG. The patient's currently on O2 at 6 L. Getting an IV of lactated Ringer's at 20 mL an hour and getting cleveprex for blood pressure control at 6 mg per hour. The insulin drip is off. He's not having any major pain or issues. Feeling generally well. No shortness of breath. No cough. No chest pain. No nausea vomiting or diarrhea. No fever Progress note dated 05/29/2017 This is a patient who is 71. He's postop day #4 status post 2 vessel bypass grafting. The patient was done off pump. He is doing reasonably well. Still not really using the incentive spirometer as maximal capability. The patient's chest x-ray shows bilateral effusions and discussed some mild cephalization and probably would benefit from some additional IV Lasix. In addition, he has a history of atrial fibrillation with RVR pulmonary embolism left lower shimmy DVT heparin-induced thrombocytopenia colon cancer diabetes hyperlipidemia hypertension and hearing loss. The patient might be discharged to [facility] rehab if he can get preauthorization. That may or may not happen today. Objective - Vital Signs Vital signs: Vital Signs Temp 97.2 F L 05/29/17 08:25 Pulse 69 05/29/17 08:25 Resp 18 05/29/17 08:25 BP 168/80 05/29/17 08:25 Pulse Ox 99 05/29/17 08:25 Intake & Output 05/28/17 05/29/17 05/29/17 18:59 06:59 18:59 Intake Total 653 237 Output Total 1435 450 400 Balance -782 -450 -163 Weight 97.7 kg 96 kg Intake: IV 178 Calcium Gluconate 2,000 100 mg In Sodium Chloride 0.9 % 100 ml @ 100 mls/hr IVPB ONCE ONE Rx#: [id number] Lactated Ringers 60 Pressure Bag, 0.9ns 18 Oral 475 237 Output: Chest Tube Drainage 60 left pleural 60 Urine 1375 450 400 Other: Voiding Method Urinal Urinal Urinal # Voids 1 ABP, PAP, CO, CI - Last Documented Arterial Blood Pressure 166/64 Pulmonary Artery Pressure 24/9 Cardiac Output 4.9 Cardiac Index 2.3 - Exam No acute distress, oriented 3. HEENT examination is grossly unremarkable. Mucous membranes are moist. No oral lesions. Neck supple. Full range of motion. No adenopathy or thyromegaly. Neck veins are flat. Cardiovascular examination reveals regular rhythm rate. S1-S2 normal. No S3- S4 or murmur. Lungs reveal clear breath sounds. No wheezes or rhonchi. No crackles. Abdomen soft bowel sounds are heard. Extremities are intact. No cyanosis clubbing or edema. Skin without rash. Neurologic examination is nonfocal. - Labs CBC & Chem 7: 05/29/17 06:33 05/29/17 06:33 Labs: Abnormal Lab Results - Last 24 Hours (Table) 05/28/17 05/28/17 05/28/17 Range/Units 12:06 17:21 20:56 WBC (3.8-10.6) k/uL RBC (4.30-5.90) m/uL Hgb (13.0-17.5) gm/dL Hct (39.0-53.0) % BUN (9-20) mg/dL Glucose (74-99) mg/dL POC Glucose (mg/dL) 158 H 204 H 154 H (75-99) mg/dL Calcium (8.4-10.2) mg/dL Total Bilirubin (0.2-1.3) mg/dL Total Protein (6.3-8.2) g/dL Albumin (3.5-5.0) g/dL 05/29/17 05/29/17 05/29/17 Range/Units 01:26 05:35 06:33 WBC 11.3 H (3.8-10.6) k/uL RBC 2.80 L (4.30-5.90) m/uL Hgb 8.9 L D (13.0-17.5) gm/dL Hct 27.1 L (39.0-53.0) % BUN (9-20) mg/dL Glucose (74-99) mg/dL POC Glucose (mg/dL) 163 H 154 H (75-99) mg/dL Calcium (8.4-10.2) mg/dL Total Bilirubin (0.2-1.3) mg/dL Total Protein (6.3-8.2) g/dL Albumin (3.5-5.0) g/dL 05/29/17 Range/Units 06:33 WBC (3.8-10.6) k/uL RBC (4.30-5.90) m/uL Hgb (13.0-17.5) gm/dL Hct (39.0-53.0) % BUN 37 H (9-20) mg/dL Glucose 145 H (74-99) mg/dL POC Glucose (mg/dL) (75-99) mg/dL Calcium 8.3 L (8.4-10.2) mg/dL Total Bilirubin 3.4 H (0.2-1.3) mg/dL Total Protein 5.7 L (6.3-8.2) g/dL Albumin 3.1 L (3.5-5.0) g/dL Assessment and Plan (1) Acute non-ST segment elevation myocardial infarction Status: Acute (2) Atrial fibrillation with rapid ventricular response Status: Acute (3) Chest pain Status: Acute (4) Diabetes mellitus type 2 in nonobese Status: Acute (5) HIT (heparin-induced thrombocytopenia) Status: Acute (6) Hearing disorder of both ears Status: Acute (7) History of heparin-induced thrombocytopenia Status: Acute (8) Hyperlipidemia Status: Acute (9) Paroxysmal atrial fibrillation Status: Acute (10) Two-vessel coronary artery disease Status: Acute (11) Atrial fibrillation Status: Acute Plan: Plan dated 05/25/2017 The patient had spirometry. Spirometry was stable. The patient seemed be doing relatively well. We'll see the patient after the operating room. The patient's lung function would predict a good outcome from the pulmonary standpoint. We'll continue to follow through his hospitalization. Plan dated 05/27/2017 The patient is doing well. He'll continue with deep breathing coughing and clearing secretions. He's working on his incentive spirometer. Chest x-ray show some postsurgical changes his O2 sats at 6 L/m nasal cannula. He is getting a medication for blood pressure control. Is being weaned down. No additional recommendations are made. We'll continue to follow. Prognosis is guarded. Plan dated 05/29/2017 We continue to encourage the patient to use the incentive spirometer every hour while awake. Also recommend and encourage deep breathing coughing clearing of secretions. I called talk to cardiothoracic surgery about the possibly some of some additional IV Lasix. Chest x-rays consistent with bilateral effusions right greater than left and some cephalization in the upper lobes. Manometer veins are engorged. The patient may be discharged possibly to [facility] rehab later today. When he for preauthorization. Additional recommendations suggestions are forthcoming. Time with Patient: Less than 30
[2017-05-29 11:44] LABS: Glucose,Whole Blood 171 mg/dL (75-99)
[2017-05-29 11:54] VITALS: BMI 31.2
[2017-05-29] MEDS ORDERED: DEXTROSE 5% IN WATER 100 ML with AMIODARONE 150 MG IV ONE (13:02)
[2017-05-29] MEDS ORDERED: AMIODARONE 450 MG in DEXTROSE 5% IN WATER 250 ML IV SCH ×2 (13:30)
[2017-05-29] MEDS ORDERED: POLYETHYLENE GLYCOL 3350 17 GM POWD.PACK PO STA (14:04)
[2017-05-29] MEDS: MAGNESIUM HYDROXIDE 2,400 MG/10 ML CUP PO PRN (16:15)
[2017-05-29 16:39] LABS: Glucose,Whole Blood 168 mg/dL (75-99)
[2017-05-29 21:01] LABS: Glucose,Whole Blood 167 mg/dL (75-99)
[2017-05-29] MEDS: SENNOSIDES-DOCUSATE SODIUM 1 EACH TAB PO SCH (21:10)
[2017-05-29] MEDS: INSULIN GLARGINE 100 UNIT/ML 10 ML VIAL SQ SCH (21:12)
[2017-05-30 02:04] LABS: Glucose,Whole Blood 260 mg/dL (75-99)
[2017-05-30 06:10] LABS: Glucose,Whole Blood 156 mg/dL (75-99)
[2017-05-30 06:19] LABS: CH 32.3; CHCM 34.9; HCT 24.4 % (39.0-53.0); HDW 3.79; HGB 8.3 gm/dL (13.0-17.5); MCH 31.8 pg (25.0-35.0); MCV 93.5 fL (80.0-100.0); Mean Platelet Volume 7.6; Poikilocytosis Slight; RBC 2.61 m/uL (4.30-5.90); RDW 15.4 % (11.5-15.5); WBC 11.3 k/uL (3.8-10.6)
[2017-05-30 06:38] LABS: ALT 33 U/L (21-72); AST 39 U/L (17-59); Alkaline Phosphatase 135 U/L (38-126); Anion Gap 10 mmol/L; Blood Urea Nitrogen 37 mg/dL (9-20); Calcium 8.2 mg/dL (8.4-10.2); Carbon Dioxide 28 mmol/L (22-30); Chloride 102 mmol/L (98-107); Glucose 145 mg/dL (74-99); Non-African American GFR(MDRD) 54 (>60 ml/min/1.73 sqM); Potassium 4.2 mmol/L (3.5-5.1); Sodium 140 mmol/L (137-145); Total Bilirubin 2.4 mg/dL (0.2-1.3); Total Protein 5.5 g/dL (6.3-8.2)
[2017-05-30] MEDS: PANTOPRAZOLE 40 MG TABLET PO SCH (06:45)
--- NOTE | 2017-05-30 06:50 | XR ---
EXAMINATION TYPE: XR chest 2V DATE OF EXAM: 05/30/2017 HISTORY: post cardiac surgery. REFERENCE: Previous study dated 05/29/2017. FINDINGS: There has been a midline sternotomy. The heart is enlarged. There is vascular congestion without lester edema. There is bibasilar atelectas is. There are bilateral effusions. There has been no significant interval change in the appearance of the chest. IMPRESSION: NO SIGNIFICANT INTERVAL CHANGE IN THE APPEARANCE OF THE CHEST.
[2017-05-30] MEDS: INSULIN LISPRO (humaLOG) 300 UNIT/3 ML VIAL SQ SCH ×7 (07:02→21:32)
[2017-05-30] MEDS: ATORVASTATIN 40 MG TAB PO SCH (08:07)
[2017-05-30] MEDS: CLOPIDOGREL 75 MG TAB PO SCH (08:07)
[2017-05-30] MEDS: METOPROLOL TARTRATE 50 MG TAB PO SCH ×3 (08:07→21:32)
[2017-05-30] MEDS: FONDAPARINUX 2.5 MG/0.5 ML SYRINGE SQ SCH (08:07)
[2017-05-30] MEDS: ASPIRIN 325 MG TAB PO SCH (08:07)
[2017-05-30] MEDS: VALSARTAN 80 MG TAB PO SCH (08:08)
[2017-05-30] MEDS: SERTRALINE 50 MG TAB PO SCH (08:08)
--- NOTE | 2017-05-30 09:07 | P.PN ---
Subjective Principal diagnosis: Two-vessel coronary artery disease, unstable angina, acute non-ST segment elevation myocardial infarction, preoperative paroxysmal atrial fibrillation, hearing disorder both ears, diabetes mellitus type 2, hypertension, hyperlipidemia, history of heparin-induced thrombocytopenia. POD #5, urgent off-pump coronary artery bypass grafting 2 with left internal mammary artery to the left anterior descending coronary artery and saphenous vein graft to the posterior descending coronary artery, modified Poon maze procedure with bilateral pulmonary vein ablation and ligation of the left atrial appendage using a #35 mm AtriCure clip, endovascular vein harvest of the right greater saphenous vein, intraoperative transesophageal echocardiogram performed by anesthesia. The patient is sitting up to the bedside chair at this time. No acute distress. Denies complaints of pain. Patient has a flat a fact. He reports that he was awake all night trying to have a bowel movement. He ambulated in all 3-4 times yesterday with assistance. Objective - Vital Signs Vital signs: Vital Signs Temp 97 F L 05/30/17 08:00 Pulse 72 05/30/17 08:00 Resp 18 05/30/17 08:28 BP 133/64 05/30/17 08:00 Pulse Ox 94 L 05/30/17 08:28 Intake & Output 05/29/17 05/30/17 05/30/17 18:59 06:59 18:59 Intake Total 754 20 180 Output Total 1900 600 200 Balance -1146 -580 -20 Weight 96 kg 95.8 kg Intake: IV 20 0.9% ns flush 10 ML 20 Oral 754 180 Output: Urine 1900 600 200 Other: Voiding Method Urinal Urinal # Bowel Movements 1 ABP, PAP, CO, CI - Last Documented Arterial Blood Pressure 166/64 Pulmonary Artery Pressure 24/9 Cardiac Output 4.9 Cardiac Index 2.3 - Constitutional General appearance: Present: cooperative, no acute distress - EENT Eyes: Present: PERRLA, normal appearance - Neck Details: No JVD, no lymphadenopathy. - Respiratory Details: Lung sounds are essentially clear throughout, diminished bilateral bases. Respirations are symmetrical and nonlabored. Oxygen saturation are 94% on room air. He is achieving 1000 mL on his incentive spirometry. - Cardiovascular Details: Regular rhythm and rate. S1 and S2 present, negative for S3, gallop or murmur. Remote telemetry showing normal sinus rhythm heart rate 71. Sternum is stable. Heart hugger is in place and patient is demonstrating appropriate use. No edema present. Knee-high WALT hose and sequential compression devices in place to his bilateral lower extremities. - Gastrointestinal Gastrointestinal Comment(s): Abdomen is soft, nontender and nondistended. Active bowel sounds to all 4 quadrants. He is tolerating oral intake. Bowel movement this a.m. - Genitourinary Genitourinary Comment(s): Urine is clear and yellow. Patient is voiding per urinal. 300 mL of urine output documented in the last 8 hours. - Integumentary Integumentary Comment(s): Midline sternal incision clean and dry and well approximated. Dermabond dressing clean and dry. No drainage noted. Right lower extremity EVH site clean and dry and well approximated. Dermabond dressing clean and dry. Integumentary: Present: normal, normal turgor - Musculoskeletal Musculoskeletal: Present: gait normal, strength equal bilaterally - Psychiatric Psychiatric: Present: A&O x's 3, appropriate affect, intact judgment & insight - Allied health notes Allied health notes reviewed: nursing - Labs CBC & Chem 7: 05/30/17 05:59 05/30/17 05:59 Labs: Abnormal Lab Results - Last 24 Hours (Table) 05/29/17 05/29/17 05/29/17 Range/Units 11:41 16:31 21:00 WBC (3.8-10.6) k/uL RBC (4.30-5.90) m/uL Hgb (13.0-17.5) gm/dL Hct (39.0-53.0) % BUN (9-20) mg/dL Creatinine (0.66-1.25) mg/dL Glucose (74-99) mg/dL POC Glucose (mg/dL) 171 H 168 H 167 H (75-99) mg/dL Calcium (8.4-10.2) mg/dL Total Bilirubin (0.2-1.3) mg/dL Alkaline Phosphatase (38-126) U/L Total Protein (6.3-8.2) g/dL Albumin (3.5-5.0) g/dL 05/30/17 05/30/17 05/30/17 Range/Units 02:04 05:59 05:59 WBC 11.3 H (3.8-10.6) k/uL RBC 2.61 L (4.30-5.90) m/uL Hgb 8.3 L (13.0-17.5) gm/dL Hct 24.4 L (39.0-53.0) % BUN 37 H (9-20) mg/dL Creatinine 1.30 H (0.66-1.25) mg/dL Glucose 145 H (74-99) mg/dL POC Glucose (mg/dL) 260 H (75-99) mg/dL Calcium 8.2 L (8.4-10.2) mg/dL Total Bilirubin 2.4 H (0.2-1.3) mg/dL Alkaline Phosphatase 135 H (38-126) U/L Total Protein 5.5 L (6.3-8.2) g/dL Albumin 2.9 L (3.5-5.0) g/dL 05/30/17 Range/Units 06:07 WBC (3.8-10.6) k/uL RBC (4.30-5.90) m/uL Hgb (13.0-17.5) gm/dL Hct (39.0-53.0) % BUN (9-20) mg/dL Creatinine (0.66-1.25) mg/dL Glucose (74-99) mg/dL POC Glucose (mg/dL) 156 H (75-99) mg/dL Calcium (8.4-10.2) mg/dL Total Bilirubin (0.2-1.3) mg/dL Alkaline Phosphatase (38-126) U/L Total Protein (6.3-8.2) g/dL Albumin (3.5-5.0) g/dL - Imaging and Cardiology Chest x-ray: report reviewed, image reviewed Assessment and Plan (1) History of heparin-induced thrombocytopenia Status: Acute (2) Hypertension Status: Acute (3) Hyperlipidemia Status: Acute (4) Diabetes mellitus type 2 in nonobese Status: Acute (5) Hearing disorder of both ears Status: Acute (6) Paroxysmal atrial fibrillation Status: Acute (7) Acute non-ST segment elevation myocardial infarction Status: Acute (8) Two-vessel coronary artery disease Status: Acute Plan: 1. Continue aspirin, statin, Plavix, Arixtra, beta angie, and ARB. Will maximize beta angie therapy as tolerated. 2. Continue Zoloft.. 3. Encourage incentive spirometry use every hour while awake. 4. GI/DVT prophylaxis. 5. Increase activity as tolerated, ambulate in hallway. Physical therapy following. 6. Insulin management per primary care service. 7. Dr. Carpio consulted for possible discharge to inpatient rehab pending. 8. Discharge planning in progress. Patient will need rehab at discharge as he lacks motivation to get up and ambulate, safety concerns. Time with Patient: Greater than 30
[2017-05-30 11:26] LABS: Glucose,Whole Blood 159 mg/dL (75-99)
--- NOTE | 2017-05-30 11:28 | P.PN ---
Subjective Principal diagnosis: CABG This is a 71-year-old gentleman who is status post coronary artery bypass grafting surgery. He also underwent modified maze procedure. Remaining in normal sinus rhythm this morning. Appears depressed. Blood pressure 156/76 , heart rate in the 60s. WBC 11.3, hemoglobin 8.9, potassium 4.7, BUN 37, creatinine 1.2. Reaching 500 on his incentive spirometry 05/30/2017 Patient seen and examined this morning, appears comfortable, sitting up in the chair at the bedside. Continues to have a very flat affect. He has been up ambulating. Chest x-ray did not reveal any significant interval change. At pressure 132/60 with heart rate in the 70s. Normal sinus rhythm Objective - Vital Signs Vital signs: Vital Signs Temp 97 F L 05/30/17 08:00 Pulse 72 05/30/17 08:00 Resp 12 05/30/17 10:24 BP 133/64 05/30/17 08:00 Pulse Ox 93 L 05/30/17 10:24 Intake & Output 05/29/17 05/30/17 05/30/17 18:59 06:59 18:59 Intake Total 754 20 180 Output Total 1900 600 200 Balance -1146 -580 -20 Weight 96 kg 95.8 kg Intake: IV 20 0.9% ns flush 10 ML 20 Oral 754 180 Output: Urine 1900 600 200 Other: Voiding Method Urinal Urinal Urinal # Bowel Movements 1 ABP, PAP, CO, CI - Last Documented Arterial Blood Pressure 166/64 Pulmonary Artery Pressure 24/9 Cardiac Output 4.9 Cardiac Index 2.3 - Exam PHYSICAL EXAMINATION: HEENT: Head is atraumatic, normocephalic. Pupils equal, round. Neck is supple. There is no elevated jugular venous pressure. HEART EXAMINATION: Heart S1, S2 normal. No murmur or gallop heard. CHEST EXAMINATION: Lungs reveal diminished air entry bilaterally to the bases. ABDOMEN: Soft, nontender. Bowel sounds are heard. No organomegaly noted. EXTREMITIES: 2+ peripheral pulses with no evidence of peripheral edema and no calf tenderness noted. NEUROLOGIC patient is awake, alert and oriented -3. . - Labs CBC & Chem 7: 05/30/17 05:59 05/30/17 05:59 Labs: Abnormal Lab Results - Last 24 Hours (Table) 05/29/17 05/29/17 05/29/17 Range/Units 11:41 16:31 21:00 WBC (3.8-10.6) k/uL RBC (4.30-5.90) m/uL Hgb (13.0-17.5) gm/dL Hct (39.0-53.0) % BUN (9-20) mg/dL Creatinine (0.66-1.25) mg/dL Glucose (74-99) mg/dL POC Glucose (mg/dL) 171 H 168 H 167 H (75-99) mg/dL Calcium (8.4-10.2) mg/dL Total Bilirubin (0.2-1.3) mg/dL Alkaline Phosphatase (38-126) U/L Total Protein (6.3-8.2) g/dL Albumin (3.5-5.0) g/dL 05/30/17 05/30/17 05/30/17 Range/Units 02:04 05:59 05:59 WBC 11.3 H (3.8-10.6) k/uL RBC 2.61 L (4.30-5.90) m/uL Hgb 8.3 L (13.0-17.5) gm/dL Hct 24.4 L (39.0-53.0) % BUN 37 H (9-20) mg/dL Creatinine 1.30 H (0.66-1.25) mg/dL Glucose 145 H (74-99) mg/dL POC Glucose (mg/dL) 260 H (75-99) mg/dL Calcium 8.2 L (8.4-10.2) mg/dL Total Bilirubin 2.4 H (0.2-1.3) mg/dL Alkaline Phosphatase 135 H (38-126) U/L Total Protein 5.5 L (6.3-8.2) g/dL Albumin 2.9 L (3.5-5.0) g/dL 05/30/17 05/30/17 Range/Units 06:07 11:23 WBC (3.8-10.6) k/uL RBC (4.30-5.90) m/uL Hgb (13.0-17.5) gm/dL Hct (39.0-53.0) % BUN (9-20) mg/dL Creatinine (0.66-1.25) mg/dL Glucose (74-99) mg/dL POC Glucose (mg/dL) 156 H 159 H (75-99) mg/dL Calcium (8.4-10.2) mg/dL Total Bilirubin (0.2-1.3) mg/dL Alkaline Phosphatase (38-126) U/L Total Protein (6.3-8.2) g/dL Albumin (3.5-5.0) g/dL Assessment and Plan (1) S/P CABG (coronary artery bypass graft) Status: Acute (2) Paroxysmal a-fib Status: Acute (3) Acute non-ST segment elevation myocardial infarction Status: Acute (4) Diabetes mellitus type 2 in nonobese Status: Acute (5) History of heparin-induced thrombocytopenia Status: Acute (6) Hyperlipidemia Status: Acute (7) Hypertension Status: Acute Plan: Cardiology's perspective, we will continue the patient on his current medications. He has been encouraged regarding the use of his incentive spirometry. Range this are being made for possible transfer to inpatient rehab on Thursday. DNP note has been reviewed, I agree with a documented findings and plan of care. Patient was seen and examined.
--- NOTE | 2017-05-30 12:33 | P.PN ---
Subjective Progress note dated 05/25/2017 This is a patient who was admitted with a diagnosis of non-ST segment elevation myocardial infarction and significant 2 vessel coronary artery disease. The plan is for bypass surgery today. The patient also has a history of atrial fibrillation with RVR history of pulmonary embolism and left lower extremity DVT following: Resection back in 2010. The patient has a history of heparin- induced thrombocytopenia colon cancer diabetes mellitus hyperlipidemia hypertension and hearing loss. I'm not sure whether or not the patient will be the first case with a second case today on Thursday. The patient seemed relatively stable. A little anxious. Progress note dated 05/27/2017 This is a patient who is postop day #2, status post 2 vessel bypass grafting. Patient is doing relatively well. It was an off-pump CABG. The patient's currently on O2 at 6 L. Getting an IV of lactated Ringer's at 20 mL an hour and getting cleveprex for blood pressure control at 6 mg per hour. The insulin drip is off. He's not having any major pain or issues. Feeling generally well. No shortness of breath. No cough. No chest pain. No nausea vomiting or diarrhea. No fever Progress note dated 05/29/2017 This is a patient who is 71. He's postop day #4 status post 2 vessel bypass grafting. The patient was done off pump. He is doing reasonably well. Still not really using the incentive spirometer as maximal capability. The patient's chest x-ray shows bilateral effusions and discussed some mild cephalization and probably would benefit from some additional IV Lasix. In addition, he has a history of atrial fibrillation with RVR pulmonary embolism left lower shimmy DVT heparin-induced thrombocytopenia colon cancer diabetes hyperlipidemia hypertension and hearing loss. The patient might be discharged to [facility] rehab if he can get preauthorization. That may or may not happen today. Progress note dated 05/30/2017 This is a 72-year-old male postop day #5 status post three-vessel bypass grafting. The surgery was done off pump. Doing reasonably well. Possible discharge on Thursday or Thursday. Not doing well well on his incentive spirometer although over the last 2 days, it's improved. Chest x-ray show some basal atelectasis and small pleural effusions. There may be a component of some fluid overload and IV Lasix was recommended yesterday by myself. In addition, he has a history of atrial fibrillation/rapid ventricular response, pulmonary most him, heparin-induced thrombocytopenia, colon cancer, hyperlipidemia, hypertension, hearing loss. Objective - Vital Signs Vital signs: Vital Signs Temp 97 F L 05/30/17 08:00 Pulse 72 05/30/17 08:00 Resp 12 05/30/17 10:24 BP 133/64 05/30/17 08:00 Pulse Ox 93 L 05/30/17 10:24 Intake & Output 05/29/17 05/30/17 05/30/17 18:59 06:59 18:59 Intake Total 754 20 180 Output Total 1900 600 200 Balance -1146 -580 -20 Weight 96 kg 95.8 kg Intake: IV 20 0.9% ns flush 10 ML 20 Oral 754 180 Output: Urine 1900 600 200 Other: Voiding Method Urinal Urinal Urinal # Bowel Movements 1 ABP, PAP, CO, CI - Last Documented Arterial Blood Pressure 166/64 Pulmonary Artery Pressure 24/9 Cardiac Output 4.9 Cardiac Index 2.3 - Exam No acute distress, oriented 3. HEENT examination is grossly unremarkable. Mucous membranes are moist. No oral lesions. Neck supple. Full range of motion. No adenopathy or thyromegaly. Neck veins are flat. Cardiovascular examination reveals regular rhythm rate. S1-S2 normal. No S3- S4 or murmur. Lungs reveal clear breath sounds. No wheezes or rhonchi. No crackles. Abdomen soft bowel sounds are heard. Extremities are intact. No cyanosis clubbing or edema. Skin without rash. Neurologic examination is nonfocal. - Labs CBC & Chem 7: 05/30/17 05:59 05/30/17 05:59 Labs: Abnormal Lab Results - Last 24 Hours (Table) 05/29/17 05/29/17 05/30/17 Range/Units 16:31 21:00 02:04 WBC (3.8-10.6) k/uL RBC (4.30-5.90) m/uL Hgb (13.0-17.5) gm/dL Hct (39.0-53.0) % BUN (9-20) mg/dL Creatinine (0.66-1.25) mg/dL Glucose (74-99) mg/dL POC Glucose (mg/dL) 168 H 167 H 260 H (75-99) mg/dL Calcium (8.4-10.2) mg/dL Total Bilirubin (0.2-1.3) mg/dL Alkaline Phosphatase (38-126) U/L Total Protein (6.3-8.2) g/dL Albumin (3.5-5.0) g/dL 05/30/17 05/30/17 05/30/17 Range/Units 05:59 05:59 06:07 WBC 11.3 H (3.8-10.6) k/uL RBC 2.61 L (4.30-5.90) m/uL Hgb 8.3 L (13.0-17.5) gm/dL Hct 24.4 L (39.0-53.0) % BUN 37 H (9-20) mg/dL Creatinine 1.30 H (0.66-1.25) mg/dL Glucose 145 H (74-99) mg/dL POC Glucose (mg/dL) 156 H (75-99) mg/dL Calcium 8.2 L (8.4-10.2) mg/dL Total Bilirubin 2.4 H (0.2-1.3) mg/dL Alkaline Phosphatase 135 H (38-126) U/L Total Protein 5.5 L (6.3-8.2) g/dL Albumin 2.9 L (3.5-5.0) g/dL 05/30/17 Range/Units 11:23 WBC (3.8-10.6) k/uL RBC (4.30-5.90) m/uL Hgb (13.0-17.5) gm/dL Hct (39.0-53.0) % BUN (9-20) mg/dL Creatinine (0.66-1.25) mg/dL Glucose (74-99) mg/dL POC Glucose (mg/dL) 159 H (75-99) mg/dL Calcium (8.4-10.2) mg/dL Total Bilirubin (0.2-1.3) mg/dL Alkaline Phosphatase (38-126) U/L Total Protein (6.3-8.2) g/dL Albumin (3.5-5.0) g/dL Assessment and Plan (1) Acute non-ST segment elevation myocardial infarction Status: Acute (2) Atrial fibrillation with rapid ventricular response Status: Acute (3) Chest pain Status: Acute (4) Diabetes mellitus type 2 in nonobese Status: Acute (5) HIT (heparin-induced thrombocytopenia) Status: Acute (6) Hearing disorder of both ears Status: Acute (7) History of heparin-induced thrombocytopenia Status: Acute (8) Hyperlipidemia Status: Acute (9) Paroxysmal atrial fibrillation Status: Acute (10) Two-vessel coronary artery disease Status: Acute (11) Atrial fibrillation Status: Acute Plan: Plan dated 05/25/2017 The patient had spirometry. Spirometry was stable. The patient seemed be doing relatively well. We'll see the patient after the operating room. The patient's lung function would predict a good outcome from the pulmonary standpoint. We'll continue to follow through his hospitalization. Plan dated 05/27/2017 The patient is doing well. He'll continue with deep breathing coughing and clearing secretions. He's working on his incentive spirometer. Chest x-ray show some postsurgical changes his O2 sats at 6 L/m nasal cannula. He is getting a medication for blood pressure control. Is being weaned down. No additional recommendations are made. We'll continue to follow. Prognosis is guarded. Plan dated 05/29/2017 We continue to encourage the patient to use the incentive spirometer every hour while awake. Also recommend and encourage deep breathing coughing clearing of secretions. I called talk to cardiothoracic surgery about the possibly some of some additional IV Lasix. Chest x-rays consistent with bilateral effusions right greater than left and some cephalization in the upper lobes. Manometer veins are engorged. The patient may be discharged possibly to [facility] rehab later today. When he for preauthorization. Additional recommendations suggestions are forthcoming. Plan dated 05/30/2017 The patient's doing well. We'll continue to follow. Encourage deep breathing coughing and clearing of secretions. Also recommended the incentive spirometer every hour while awake. Possible discharge and there are Thursday. May be going to rehab. We'll continue to follow. Prognosis is guarded. Respiratory status O, is reasonable. Time with Patient: Less than 30
[2017-05-30 16:53] LABS: Glucose,Whole Blood 161 mg/dL (75-99)
[2017-05-30 21:22] LABS: Glucose,Whole Blood 163 mg/dL (75-99)
[2017-05-30] MEDS: SENNOSIDES-DOCUSATE SODIUM 1 EACH TAB PO SCH (21:31)
[2017-05-30] MEDS: INSULIN GLARGINE 100 UNIT/ML 10 ML VIAL SQ SCH (21:38)
[2017-05-31 01:52] LABS: Glucose,Whole Blood 162 mg/dL (75-99)
[2017-05-31 06:02] LABS: Glucose,Whole Blood 171 mg/dL (75-99)
[2017-05-31 06:27] LABS: CH 32.7; CHCM 34.6; HGB 8.3 gm/dL (13.0-17.5); Hypochromasia Slight; MCH 31.7 pg (25.0-35.0); MCHC 33.3 g/dL (31.0-37.0); MCV 95.2 fL (80.0-100.0); Mean Platelet Volume 7.5; Poikilocytosis Slight; RBC 2.63 m/uL (4.30-5.90); WBC 9.8 k/uL (3.8-10.6)
[2017-05-31 06:41] LABS: ALT 35 U/L (21-72); AST 49 U/L (17-59); Alkaline Phosphatase 131 U/L (38-126); Anion Gap 6 mmol/L; Blood Urea Nitrogen 31 mg/dL (9-20); Carbon Dioxide 28 mmol/L (22-30); Chloride 104 mmol/L (98-107); Glucose 141 mg/dL (74-99); Non-African American GFR(MDRD) 60 (>60 ml/min/1.73 sqM); Potassium 3.8 mmol/L (3.5-5.1); Sodium 138 mmol/L (137-145); Total Bilirubin 2.2 mg/dL (0.2-1.3); Total Protein 5.2 g/dL (6.3-8.2)
--- NOTE | 2017-05-31 06:53 | XR ---
EXAMINATION TYPE: XR chest 2V DATE OF EXAM: 05/31/2017 HISTORY: post cardiac surgery. REFERENCE: Previous study dated 05/30/2017. FINDINGS: There has been a previous midline sternotomy. The heart is enlarged. There is bibasilar airspace disease. There are bilateral effusions. Pulmonary vascular congestion has improved. IMPRESSION: CONTINUING POSTOPERATIVE CHANGE.
[2017-05-31] MEDS: INSULIN LISPRO (humaLOG) 300 UNIT/3 ML VIAL SQ SCH ×7 (06:54→20:25)
[2017-05-31] MEDS: PANTOPRAZOLE 40 MG TABLET PO SCH (06:54)
[2017-05-31] MEDS ORDERED: POTASSIUM CHLORIDE ER 20 MEQ TAB.ER PO ONE (07:45)
--- NOTE | 2017-05-31 08:23 | P.PN ---
Subjective Principal diagnosis: Two-vessel coronary artery disease, unstable angina, acute non-ST segment elevation myocardial infarction, preoperative paroxysmal atrial fibrillation, hearing disorder both ears, diabetes mellitus type 2, hypertension, hyperlipidemia, history of heparin-induced thrombocytopenia. POD #6, urgent off-pump coronary artery bypass grafting 2 with left internal mammary artery to the left anterior descending coronary artery and saphenous vein graft to the posterior descending coronary artery, modified Poon maze procedure with bilateral pulmonary vein ablation and ligation of the left atrial appendage using a #35 mm AtriCure clip, endovascular vein harvest of the right greater saphenous vein, intraoperative transesophageal echocardiogram performed by anesthesia. The patient is sitting up to the bedside chair at this time. No acute distress. Denies complaints of pain. Patient states that he feels much better today. He ambulated in all 5 times yesterday with assistance in the hallway. Objective - Vital Signs Vital signs: Vital Signs Temp 98.5 F 05/31/17 03:17 Pulse 62 05/31/17 03:17 Resp 16 05/31/17 03:17 BP 135/67 05/31/17 03:17 Pulse Ox 94 L 05/31/17 03:17 Intake & Output 05/30/17 05/31/17 05/31/17 18:59 06:59 18:59 Intake Total 416 20 Output Total 650 150 Balance -234 -130 Intake: IV 20 0.9% ns flush 10 ML 20 Oral 416 Output: Urine 650 150 Other: Voiding Method Urinal Urinal ABP, PAP, CO, CI - Last Documented Arterial Blood Pressure 166/64 Pulmonary Artery Pressure 24/9 Cardiac Output 4.9 Cardiac Index 2.3 - Constitutional General appearance: Present: cooperative, no acute distress - EENT Eyes: Present: PERRLA, normal appearance - Neck Details: No JVD, no lymphadenopathy. - Respiratory Details: Lung sounds are essentially clear throughout, diminished bilateral bases. Respirations are symmetrical and nonlabored. Oxygen saturation are 94% on room air. He is achieving 1000 mL on his incentive spirometry. - Cardiovascular Details: Regular rhythm and rate. S1 and S2 present, negative for S3, gallop or murmur. Remote telemetry showing normal sinus rhythm heart rate 70. Sternum is stable. Heart hugger is in place and patient is demonstrating appropriate use. No edema present. Knee-high WALT hose and sequential compression devices in place to his bilateral lower extremities. - Gastrointestinal Gastrointestinal Comment(s): Abdomen is soft, nontender and nondistended. Active bowel sounds to all 4 quadrants. He is tolerating oral intake. Bowel movement yesterday 05/30/2017. - Genitourinary Genitourinary Comment(s): Urine is clear and yellow. Patient is voiding per urinal. - Integumentary Integumentary Comment(s): Midline sternal incision clean and dry and well approximated. Dermabond dressing clean and dry. No drainage noted. Right lower extremity EVH site clean and dry and well approximated. Dermabond dressing clean and dry. - Musculoskeletal Musculoskeletal: Present: gait normal, strength equal bilaterally - Psychiatric Psychiatric: Present: A&O x's 3, appropriate affect, intact judgment & insight - Allied health notes Allied health notes reviewed: nursing - Labs CBC & Chem 7: 05/31/17 06:13 05/31/17 06:13 Labs: Abnormal Lab Results - Last 24 Hours (Table) 05/30/17 05/30/17 05/30/17 Range/Units 11:23 16:36 21:18 RBC (4.30-5.90) m/uL Hgb (13.0-17.5) gm/dL Hct (39.0-53.0) % RDW (11.5-15.5) % BUN (9-20) mg/dL Glucose (74-99) mg/dL POC Glucose (mg/dL) 159 H 161 H 163 H (75-99) mg/dL Calcium (8.4-10.2) mg/dL Total Bilirubin (0.2-1.3) mg/dL Alkaline Phosphatase (38-126) U/L Total Protein (6.3-8.2) g/dL Albumin (3.5-5.0) g/dL 05/31/17 05/31/17 05/31/17 Range/Units 01:50 05:48 06:13 RBC 2.63 L (4.30-5.90) m/uL Hgb 8.3 L (13.0-17.5) gm/dL Hct 25.0 L (39.0-53.0) % RDW 16.0 H (11.5-15.5) % BUN (9-20) mg/dL Glucose (74-99) mg/dL POC Glucose (mg/dL) 162 H 171 H (75-99) mg/dL Calcium (8.4-10.2) mg/dL Total Bilirubin (0.2-1.3) mg/dL Alkaline Phosphatase (38-126) U/L Total Protein (6.3-8.2) g/dL Albumin (3.5-5.0) g/dL 05/31/17 Range/Units 06:13 RBC (4.30-5.90) m/uL Hgb (13.0-17.5) gm/dL Hct (39.0-53.0) % RDW (11.5-15.5) % BUN 31 H (9-20) mg/dL Glucose 141 H (74-99) mg/dL POC Glucose (mg/dL) (75-99) mg/dL Calcium 8.0 L (8.4-10.2) mg/dL Total Bilirubin 2.2 H (0.2-1.3) mg/dL Alkaline Phosphatase 131 H (38-126) U/L Total Protein 5.2 L (6.3-8.2) g/dL Albumin 2.6 L (3.5-5.0) g/dL - Imaging and Cardiology Chest x-ray: report reviewed, image reviewed Assessment and Plan (1) History of heparin-induced thrombocytopenia Status: Acute (2) Hypertension Status: Acute (3) Hyperlipidemia Status: Acute (4) Diabetes mellitus type 2 in nonobese Status: Acute (5) Hearing disorder of both ears Status: Acute (6) Paroxysmal atrial fibrillation Status: Acute (7) Acute non-ST segment elevation myocardial infarction Status: Acute (8) Two-vessel coronary artery disease Status: Acute Plan: 1. Continue aspirin, statin, Plavix, Arixtra, beta angie, and ARB. Will maximize beta angie therapy as tolerated. 2. Continue Zoloft.. 3. Encourage incentive spirometry use every hour while awake. 4. GI/DVT prophylaxis. 5. Increase activity as tolerated, ambulate in hallway. Physical therapy following. 6. Insulin management per primary care service. 7. Dr. Carpio consulted for possible discharge to inpatient rehab pending. 8. Discharge planning in progress. Anticipate discharge within the next 24 hours.. Time with Patient: Greater than 30
[2017-05-31] MEDS: ASPIRIN 325 MG TAB PO SCH (08:43)
[2017-05-31] MEDS: ATORVASTATIN 40 MG TAB PO SCH (08:43)
[2017-05-31] MEDS: SERTRALINE 50 MG TAB PO SCH (08:44)
[2017-05-31] MEDS: FONDAPARINUX 2.5 MG/0.5 ML SYRINGE SQ SCH (08:44)
[2017-05-31] MEDS: VALSARTAN 80 MG TAB PO SCH (08:44)
[2017-05-31] MEDS: METOPROLOL TARTRATE 50 MG TAB PO SCH ×3 (08:44→20:26)
[2017-05-31] MEDS: CLOPIDOGREL 75 MG TAB PO SCH (08:44)
--- NOTE | 2017-05-31 11:26 | P.PN ---
Subjective Progress note dated 05/25/2017 This is a patient who was admitted with a diagnosis of non-ST segment elevation myocardial infarction and significant 2 vessel coronary artery disease. The plan is for bypass surgery today. The patient also has a history of atrial fibrillation with RVR history of pulmonary embolism and left lower extremity DVT following: Resection back in 2010. The patient has a history of heparin- induced thrombocytopenia colon cancer diabetes mellitus hyperlipidemia hypertension and hearing loss. I'm not sure whether or not the patient will be the first case with a second case today on Thursday. The patient seemed relatively stable. A little anxious. Progress note dated 05/27/2017 This is a patient who is postop day #2, status post 2 vessel bypass grafting. Patient is doing relatively well. It was an off-pump CABG. The patient's currently on O2 at 6 L. Getting an IV of lactated Ringer's at 20 mL an hour and getting cleveprex for blood pressure control at 6 mg per hour. The insulin drip is off. He's not having any major pain or issues. Feeling generally well. No shortness of breath. No cough. No chest pain. No nausea vomiting or diarrhea. No fever Progress note dated 05/29/2017 This is a patient who is 71. He's postop day #4 status post 2 vessel bypass grafting. The patient was done off pump. He is doing reasonably well. Still not really using the incentive spirometer as maximal capability. The patient's chest x-ray shows bilateral effusions and discussed some mild cephalization and probably would benefit from some additional IV Lasix. In addition, he has a history of atrial fibrillation with RVR pulmonary embolism left lower shimmy DVT heparin-induced thrombocytopenia colon cancer diabetes hyperlipidemia hypertension and hearing loss. The patient might be discharged to [facility] if he can get preauthorization. That may or may not happen today. Progress note dated 05/30/2017 This is a 72-year-old male postop day #5 status post three-vessel bypass grafting. The surgery was done off pump. Doing reasonably well. Possible discharge on Thursday or Thursday. Not doing well well on his incentive spirometer although over the last 2 days, it's improved. Chest x-ray show some basal atelectasis and small pleural effusions. There may be a component of some fluid overload and IV Lasix was recommended yesterday by myself. In addition, he has a history of atrial fibrillation/rapid ventricular response, pulmonary most him, heparin-induced thrombocytopenia, colon cancer, hyperlipidemia, hypertension, hearing loss. Progress note dated 05/31/17 72-year-old male, postop day #6 status post of bypass grafting. Surgery was done off pump. It was a 2 vessel bypass. Doing well. Possible discharge either today or tomorrow. The patient's not doing very well with the breathing coughing and clearing her secretions neither is he doing well with his incentive spirometer. His been encouraged. Chest x-ray shows small effusions and some basilar atelectasis. In addition to CAD with recent bypass grafting, he has a history of atrial fibrillation pulmonary embolism left lower extremity DVT heparin-induced thrombocytopenia colon cancer diabetes hyperlipidemia hypertension and hearing loss. Objective - Vital Signs Vital signs: Vital Signs Temp 98.6 F 05/31/17 08:42 Pulse 74 05/31/17 08:42 Resp 16 05/31/17 08:42 BP 144/70 05/31/17 08:42 Pulse Ox 93 L 05/31/17 08:55 Intake & Output 05/30/17 05/31/17 05/31/17 18:59 06:59 18:59 Intake Total 416 20 Output Total 650 150 Balance -234 -130 Intake: IV 20 0.9% ns flush 10 ML 20 Oral 416 Output: Urine 650 150 Other: Voiding Method Urinal Urinal Urinal ABP, PAP, CO, CI - Last Documented Arterial Blood Pressure 166/64 Pulmonary Artery Pressure 24/9 Cardiac Output 4.9 Cardiac Index 2.3 - Exam No acute distress, oriented 3. HEENT examination is grossly unremarkable. Mucous membranes are moist. No oral lesions. Neck supple. Full range of motion. No adenopathy or thyromegaly. Neck veins are flat. Cardiovascular examination reveals regular rhythm rate. S1-S2 normal. No S3- S4 or murmur. Lungs reveal clear breath sounds. No wheezes or rhonchi. No crackles. Abdomen soft bowel sounds are heard. Extremities are intact. No cyanosis clubbing or edema. Skin without rash. Neurologic examination is nonfocal. - Labs CBC & Chem 7: 05/31/17 06:13 05/31/17 06:13 Labs: Abnormal Lab Results - Last 24 Hours (Table) 05/30/17 05/30/17 05/30/17 Range/Units 11:23 16:36 21:18 RBC (4.30-5.90) m/uL Hgb (13.0-17.5) gm/dL Hct (39.0-53.0) % RDW (11.5-15.5) % BUN (9-20) mg/dL Glucose (74-99) mg/dL POC Glucose (mg/dL) 159 H 161 H 163 H (75-99) mg/dL Calcium (8.4-10.2) mg/dL Total Bilirubin (0.2-1.3) mg/dL Alkaline Phosphatase (38-126) U/L Total Protein (6.3-8.2) g/dL Albumin (3.5-5.0) g/dL 05/31/17 05/31/17 05/31/17 Range/Units 01:50 05:48 06:13 RBC 2.63 L (4.30-5.90) m/uL Hgb 8.3 L (13.0-17.5) gm/dL Hct 25.0 L (39.0-53.0) % RDW 16.0 H (11.5-15.5) % BUN (9-20) mg/dL Glucose (74-99) mg/dL POC Glucose (mg/dL) 162 H 171 H (75-99) mg/dL Calcium (8.4-10.2) mg/dL Total Bilirubin (0.2-1.3) mg/dL Alkaline Phosphatase (38-126) U/L Total Protein (6.3-8.2) g/dL Albumin (3.5-5.0) g/dL 05/31/17 Range/Units 06:13 RBC (4.30-5.90) m/uL Hgb (13.0-17.5) gm/dL Hct (39.0-53.0) % RDW (11.5-15.5) % BUN 31 H (9-20) mg/dL Glucose 141 H (74-99) mg/dL POC Glucose (mg/dL) (75-99) mg/dL Calcium 8.0 L (8.4-10.2) mg/dL Total Bilirubin 2.2 H (0.2-1.3) mg/dL Alkaline Phosphatase 131 H (38-126) U/L Total Protein 5.2 L (6.3-8.2) g/dL Albumin 2.6 L (3.5-5.0) g/dL Assessment and Plan (1) Acute non-ST segment elevation myocardial infarction Status: Acute (2) Atrial fibrillation with rapid ventricular response Status: Acute (3) Chest pain Status: Acute (4) Diabetes mellitus type 2 in nonobese Status: Acute (5) HIT (heparin-induced thrombocytopenia) Status: Acute (6) Hearing disorder of both ears Status: Acute (7) History of heparin-induced thrombocytopenia Status: Acute (8) Hyperlipidemia Status: Acute (9) Paroxysmal atrial fibrillation Status: Acute (10) Two-vessel coronary artery disease Status: Acute (11) Atrial fibrillation Status: Acute Plan: Plan dated 05/25/2017 The patient had spirometry. Spirometry was stable. The patient seemed be doing relatively well. We'll see the patient after the operating room. The patient's lung function would predict a good outcome from the pulmonary standpoint. We'll continue to follow through his hospitalization. Plan dated 05/27/2017 The patient is doing well. He'll continue with deep breathing coughing and clearing secretions. He's working on his incentive spirometer. Chest x-ray show some postsurgical changes his O2 sats at 6 L/m nasal cannula. He is getting a medication for blood pressure control. Is being weaned down. No additional recommendations are made. We'll continue to follow. Prognosis is guarded. Plan dated 05/29/2017 We continue to encourage the patient to use the incentive spirometer every hour while awake. Also recommend and encourage deep breathing coughing clearing of secretions. I called talk to cardiothoracic surgery about the possibly some of some additional IV Lasix. Chest x-rays consistent with bilateral effusions right greater than left and some cephalization in the upper lobes. Manometer veins are engorged. The patient may be discharged possibly to [facility] later today. When he for preauthorization. Additional recommendations suggestions are forthcoming. Plan dated 05/30/2017 The patient's doing well. We'll continue to follow. Encourage deep breathing coughing and clearing of secretions. Also recommended the incentive spirometer every hour while awake. Possible discharge and there are Thursday. May be going to rehab. We'll continue to follow. Prognosis is guarded. Respiratory status O, is reasonable. Plan dated 05/31/2017 The patient seemed be doing a bit better today. Chest x-ray may be marginally improved. Less basal atelectasis. Doing a bit better with coughing clearing of secretions and deep breathing. Is using the incentive spirometer. Could be doing better in my opinion. Continues on all of the medications. We'll continue to follow. Prognosis is guarded. May be discharged to [facility] either today or tomorrow. Time with Patient: Less than 30
--- NOTE | 2017-05-31 11:34 | P.PN ---
Subjective Principal diagnosis: Status post open heart This is a 71-year-old gentleman who is status post coronary artery bypass grafting surgery. He also underwent modified maze procedure. From the perivascular standpoint overview, the patient is doing good. He has been maintaining normal sinus mechanism. Objective - Vital Signs Vital signs: Vital Signs Temp 98.6 F 05/31/17 08:42 Pulse 74 05/31/17 08:42 Resp 16 05/31/17 08:42 BP 144/70 05/31/17 08:42 Pulse Ox 93 L 05/31/17 08:55 Intake & Output 05/30/17 05/31/17 05/31/17 18:59 06:59 18:59 Intake Total 416 20 Output Total 650 150 Balance -234 -130 Intake: IV 20 0.9% ns flush 10 ML 20 Oral 416 Output: Urine 650 150 Other: Voiding Method Urinal Urinal Urinal ABP, PAP, CO, CI - Last Documented Arterial Blood Pressure 166/64 Pulmonary Artery Pressure 24/9 Cardiac Output 4.9 Cardiac Index 2.3 - Constitutional General appearance: Present: no acute distress - Respiratory Respiratory: bilateral: CTA - Cardiovascular Rhythm: regular Heart sounds: normal: S1, S2 - Labs CBC & Chem 7: 05/31/17 06:13 05/31/17 06:13 Labs: Abnormal Lab Results - Last 24 Hours (Table) 05/30/17 05/30/17 05/31/17 Range/Units 16:36 21:18 01:50 RBC (4.30-5.90) m/uL Hgb (13.0-17.5) gm/dL Hct (39.0-53.0) % RDW (11.5-15.5) % BUN (9-20) mg/dL Glucose (74-99) mg/dL POC Glucose (mg/dL) 161 H 163 H 162 H (75-99) mg/dL Calcium (8.4-10.2) mg/dL Total Bilirubin (0.2-1.3) mg/dL Alkaline Phosphatase (38-126) U/L Total Protein (6.3-8.2) g/dL Albumin (3.5-5.0) g/dL 05/31/17 05/31/17 05/31/17 Range/Units 05:48 06:13 06:13 RBC 2.63 L (4.30-5.90) m/uL Hgb 8.3 L (13.0-17.5) gm/dL Hct 25.0 L (39.0-53.0) % RDW 16.0 H (11.5-15.5) % BUN 31 H (9-20) mg/dL Glucose 141 H (74-99) mg/dL POC Glucose (mg/dL) 171 H (75-99) mg/dL Calcium 8.0 L (8.4-10.2) mg/dL Total Bilirubin 2.2 H (0.2-1.3) mg/dL Alkaline Phosphatase 131 H (38-126) U/L Total Protein 5.2 L (6.3-8.2) g/dL Albumin 2.6 L (3.5-5.0) g/dL Assessment and Plan Plan: Continue the current medical treatment which included dual antiplatelet therapy and statin. Continue the beta angie and MONICA. Possible discharge home on Thursday.
[2017-05-31 11:46] LABS: Glucose,Whole Blood 130 mg/dL (75-99)
[2017-05-31 16:55] LABS: Glucose,Whole Blood 149 mg/dL (75-99)
[2017-05-31 20:24] LABS: Glucose,Whole Blood 210 mg/dL (75-99)
[2017-05-31] MEDS: INSULIN GLARGINE 100 UNIT/ML 10 ML VIAL SQ SCH (20:25)
[2017-05-31] MEDS: SENNOSIDES-DOCUSATE SODIUM 1 EACH TAB PO SCH (20:26)
[2017-05-31 20:58] LABS: Glucose,Whole Blood 239 mg/dL (75-99)
--- NOTE | 2017-05-31 23:35 | P.PN ---
Subjective Principal diagnosis: Atrial fibrillation and coronary artery disease HISTORY OF PRESENT ILLNESS: Patient presented after he felt his heart racing at home, missed 2 doses of his flecainide and had associated chest pain and pressure going across the chest. Last for a few hours. Admitted with atrial fibrillation and subsequently ruled in for an acute [place]. Status post cardiac cath found to have 90% occlusion to the RCA 70% occlusion to the left coronary artery. Now status post CABG 2 with CHASE to LAD and SVG to PDA. INTERVAL HISTORY: 05/28/2017 Patient is lying in the bed comfortably. Patient was started on Lantus and blood sugar is better controlled now. Chest tubes have been removed. Patient is being transferred to telemetry unit. No chest pain. no worsening short of breath. patient does have soreness in the chest. No fever no chills. No acute overnight issues. 05/27/2017: Patient sitting in recliner at the bedside, appears tired, but the pain continues insulin drip also continues. No further bleeding from his chest tubes , serosanguineous drainage noted, Menjivar catheter in place draining clear light yellow urine, right lateral neck with [place]-Noel catheter in place, patient's appetite slow it a couple bites of his breakfast, up with assistance, no BM. 05/26/2017: Lying in bed, intubated, sedated, preparing for spontaneous breathing trial, propofol being weaned off. Clevidipine, propofol, insulin drip, lactated Ringer 's infusing. Patient had a significant amount of bleeding overnight from his chest tube received 2 units of packed red blood cells, 4 of FFP, and 5 units of platelets. Bleeding has slowed this morning, output is serosanguineous, Menjivar catheter draining yellow urine, right lateral neck with a [place]-Noel catheter in place, ventilator at SIMV, rate of 12, tidal volume of 500, FiO2 of 40%, PEEP of 5. 05/25/2017: Lying in bed, intubated, sedated, appears comfortable. Rhythm is sinus bradycardia on the monitor in the 50s to 60s, propofol infusing, insulin drip, and clevidipine infusing epinephrine on standby, Menjivar catheter in place draining dark tea-colored urine, right lateral neck with [place]-Noel catheter in place, ventilator set at SIMV rate of 12, tidal volume 500, FiO2 of 80% with a PEEP of 5. 2 chest tubes a mediastinal and pleural wide in to one receptacle first hour 420 mL, second hour 320 mL out of the chest tube. Surgeon notified, patient receiving a pool of platelets, as well as blood product. 05/24/2017: Lying in bed, no further episodes of chest pain or pressure, continued education and testing for scheduled CABG 2 on Thursday. Has a history of heparin -induced thrombocytopenia and should not receive any heparin products. Tolerating his diet, ambulating in the room and hallway, no BM, lactulose given. 05/23/2017: Awake standing at the bedside, discussed coming back from walk. No further episodes chest pain or pressure status post cardiac catheterization on 2016, found to have two-vessel disease, scheduled for CABG 2 on Thursday. Preoperative testing being completed today. Patient's tolerating his diet ambulating in the room and hallway, no BM, 05/22/2017: Awake sitting up in bed, scheduled cardiac catheterization today. No further episodes of chest pain or pressure. Ambulatory in the room and Dill. REVIEW OF SYSTEMS: Done for constitutional ,cardiovascular, GI, pulmonary, integument with relevant findings as above. CURRENT MEDICATIONS Aspirin 325 mg, Lipitor 40 mg by mouth at bedtime, Valium 5 mg by mouth at bedtime, flecainide 100 mg by mouth twice a day, prednisone 20 mg by mouth twice a day, valsartan 80 mg by mouth daily, lactulose 30 g twice a day. Clevidipine 25 mg IV solution, Arixtra 2.5 g subcu daily, insulin drip per protocol, Reglan 10 mg IV push every 4 hours, metoprolol 50 mg by mouth twice a day, Protonix 40 mg IV push daily, Objective - Vital Signs Vital signs: Vital Signs Temp 99.8 F H 05/28/17 20:00 Pulse 71 05/28/17 20:00 Resp 17 05/28/17 20:00 BP 159/76 05/28/17 20:00 Pulse Ox 94 L 05/28/17 20:00 Intake & Output 05/28/17 05/28/17 05/29/17 06:59 18:59 06:59 Intake Total 614.727 653 Output Total 276 5705 Balance -99.273 -782 Weight 97.7 kg Intake: IV 312 178 Calcium Gluconate 2,000 100 mg In Sodium Chloride 0.9 % 100 ml @ 100 mls/hr IVPB ONCE ONE Rx#: [id number] Lactated Ringers 240 60 Pressure Bag, 0.9ns 72 18 Intake, IV Titration 2.727 Amount Insulin Regular 100 unit 2.727 In Sodium Chloride 0.9% 100 ml @ Per Protocol IV .Q0M [facility] Rx#:[id number] Oral 300 475 Output: Chest Tube Drainage 139 60 left pleural 139 60 Urine 575 1375 Other: Voiding Method Urinal Urinal Urinal ABP, PAP, CO, CI - Last Documented Arterial Blood Pressure 166/64 Pulmonary Artery Pressure 24/9 Cardiac Output 4.9 Cardiac Index 2.3 - Exam GENERAL APPEARANCE: Sitting up in a chair, appears anxious and tired, . EYES: Pupils equal. Conjunctiva normal. NECK: JVD unable to assess. Mass not palpable. RESPIRATORY: Respiratory effort normal . Lungs diminished to auscultation. CARDIOVASCULAR: First and second sounds normal. No edema. Chest wall: Midline incision covered with surgical dressing. ABDOMEN: Soft. Liver and spleen not palpable. No tenderness. No mass palpable. PSYCHIATRY: Unable to assess patient is sedated and on the ventilator - Labs CBC & Chem 7: 05/31/17 06:13 05/31/17 06:13 Labs: Abnormal Lab Results - Last 24 Hours (Table) 05/28/17 05/28/17 05/28/17 Range/Units 07:28 07:30 07:30 RBC 2.27 L (4.30-5.90) m/uL Hgb 7.3 L (13.0-17.5) gm/dL Hct 21.0 L (39.0-53.0) % Neutrophils # 8.8 H (1.3-7.7) k/uL Lymphocytes # 0.7 L (1.0-4.8) k/uL Chloride 113 H (98-107) mmol/L Carbon Dioxide 21 L (22-30) mmol/L BUN 26 H (9-20) mg/dL Glucose 116 H (74-99) mg/dL POC Glucose (mg/dL) 150 H (75-99) mg/dL Calcium 6.3 L* (8.4-10.2) mg/dL Ionized Calcium Turner 4.2 L (4.5-5.3) mg/dL Total Bilirubin 3.5 H (0.2-1.3) mg/dL Total Protein 4.2 L (6.3-8.2) g/dL Albumin 2.1 L (3.5-5.0) g/dL 05/28/17 05/28/17 05/28/17 Range/Units 12:06 17:21 20:56 RBC (4.30-5.90) m/uL Hgb (13.0-17.5) gm/dL Hct (39.0-53.0) % Neutrophils # (1.3-7.7) k/uL Lymphocytes # (1.0-4.8) k/uL Chloride (98-107) mmol/L Carbon Dioxide (22-30) mmol/L BUN (9-20) mg/dL Glucose (74-99) mg/dL POC Glucose (mg/dL) 158 H 204 H 154 H (75-99) mg/dL Calcium (8.4-10.2) mg/dL Ionized Calcium Turner (4.5-5.3) mg/dL Total Bilirubin (0.2-1.3) mg/dL Total Protein (6.3-8.2) g/dL Albumin (3.5-5.0) g/dL Assessment and Plan Plan: -Acute non-Q wave myocardial infarction, probably precipitated by atrial fibrillation. Now status post CABG 2 with CHASE. -Postoperative Mechanically assisted ventilation, as expected from surgery. -Acute severe blood loss anemia from a mediastinal chest tube, as expected from surgery, status post 2 units of blood, improving. Stable -Paroxysmal atrial fibrillation with rapid ventricular rate, present on admission, rate controlled now. -Essential hypertension. -Hyperlipidemia. -Benign prostatic hypertrophy. -Primary osteoporosis multiple joints bilaterally. -History of colon cancer with surgery. -Attention deficit disorder. -Chronic constipation PLAN: Continue close monitoring, , increase activity encourage incentive spirometer use, continue with beta angie , aspirin and Plavix and statins.. We'll continue to follow closely. Time with Patient: Greater than 30
--- NOTE | 2017-05-31 23:38 | P.PN ---
Subjective Principal diagnosis: Atrial fibrillation and coronary artery disease V HISTORY OF PRESENT ILLNESS: Patient presented after he felt his heart racing at home, missed 2 doses of his flecainide and had associated chest pain and pressure going across the chest. Last for a few hours. Admitted with atrial fibrillation and subsequently ruled in for an acute [place]. Status post cardiac cath found to have 90% occlusion to the RCA 70% occlusion to the left coronary artery. Now status post CABG 2 with CHASE to LAD and SVG to PDA. INTERVAL HISTORY: On 05/29/2017 Patient denied any complaints of chest pain or short of breath. Patient is able to ambulate in the hallway with support. Complaints of tightness. Patient says that she did not have a bowel movement for the last 5 days. Denied any abdominal pain. Tolerating by mouth diet. No nausea no vomiting. Otherwise no fever no chills. 05/28/2017 Patient is lying in the bed comfortably. Patient was started on Lantus and blood sugar is better controlled now. Chest tubes have been removed. Patient is being transferred to telemetry unit. No chest pain. no worsening short of breath. patient does have soreness in the chest. No fever no chills. No acute overnight issues. 05/27/2017: Patient sitting in recliner at the bedside, appears tired, but the pain continues insulin drip also continues. No further bleeding from his chest tubes , serosanguineous drainage noted, Menjivar catheter in place draining clear light yellow urine, right lateral neck with [place]-Noel catheter in place, patient's appetite slow it a couple bites of his breakfast, up with assistance, no BM. 05/26/2017: Lying in bed, intubated, sedated, preparing for spontaneous breathing trial, propofol being weaned off. Clevidipine, propofol, insulin drip, lactated Ringer 's infusing. Patient had a significant amount of bleeding overnight from his chest tube received 2 units of packed red blood cells, 4 of FFP, and 5 units of platelets. Bleeding has slowed this morning, output is serosanguineous, Menjivar catheter draining yellow urine, right lateral neck with a [place]-Noel catheter in place, ventilator at [facility], rate of 12, tidal volume of 500, FiO2 of 40%, PEEP of 5. 05/25/2017: Lying in bed, intubated, sedated, appears comfortable. Rhythm is sinus bradycardia on the monitor in the 50s to 60s, propofol infusing, insulin drip, and clevidipine infusing epinephrine on standby, Menjivar catheter in place draining dark tea-colored urine, right lateral neck with [place]-Noel catheter in place, ventilator set at SIMV rate of 12, tidal volume 500, FiO2 of 80% with a PEEP of 5. 2 chest tubes a mediastinal and pleural wide in to one receptacle first hour 420 mL, second hour 320 mL out of the chest tube. Surgeon notified, patient receiving a pool of platelets, as well as blood product. 05/24/2017: Lying in bed, no further episodes of chest pain or pressure, continued education and testing for scheduled CABG 2 on Thursday. Has a history of heparin -induced thrombocytopenia and should not receive any heparin products. Tolerating his diet, ambulating in the room and hallway, no BM, lactulose given. 05/23/2017: Awake standing at the bedside, discussed coming back from walk. No further episodes chest pain or pressure status post cardiac catheterization on 2016, found to have two-vessel disease, scheduled for CABG 2 on Thursday. Preoperative testing being completed today. Patient's tolerating his diet ambulating in the room and hallway, no BM, 05/22/2017: Awake sitting up in bed, scheduled cardiac catheterization today. No further episodes of chest pain or pressure. Ambulatory in the room and Dill. Objective - Vital Signs Vital signs: Vital Signs Temp 98.4 F 05/29/17 20:00 Pulse 69 05/29/17 20:00 Resp 16 05/29/17 20:00 BP 138/69 05/29/17 20:00 Pulse Ox 96 05/29/17 20:17 Intake & Output 05/29/17 05/29/17 05/30/17 06:59 18:59 06:59 Intake Total 754 10 Output Total 450 1900 300 Balance -947 -8356 -290 Weight 96 kg 96 kg Intake: IV 10 0.9% ns flush 10 ML 10 Oral 754 Output: Urine 450 1900 300 Other: Voiding Method Urinal Urinal Urinal # Voids 1 ABP, PAP, CO, CI - Last Documented Arterial Blood Pressure 166/64 Pulmonary Artery Pressure 24/9 Cardiac Output 4.9 Cardiac Index 2.3 - Exam GENERAL APPEARANCE: Sitting up in a chair, appears anxious and tired, . EYES: Pupils equal. Conjunctiva normal. NECK: JVD unable to assess. Mass not palpable. RESPIRATORY: Respiratory effort normal . Lungs diminished to auscultation. CARDIOVASCULAR: First and second sounds normal. No edema. Chest wall: Midline incision covered with surgical dressing. ABDOMEN: Soft. Liver and spleen not palpable. No tenderness. No mass palpable. PSYCHIATRY: Unable to assess patient is sedated and on the ventilator - Labs CBC & Chem 7: 05/31/17 06:13 05/31/17 06:13 Labs: Abnormal Lab Results - Last 24 Hours (Table) 05/29/17 05/29/17 05/29/17 Range/Units 01:26 05:35 06:33 WBC 11.3 H (3.8-10.6) k/uL RBC 2.80 L (4.30-5.90) m/uL Hgb 8.9 L D (13.0-17.5) gm/dL Hct 27.1 L (39.0-53.0) % BUN (9-20) mg/dL Glucose (74-99) mg/dL POC Glucose (mg/dL) 163 H 154 H (75-99) mg/dL Calcium (8.4-10.2) mg/dL Total Bilirubin (0.2-1.3) mg/dL Total Protein (6.3-8.2) g/dL Albumin (3.5-5.0) g/dL 05/29/17 05/29/17 05/29/17 Range/Units 06:33 11:41 16:31 WBC (3.8-10.6) k/uL RBC (4.30-5.90) m/uL Hgb (13.0-17.5) gm/dL Hct (39.0-53.0) % BUN 37 H (9-20) mg/dL Glucose 145 H (74-99) mg/dL POC Glucose (mg/dL) 171 H 168 H (75-99) mg/dL Calcium 8.3 L (8.4-10.2) mg/dL Total Bilirubin 3.4 H (0.2-1.3) mg/dL Total Protein 5.7 L (6.3-8.2) g/dL Albumin 3.1 L (3.5-5.0) g/dL 05/29/17 Range/Units 21:00 WBC (3.8-10.6) k/uL RBC (4.30-5.90) m/uL Hgb (13.0-17.5) gm/dL Hct (39.0-53.0) % BUN (9-20) mg/dL Glucose (74-99) mg/dL POC Glucose (mg/dL) 167 H (75-99) mg/dL Calcium (8.4-10.2) mg/dL Total Bilirubin (0.2-1.3) mg/dL Total Protein (6.3-8.2) g/dL Albumin (3.5-5.0) g/dL Assessment and Plan Plan: -Acute non-Q wave myocardial infarction, probably precipitated by atrial fibrillation. Now status post CABG 2 with CHASE. -Postoperative Mechanically assisted ventilation, as expected from surgery. -Acute severe blood loss anemia from a mediastinal chest tube, as expected from surgery, status post 2 units of blood, improving. Stable -Paroxysmal atrial fibrillation with rapid ventricular rate, present on admission, rate controlled now. -Essential hypertension. -Hyperlipidemia. -Benign prostatic hypertrophy. -Primary osteoporosis multiple joints bilaterally. -History of colon cancer with surgery. -Attention deficit disorder. -Chronic constipation PLAN: Continue close monitoring, , increase activity encourage incentive spirometer use, continue with beta angie , aspirin and Plavix and statins.. We'll continue to follow closely.
--- NOTE | 2017-05-31 23:39 | P.PN ---
Subjective Principal diagnosis: Atrial fibrillation and coronary artery disease V HISTORY OF PRESENT ILLNESS: Patient presented after he felt his heart racing at home, missed 2 doses of his flecainide and had associated chest pain and pressure going across the chest. Last for a few hours. Admitted with atrial fibrillation and subsequently ruled in for an acute [place]. Status post cardiac cath found to have 90% occlusion to the RCA 70% occlusion to the left coronary artery. Now status post CABG 2 with CHASE to LAD and SVG to PDA. INTERVAL HISTORY: 05/30/2017 Patient denied any complaints of chest pain or worsening short of breath. Participating in physical therapy. Patient did have yesterday evening. No fever or chills. No acute overnight issues. On 05/29/2017 Patient denied any complaints of chest pain or short of breath. Patient is able to ambulate in the hallway with support. Complaints of tightness. Patient says that she did not have a bowel movement for the last 5 days. Denied any abdominal pain. Tolerating by mouth diet. No nausea no vomiting. Otherwise no fever no chills. 05/28/2017 Patient is lying in the bed comfortably. Patient was started on Lantus and blood sugar is better controlled now. Chest tubes have been removed. Patient is being transferred to telemetry unit. No chest pain. no worsening short of breath. patient does have soreness in the chest. No fever no chills. No acute overnight issues. 05/27/2017: Patient sitting in recliner at the bedside, appears tired, but the pain continues insulin drip also continues. No further bleeding from his chest tubes , serosanguineous drainage noted, Menjivar catheter in place draining clear light yellow urine, right lateral neck with [place]-Noel catheter in place, patient's appetite slow it a couple bites of his breakfast, up with assistance, no BM. 05/26/2017: Lying in bed, intubated, sedated, preparing for spontaneous breathing trial, propofol being weaned off. Clevidipine, propofol, insulin drip, lactated Ringer 's infusing. Patient had a significant amount of bleeding overnight from his chest tube received 2 units of packed red blood cells, 4 of FFP, and 5 units of platelets. Bleeding has slowed this morning, output is serosanguineous, Menjivar catheter draining yellow urine, right lateral neck with a [place]-Noel catheter in place, [facility], rate of 12, tidal volume of 500, FiO2 of 40%, PEEP of 5. 05/25/2017: Lying in bed, intubated, sedated, appears comfortable. Rhythm is sinus bradycardia on the monitor in the 50s to 60s, propofol infusing, insulin drip, and clevidipine infusing epinephrine on standby, Menjivar catheter in place draining dark tea-colored urine, right lateral neck with [place]-Noel catheter in place, ventilator set at [facility] rate of 12, tidal volume 500, FiO2 of 80% with a PEEP of 5. 2 chest tubes a mediastinal and pleural wide in to one receptacle first hour 420 mL, second hour 320 mL out of the chest tube. Surgeon notified, patient receiving a pool of platelets, as well as blood product. 05/24/2017: Lying in bed, no further episodes of chest pain or pressure, continued education and testing for scheduled CABG 2 on Thursday. Has a history of heparin -induced thrombocytopenia and should not receive any heparin products. Tolerating his diet, ambulating in the room and hallway, no BM, lactulose given. 05/23/2017: Awake standing at the bedside, discussed coming back from walk. No further episodes chest pain or pressure status post cardiac catheterization on 2016, found to have two-vessel disease, scheduled for CABG 2 on Thursday. Preoperative testing being completed today. Patient's tolerating his diet ambulating in the room and hallway, no BM, 05/22/2017: Awake sitting up in bed, scheduled cardiac catheterization today. No further episodes of chest pain or pressure. Ambulatory in the room and Dill. Objective - Vital Signs Vital signs: Vital Signs Temp 97 F L 05/30/17 08:00 Pulse 60 05/30/17 11:40 Resp 16 05/30/17 11:40 BP 135/72 05/30/17 11:40 Pulse Ox 94 L 05/30/17 11:40 Intake & Output 05/29/17 05/30/17 05/30/17 18:59 06:59 18:59 Intake Total 754 20 180 Output Total 1900 600 650 Balance -1146 -580 -399 Weight 96 kg 95.8 kg Intake: IV 20 0.9% ns flush 10 ML 20 Oral 754 180 Output: Urine 1900 600 650 Other: Voiding Method Urinal Urinal Urinal # Bowel Movements 1 ABP, PAP, CO, CI - Last Documented Arterial Blood Pressure 166/64 Pulmonary Artery Pressure 24/9 Cardiac Output 4.9 Cardiac Index 2.3 - Exam GENERAL APPEARANCE: Sitting up in a chair, appears anxious and tired, . EYES: Pupils equal. Conjunctiva normal. NECK: JVD unable to assess. Mass not palpable. RESPIRATORY: Respiratory effort normal . Lungs diminished to auscultation. CARDIOVASCULAR: First and second sounds normal. No edema. Chest wall: Midline incision covered with surgical dressing. ABDOMEN: Soft. Liver and spleen not palpable. No tenderness. No mass palpable. PSYCHIATRY: Unable to assess patient is sedated and on the ventilator - Labs CBC & Chem 7: 05/31/17 06:13 05/31/17 06:13 Labs: Abnormal Lab Results - Last 24 Hours (Table) 05/29/17 05/29/17 05/30/17 Range/Units 16:31 21:00 02:04 WBC (3.8-10.6) k/uL RBC (4.30-5.90) m/uL Hgb (13.0-17.5) gm/dL Hct (39.0-53.0) % BUN (9-20) mg/dL Creatinine (0.66-1.25) mg/dL Glucose (74-99) mg/dL POC Glucose (mg/dL) 168 H 167 H 260 H (75-99) mg/dL Calcium (8.4-10.2) mg/dL Total Bilirubin (0.2-1.3) mg/dL Alkaline Phosphatase (38-126) U/L Total Protein (6.3-8.2) g/dL Albumin (3.5-5.0) g/dL 05/30/17 05/30/17 05/30/17 Range/Units 05:59 05:59 06:07 WBC 11.3 H (3.8-10.6) k/uL RBC 2.61 L (4.30-5.90) m/uL Hgb 8.3 L (13.0-17.5) gm/dL Hct 24.4 L (39.0-53.0) % BUN 37 H (9-20) mg/dL Creatinine 1.30 H (0.66-1.25) mg/dL Glucose 145 H (74-99) mg/dL POC Glucose (mg/dL) 156 H (75-99) mg/dL Calcium 8.2 L (8.4-10.2) mg/dL Total Bilirubin 2.4 H (0.2-1.3) mg/dL Alkaline Phosphatase 135 H (38-126) U/L Total Protein 5.5 L (6.3-8.2) g/dL Albumin 2.9 L (3.5-5.0) g/dL 05/30/17 Range/Units 11:23 WBC (3.8-10.6) k/uL RBC (4.30-5.90) m/uL Hgb (13.0-17.5) gm/dL Hct (39.0-53.0) % BUN (9-20) mg/dL Creatinine (0.66-1.25) mg/dL Glucose (74-99) mg/dL POC Glucose (mg/dL) 159 H (75-99) mg/dL Calcium (8.4-10.2) mg/dL Total Bilirubin (0.2-1.3) mg/dL Alkaline Phosphatase (38-126) U/L Total Protein (6.3-8.2) g/dL Albumin (3.5-5.0) g/dL Assessment and Plan Plan: -Acute non-Q wave myocardial infarction, probably precipitated by atrial fibrillation. Now status post CABG 2 with CHASE. -Postoperative Mechanically assisted ventilation, as expected from surgery. -Acute severe blood loss anemia from a mediastinal chest tube, as expected from surgery, status post 2 units of blood, improving. Stable -Paroxysmal atrial fibrillation with rapid ventricular rate, present on admission, rate controlled now. -Essential hypertension. -Hyperlipidemia. -Benign prostatic hypertrophy. -Primary osteoporosis multiple joints bilaterally. -History of colon cancer with surgery. -Attention deficit disorder. -Chronic constipation - Mild protein calorie malnutrition. PLAN: Continue close monitoring, , increase activity encourage incentive spirometer use, continue with beta angie , aspirin and Plavix and statins.. We'll continue to follow closely.
--- NOTE | 2017-05-31 23:41 | P.PN ---
Subjective Principal diagnosis: Atrial fibrillation and coronary artery disease V HISTORY OF PRESENT ILLNESS: Patient presented after he felt his heart racing at home, missed 2 doses of his flecainide and had associated chest pain and pressure going across the chest. Last for a few hours. Admitted with atrial fibrillation and subsequently ruled in for an acute [place]. Status post cardiac cath found to have 90% occlusion to the RCA 70% occlusion to the left coronary artery. Now status post CABG 2 with CHASE to LAD and SVG to PDA. INTERVAL HISTORY: 05/31/2017 Patient continues to improve. Participating in physical therapy. Currently maintained in sinus rhythm. No fever no chills. No acute overnight issues. However that he is stones negative except above. And spit discharged to rehab on Thursday. 05/30/2017 Patient denied any complaints of chest pain or worsening short of breath. Participating in physical therapy. Patient did have yesterday evening. No fever or chills. No acute overnight issues. On 05/29/2017 Patient denied any complaints of chest pain or short of breath. Patient is able to ambulate in the hallway with support. Complaints of tightness. Patient says that she did not have a bowel movement for the last 5 days. Denied any abdominal pain. Tolerating by mouth diet. No nausea no vomiting. Otherwise no fever no chills. 05/28/2017 Patient is lying in the bed comfortably. Patient was started on Lantus and blood sugar is better controlled now. Chest tubes have been removed. Patient is being transferred to telemetry unit. No chest pain. no worsening short of breath. patient does have soreness in the chest. No fever no chills. No acute overnight issues. 05/27/2017: Patient sitting in recliner at the bedside, appears tired, but the pain continues insulin drip also continues. No further bleeding from his chest tubes , serosanguineous drainage noted, Menjivar catheter in place draining clear light yellow urine, right lateral neck with [place]-Noel catheter in place, patient's appetite slow it a couple bites of his breakfast, up with assistance, no BM. 05/26/2017: Lying in bed, intubated, sedated, preparing for spontaneous breathing trial, propofol being weaned off. Clevidipine, propofol, insulin drip, lactated Ringer 's infusing. Patient had a significant amount of bleeding overnight from his chest tube received 2 units of packed red blood cells, 4 of FFP, and 5 units of platelets. Bleeding has slowed this morning, output is serosanguineous, Menjviar catheter draining yellow urine, right lateral neck with a [place]-Noel catheter in place, ventilator at [facility], rate of 12, tidal volume of 500, FiO2 of 40%, PEEP of 5. 05/25/2017: Lying in bed, intubated, sedated, appears comfortable. Rhythm is sinus bradycardia on the monitor in the 50s to 60s, propofol infusing, insulin drip, and clevidipine infusing epinephrine on standby, Menjivar catheter in place draining dark tea-colored urine, right lateral neck with [place]-Noel catheter in place, ventilator set at SIMV rate of 12, tidal volume 500, FiO2 of 80% with a PEEP of 5. 2 chest tubes a mediastinal and pleural wide in to one receptacle first hour 420 mL, second hour 320 mL out of the chest tube. Surgeon notified, patient receiving a pool of platelets, as well as blood product. 05/24/2017: Lying in bed, no further episodes of chest pain or pressure, continued education and testing for scheduled CABG 2 on Thursday. Has a history of heparin -induced thrombocytopenia and should not receive any heparin products. Tolerating his diet, ambulating in the room and hallway, no BM, lactulose given. 05/23/2017: Awake standing at the bedside, discussed coming back from walk. No further episodes chest pain or pressure status post cardiac catheterization on 2016, found to have two-vessel disease, scheduled for CABG 2 on Thursday. Preoperative testing being completed today. Patient's tolerating his diet ambulating in the room and hallway, no BM, 05/22/2017: Awake sitting up in bed, scheduled cardiac catheterization today. No further episodes of chest pain or pressure. Ambulatory in the room and Dill. Objective - Vital Signs Vital signs: Vital Signs Temp 97.2 F L 05/31/17 20:00 Pulse 65 05/31/17 20:00 Resp 16 05/31/17 20:00 BP 128/69 05/31/17 20:00 Pulse Ox 95 05/31/17 20:00 Intake & Output 05/31/17 05/31/17 06/01/17 06:59 18:59 06:59 Intake Total 20 100 10 Output Total 150 150 Balance -130 100 -140 Weight 95.4 kg Intake: IV 20 10 0.9% ns flush 10 ML 20 10 Oral 100 Output: Urine 150 150 Other: Voiding Method Urinal Urinal Urinal # Voids 3 ABP, PAP, CO, CI - Last Documented Arterial Blood Pressure 166/64 Pulmonary Artery Pressure 24/9 Cardiac Output 4.9 Cardiac Index 2.3 - Exam GENERAL APPEARANCE: Sitting up in a chair, appears anxious and tired, . EYES: Pupils equal. Conjunctiva normal. NECK: JVD unable to assess. Mass not palpable. RESPIRATORY: Respiratory effort normal . Lungs diminished to auscultation. CARDIOVASCULAR: First and second sounds normal. No edema. Chest wall: Midline incision covered with surgical dressing. ABDOMEN: Soft. Liver and spleen not palpable. No tenderness. No mass palpable. PSYCHIATRY: Unable to assess patient is sedated and on the ventilator - Labs CBC & Chem 7: 05/31/17 06:13 05/31/17 06:13 Labs: Abnormal Lab Results - Last 24 Hours (Table) 05/31/17 05/31/17 05/31/17 Range/Units 01:50 05:48 06:13 RBC 2.63 L (4.30-5.90) m/uL Hgb 8.3 L (13.0-17.5) gm/dL Hct 25.0 L (39.0-53.0) % RDW 16.0 H (11.5-15.5) % BUN (9-20) mg/dL Glucose (74-99) mg/dL POC Glucose (mg/dL) 162 H 171 H (75-99) mg/dL Calcium (8.4-10.2) mg/dL Total Bilirubin (0.2-1.3) mg/dL Alkaline Phosphatase (38-126) U/L Total Protein (6.3-8.2) g/dL Albumin (3.5-5.0) g/dL 05/31/17 05/31/17 05/31/17 Range/Units 06:13 11:32 16:44 RBC (4.30-5.90) m/uL Hgb (13.0-17.5) gm/dL Hct (39.0-53.0) % RDW (11.5-15.5) % BUN 31 H (9-20) mg/dL Glucose 141 H (74-99) mg/dL POC Glucose (mg/dL) 130 H 149 H (75-99) mg/dL Calcium 8.0 L (8.4-10.2) mg/dL Total Bilirubin 2.2 H (0.2-1.3) mg/dL Alkaline Phosphatase 131 H (38-126) U/L Total Protein 5.2 L (6.3-8.2) g/dL Albumin 2.6 L (3.5-5.0) g/dL 05/31/17 05/31/17 Range/Units 20:21 20:52 RBC (4.30-5.90) m/uL Hgb (13.0-17.5) gm/dL Hct (39.0-53.0) % RDW (11.5-15.5) % BUN (9-20) mg/dL Glucose (74-99) mg/dL POC Glucose (mg/dL) 210 H 239 H (75-99) mg/dL Calcium (8.4-10.2) mg/dL Total Bilirubin (0.2-1.3) mg/dL Alkaline Phosphatase (38-126) U/L Total Protein (6.3-8.2) g/dL Albumin (3.5-5.0) g/dL Assessment and Plan Plan: -Acute non-Q wave myocardial infarction, probably precipitated by atrial fibrillation. Now status post CABG 2 with CHASE. -Postoperative Mechanically assisted ventilation, as expected from surgery. -Acute severe blood loss anemia from a mediastinal chest tube, as expected from surgery, status post 2 units of blood, improving. Stable -Paroxysmal atrial fibrillation with rapid ventricular rate, present on admission, rate controlled now. -Essential hypertension. -Hyperlipidemia. -Benign prostatic hypertrophy. -Primary osteoporosis multiple joints bilaterally. -History of colon cancer with surgery. -Attention deficit disorder. -Chronic constipation - Mild protein calorie malnutrition. PLAN: Continue close monitoring, , increase activity encourage incentive spirometer use, continue with beta angie , aspirin and Plavix and statins.. We'll continue to follow closely.
[2017-06-01 02:12] LABS: Glucose,Whole Blood 123 mg/dL (75-99)
[2017-06-01 05:43] LABS: Glucose,Whole Blood 121 mg/dL (75-99)
[2017-06-01 06:21] LABS: Anion Gap 8 mmol/L; Blood Urea Nitrogen 26 mg/dL (9-20); Calcium 8.1 mg/dL (8.4-10.2); Carbon Dioxide 25 mmol/L (22-30); Chloride 107 mmol/L (98-107); Glucose 105 mg/dL (74-99); Non-African American GFR(MDRD) >60 (>60 ml/min/1.73 sqM); Sodium 140 mmol/L (137-145)
[2017-06-01] MEDS: INSULIN LISPRO (humaLOG) 300 UNIT/3 ML VIAL SQ SCH ×7 (06:50→20:52)
[2017-06-01] MEDS: PANTOPRAZOLE 40 MG TABLET PO SCH (06:51)
--- NOTE | 2017-06-01 08:32 | P.PN ---
<Abhinav Estrada - Last Filed: 06/01/17 08:24> Subjective Principal diagnosis: Two-vessel coronary artery disease, unstable angina, acute non-ST segment elevation myocardial infarction, preoperative paroxysmal atrial fibrillation, hearing disorder both ears, diabetes mellitus type 2, hypertension, hyperlipidemia, history of heparin-induced thrombocytopenia. POD #7, urgent off-pump coronary artery bypass grafting 2 with left internal mammary artery to the left anterior descending coronary artery and saphenous vein graft to the posterior descending coronary artery, modified Poon maze procedure with bilateral pulmonary vein ablation and ligation of the left atrial appendage using a #35 mm AtriCure clip, endovascular vein harvest of the right greater saphenous vein, intraoperative transesophageal echocardiogram performed by anesthesia. The patient is sitting up to the bedside chair at this time. No acute distress. Denies complaints of pain. Patient reports that the discomfort back from a walk in the hallway. He is anxious to be discharged to inpatient rehab today or tomorrow. Objective - Vital Signs Vital signs: Vital Signs Temp 99.1 F 06/01/17 03:12 Pulse 64 06/01/17 03:12 Resp 16 06/01/17 03:12 BP 158/83 06/01/17 03:12 Pulse Ox 93 L 06/01/17 03:12 Intake & Output 05/31/17 06/01/17 06/01/17 18:59 06:59 18:59 Intake Total 100 20 Output Total 150 Balance 100 -130 Weight 96.4 kg Intake: IV 20 0.9% ns flush 10 ML 20 Oral 100 Output: Urine 150 Other: Voiding Method Urinal Urinal # Voids 3 ABP, PAP, CO, CI - Last Documented Arterial Blood Pressure 166/64 Pulmonary Artery Pressure 24/9 Cardiac Output 4.9 Cardiac Index 2.3 - Constitutional General appearance: Present: cooperative, no acute distress - EENT Eyes: Present: PERRLA, normal appearance ENT: Present: hard of hearing - Neck Details: No JVD, no lymphadenopathy. - Respiratory Details: Lung sounds are essentially clear throughout, few scattered crackles to his bilateral bases. Respirations are symmetrical and nonlabored. Oxygen saturation are 93% on room air. He is achieving 1250 mL on his incentive spirometry. - Cardiovascular Details: Regular rhythm and rate. S1 and S2 present, negative for S3, gallop or murmur. Sternum is stable. Remote telemetry showing normal sinus rhythm heart rate 61. Heart hugger is in place and he is demonstrating appropriate use. Knee- high WALT hose and sequential compression devices in place to his bilateral lower extremities. - Gastrointestinal Gastrointestinal Comment(s): Abdomen is soft, nontender and nondistended. Active bowel sounds to all 4 abdominal quadrants. Tolerating oral intake. - Genitourinary Genitourinary Comment(s): Adequate urine output, clear yellow urine. Voiding per urinal for accurate I&O. - Integumentary Integumentary Comment(s): Midline sternal incision clean and dry and well approximated. Dermabond dressing clean and dry. No drainage noted. Right lower extremity EVH site clean and dry and well approximated. Dermabond dressing clean and dry. - Neurologic Neurologic Comment(s): No focal deficits. Neurologic: Present: CNII-XII intact - Musculoskeletal Musculoskeletal: Present: gait normal, generalized weakness - Psychiatric Psychiatric: Present: A&O x's 3, appropriate affect, intact judgment & insight - Allied health notes Allied health notes reviewed: nursing - Labs CBC & Chem 7: 05/31/17 06:13 06/01/17 05:36 Labs: Abnormal Lab Results - Last 24 Hours (Table) 05/31/17 05/31/17 05/31/17 Range/Units 11:32 16:44 20:21 BUN (9-20) mg/dL Glucose (74-99) mg/dL POC Glucose (mg/dL) 130 H 149 H 210 H (75-99) mg/dL Calcium (8.4-10.2) mg/dL 05/31/17 06/01/17 06/01/17 Range/Units 20:52 02:10 05:36 BUN 26 H (9-20) mg/dL Glucose 105 H (74-99) mg/dL POC Glucose (mg/dL) 239 H 123 H (75-99) mg/dL Calcium 8.1 L (8.4-10.2) mg/dL 06/01/17 Range/Units 05:41 BUN (9-20) mg/dL Glucose (74-99) mg/dL POC Glucose (mg/dL) 121 H (75-99) mg/dL Calcium (8.4-10.2) mg/dL Assessment and Plan (1) History of heparin-induced thrombocytopenia Status: Acute (2) Hypertension Status: Acute (3) Hyperlipidemia Status: Acute (4) Diabetes mellitus type 2 in nonobese Status: Acute (5) Hearing disorder of both ears Status: Acute (6) Paroxysmal atrial fibrillation Status: Acute (7) Acute non-ST segment elevation myocardial infarction Status: Acute (8) Two-vessel coronary artery disease Status: Acute Plan: 1. Continue aspirin, statin, Plavix, Arixtra, beta angie, and ARB. Will maximize beta angie therapy as tolerated. 2. Continue Zoloft.. 3. Encourage incentive spirometry use every hour while awake. 4. GI/DVT prophylaxis. 5. Increase activity as tolerated, ambulate in hallway. Physical therapy following. 6. Insulin management per primary care service. certified adapted physical educator consulted and following. 7. Dr. Carpio consulted for possible discharge to inpatient rehab. Placement to inpatient rehab pending. 8. Discharge planning in progress. Anticipate discharge within the next 24 hours.. Time with Patient: Greater than 30 <Deandre Lewis - Last Filed: 06/01/17 15:50> Objective - Vital Signs Vital signs: Vital Signs Temp 97 F L 06/01/17 12:00 Pulse 64 06/01/17 12:00 Resp 16 06/01/17 12:00 BP 126/75 06/01/17 12:00 Pulse Ox 96 06/01/17 12:00 Intake & Output 05/31/17 06/01/17 06/01/17 18:59 06:59 18:59 Intake Total 100 20 318 Output Total 150 150 Balance 100 -130 168 Weight 96.4 kg Intake: IV 20 0.9% ns flush 10 ML 20 Oral 100 318 Output: Urine 150 150 Other: Voiding Method Urinal Urinal # Voids 3 ABP, PAP, CO, CI - Last Documented Arterial Blood Pressure 166/64 Pulmonary Artery Pressure 24/9 Cardiac Output 4.9 Cardiac Index 2.3 - Labs CBC & Chem 7: 05/31/17 06:13 06/01/17 05:36 Labs: Abnormal Lab Results - Last 24 Hours (Table) 05/25/17 05/25/17 05/25/17 Range/Units 16:13 17:13 17:41 ABG pH 7.31 L 7.32 L (7.35-7.45) ABG pO2 266 H 326 H 146 H (83-108) mmHg ABG O2 Saturation 99.9 H 99.9 H 99.1 H (94-97) % ABG Hematocrit 32 L 31 L (34.0-46.0) % ABG Sodium 147 H (135-146) mmol/L ABG Potassium 4.6 H 4.7 H 4.7 H (3.4-4.5) mmol/L BUN (9-20) mg/dL Glucose (74-99) mg/dL POC Glucose (mg/dL) (75-99) mg/dL Calcium (8.4-10.2) mg/dL Arterial Blood Potassium 4.6 H 4.7 H 4.7 H (3.4-4.5) mmol/L 05/31/17 05/31/17 05/31/17 Range/Units 16:44 20:21 20:52 ABG pH (7.35-7.45) ABG pO2 (83-108) mmHg ABG O2 Saturation (94-97) % ABG Hematocrit (34.0-46.0) % ABG Sodium (135-146) mmol/L ABG Potassium (3.4-4.5) mmol/L BUN (9-20) mg/dL Glucose (74-99) mg/dL POC Glucose (mg/dL) 149 H 210 H 239 H (75-99) mg/dL Calcium (8.4-10.2) mg/dL Arterial Blood Potassium (3.4-4.5) mmol/L 06/01/17 06/01/17 06/01/17 Range/Units 02:10 05:36 05:41 ABG pH (7.35-7.45) ABG pO2 (83-108) mmHg ABG O2 Saturation (94-97) % ABG Hematocrit (34.0-46.0) % ABG Sodium (135-146) mmol/L ABG Potassium (3.4-4.5) mmol/L BUN 26 H (9-20) mg/dL Glucose 105 H (74-99) mg/dL POC Glucose (mg/dL) 123 H 121 H (75-99) mg/dL Calcium 8.1 L (8.4-10.2) mg/dL Arterial Blood Potassium (3.4-4.5) mmol/L 06/01/17 Range/Units 12:03 ABG pH (7.35-7.45) ABG pO2 (83-108) mmHg ABG O2 Saturation (94-97) % ABG Hematocrit (34.0-46.0) % ABG Sodium (135-146) mmol/L ABG Potassium (3.4-4.5) mmol/L BUN (9-20) mg/dL Glucose (74-99) mg/dL POC Glucose (mg/dL) 151 H (75-99) mg/dL Calcium (8.4-10.2) mg/dL Arterial Blood Potassium (3.4-4.5) mmol/L Assessment and Plan Plan: The patient was seen and examined. I agree with the above assessment and plan. There were no new issues overnight. Patient is sitting up in a chair, eating his lunch. He ambulated earlier today. He is hemodynamically stable, on room air, in normal sinus rhythm. His laboratory studies and chest x-ray were reviewed. We are awaiting insurance authorization for transfer to inpatient rehab.
[2017-06-01] MEDS: CLOPIDOGREL 75 MG TAB PO SCH (09:25)
[2017-06-01] MEDS: ASPIRIN 325 MG TAB PO SCH (09:25)
[2017-06-01] MEDS: ATORVASTATIN 40 MG TAB PO SCH (09:25)
[2017-06-01] MEDS: FONDAPARINUX 2.5 MG/0.5 ML SYRINGE SQ SCH (09:28)
[2017-06-01] MEDS: SERTRALINE 50 MG TAB PO SCH (09:29)
[2017-06-01] MEDS: VALSARTAN 80 MG TAB PO SCH (09:29)
[2017-06-01] MEDS: METOPROLOL TARTRATE 25 MG TAB PO SCH ×2 (09:49→20:46)
--- NOTE | 2017-06-01 11:13 | P.PN ---
Subjective Principal diagnosis: CABG This is a 71-year-old gentleman who is status post coronary artery bypass grafting surgery. He also underwent modified maze procedure. Remaining in normal sinus rhythm this morning. Appears depressed. Blood pressure 156/76 , heart rate in the 60s. WBC 11.3, hemoglobin 8.9, potassium 4.7, BUN 37, creatinine 1.2. Reaching 500 on his incentive spirometry 05/30/2017 Patient seen and examined this morning, appears comfortable, sitting up in the chair at the bedside. Continues to have a very flat affect. He has been up ambulating. Chest x-ray did not reveal any significant interval change. Blood pressure 132/60 with heart rate in the 70s. Normal sinus rhythm. 06/01/2017 Seen and examined this morning, no complaints. Anticipating discharge home today. Blood pressure 136/70 with a heart rate in the 60s. Objective - Vital Signs Vital signs: Vital Signs Temp 98.3 F 06/01/17 08:00 Pulse 64 06/01/17 08:00 Resp 16 06/01/17 08:00 BP 137/74 06/01/17 08:00 Pulse Ox 94 L 06/01/17 08:00 Intake & Output 05/31/17 06/01/17 06/01/17 18:59 06:59 18:59 Intake Total 100 20 200 Output Total 150 150 Balance 100 -130 50 Weight 96.4 kg Intake: IV 20 0.9% ns flush 10 ML 20 Oral 100 200 Output: Urine 150 150 Other: Voiding Method Urinal Urinal # Voids 3 ABP, PAP, CO, CI - Last Documented Arterial Blood Pressure 166/64 Pulmonary Artery Pressure 24/9 Cardiac Output 4.9 Cardiac Index 2.3 - Exam PHYSICAL EXAMINATION: HEENT: Head is atraumatic, normocephalic. Pupils equal, round. Neck is supple. There is no elevated jugular venous pressure. HEART EXAMINATION: Heart S1, S2 normal. No murmur or gallop heard. CHEST EXAMINATION: Lungs reveal diminished air entry bilaterally to the bases. ABDOMEN: Soft, nontender. Bowel sounds are heard. No organomegaly noted. EXTREMITIES: 2+ peripheral pulses with no evidence of peripheral edema and no calf tenderness noted. NEUROLOGIC patient is awake, alert and oriented -3. . - Labs CBC & Chem 7: 05/31/17 06:13 06/01/17 05:36 Labs: Abnormal Lab Results - Last 24 Hours (Table) 05/31/17 05/31/17 05/31/17 Range/Units 11:32 16:44 20:21 BUN (9-20) mg/dL Glucose (74-99) mg/dL POC Glucose (mg/dL) 130 H 149 H 210 H (75-99) mg/dL Calcium (8.4-10.2) mg/dL 05/31/17 06/01/17 06/01/17 Range/Units 20:52 02:10 05:36 BUN 26 H (9-20) mg/dL Glucose 105 H (74-99) mg/dL POC Glucose (mg/dL) 239 H 123 H (75-99) mg/dL Calcium 8.1 L (8.4-10.2) mg/dL 06/01/17 Range/Units 05:41 BUN (9-20) mg/dL Glucose (74-99) mg/dL POC Glucose (mg/dL) 121 H (75-99) mg/dL Calcium (8.4-10.2) mg/dL Assessment and Plan (1) S/P CABG (coronary artery bypass graft) Status: Acute (2) Paroxysmal a-fib Status: Acute (3) Acute non-ST segment elevation myocardial infarction Status: Acute (4) Diabetes mellitus type 2 in nonobese Status: Acute (5) History of heparin-induced thrombocytopenia Status: Acute (6) Hyperlipidemia Status: Acute (7) Hypertension Status: Acute Plan: Cardiology's perspective, we will continue the patient on his current medications. Arrangements are being made for potential discharged home today. We will make the patient a follow-up with Dr. Contreras in the office post discharge. DNP note has been reviewed, I agree with a documented findings and plan of care. Patient was seen and examined.
[2017-06-01 12:08] LABS: Glucose,Whole Blood 151 mg/dL (75-99)
[2017-06-01] MEDS: metFORMIN 500 MG TAB PO SCH ×2 (12:55→17:49)
[2017-06-01 13:53] LABS: ABG PCO2 35 mmHg (35-45); ABG PH 7.39 (7.35-7.45); ABG PO2 266 mmHg (83-108)
[2017-06-01 13:54] LABS: ABG Base Excess -3.2 mmol/L; ABG HCO3 21 mmol/L (21-25); ABG Hematocrit 35 % (34.0-46.0); ABG Oxygen Saturation 99.9 % (94-97); ABG TCO2 22 mmol/L (19-24)
[2017-06-01 13:54] LABS: ABG PCO2 45 mmHg (35-45); ABG PH 7.31 (7.35-7.45); ABG PO2 326 mmHg (83-108)
[2017-06-01 13:55] LABS: ABG HCO3 21 mmol/L (21-25); ABG PCO2 42 mmHg (35-45); ABG PH 7.32 (7.35-7.45); ABG PO2 146 mmHg (83-108); ABG TCO2 22 mmol/L (19-24)
[2017-06-01 13:55] LABS: ABG Base Excess -3.8 mmol/L; ABG HCO3 22 mmol/L (21-25); ABG Hematocrit 32 % (34.0-46.0); ABG Oxygen Saturation 99.9 % (94-97); ABG TCO2 23 mmol/L (19-24)
[2017-06-01 13:56] LABS: ABG Base Excess -4.1 mmol/L; ABG Hematocrit 31 % (34.0-46.0); ABG Oxygen Saturation 99.1 % (94-97)
--- NOTE | 2017-06-01 15:06 | P.PN ---
Subjective On 06/01/2017 I'm seeing this patient for a follow-up. The patient is postop day #7 following coronary artery bypass surgery. The patient underwent two- vessel bypass. The patient is doing well. The patient has no specific complaints. He has history of atrial fibrillation and he also has history of heparin-induced thrombocytopenia and history of embolism to the left lower extremity/possible arterial clots. Other comorbidities include colon cancer, diabetes mellitus, hypertension and hyperlipidemia. The patient is doing well. The patient has no specific complaints for now. The patient is using incentive spirometer. The patient is on Arixtra regarding his history of heparin-induced thrombocytopenia. He is also on a combination of aspirin and Plavix. He is currently on room air oxygen. The chest x-ray from today shows essentially postoperative changes including some atelectatic changes and mild pulmonary vascular congestion. The patient is doing well otherwise. The plan is to send this patient to [facility]. Objective - Vital Signs Vital signs: Vital Signs Temp 98.3 F 06/01/17 08:00 Pulse 64 06/01/17 08:00 Resp 16 06/01/17 08:00 BP 137/74 06/01/17 08:00 Pulse Ox 94 L 06/01/17 08:00 Intake & Output 05/31/17 06/01/17 06/01/17 18:59 06:59 18:59 Intake Total 100 20 318 Output Total 150 150 Balance 100 -130 168 Weight 96.4 kg Intake: IV 20 0.9% ns flush 10 ML 20 Oral 100 318 Output: Urine 150 150 Other: Voiding Method Urinal Urinal # Voids 3 ABP, PAP, CO, CI - Last Documented Arterial Blood Pressure 166/64 Pulmonary Artery Pressure 24/9 Cardiac Output 4.9 Cardiac Index 2.3 - Exam PHYSICAL EXAMINATION: Gen. appearance, the patient is calm and comfortable and he is not in acute respiratory distress. The patient sitting up on a chair. No signs of any respiratory distress or use of accessory muscles of breathing. HEENT: Head is atraumatic, normocephalic. Pupils equal, round. Neck is supple. There is no elevated jugular venous pressure. HEART EXAMINATION: Heart S1, S2 normal. No murmur or gallop heard. The sternal stable clean and intact. CHEST EXAMINATION: Lungs reveal diminished air entry bilaterally to the bases. There are diminished breath sound bilaterally especially in the lung bases. ABDOMEN: Soft, nontender. Bowel sounds are heard. No organomegaly noted. EXTREMITIES: 2+ peripheral pulses with no evidence of peripheral edema and no calf tenderness noted. NEUROLOGIC patient is awake, alert and oriented -3. Skin examination of the sternal wound is dry clean and intact and there is no evidence of any wheezing or any bleed Skeletal exam, no joint deformities or any arthritis and the patient has full range of motion in all 4 extremities. Psychiatric exam, slightly depressed and the patient is currently on Zoloft. - Labs CBC & Chem 7: 05/31/17 06:13 06/01/17 05:36 Labs: Abnormal Lab Results - Last 24 Hours (Table) 05/25/17 05/25/17 05/25/17 Range/Units 16:13 17:13 17:41 ABG pH 7.31 L 7.32 L (7.35-7.45) ABG pO2 266 H 326 H 146 H (83-108) mmHg ABG O2 Saturation 99.9 H 99.9 H 99.1 H (94-97) % ABG Hematocrit 32 L 31 L (34.0-46.0) % ABG Sodium 147 H (135-146) mmol/L ABG Potassium 4.6 H 4.7 H 4.7 H (3.4-4.5) mmol/L BUN (9-20) mg/dL Glucose (74-99) mg/dL POC Glucose (mg/dL) (75-99) mg/dL Calcium (8.4-10.2) mg/dL Arterial Blood Potassium 4.6 H 4.7 H 4.7 H (3.4-4.5) mmol/L 05/31/17 05/31/17 05/31/17 Range/Units 16:44 20:21 20:52 ABG pH (7.35-7.45) ABG pO2 (83-108) mmHg ABG O2 Saturation (94-97) % ABG Hematocrit (34.0-46.0) % ABG Sodium (135-146) mmol/L ABG Potassium (3.4-4.5) mmol/L BUN (9-20) mg/dL Glucose (74-99) mg/dL POC Glucose (mg/dL) 149 H 210 H 239 H (75-99) mg/dL Calcium (8.4-10.2) mg/dL Arterial Blood Potassium (3.4-4.5) mmol/L 06/01/17 06/01/17 06/01/17 Range/Units 02:10 05:36 05:41 ABG pH (7.35-7.45) ABG pO2 (83-108) mmHg ABG O2 Saturation (94-97) % ABG Hematocrit (34.0-46.0) % ABG Sodium (135-146) mmol/L ABG Potassium (3.4-4.5) mmol/L BUN 26 H (9-20) mg/dL Glucose 105 H (74-99) mg/dL POC Glucose (mg/dL) 123 H 121 H (75-99) mg/dL Calcium 8.1 L (8.4-10.2) mg/dL Arterial Blood Potassium (3.4-4.5) mmol/L 06/01/17 Range/Units 12:03 ABG pH (7.35-7.45) ABG pO2 (83-108) mmHg ABG O2 Saturation (94-97) % ABG Hematocrit (34.0-46.0) % ABG Sodium (135-146) mmol/L ABG Potassium (3.4-4.5) mmol/L BUN (9-20) mg/dL Glucose (74-99) mg/dL POC Glucose (mg/dL) 151 H (75-99) mg/dL Calcium (8.4-10.2) mg/dL Arterial Blood Potassium (3.4-4.5) mmol/L Assessment and Plan Plan: Assessment 1 coronary artery disease status post two-vessel bypass surgery 2 atrial fibrillation status post modified maze procedure, still in atrial fibrillation the patient is also on anticoagulation 3 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 The patient is recovering well from surgery. Atelectatic changes in lung bases. Encourage use of incentive spirometer. The patient is on room air oxygen. The plan is to transfer this patient to [facility] for further rehabilitation.
[2017-06-01] MEDS ORDERED: FUROSEMIDE 10 MG/ML 2 ML VIAL IV ONE (16:13)
--- NOTE | 2017-06-01 16:33 | P.PN ---
<Tonya Keith - Last Filed: 06/01/17 16:19> Progress Note - Text DATE OF SERVICE: 06/01/2017 PRESENTING COMPLAINT: Chest pain HISTORY OF PRESENT ILLNESS: Patient presented after he felt his heart racing at home, missed 2 doses of his flecainide and had associated chest pain and pressure going across the chest. Last for a few hours. Admitted with atrial fibrillation and subsequently ruled in for an acute WA. Status post cardiac cath found to have 90% occlusion to the RCA 70% occlusion to the left coronary artery. Now status post CABG 2 with CHASE to LAD and SVG to PDA. INTERVAL HISTORY: 06/01/2017: Sitting up in the bed appears comfortable. Heart hugger in place. Sinus rhythm on the monitor. No acute overnight events. Ambulatory in the room and hallway, agreeable to work with physical therapy. last BM 05/30/2017 , tolerating his diet eating about 50%. Accu-Cheks noted to be elevated on a couple of incidents, adjusted Lantus schedule. REVIEW OF SYSTEMS: Done for constitutional ,cardiovascular, GI, pulmonary with relevant findings as above. CURRENT MEDICATIONS Jackson, aspirin, Lipitor, Plavix 75 mg by mouth daily, Arixtra 2.5 mg subcu daily , Lantus 16 units subcu at 1800, Glucophage 500 mg by mouth twice a day, Lopressor 75 mg by mouth twice a day, Protonix 40 mg by mouth daily sertraline 50 mg by mouth daily, valsartan 80 mg by mouth daily PHYSICAL EXAM VITAL SIGNS: Temperature 97.0, pulse 55, respiratory rate 16, blood pressure 126/75, oxygen saturation 96% on room air. GENERAL APPEARANCE: Lying in bed, appears comfortable yet tired. EYES: Pupils equal. Conjunctiva normal. NECK: JVD not raised. Mass not palpable. RESPIRATORY: Respiratory effort normal. Lungs clear to auscultation. CARDIOVASCULAR: First and second sounds normal. No edema. Heart hugger in place , midline chest wall incision is with a dressing no drainage noted. ABDOMEN: Soft. Liver and spleen not palpable. No tenderness. No mass palpable, distant bowel sounds 4 PSYCHIATRY: Alert and oriented x3. Mood and affect normal. INVESTIGATIONS: BUN 26, creatinine 1.15, Accu-Cheks noted. ASSESSMENT: -Acute non-Q wave myocardial infarction, probably precipitated by atrial fibrillation. Now status post CABG 2 with CHASE. -Postoperative Mechanically assisted ventilation, as expected from surgery, resolved -Acute severe blood loss anemia from a mediastinal chest tube, as expected from surgery, status post 2 units of blood, improving. Resolved -Paroxysmal atrial fibrillation with rapid ventricular rate, present on admission, now sinus bradycardia. -Essential hypertension. -Hyperlipidemia. -Benign prostatic hypertrophy. -Primary osteoporosis multiple joints bilaterally. -History of colon cancer with surgery. -Attention deficit disorder. -Chronic constipation - Mild protein calorie malnutrition. PLAN: Lantus schedule adjusted from at bedtime to 1800. We'll reevaluate in the morning. Encourage activity, incentive spirometer use, continue current medication regimen. Likely discharge tomorrow to rehab per cardiothoracic surgery, will follow closely. 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 Beck <Los Beck - Last Filed: 06/01/17 23:00> Progress Note - Text Attending note. Date of service-06/01/2017 This patient was seen and examined by me . Discussed the patient with my nurse practitioner Ms. Keith. Feeding much better. Sitting up in a chair. Eating better. Had a bowel movement day before On examination: Lungs have decreased breath sounds, cardio- first seconds are normal. Psych AO 3 Investigations: Accu-Cheks noted Assessment and plan: Status post CABG. Add metformin 500 mg by mouth twice a day. We'll follow the patient at [facility]. Care was discussed with the patient.
[2017-06-01 16:48] LABS: Glucose,Whole Blood 204 mg/dL (75-99)
[2017-06-01] MEDS ORDERED: INSULIN GLARGINE 100 UNIT/ML 10 ML VIAL SQ SCH (18:00)
[2017-06-01 20:46] LABS: Glucose,Whole Blood 113 mg/dL (75-99)
[2017-06-01] MEDS: SENNOSIDES-DOCUSATE SODIUM 1 EACH TAB PO SCH (20:46)
[2017-06-01 21:24] VITALS: RESP 18
[2017-06-02 02:24] LABS: Glucose,Whole Blood 101 mg/dL (75-99)
[2017-06-02 05:48] LABS: Glucose,Whole Blood 128 mg/dL (75-99)
[2017-06-02] MEDS: INSULIN LISPRO (humaLOG) 300 UNIT/3 ML VIAL SQ SCH ×4 (06:49→12:09)
[2017-06-02] MEDS: PANTOPRAZOLE 40 MG TABLET PO SCH (07:05)
[2017-06-02] MEDS: metFORMIN 500 MG TAB PO SCH (07:05)
[2017-06-02] MEDS: ASPIRIN 325 MG TAB PO SCH (09:32)
[2017-06-02] MEDS: ATORVASTATIN 40 MG TAB PO SCH (09:32)
[2017-06-02] MEDS: CLOPIDOGREL 75 MG TAB PO SCH (09:33)
[2017-06-02] MEDS: FONDAPARINUX 2.5 MG/0.5 ML SYRINGE SQ SCH (09:33)
[2017-06-02] MEDS: METOPROLOL TARTRATE 25 MG TAB PO SCH (09:34)
[2017-06-02] MEDS: SERTRALINE 50 MG TAB PO SCH (09:34)
[2017-06-02] MEDS: VALSARTAN 80 MG TAB PO SCH (09:35)
--- NOTE | 2017-06-02 11:16 | P.PN ---
Subjective Principal diagnosis: CABG This is a 71-year-old gentleman who is status post coronary artery bypass grafting surgery. He also underwent modified maze procedure. Remaining in normal sinus rhythm this morning. Appears depressed. Blood pressure 156/76 , heart rate in the 60s. WBC 11.3, hemoglobin 8.9, potassium 4.7, BUN 37, creatinine 1.2. Reaching 500 on his incentive spirometry 05/30/2017 Patient seen and examined this morning, appears comfortable, sitting up in the chair at the bedside. Continues to have a very flat affect. He has been up ambulating. Chest x-ray did not reveal any significant interval change. Blood pressure 132/60 with heart rate in the 70s. Normal sinus rhythm. 06/01/2017 Seen and examined this morning, no complaints. Anticipating discharge home today. Blood pressure 136/70 with a heart rate in the 60s. 06/02/2017 Patient seen and examined this morning, blood pressure and heart rate stable. Eager to be discharged home today. Objective - Vital Signs Vital signs: Vital Signs Temp 97.1 F L 06/02/17 08:00 Pulse 65 06/02/17 08:00 Resp 18 06/02/17 08:00 BP 139/69 06/02/17 08:00 Pulse Ox 93 L 06/02/17 08:00 Intake & Output 06/01/17 06/02/17 06/02/17 18:59 06:59 18:59 Intake Total 518 60 Output Total 350 850 Balance 168 -850 60 Weight 94.2 kg Intake: IV 10 0.9% ns flush 10 ML 10 Oral 518 50 Output: Urine 350 850 Other: Voiding Method Urinal # Voids 1 1 # Bowel Movements 1 ABP, PAP, CO, CI - Last Documented Arterial Blood Pressure 166/64 Pulmonary Artery Pressure 24/9 Cardiac Output 4.9 Cardiac Index 2.3 - Exam PHYSICAL EXAMINATION: HEENT: Head is atraumatic, normocephalic. Pupils equal, round. Neck is supple. There is no elevated jugular venous pressure. HEART EXAMINATION: Heart S1, S2 normal. No murmur or gallop heard. CHEST EXAMINATION: Lungs reveal diminished air entry bilaterally to the bases. ABDOMEN: Soft, nontender. Bowel sounds are heard. No organomegaly noted. EXTREMITIES: 2+ peripheral pulses with no evidence of peripheral edema and no calf tenderness noted. NEUROLOGIC patient is awake, alert and oriented -3. . - Labs CBC & Chem 7: 05/31/17 06:13 06/01/17 05:36 Labs: Abnormal Lab Results - Last 24 Hours (Table) 05/25/17 05/25/17 05/25/17 Range/Units 16:13 17:13 17:41 ABG pH 7.31 L 7.32 L (7.35-7.45) ABG pO2 266 H 326 H 146 H (83-108) mmHg ABG O2 Saturation 99.9 H 99.9 H 99.1 H (94-97) % ABG Hematocrit 32 L 31 L (34.0-46.0) % ABG Sodium 147 H (135-146) mmol/L ABG Potassium 4.6 H 4.7 H 4.7 H (3.4-4.5) mmol/L POC Glucose (mg/dL) (75-99) mg/dL Arterial Blood Potassium 4.6 H 4.7 H 4.7 H (3.4-4.5) mmol/L 06/01/17 06/01/17 06/01/17 Range/Units 12:03 16:35 20:44 ABG pH (7.35-7.45) ABG pO2 (83-108) mmHg ABG O2 Saturation (94-97) % ABG Hematocrit (34.0-46.0) % ABG Sodium (135-146) mmol/L ABG Potassium (3.4-4.5) mmol/L POC Glucose (mg/dL) 151 H 204 H 113 H (75-99) mg/dL Arterial Blood Potassium (3.4-4.5) mmol/L 06/02/17 06/02/17 Range/Units 02:21 05:43 ABG pH (7.35-7.45) ABG pO2 (83-108) mmHg ABG O2 Saturation (94-97) % ABG Hematocrit (34.0-46.0) % ABG Sodium (135-146) mmol/L ABG Potassium (3.4-4.5) mmol/L POC Glucose (mg/dL) 101 H 128 H (75-99) mg/dL Arterial Blood Potassium (3.4-4.5) mmol/L Assessment and Plan (1) S/P CABG (coronary artery bypass graft) Status: Acute (2) Paroxysmal a-fib Status: Acute (3) Acute non-ST segment elevation myocardial infarction Status: Acute (4) Diabetes mellitus type 2 in nonobese Status: Acute (5) History of heparin-induced thrombocytopenia Status: Acute (6) Hyperlipidemia Status: Acute (7) Hypertension Status: Acute Plan: Cardiology's perspective, we will continue the patient on his current medications. Arrangements are being made for potential discharged home today. We will make the patient a follow-up with Dr. Contreras in the office post discharge. DNP note has been reviewed, I agree with a documented findings and plan of care. Patient was seen and examined.
[2017-06-02 12:13] LABS: Glucose,Whole Blood 127 mg/dL (75-99)
[2017-06-02 12:17] VITALS: BP 115/58; PULSE 58; TEMP 98.1
[2017-06-02] MEDS ORDERED: ACETAMINOPHEN TAB 500 MG TAB PO PRN (13:16)
--- NOTE | 2017-06-02 14:05 | P.DS ---
Providers Date of admission: 05/22/17 11:57 Attending physician: Kulwant Marshall Consults: 05/21/17 04:37 Consult Physician Routine Consulting Provider: Keanu Pascal Consult Reason/Comments: chest pain. Atrial fib with RVR. Do you want consulting provider notified?: Yes 05/21/17 10:30 Consult Physician Routine Consulting Provider: Kodak Angel Consult Reason/Comments: Recommendations-planned heart cath, pt has hx HIT Do you want consulting provider notified?: Yes 05/22/17 11:21 Consult Physician Routine Consulting Provider: Kulwant Marshall Consult Reason/Comments: CAD Do you want consulting provider notified?: Already Contacted 05/22/17 12:02 Consult Physician Routine Consulting Provider: Kulwant Marshall Consult Reason/Comments: double bypass Do you want consulting provider notified?: Yes 05/22/17 14:03 Consult Anesthesia Routine Consulting Provider: Anesthesia,Services Consult Reason/Comments: Cardiac Surgery Pre-Op Consult Physician Routine Consulting Provider: Max Barraza Consult Reason/Comments: Pulmonary management Do you want consulting provider notified?: Yes 05/25/17 18:49 Consult Physician Routine Consulting Provider: Los Beck Consult Reason/Comments: medical management Do you want consulting provider notified?: Already Contacted 05/28/17 10:17 Consult Physician Routine Consulting Provider: Bc Carpio Consult Reason/Comments: inpatient rehab Do you want consulting provider notified?: Yes Primary care physician: Puneet Fields - Discharge Diagnosis(es) (1) Unstable angina Current Visit: Yes Status: Acute (2) Diabetes mellitus Current Visit: Yes Status: Acute (3) Acute non-ST segment elevation myocardial infarction Current Visit: Yes Status: Acute (4) History of heparin-induced thrombocytopenia Current Visit: Yes Status: Acute (5) Hyperlipidemia Current Visit: Yes Status: Acute (6) Hypertension Current Visit: Yes Status: Acute (7) Paroxysmal atrial fibrillation Current Visit: Yes Status: Acute (8) Two-vessel coronary artery disease Current Visit: Yes Status: Acute Hospital Course: FINAL DIAGNOSIS: 1. Two-vessel coronary artery disease, unstable angina, acute non-ST segment elevation myocardial infarction 2. Pre-operative paroxysmal atrial fibrillation 3. Diabetes mellitus type 2 4. Hypertension 5. Hyperlipidemia 6. History of heparin-induced cytopenia 7. History of colon cancer with resection 8. History of pulmonary embolism, DVT PRINCIPAL PROCEDURE: 1. Urgent off-pump coronary artery bypass grafting 2 with the left internal mammary artery to the left anterior descending artery and reverse saphenous vein graft to the posterior descending artery 2. Modified Poon maze procedure with bilateral pulmonary vein ablation 3. Ligation of the left atrial appendage with a 35 mm AtriCure clip 4. Endovascular vein harvest of the right greater saphenous vein 5. Intraoperative transesophageal echocardiogram by anesthesia HISTORY OF PRESENT ILLNESS: This 71-year-old gentleman presented to [facility] emergency room on 05/21/2017 with complaints of chest pain which radiated to his neck, teeth, and left arm and was associated with shortness of breath. He denied complaints of nausea, vomiting, diaphoresis. He had complained of irregular racing heart rate, although he did state that he had not taken his regularly scheduled medications the previous 2-3 days prior to the emergency department presentation. His workup included troponins which were positive and a 12-lead EKG demonstrating atrial fibrillation with rapid ventricular response. He was recommended to undergo heart catheterization which demonstrated 95% stenosis to his right coronary artery, and 70% stenosis to the mid left anterior descending coronary artery. He had an echocardiogram back in November 2016 which demonstrated normal left ventricular function with an ejection fraction of 45%, mild aortic regurgitation, mild tricuspid regurgitation, and mild pulmonic regurgitation. Dr. Marshall cardiothoracic surgery was consulted for the possibility of surgical revascularization. An extensive discussion was had with the patient and his family, risks and benefits were explained, consent was obtained to proceed with surgery. The patient was kept inpatient secondary to the urgent nature of his surgery. HOSPITAL COURSE: The patient was taken to the preoperative area on 05/25/2017, prepared in the usual fashion, and subsequently taken to the operating room where Dr. Marshall performed and urgent off-pump coronary artery bypass grafting 2 with the left internal mammary artery to the left anterior descending artery and reverse saphenous vein graft to the posterior descending artery, modified Poon-Maze procedure with bilateral pulmonary vein ablation, ligation of left atrial appendage with a 35 mm AtriCure clip, endovascular vein harvest of the right greater saphenous vein, and intraoperative transesophageal echocardiogram by anesthesia. On completion of surgery the patient was transferred to the cardiovascular intensive care unit where he was recovered, monitored hemodynamically, and where he progressed cardiac rehabilitation phase 1. He was extubated, all lines, tubes, and drips were discontinued when appropriate, and he was transferred to [address] [place] [address] for further monitoring and rehabilitation. His oxygen was titrated down, he continued to work with physical therapy, and was ready to be discharged to [facility] inpatient rehabilitation on postoperative day #4. He received written and verbal instruction regarding his medications, activity restrictions, signs and symptoms requiring physician notification, and follow-up appointments. COMPLICATIONS: There were no postoperative complications. DISCHARGE INSTRUCTIONS: 1. No driving for 4 weeks, or until physician gives their ok. 2. The patient should sleep in their own bed, no medical bed needed. 3. Stairs are not an issue. If the bedroom is upstairs, it is advised that the patient go up at night and down in the morning for the first week. Go slowly, using handrail and take 1 step at a time. 4. WALT hose are to be worn for 30 days or until physician discontinues. 5. Heart hugger is to be worn 100% of the time until physician discontinues.( except when showering) 6. No lifting, pushing, or pulling more than 10 pounds for 12 weeks. The physician will advise of any restriction changes. 7. The patient is expected to continue the prescribed walking program. 8. Continue pain control per as needed orders. 9. Continue with incentive spirometry and splinting/heart hugger until otherwise directed by the physician. 10. Must shower daily using liquid antibacterial soap and a separate white washcloth for each individual incision. 11. Routine sternal incision care. No powders, lotions, ointments on incisions. 12. Please call surgeon/BASIC SCIENCES PROFESSOR for temp greater than 101 F or purulent drainage from incisions. 13. All prescriptions given by surgeon for 30 days. Refills need to be filled through supervisor braiding/primary care physician. REHAB SERVICES/HOME HEALTH SERVICES TO PROVIDE: RN SKILLED HOME CARE SERVICES FOR POST-OP SURGICAL PATIENTS WITH THE FOLLOWING: Coronary Artery Bypass Surgery (CABG), Mitral Valve Replacement/ Repair ( MVR), Aortic Valve Replacement/Repair (AVR) RN TO CONTINUE EDUCATION FROM ``ROAD TO A HEALTH HEART PATIENT EDUCATION MANUAL (GIVEN TO PATIENT IN THE HOSPITAL) MEDICATION RECONCILIATION WITH EDUCATION NEEDED ON FIRST HOME VISIT EMPHASIZE IMPORTANCE OF WEARING BREAST SUPPORT/HEART HUGGER ENCOURAGE USE OF INCENTIVE SPIROMETER 10 X EVERY HOUR WHILE AWAKE ENCOURAGE UTILIZATION OF LOWER EXTREMITY COMPRESSION STOCKINGS/WALT HOSE and ELEVATE LEGS ABOVE LEVEL OF HEART WHILE AT REST. ENCOURAGE AMBULATION 3-5x/day INCREASING TOLERATES, WHILE AVOID EXTREMES IN TEMPERATURE FREQUENCY: RN TO OPEN THE PATIENT WITHIN 24 HOURS OF DISCHARGE FROM THE HOSPITAL WITH TELEHEALTH INSTALLED AT [facility], RN TO VISIT 2-3 X A WEEK FOR 4 WEEKS ESTABLISHED BY PATIENT NEEDS. LABORATORY: CBC, CMP TO BE DRAWN ON THE THIRD DAY HOME, Thursday06/01/2017 (RAN STAT) FAX RESULTS TO [phone]. TELEHEALTH PARAMETERS: WEIGHT: NOTIFY MD OF WEIGHT GAIN OF 2 LBS IN 24 HOURS OR 5 LBS IN ONE WEEK HR: NOTIFY MD OF HR <55 BPM OR HR>100 BPM BP: NOTIFY MD IF BP <90/55 OR BP>140/100 O2 SAT: NOTIFY MD IF PO2<93% ON ROOM AIR SEND TELEHEALTH REPORT TO GEAR KEEPER AND CARDIOVASCULAR SURGEON THE FIRST WEEK OF CARE AND THEN BI-WEEKLY. PLEASE ADDITIONALLY COMMUNICATE ANY ABNORMALS AND NEW FINDINGS TO THE SURGEONS OFFICE. A Red armband has been placed on the patient. It should be worn for 30 days post surgery and will be removed by the cardiac surgeons. If an ER visit is necessary, please make sure the number on the Red armband is called. Patient Condition at Discharge: Fair Plan - Discharge Summary New Discharge Prescriptions: No Action Diazepam [Valium] 5 mg PO BID PRN PRN Reason: Anxiety/Insomnia HYDROcodone/APAP 10-325MG [[place] 10-325] 1 tab PO TID PRN PRN Reason: Pain Dextroamphetamine/Amphetamine [Adderall] 30 mg PO BID@0800,1400 Valsartan [Diovan] 80 mg PO DAILY #30 tab Flecainide Acetate [Tambocor] 100 mg PO BID #60 tablet Rivaroxaban [Xarelto] 20 mg PO DAILY Discharge Medication List Dextroamphetamine/Amphetamine [Adderall] 30 mg PO BID@0800,1400 11/12/16 [ History] Diazepam [Valium] 5 mg PO BID PRN 11/12/16 [History] HYDROcodone/APAP 10-325MG [[place] 10-325] 1 tab PO TID PRN 11/12/16 [History] Flecainide Acetate [Tambocor] 100 mg PO BID #60 tablet 11/13/16 [Rx] Valsartan [Diovan] 80 mg PO DAILY #30 tab 11/13/16 [Rx] Rivaroxaban [Xarelto] 20 mg PO DAILY 05/21/17 [History] Follow up Appointment(s)/Referral(s): Max Barraza MD [STAFF PHYSICIAN] - 06/15/17 2:30 pm Keanu Pascal MD [STAFF PHYSICIAN] - 06/12/17 4:15 pm Kulwant Marshall MD [STAFF PHYSICIAN] - 06/22/17 1:30 pm Puneet Fields MD [Primary Care Provider] - 06/11/17 11:30 am Ambulatory/Diagnostic Orders: Complete Blood Count w/diff [LAB.AMB] Time Frame: 3 Days, Location: Determined By Patient Comprehensive Metabolic Panel [LAB.AMB] Time Frame: 3 Days, Location: Determined By Patient
--- NOTE | 2017-06-02 14:36 | P.PN ---
<Tonya Keith - Last Filed: 06/02/17 15:06> Progress Note - Text DATE OF SERVICE: 06/02/2017 PRESENTING COMPLAINT: Chest pain HISTORY OF PRESENT ILLNESS: Patient presented after he felt his heart racing at home, missed 2 doses of his flecainide and had associated chest pain and pressure going across the chest. Last for a few hours. Admitted with atrial fibrillation and subsequently ruled in for an acute LA. Status post cardiac cath found to have 90% occlusion to the RCA 70% occlusion to the left coronary artery. Now status post CABG 2 with CHASE to LAD and SVG to PDA. INTERVAL HISTORY: 06/02/2017: Lying in bed appears comfortable. Heart hugger in place. Sinus bradycardia sinus rhythm on the monitor. No acute overnight events. Ambulatory in the room in the hallways, agreeable to work with physical therapy. Last BM 2016, tolerating his diet eating between 50 and 80%. Accu-Cheks improved, metformin added with good result. 06/01/2017: Sitting up in the bed appears comfortable. Heart hugger in place. Sinus rhythm on the monitor. No acute overnight events. Ambulatory in the room and hallway, agreeable to work with physical therapy. last BM 05/30/2017 , tolerating his diet eating about 50%. Accu-Cheks noted to be elevated on a couple of incidents, adjusted Lantus schedule. REVIEW OF SYSTEMS: Done for constitutional ,cardiovascular, GI, pulmonary with relevant findings as above. CURRENT MEDICATIONS [place], aspirin, Lipitor, Plavix 75 mg by mouth daily, Arixtra 2.5 mg subcu daily , Lantus 16 units subcu at 1800, Glucophage 500 mg by mouth twice a day, Lopressor 75 mg by mouth twice a day, Protonix 40 mg by mouth daily sertraline 50 mg by mouth daily, valsartan 80 mg by mouth daily PHYSICAL EXAM VITAL SIGNS: Temperature 97.1, pulse 65, respiratory rate 18, blood pressure 139/69, oxygen saturation 93% on room air. GENERAL APPEARANCE: Lying in bed, appears comfortable yet tired. EYES: Pupils equal. Conjunctiva normal. NECK: JVD not raised. Mass not palpable. RESPIRATORY: Respiratory effort normal. Lungs clear to auscultation. CARDIOVASCULAR: First and second sounds normal. No edema. Heart hugger in place , midline chest wall incision is with a dressing no drainage noted. ABDOMEN: Soft. Liver and spleen not palpable. No tenderness. No mass palpable, distant bowel sounds 4 PSYCHIATRY: Alert and oriented x3. Mood and affect normal. INVESTIGATIONS: Accu-Cheks noted, ASSESSMENT: -Acute non-Q wave myocardial infarction, probably precipitated by atrial fibrillation. Now status post CABG 2 with CHASE. -Postoperative Mechanically assisted ventilation, as expected from surgery, resolved -Acute severe blood loss anemia from a mediastinal chest tube, as expected from surgery, status post 2 units of blood, improving. Resolved -Paroxysmal atrial fibrillation with rapid ventricular rate, present on admission, now sinus bradycardia. -Essential hypertension. -Hyperlipidemia. -Benign prostatic hypertrophy. -Primary osteoporosis multiple joints bilaterally. -History of colon cancer with surgery. -Attention deficit disorder. -Chronic constipation - Mild protein calorie malnutrition. PLAN: Overall condition remained stable, discharge planning for [facility] waiting for insurance authorization. We'll continue current medication and treatment plan. Plan of care discussed with the patient at the bedside questions were answered we'll follow closely. TEXTILE CONVERTER statement: Patient was seen and examined by nurse practitioner Tonya Keith and all elements of the case discussed with attending Dr. Beck <Los Beck - Last Filed: 06/02/17 21:07> Progress Note - Text Attending note. Date of service-06/02/2017 This patient was seen and examined by me . Discussed the patient with my nurse practitioner Ms. Keith. Stable. No chest pain. On examination: Lungs-decreased breath sounds, psych AO 3 Investigations: Accu-Cheks noted. Assessment and plan: Status post CABG. Keep on current medications in terms of diabetes. I will follow the patient at [facility]. Discussed with the patient. Metformin was started yesterday.
--- NOTE | 2017-06-02 15:00 | P.PN ---
Subjective Principal diagnosis: Two-vessel coronary artery disease, unstable angina, acute non-ST segment elevation myocardial infarction, preoperative paroxysmal atrial fibrillation, hearing disorder both ears, diabetes mellitus type 2, hypertension, hyperlipidemia, history of heparin-induced thrombocytopenia. POD #8, urgent off-pump coronary artery bypass grafting 2 with left internal mammary artery to the left anterior descending coronary artery and saphenous vein graft to the posterior descending coronary artery, modified Poon maze procedure with bilateral pulmonary vein ablation and ligation of the left atrial appendage using a #35 mm AtriCure clip, endovascular vein harvest of the right greater saphenous vein, intraoperative transesophageal echocardiogram performed by anesthesia. The patient is sitting up to the bedside chair at this time. No acute distress. Denies complaints of pain. The patient states he just got back from a walk in the hallway and is already been in the shower this a.m. Objective - Vital Signs Vital signs: Vital Signs Temp 97.5 F L 06/02/17 04:00 Pulse 62 06/02/17 04:00 Resp 18 06/02/17 04:00 BP 150/75 06/02/17 04:00 Pulse Ox 94 L 06/02/17 04:00 Intake & Output 06/01/17 06/02/17 06/02/17 18:59 06:59 18:59 Intake Total 518 Output Total 350 850 Balance 168 -850 Weight 94.2 kg Intake: Oral 518 Output: Urine 350 850 Other: Voiding Method Urinal # Voids 1 # Bowel Movements 1 ABP, PAP, CO, CI - Last Documented Arterial Blood Pressure 166/64 Pulmonary Artery Pressure 24/9 Cardiac Output 4.9 Cardiac Index 2.3 - Constitutional General appearance: Present: cooperative, no acute distress - EENT Eyes: Present: PERRLA, normal appearance ENT: Present: hard of hearing - Neck Details: No JVD, no lymphadenopathy. - Respiratory Details: Lung sounds are essentially clear throughout, diminished to his bilateral bases. Respirations are symmetrical and nonlabored. Oxygen saturation are 94% on room air. He is achieving 1250 mL to 1500 mL on his incentive spirometry. - Cardiovascular Details: Regular rhythm and rate. S1 and S2 present, positive pansystolic murmur 2/6. Sternum is stable. Remote telemetry showing normal sinus rhythm heart rate 65. Knee-high WALT hose and sequential compression devices in place to his bilateral lower extremities. Heart hugger is in place and he is demonstrating appropriate use. - Gastrointestinal Gastrointestinal Comment(s): Abdomen is soft, nontender and nondistended. Active bowel sounds all 4 abdominal quadrants. He is tolerating oral intake. Bowels are moving without difficulty. - Genitourinary Genitourinary Comment(s): Clear yellow urine. Voiding without difficulty to urinal. - Integumentary Integumentary Comment(s): Midline sternal incision clean and dry and well approximated. Dermabond dressing clean and dry. No drainage noted. Right lower extremity EVH site clean and dry and well approximated. Dermabond dressing clean and dry. - Neurologic Neurologic: Present: CNII-XII intact - Musculoskeletal Musculoskeletal: Present: gait normal, strength equal bilaterally - Psychiatric Psychiatric: Present: A&O x's 3, appropriate affect, intact judgment & insight - Allied health notes Allied health notes reviewed: nursing - Labs CBC & Chem 7: 05/31/17 06:13 06/01/17 05:36 Labs: Abnormal Lab Results - Last 24 Hours (Table) 05/25/17 05/25/17 05/25/17 Range/Units 16:13 17:13 17:41 ABG pH 7.31 L 7.32 L (7.35-7.45) ABG pO2 266 H 326 H 146 H (83-108) mmHg ABG O2 Saturation 99.9 H 99.9 H 99.1 H (94-97) % ABG Hematocrit 32 L 31 L (34.0-46.0) % ABG Sodium 147 H (135-146) mmol/L ABG Potassium 4.6 H 4.7 H 4.7 H (3.4-4.5) mmol/L POC Glucose (mg/dL) (75-99) mg/dL Arterial Blood Potassium 4.6 H 4.7 H 4.7 H (3.4-4.5) mmol/L 06/01/17 06/01/17 06/01/17 Range/Units 12:03 16:35 20:44 ABG pH (7.35-7.45) ABG pO2 (83-108) mmHg ABG O2 Saturation (94-97) % ABG Hematocrit (34.0-46.0) % ABG Sodium (135-146) mmol/L ABG Potassium (3.4-4.5) mmol/L POC Glucose (mg/dL) 151 H 204 H 113 H (75-99) mg/dL Arterial Blood Potassium (3.4-4.5) mmol/L 06/02/17 06/02/17 Range/Units 02:21 05:43 ABG pH (7.35-7.45) ABG pO2 (83-108) mmHg ABG O2 Saturation (94-97) % ABG Hematocrit (34.0-46.0) % ABG Sodium (135-146) mmol/L ABG Potassium (3.4-4.5) mmol/L POC Glucose (mg/dL) 101 H 128 H (75-99) mg/dL Arterial Blood Potassium (3.4-4.5) mmol/L Assessment and Plan (1) History of heparin-induced thrombocytopenia Status: Acute (2) Hypertension Status: Acute (3) Hyperlipidemia Status: Acute (4) Diabetes mellitus type 2 in nonobese Status: Acute (5) Hearing disorder of both ears Status: Acute (6) Paroxysmal atrial fibrillation Status: Acute (7) Acute non-ST segment elevation myocardial infarction Status: Acute (8) Two-vessel coronary artery disease Status: Acute Plan: 1. Continue aspirin, statin, Plavix, Arixtra, beta angie, and ARB. Will maximize beta angie therapy as tolerated. 2. Continue Zoloft.. 3. Encourage incentive spirometry use every hour while awake. 4. GI/DVT prophylaxis. 5. Increase activity as tolerated, ambulate in hallway. Physical therapy following. 6. Insulin management per primary care service. ems educator consulted and following. 7. Placement to inpatient rehab pending. 8. Discharge planning in progress. Anticipate discharge within the next 24 hours. Awaiting insurance authorization. Time with Patient: Greater than 30
--- NOTE | 2017-06-03 11:51 | P.VSCSTY ---
Greater Saphenous Vein Mapping This is bilateral lower extremity greater saphenous vein mapping. Date of service 05/22/2017 Vein quality and ultrasound appearance normal except had right groin where there is a possible small area of thrombus. Vein size groin right 6.0 x 6.5 groin left 6.2 x 7.0 High thigh right 3.1 x 4.1 high thigh left 4.2 x 5.6 Mid thigh right 3.3 x 4.6 mid thigh left 3.7 x 5.5 Above-knee right 2.9 x 4.1 above- knee left 4.5 x 5.1 Below knee right 3.5 x 4.8 below-knee left 4.6 x 5.6 Mid calf right 2.9 x 3.5 mid calf left 3.7 x 4.4 Ankle right 2.7 x 4.2 ankle left 3.0 x 4.3 Impression usable bilateral greater saphenous vein. Avoid proximal right greater saphenous vein..
--- NOTE | 2017-06-03 12:08 | P.ARTDOP ---
Arterial Doppler LOWER EXTREMITY ARTERIAL DOPPLER: DATE OF SERVICE: 05/23/2017 Reason for study: Pre-CABG. Doppler waveforms: Multiphasic bilaterally throughout. Pulse volume recording: Normal configuration. Pressure gradients: None. Ankle-brachial indices: Greater than 1 bilaterally. Toe pressures: 128 on the right, 128 on the left Impression: Normal study.
--- NOTE | 2017-06-03 14:46 | CDI ---
In responding to this query, please exercise your independent professional judgment. The [facility] Coding Staff and Clinical Documentation Specialists appreciate your assistance in clarifying documentation, maintaining compliance with coding guidelines, accurately documenting patients condition and capturing severity of illness. The fact that a question is asked does not imply that any particular answer is desired or expected. Communication forms are a method of clarifying documentation and are not made part of the Legal Health Record. Thank you in advance for your clarification. Last Revision, November 2016 V[facility] [address] [place] [id number] Documentation Clarification Form Date: 06/03/2017 2:28:00 PM From: Anh Kal Admit Date: 05/22/2017 11:57:00 AM Patient Name: Karri Parnell Visit Number: [id number] Discharge Date: 06/02/17 Dr. Kulwant Marshall CHF is documented in the 05/28 PN. History/Risk Factors: Ac Non-ST [place], HTN, paroxysmal atrial fib Clinical Indicators: SOB w activity, edema noted forelegs and feet BNP: 05/23 Echocardiogram Results: Right ventriucualr systolic pressure, 23.88 mmHg. Overall left ventricular systolic function is low-normal, EF between 50-55%. Chest X Ray: 05/27 CXR- Decreasing lung volumes with similar to slightly worsening mild to moderate CHF. Treatment: Lasix IV once X 3 In your professional opinion, can you please clarify the acuity and type of CHF if known? Systolic Heart Failure: Acute Chronic Acute on Chronic Diastolic Heart Failure: Acute Chronic Acute on Chronic Systolic & Diastolic Heart Failure: Acute Chronic Acute on Chronic Unable to determine Other, please specify Please document your addendum in your discharge summary in order to capture severity of illness and risk of mortality. Include clinical findings that support your diagnosis. FYI: Press F11 to launch patient chart. If you have a question about this query, please contact Allyssa Lyons, Regional Manager, [facility] at [phone] between 8am and 5pm. [facility]
--- NOTE | 2017-06-03 15:22 | CDI ---
In responding to this query, please exercise your independent professional judgment. The [facility] Coding Staff and Clinical Documentation Specialists appreciate your assistance in clarifying documentation, maintaining compliance with coding guidelines, accurately documenting patients condition and capturing severity of illness. The fact that a question is asked does not imply that any particular answer is desired or expected. Communication forms are a method of clarifying documentation and are not made part of the Legal Health Record. Thank you in advance for your clarification. Last Revision, Oct 2016 Viki Ramirez [address] [facility] [place] [address] Documentation Clarification Form Date: 06/03/2017 2:55:00 PM From: Anh Bowden Admit Date: 05/22/2017 11:57:00 AM Patient Name: Karri Parnell Visit Number: [id number] Discharge Date: 06/02/17 Dr. Kulwant Marshall This patient is status post off pump CABG x 2 with CHASE to LAD and SVG to PDA, modified Poon maze procedure with bilateral pulmonary vein ablation and ligation of the left atrial appendage with 35 mm AtriCure clip, endovascular vein harvest , LEONEL by anesthesia. 05/27 CXR revealed small effusions and bibasilar atelectasis /consolidation. 05/27 & 05/31 PN states same as CXR. 05/30 PN states CXR show some basal atelectaiss and small pleurla effusions. 05/26 taught incentive spirometry. Hand nebulizer and O2. Please clarify if the post-operative atelectasis is: An expected post-procedural or post-surgical condition Integral to the procedure Inherent to the procedure An unexpected post-procedural or post-surgical condition, related to surgical care Other, please specify Unable to determine Please document your addendum in your discharge summary in order to capture severity of illness and risk of mortality. Include clinical findings that support your diagnosis. FYI: Press F11 to launch patient chart If you have a question about this query, please contact Allyssa Lyons, Major Gifts Manager, Viki Ramirez at [phone] between 8am and 5pm. AMIRA
--- NOTE | 2017-06-05 14:57 | CDI ---
In responding to this query, please exercise your independent professional judgment. The [facility] Coding Staff and Clinical Documentation Specialists appreciate your assistance in clarifying documentation, maintaining compliance with coding guidelines, accurately documenting patients condition and capturing severity of illness. The fact that a question is asked does not imply that any particular answer is desired or expected. Communication forms are a method of clarifying documentation and are not made part of the Legal Health Record. Thank you in advance for your clarification. Last Revision, November 2016 Viki Ramirez [address] [facility] [place] [address] Documentation Clarification Form Date: 06/03/2017 2:28:00 PM From: Anh Kal Admit Date: 05/22/2017 11:57:00 AM Patient Name: Karri Parnell Visit Number: [id number] Discharge Date: 06/02/17 Dr. Kulwant Marshall/Darlyn Francis CHF is documented in the 05/28 PN. History/Risk Factors: Ac Non-ST CT, HTN, paroxysmal atrial fib Clinical Indicators: SOB w activity, edema noted forelegs and feet BNP: 05/23 Echocardiogram Results: Right ventriucualr systolic pressure, 23.88 mmHg. Overall left ventricular systolic function is low-normal, EF between 50-55%. Chest X Ray: 05/27 CXR- Decreasing lung volumes with similar to slightly worsening mild to moderate CHF. Treatment: Lasix IV once X 3 In your professional opinion, can you please clarify the acuity and type of CHF if known? Systolic Heart Failure: Acute Chronic Acute on Chronic Diastolic Heart Failure: Acute Chronic Acute on Chronic Systolic & Diastolic Heart Failure: Acute Chronic Acute on Chronic Unable to determine Other, please specify Please document your addendum in your discharge summary in order to capture severity of illness and risk of mortality. Include clinical findings that support your diagnosis. FYI: Press F11 to launch patient chart. If you have a question about this query, please contact Allyssa Lyons, Bobcat Operator, Viki Ramirez at [phone] between 8am and 5pm. AMIRA
--- NOTE | 2017-06-05 15:01 | CDI ---
In responding to this query, please exercise your independent professional judgment. The [facility] Coding Staff and Clinical Documentation Specialists appreciate your assistance in clarifying documentation, maintaining compliance with coding guidelines, accurately documenting patients condition and capturing severity of illness. The fact that a question is asked does not imply that any particular answer is desired or expected. Communication forms are a method of clarifying documentation and are not made part of the Legal Health Record. Thank you in advance for your clarification. Last Revision, Oct 2016 Viki Ramirez [address] [facility] [place] [address] Documentation Clarification Form Date: 06/03/2017 2:55:00 PM From: Anh Kal Admit Date: 05/22/2017 11:57:00 AM Patient Name: Karri Parnell Visit Number: [id number] Discharge Date: 06/02/17 Dr. Kulwant Marshall/Darlyn Francis This patient is status post off pump CABG x 2 with CHASE to LAD and SVG to PDA, modified Poon maze procedure with bilateral pulmonary vein ablation and ligation of the left atrial appendage with 35 mm AtriCure clip, endovascular vein harvest , LEONEL by anesthesia. 05/27 CXR revealed small effusions and bibasilar atelectasis /consolidation. 05/27 & 05/31 PN states same as CXR. 05/30 PN states CXR show some basal atelectaiss and small pleurla effusions. 05/26 taught incentive spirometry. Hand nebulizer and O2. Please clarify if the post-operative atelectasis is: An expected post-procedural or post-surgical condition Integral to the procedure Inherent to the procedure An unexpected post-procedural or post-surgical condition, related to surgical care Other, please specify Unable to determine Please document your addendum in your discharge summary in order to capture severity of illness and risk of mortality. Include clinical findings that support your diagnosis. FYI: Press F11 to launch patient chart If you have a question about this query, please contact Allyssa Lyons, Banquet Prep Cook, Viki Ramirez at [phone] between 8am and 5pm. AMIRA
--- NOTE | 2017-06-07 09:47 | CDI ---
In responding to this query, please exercise your independent professional judgment. The [facility] Coding Staff and Clinical Documentation Specialists appreciate your assistance in clarifying documentation, maintaining compliance with coding guidelines, accurately documenting patients condition and capturing severity of illness. The fact that a question is asked does not imply that any particular answer is desired or expected. Communication forms are a method of clarifying documentation and are not made part of the Legal Health Record. Thank you in advance for your clarification. Last Revision, November [address] Ramirez [address] [facility] [place] [address] Documentation Clarification Form Date: 06/03/2017 2:28:00 PM From: Anh Kal Admit Date: 05/22/2017 11:57:00 AM Patient Name: Karri Parnell Visit Number: [id number] Discharge Date: 06/02/17 Dr. Kulwant Marshall/Darlyn Francis Noted CHF documented in Dr. Donahue's progress note 05/28 page 2 paragraph 2 and swelling in legs and feet, IV Lasix given on 05/27, 05/28, 05/29 & 06/01. . For clinical clarification, Can you do an addendum to the Discharge Summary indicating the underlying etiology for swelling and what was being treated with IV Lasix. CHF (diastolic/systolic) (acute/chronic/acute on chronic) (Postop CHF) Fluid overload Inherent to surgery Other specified FYI: Press F11 to launch patient chart. If you have a question about this query, please contact Allyssa Lyons, Legal Process Specialist, Viki Ramirez at [phone] between 8am and 5pm. AMIRA
== END 2017-06-02 15:00 | DRG 232 ==
LOC: EC 00:29 → 6SEL 04:37 → OBSVTOIN 05-22 11:57 → 6ICU 05-25 12:58 → 6SEL 05-28 17:47
PROVIDERS: ADMIT Thoracic Surgery (Cardiothoracic Vascular Surgery); ATTEND Thoracic Surgery (Cardiothoracic Vascular Surgery)
PROC: 4A023N7 Measurement of Cardiac Sampling and Pressure, Left Heart, Percutaneous Approach (ICD-10-PCS; 2017-05-22)
PROC: B211YZZ Fluoroscopy of Multiple Coronary Arteries using Other Contrast (ICD-10-PCS; 2017-05-22)
PROC: B44HZZZ Ultrasonography of Bilateral Lower Extremity Arteries (ICD-10-PCS; 2017-05-22)
PROC: 02703ZZ Dilation of Coronary Artery, One Artery, Percutaneous Approach (ICD-10-PCS; 2017-05-22 10:30)
PROC: 02100Z9 Bypass Coronary Artery, One Artery from Left Internal Mammary, Open Approach (ICD-10-PCS; 2017-05-25)
PROC: 06BP4ZZ Excision of Right Saphenous Vein, Percutaneous Endoscopic Approach (ICD-10-PCS; 2017-05-25)
PROC: 02583ZZ Destruction of Conduction Mechanism, Percutaneous Approach (ICD-10-PCS; 2017-05-25)
PROC: 02L70CK Occlusion of Left Atrial Appendage with Extraluminal Device, Open Approach (ICD-10-PCS; 2017-05-25)
PROC: B246ZZ4 Ultrasonography of Right and Left Heart, Transesophageal (ICD-10-PCS; 2017-05-25)
PROC: 30233L1 Transfusion of Nonautologous Fresh Plasma into Peripheral Vein, Percutaneous Approach (ICD-10-PCS; 2017-05-25)
PROC: 30233R1 Transfusion of Nonautologous Platelets into Peripheral Vein, Percutaneous Approach (ICD-10-PCS; 2017-05-25)
PROC: 0D9670Z Drainage of Stomach with Drainage Device, Via Natural or Artificial Opening (ICD-10-PCS; 2017-05-25)
PROC: 021009W Bypass Coronary Artery, One Artery from Aorta with Autologous Venous Tissue, Open Approach (ICD-10-PCS; principal; 2017-05-25 08:00)
PROC: 30233N1 Transfusion of Nonautologous Red Blood Cells into Peripheral Vein, Percutaneous Approach (ICD-10-PCS; 2017-05-26)
DX: I21.4 Non-ST elevation (NSTEMI) myocardial infarction (principal); I48.0 Paroxysmal atrial fibrillation; E44.1 Mild protein-calorie malnutrition; D75.82 Heparin induced thrombocytopenia (HIT); I08.3 Combined rheumatic disorders of mitral, aortic and tricuspid valves; E11.9 Type 2 diabetes mellitus without complications; D62 Acute posthemorrhagic anemia; J98.11 Atelectasis; I25.110 Atherosclerotic heart disease of native coronary artery with unstable angina pectoris; I10 Essential (primary) hypertension; I37.1 Nonrheumatic pulmonary valve insufficiency; M19.91 Primary osteoarthritis, unspecified site; N40.0 Benign prostatic hyperplasia without lower urinary tract symptoms; E78.5 Hyperlipidemia, unspecified; H91.92 Unspecified hearing loss, left ear; K59.09 Other constipation; M81.0 Age-related osteoporosis without current pathological fracture; H93.19 Tinnitus, unspecified ear; Z85.038 Personal history of other malignant neoplasm of large intestine; Z90.49 Acquired absence of other specified parts of digestive tract; Z86.711 Personal history of pulmonary embolism; Z86.718 Personal history of other venous thrombosis and embolism; Z79.01 Long term (current) use of anticoagulants; Z79.82 Long term (current) use of aspirin; Z79.899 Other long term (current) drug therapy; Z96.642 Presence of left artificial hip joint; Z88.8 Allergy status to other drugs, medicaments and biological substances; Z88.9 Allergy status to unspecified drugs, medicaments and biological substances; Z91.041 Radiographic dye allergy status; Z82.49 Family history of ischemic heart disease and other diseases of the circulatory system
CPT/HCPCS: 36415; 36620; 71010; 71020; 80048; 80053; 80061; 80074; 81003; 82330; 82550; 82553; 82805; 83036; 83735; 83880; 84132; 84443; 84484; 85025; 85027; 85610; 85730; 86850; 86891; 86900; 86901; 86920; 87070; 87086; 93005; 93306; 93458; 93923; 93970; 94002; 94003; 94150; 94640; 94760; 96360; 96361; 96375; 99285

== ENCOUNTER 2018-11-26 16:29 | Emergency (ER) | payer OTHER, MEDICARE ==
[2018-11-26] MEDS ORDERED: SODIUM CHLORIDE 0.9% 500 ML 500 ML IV STA (17:18)
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
[2018-11-26 18:10] LABS: Basophils # (A) 0.1 k/uL (0-0.2); Basophils % (A) 1 %; Eosinophils # (A) 0.4 k/uL (0-0.7); Eosinophils % (A) 5 %; HGB 14.3 gm/dL (13.0-17.5); Lymphocytes # (A) 1.4 k/uL (1.0-4.8); Lymphocytes % (A) 20 %; MCH 30.6 pg (25.0-35.0); MCHC 33.2 g/dL (31.0-37.0); MCV 92.1 fL (80.0-100.0); Mean Platelet Volume 7.1; Monocytes # (A) 0.4 k/uL (0-1.0); Monocytes % (A) 6 %; Neutrophils # (A) 4.8 k/uL (1.3-7.7); Neutrophils % (A) 67 %; Platelet Count 156 k/uL (150-450); RBC 4.67 m/uL (4.30-5.90); RDW 12.9 % (11.5-15.5); WBC 7.1 k/uL (3.8-10.6)
[2018-11-26 18:11] LABS: Appearance,Urine Clear (Clear); Bilirubin,Urine Negative (Negative); Blood,Urine Negative (Negative); Color,Urine Yellow; Glucose,Urine (UA) 4+ (Negative); Hyaline Casts,Urine 3 /lpf (0-2); Ketones,Urine Negative (Negative); Leukocyte Esterase,Urine Negative (Negative); Mucus,Urine Rare /hpf; Nitrite,Urine Negative (Negative); PH, Urine 5.5 (5.0-8.0); Protein,Urine 1+ (Negative); RBC,Urine <1 /hpf (0-5); Specific Gravity,Urine 1.012 (1.001-1.035); Urobilinogen,Urine <2.0 mg/dL (<2.0); WBC,Urine 1 /hpf (0-5)
[2018-11-26 18:13] LABS: Partial Thromboplastin Time 24.7 sec (22.0-30.0); Prothrombin Time 10.7 sec (9.0-12.0)
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
[2018-11-26 18:53] LABS: Albumin 3.6 g/dL (3.5-5.0); Potassium 4.4 mmol/L (3.5-5.1); Total Bilirubin 2.4 mg/dL (0.2-1.3); Total Protein 6.2 g/dL (6.3-8.2)
[2018-11-26] MEDS ORDERED: diphenhydrAMINE 50 MG/ML 1 ML VIAL IVP STA ×2 (18:57→19:43)
[2018-11-26] MEDS ORDERED: FAMOTIDINE 20 MG/2 ML VIAL IV STA (18:57)
[2018-11-26] MEDS ORDERED: methylPREDNISolone SOD SUCCI 125 MG/2 ML VIAL IV STA (18:57)
[2018-11-26] MEDS ORDERED: SODIUM CHLORIDE 0.9% 500 ML 500 ML IV ONE (19:21)
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
[2018-11-26] MEDS ORDERED: LABETALOL SYRINGE 5 MG/ML IVP STA (20:47)
[2018-11-26] MEDS ORDERED: ACET/COD 300 MG/30 MG STARTER PACK 6 TAB BTL PO STA (20:50)
[2018-11-26 21:41] VITALS: RESP 18
[2018-11-26 22:33] VITALS: BP 183/95; PULSE 63; TEMP 98.3
== END 2018-11-26 22:26 | disposition home or self-care (01) ==
LOC: EC 16:29
DX: S80.12XA Contusion of left lower leg, initial encounter (principal); M94.0 Chondrocostal junction syndrome [Tietze]; I48.91 Unspecified atrial fibrillation; I10 Essential (primary) hypertension; I25.2 Old myocardial infarction; M19.90 Unspecified osteoarthritis, unspecified site; Z85.038 Personal history of other malignant neoplasm of large intestine; Z86.718 Personal history of other venous thrombosis and embolism; Z86.711 Personal history of pulmonary embolism; Z95.818 Presence of other cardiac implants and grafts; Z96.642 Presence of left artificial hip joint; Z79.899 Other long term (current) drug therapy; Z91.041 Radiographic dye allergy status; Z88.8 Allergy status to other drugs, medicaments and biological substances; Z91.048 Other nonmedicinal substance allergy status; V43.52XA Car driver injured in collision with other type car in traffic accident, initial encounter; Y92.410 Unspecified street and highway as the place of occurrence of the external cause
CPT/HCPCS: 36415; 93005; 80053; 84484; 85025; 85610; 85730; 81001; 73590; 71045; 70450; 71260; 74177; 99285; 96374; 96375 ×3; 96376; 96361 ×5; J1200; J2930; Q9967

== ENCOUNTER → 2021-01-29 | Outpatient (CLI) | payer MEDICARE ==
--- NOTE | 2021-01-29 16:08 | US ---
EXAMINATION TYPE: US duplex aorta DATE OF EXAM: 01/29/2021 COMPARISON: CT 11/26/18 CLINICAL HISTORY: I71.4 Abdominal aortic aneurysm, without rupture. EXAM MEASUREMENTS: Abdominal Aorta: Proximal: 2.5 x 2.1 cm Mid: 2.3 x 2.1 cm Distal: 1.8 x 1.7 cm Bifurcation: 1.4 x 1.2 cm 1.3 x 1.0 cm No evidence of AAA IMPRESSION: 1. No evidence of abdominal aortic aneurysm.
== END | disposition home or self-care (01) ==
LOC: RADUSWWP 09:16
PROVIDERS: ATTEND Family Medicine
DX: I71.4 Abdominal aortic aneurysm, without rupture (principal)
CPT/HCPCS: 93979